=== PATIENT | male | born 1935 | race Caucasian/White ===

== ENCOUNTER 2018-01-17 21:04 | Inpatient (IN) | payer MEDICARE, OTHER ==
[2018-01-17] MEDS ORDERED: Nitroglycerin 2% Ointment 1 INCH/1 GM Packet ONE (21:39)
[2018-01-17 23:04] LABS: Troponin I 0.162 ng/mL (< 0.028)
[2018-01-18 01:20] VITALS: BMI 24.6
[2018-01-18 01:40] LABS: Troponin I 0.195 ng/mL (< 0.028)
[2018-01-18] MEDS ORDERED: Dextrose 50% Abboject 50 ML SYRINGE SLOW IVP PRN (03:07)
[2018-01-18] MEDS ORDERED: Dextrose 5% in Water 1,000 ML IV PRN (03:07)
[2018-01-18] MEDS ORDERED: Insulin Regular 300 UNITS/3 ML VIAL SC PRN (03:07)
[2018-01-18] MEDS ORDERED: Nitroglycerin 0.4 MG TAB (25 Tab Bottle) PO PRN (03:07)
[2018-01-18] MEDS ORDERED: Ondansetron ODT 4 MG TAB PO PRN (03:09)
[2018-01-18] MEDS ORDERED: Acetaminophen 325 MG TAB PO PRN (03:09)
[2018-01-18] MEDS ORDERED: Ondansetron HCl/PF 4 MG/2 ML Vial IVP PRN (03:09)
[2018-01-18] MEDS ORDERED: Senokot 8.6 MG TAB PO PRN (03:09)
[2018-01-18] MEDS ORDERED: Calcium Carbonate 500 MG ChewTAB PO PRN (03:09)
[2018-01-18] MEDS ORDERED: hydrALAZINE 20 MG/ML VIAL SLOW IVP PRN (03:11)
--- NOTE | 2018-01-18 03:36 | HP ---
DATE OF ADMISSION: 01/17/2018 The patient was seen and examined on 01/17/2018. PRIMARY CARE PHYSICIAN: Dr. Lazo. PRIMARY TWISTER TENDER PAPER: Dr. Salvador. CHIEF COMPLAINT: Chest discomfort. HISTORY OF PRESENT ILLNESS: Patient is an 82-year-old white male with coronary artery disease, statu s post CABG x4 in the year 1999, presented to the emergency room with chest discomfort. He initially presented to [facility] and was transferred to this facility. The chest discomfort started this afternoon, which was mild, mainly associated with shortness of yimi th, malaise, lightheadedness, and diaphoresis. He denies any nausea, vomiting, syncope, palpitations . No recent immobilization or travel reported. He is compliant with all of his medications. He als o noticed some bilateral lower extremity edema on and off that has improved today. PAST MEDICAL HISTORY: 1. Coronary artery disease, status post CABG x4 in 1999. 2. Hypertension. 3. Diabetes mellitus type 2. 4. Dyslipidemia. 5. Hypertension. 6. Degenerative joint disease. 7. Gastroesophageal reflux disease. 8. Peripheral vascular disease. 9. Chronic kidney disease stage 3. 10. Allergic rhinitis. 11. History of bradycardia secondary to beta blockers, requiring hospital admission in 2007. PAST SURGICAL HISTORY: 1. Coronary artery bypass grafting 4-vessel in the year 1999. 2. Cholecystectomy. 3. EGD. 4. Back surgery. 5. Carpal tunnel surgery. 6. Colonoscopy. ALLERGIES: No known drug allergies. CURRENT HOME MEDICATIONS: Aspirin 81 mg daily, Lipitor 40 mg at bedtime, folic acid daily, gabapenti n 300 mg b.i.d, Lantus insulin 5 units daily per PCP's office record. SOCIAL HISTORY: Patient currently lives at home. He is a retired truck mechanic. No alcohol, tobacco , or drug use. He is . He is FULL CODE, makes his own decision with the help of his family. FAMILY HISTORY: Heart disease and hypertension runs in his family. PHYSICAL EXAMINATION: VITAL SIGNS: Temperature 97.9, pulse rate of 57, blood pressure 161/84, respirations 20 with O2 satu ration 94% on room air. His blood pressure at [facility] was 168/104. GENERAL: An 82-year-old male, in no apparent distress. HEENT: Atraumatic, normocephalic. Sclerae are anicteric. Moist mucous membranes. No oral lesion. NECK: Supple, no JVD appreciated. No carotid bruit. LUNGS: Clear to auscultation bilaterally. No wheezing, rales, or rhonchi. HEART: S1, S2 present. Regular rate and rhythm. Healed midline scar from previous CABG, 2/6 systol ic murmur over the mitral area. ABDOMEN: Soft, nontender, bowel sounds present. No rebound or guarding. EXTREMITIES: No edema or calf tenderness. NEUROLOGIC: Grossly nonfocal, moves all four extremities. PSYCHIATRY: Alert, awake, oriented x3. SKIN: Warm and dry. LYMPH NODES: No palpable lymph nodes in the neck. PERIPHERAL VASCULAR: Radial pulses palpable bilaterally. MUSCULOSKELETAL: No joint swelling or tenderness. LABORATORY FINDINGS: EKG by my review showed sinus rhythm with left axis deviation. QRS interval wa s 128 milliseconds. Troponin at [facility] was 0.17. BNP was 852. Chemistries showed sodium o f 140, potassium 4, chloride of 104, bicarb 24, BUN 18, creatinine 1.4, glucose of 200, bilirubin 1.5 , alkaline phosphatase 58, AST 21, ALT 13. CBC showed WBC 6.8 with hemoglobin 13.8, hematocrit 42.8, MCV of 84.3, platelet 166. Chest x-ray at [facility] was negative for acute findings. Repeat troponin at this facility was 0.195. IMPRESSION: 1. Chest discomfort, rule out acute coronary syndrome. 2. Elevated BNP with shortness of breath, suspected congestive heart failure. 3. Diabetes mellitus type 2. 4. Hypertension, uncontrolled on ER arrival. 5. Hyperlipidemia. 6. Coronary artery disease, status post coronary artery bypass graft 4-vessel in the year 1999. 7. Gastroesophageal reflux disease. 8. Peripheral vascular disease. 9. Chronic kidney disease stage 3. 10. History of bradycardia secondary to beta blockers requiring hospital admission in 2007. 11. Elevated troponin, probably secondary to demand ischemia. PLAN: The patient will be monitored on the telemetry unit. Gentle diuretics will be initiated. Ech ocardiogram will be obtained. We will keep him n.p.o. past midnight. We will consult Cardiology, Dr Ammon Salvador. We will resume his home medications including aspirin, statin, gabapentin. Insulin sliding scale. Plan of care was discussed with the patient. He stated understanding.
[2018-01-18 05:27] LABS: ALT (SGPT) 8 U/L (8-55); AST (SGOT) 17 U/L (5-34); Albumin 3.8 g/dL (3.4-4.8); Alkaline Phosphatase 47 U/L (40-150); Anion Gap 12 mmol/L (10-20); BUN (Urea Nitrogen) 18 mg/dL (8.4-25.7); Bilirubin, Total 1.3 mg/dL (0.2-1.2); Calc. Creatinine Clearance 48 mL/min (70-130); Calcium 8.8 mg/dL (7.8-10.44); Carbon Dioxide 25 mmol/L (23-31); Chloride 104 mmol/L (98-107); Estimated GFR-MDRD 51; Globulin 2.4 g/dL (2.4-3.5); Glucose 171 mg/dL (83-110); Magnesium 1.9 mg/dL (1.6-2.6); Phosphorus 2.4 mg/dL (2.3-4.7); Potassium 3.7 mmol/L (3.5-5.1); Protein, Total 6.2 g/dL (5.8-8.1); Sodium 137 mmol/L (136-145)
[2018-01-18] MEDS ORDERED: Furosemide 20 MG TAB PO SCH (06:00)
[2018-01-18] MEDS: Gabapentin 300 MG CAP PO SCH ×2 (09:18→21:28)
[2018-01-18] MEDS: Aspirin 81 mg Enteric Coated Tablet PO SCH (09:18)
--- NOTE | 2018-01-18 13:56 | PDOC.PN ---
- Subjective Encounter Start Date: 01/18/18 Encounter Start Time: 13:54 Pt seen for followup re: unstable angina. Reports on and off chest pain, no nausea or vomiting. No fevers or chills. - Objective MAR Reviewed: Yes Result Diagrams: 01/18/18 04:16 EKG Reviewed by me: Yes (Tele: NSR) Phys Exam - Physical Examination Constitutional: NAD HEENT: PERRLA, moist MMs, sclera anicteric, oral pharynx no lesions Neck: no nodes, no JVD, supple, full ROM Respiratory: no wheezing, no rales, no rhonchi, clear to auscultation bilateral Cardiovascular: RRR, no rub Gastrointestinal: soft, non-tender, no distention, positive bowel sounds Musculoskeletal: no edema, pulses present Neurological: moves all 4 limbs Psychiatric: normal affect, A&O x 3 Skin: no rash Dx/Plan (1) Unstable angina Status: Acute Comment: Appreciate cardiology service input, pt for cath on Saturday (2) HTN (hypertension) Code(s): I10 - ESSENTIAL (PRIMARY) HYPERTENSION Status: Chronic Comment: Monitor vital signs, titrate antihypertensives as needed (3) DM2 (diabetes mellitus, type 2) Status: Chronic Comment: continue accuchecks, insulin sliding scale (4) Dyslipidemia Code(s): E78.5 - HYPERLIPIDEMIA, UNSPECIFIED Status: Chronic Comment: continue statin (5) CKD stage 3 due to type 1 diabetes mellitus Code(s): E10.22 - TYPE 1 DIABETES MELLITUS W DIABETIC CHRONIC KIDNEY DISEASE; N18.3 - CHRONIC KIDNEY DISEASE, STAGE 3 (MODERATE) Status: Chronic Comment: stable (6) PVD (peripheral vascular disease) Code(s): I73.9 - PERIPHERAL VASCULAR DISEASE, UNSPECIFIED Status: Chronic Comment: stable (7) DJD (degenerative joint disease) Code(s): M19.90 - UNSPECIFIED OSTEOARTHRITIS, UNSPECIFIED SITE Status: Chronic Comment: stable (8) GERD (gastroesophageal reflux disease) Code(s): K21.9 - GASTRO-ESOPHAGEAL REFLUX DISEASE WITHOUT ESOPHAGITIS Status: Chronic Comment: stable - Plan DVT proph w/heparin * . Pt with unstable angina, needs cath (on Saturday), high risk of adverse cardiac event including if discharged without adequate workup, change status to inpatient. Review of Systems - Review of Systems Constitutional: negative: fever, chills, sweats, weakness, malaise Respiratory: Shortness of Breath. negative: Cough, Hemoptysis, SOB with Excertion, Pleuritic Pain, Wheezing Cardiovascular: chest pain, light headedness. negative: palpitations, orthopnea , paroxysmal nocturnal dyspnea, edema Gastrointestinal: negative: Nausea, Vomiting, Abdominal Pain, Diarrhea, Constipation, Melena, Hematochezia Skin: negative: Rash, Lesions, Enrique, Bruising - Medications/Allergies Allergies/Adverse Reactions: Allergies Allergy/AdvReac Type Severity Reaction Status Date / Time No Known Allergies Allergy Verified 01/17/18 23:28 Medications: Current Medications Acetaminophen (Tylenol) 650 mg PO Q4H PRN PRN Reason: Headache/Fever or Pain Aspirin (Ecotrin) 81 mg PO DAILY [facility] Last Admin: 01/18/18 09:18 Dose: 81 mg Atorvastatin Calcium (Lipitor) 40 mg PO HS [facility] Calcium Carbonate (Tums) 1,000 mg PO Q4H PRN PRN Reason: Heartburn or Indigestion Dextrose/Water (Dextrose 50%) 25 gm SLOW IVP PRN PRN PRN Reason: Hypoglycemia Gabapentin (Neurontin) 300 mg PO BID [facility] Last Admin: 01/18/18 09:18 Dose: 300 mg Glucagon (Glucagon) 1 mg IM PRN PRN PRN Reason: Hypoglycemia Hydralazine HCl (Apresoline) 10 mg SLOW IVP Q4H PRN PRN Reason: SBP Greater Than 180 Dextrose/Water (D5w) 1,000 mls @ 0 mls/hr IV .Q0M PRN; As Directed PRN Reason: Hypoglycemia Insulin Human Regular (Humulin R) 0 units SC .MILD SLIDING SCALE PRN PRN Reason: Mild Correctional Scale Insulin Human Regular (Humulin R) 0 units SC .BEDTIME SLIDING SC PRN PRN Reason: Bedtime Correctional Scale Miscellaneous Information (Communication Order-Pharmacy) 0 each .CATH SATURDAY [facility] Stop: 01/20/18 15:00 Nitroglycerin (Nitrostat) 0.4 mg PO Q5MIN PRN PRN Reason: Chest Pain Ondansetron HCl (Zofran Odt) 4 mg PO Q6H PRN PRN Reason: Nausea/Vomiting Ondansetron HCl (Zofran) 4 mg IVP Q6H PRN PRN Reason: Nausea/Vomiting Senna (Senokot) 2 tab PO HSPRN PRN PRN Reason: Constipation Sodium Chloride (Flush - Normal Saline) 10 ml IVF PRN PRN PRN Reason: Saline Flush
--- NOTE | 2018-01-18 15:25 | ULT ---
CAROTID DUPLEX SONOGRAM: Date: 01/18/18 HISTORY: Carotid bruits. Vascular disease. FINDINGS: RIGHT: Moderate plaque. Color and spectral Doppler evaluation, peak systolic velocity of 88 cm/second, and I CA/CCA ratio of 1.4 suggests no hemodynamically significant stenosis within the extracranial right IC A. Antegrade flow is present within the vertebral artery. LEFT: Moderate plaque. Color and spectral Doppler evaluation, peak systolic velocity of 74 cm/second, and I CA/CCA ratio of 0.8 suggests no hemodynamically significant stenosis within the extracranial left ICA . Antegrade flow is present within the vertebral artery. IMPRESSION: Atherosclerosis. There is no sonographic evidence of significant extracranial ICA stenosis. POS: YUAN
[2018-01-18] MEDS: Heparin 5,000 UNITS/ML VIAL SC SCH ×2 (15:37→21:28)
--- NOTE | 2018-01-18 17:13 | CON ---
DATE OF CONSULTATION: 01/18/2018 DATE OF ADMISSION: 01/17/2018 INDICATION FOR CONSULTATION: An 82-year-old patient with known coronary artery disease, status post bypass surgery in 1999 who underwent repeat cardiac catheterization in 2003. He has not had a cardia c catheterization since that time. He did have stress testing in 2016, which showed some indication of possible ischemia. It was felt best to continue conservative management at that time unless he be came symptomatic. His bypass surgery in 1999 included a saphenous vein graft to the diagonal branch and he had a saphenous vein graft to the distal second obtuse marginal branch and also a radial branc h which was piggybacked off this graft to the left anterior descending artery. He has done reasonabl y well considering his bypass surgery was in 1999. His last cardiac catheterization was in 2003. He has developed chest discomfort and has been short of breath for about a month. He said that yesterd ay the chest pain was in the lower retrosternal area, then radiated to the neck area. It occurred wh ile he was at work at rest. He has not taken any medications. He went to the Emergency Room and was then transferred to our facility. According to him, he did not receive any medicines in the emergen cy room in [place], uncertain whether or not something may have been given by the time he arrived her e, he only had minimal pain and now he has no pain. His cardiac enzymes were indeterminate with trop onin I of 0.162 which increased up to 0.195; this is now back down to 0.180. There were no MVs that I can find. Otherwise, EKG was relatively unremarkable. He has a nonspecific interventricular condu ction abnormality, but no ST segment changes were noted. His BNP was slightly elevated at 854. He d id have short runs of supraventricular tachycardia, but apparently was asymptomatic. At this time, scotty bai remains stable and he will undergo further evaluation by cardiac catheterization most likely on Sat. His last ejection fraction was about 32% by stress testing in 07/2017. At the time of the stre ss test in 2016, he did have a small area of apical ischemia and moderate size area of septal ischemi a and inferior scar was present with colin-infarct ischemia. Ejection fraction was 32%. PAST MEDICAL HISTORY: Significant for coronary artery disease, bypass surgery, history of hypertensi on, hypercholesterolemia, and gastroesophageal reflux disease. He had lumbar surgery, he had tonsill ectomy. He has hyperlipidemia. He has had a cardiomyopathy with decreased ejection fraction, chroni c kidney disease. Type 2 diabetes and history of arrhythmias in the past. ALLERGIES: None. MEDICATIONS PRIOR TO ADMISSION: Included atorvastatin 40 mg a day, Januvia 25 mg daily, vitamin D3, vitamin B12, glipizide ER 10 mg extended release 24 hours, gabapentin 300 mg 2 tablets 3 times a day, niacin 500 mg 2 tablets b.i.d., folic acid 1 mg daily, aspirin 81 mg a day, Tricor 145 mg a day, and sertraline 25 mg daily. REVIEW OF SYSTEMS: Twelve point review of systems unremarkable. He denied any new HEENT complaints, visual changes, hearing loss, or tinnitus. He had no significant pulmonary complaints except for th e shortness of breath. He denies any asthma or emphysema. He did smoke for about 50 years and stopp ed smoking at the time of his bypass surgery. Gastrointestinal: He denies any nausea, vomiting or d iarrhea. Genitourinary: No complaints such as dysuria, polyuria, or hematuria. Musculoskeletal: He thought his legs were swollen, but he has no edema that we could ascertain. Otherwise, he denie s any claudication type symptoms. Neurologically, no history of seizures or syncope. PHYSICAL EXAMINATION: GENERAL: Reveals a well-developed, well-nourished, elderly gentleman who is in no acute distress at this time. He is alert and oriented. VITAL SIGNS: Blood pressure was 147/77, heart rate is 56 and regular, respiratory rate 16. He is af ebrile. O2 saturation 94%. HEENT: Reveals the head to be normocephalic and atraumatic. He has bilateral carotid bruits, left m ore than the right. CHEST: Clear to auscultation, somewhat decreased breath sounds at the bases, but no rales, rhonchi o r wheezing were noted. CARDIOVASCULAR: Exam reveals a regular rate and rhythm with normal S1, S2. There were no significan t murmurs, heaves, thrills, bruits or rubs. He does have a systolic murmur at the apex compatible wi th most likely mitral valve regurgitation. ABDOMEN: Soft and nontender with positive bowel sounds. No organomegaly or masses were noted. He h as well-healed midline surgical incision after median sternotomy. EXTREMITIES: Femoral pulses are present. He has bilateral femoral bruits. He has popliteal pulses which are present. The left is somewhat decreased. Pedal pulses are present, somewhat diminished, b ut are present. NEUROLOGIC: The patient appears to be fully intact. He has normal strength and tone. IMAGING: EKG shows as noted above a nonspecific interventricular conduction abnormality, but no ST s egment changes to indicate ischemia. LABORATORY DATA: As noted above. His creatinine also was 1.33. Sodium is 137. He did have an LDL level which was back in 11/2017 which showed an LDL level of 152. We will need to ensure that he is taking Lipitor or some other medication of statin for his cholesterol. He did have carotid study in 2013. This may need to be repeated for evaluation to determine whether or not his carotid stenosis h as increased or we may consider doing a carotid arteriograms at the time of his cardiac catheterizati on on Saturday to determine this extent of his carotid artery stenosis. We would be more than happy to continue to follow the patient with you throughout his course, we will plan for cardiac catheterizat ion on Saturday and I have already discussed this with the patient. In the meantime, we will continue his medications with beta blockers, SUNIL inhibitors and statin medications and nitroglycerin as needed . IMPRESSION: 1. Unstable angina with history of coronary artery disease and bypass surgery with an abnormal stres s test in 08/2017. We will plan for cardiac catheterization on Saturday. I have explained the procedu re and the risks to the patient include bleeding, infection, possibly a myocardial infarction, cerebr ovascular accident, renal insufficiency, allergic contrast reaction and possibly of . He unders tands and agrees to proceed. 2. History of diabetes. This will be dealt with by the primary care service. His blood sugar is so mewhat elevated today at 171. He is on insulin on a sliding scale. His hemoglobin A1c is also incre ased in the office, he has not been taking very good control of his diabetes. 3. Hypercholesterolemia. His cholesterol level recently was elevated and I am uncertain whether or not he was taking his medications, he was supposed to be on Lipitor. We will see whether or not he w ill continue taking his medications. If he is unable to tolerate Lipitor, we may try another medicat ion or he may need to go onto the inhibitors to decrease low risk cholesterol. 4. History of hypertension. This is under good control at this time. 5. History of tobacco abuse. He has not smoked for almost 20 years since his bypass surgery. 6. Peripheral vascular disease. He obviously has carotid artery disease. He may need to undergo a Doppler study either by carotid arteriograms at the time of his cardiac catheterization on Saturday. 7. Diabetic neuropathy. He will continue taking gabapentin. We will continue to follow the patient . We will obtain a repeat cholesterol level on this patient.
[2018-01-18] MEDS ORDERED: INSULIN GLARGINE HUM REC ANLOG 5 UNIT SQ SCH (21:00)
[2018-01-18] MEDS ORDERED: [UNRECOGNIZED DRUG - OTHER] SQ SCH (21:00)
[2018-01-18] MEDS: Atorvastatin Calcium 40 MG TAB PO SCH (21:28)
[2018-01-18] MEDS: Insulin Detemir 100 UNITS/ML 5 UNITS in Pre-Filled Syringe 1 EACH SC SCH (21:28)
[2018-01-19 05:51] LABS: Cardiac Risk 3.9 (Less than 4.5)
[2018-01-19] MEDS: Gabapentin 300 MG CAP PO SCH ×2 (11:00→22:03)
[2018-01-19] MEDS: Niacin 500 MG TAB PO SCH (11:00)
[2018-01-19] MEDS: Fenofibrate Nanocrystallized 145 MG TAB PO SCH (11:00)
[2018-01-19] MEDS: Aspirin 81 mg Enteric Coated Tablet PO SCH (11:00)
[2018-01-19] MEDS: Folic Acid 1 MG TAB PO SCH (11:01)
[2018-01-19] MEDS: Heparin 5,000 UNITS/ML VIAL SC SCH ×3 (11:01→22:03)
--- NOTE | 2018-01-19 12:44 | PDOC.PN ---
- Subjective Encounter Start Date: 01/19/18 Encounter Start Time: 12:43 Pt seen for followup re: unstable angina. reports feeling better. had some chest pain overnight. No nausea or vomiting. - Objective Vital Signs & Weight: Vital Signs (12 hours) Temp Pulse Resp BP BP Pulse Ox 01/19/18 08:00 97.7 F 60 18 152/82 H 95 01/19/18 04:02 98.0 F 62 18 158/84 H 95 01/19/18 00:58 98.1 F 56 L 17 167/81 H 94 L I&O: 01/18/18 01/19/18 01/20/18 06:59 06:59 06:59 Intake Total 730 360 Output Total 800 Balance -70 360 Result Diagrams: 01/18/18 04:16 Additional Labs: Accuchecks 01/19/18 01/19/18 01/18/18 11:13 05:55 20:15 POC Glucose 140 H 150 H 222 H 01/18/18 16:11 POC Glucose 143 H Phys Exam - Physical Examination Constitutional: NAD HEENT: PERRLA, moist MMs, sclera anicteric, oral pharynx no lesions Neck: no nodes, no JVD, supple, full ROM Respiratory: no wheezing, no rales, no rhonchi, clear to auscultation bilateral Cardiovascular: RRR, no rub Gastrointestinal: soft, non-tender, no distention, positive bowel sounds Musculoskeletal: pulses present Neurological: moves all 4 limbs Psychiatric: normal affect Skin: no rash Dx/Plan (1) Unstable angina Status: Acute Comment: For cath tomorrow (2) HTN (hypertension) Code(s): I10 - ESSENTIAL (PRIMARY) HYPERTENSION Status: Chronic Comment: titrate antihypertensives as needed (3) DM2 (diabetes mellitus, type 2) Status: Chronic Comment: On accuchecks, insulin sliding scale (4) Dyslipidemia Code(s): E78.5 - HYPERLIPIDEMIA, UNSPECIFIED Status: Chronic Comment: On statin (5) CKD stage 3 due to type 1 diabetes mellitus Code(s): E10.22 - TYPE 1 DIABETES MELLITUS W DIABETIC CHRONIC KIDNEY DISEASE; N18.3 - CHRONIC KIDNEY DISEASE, STAGE 3 (MODERATE) Status: Chronic Comment: stable (6) PVD (peripheral vascular disease) Code(s): I73.9 - PERIPHERAL VASCULAR DISEASE, UNSPECIFIED Status: Chronic Comment: stable (7) DJD (degenerative joint disease) Code(s): M19.90 - UNSPECIFIED OSTEOARTHRITIS, UNSPECIFIED SITE Status: Chronic Comment: stable (8) GERD (gastroesophageal reflux disease) Code(s): K21.9 - GASTRO-ESOPHAGEAL REFLUX DISEASE WITHOUT ESOPHAGITIS Status: Chronic Comment: stable - Plan * . Review of Systems - Review of Systems Constitutional: negative: fever, chills, sweats, weakness, malaise Respiratory: negative: Cough, Shortness of Breath, Hemoptysis, Pleuritic Pain, Wheezing Cardiovascular: chest pain. negative: palpitations, orthopnea, paroxysmal nocturnal dyspnea, edema, light headedness Gastrointestinal: negative: Nausea, Vomiting, Abdominal Pain, Diarrhea, Constipation, Melena, Hematochezia Genitourinary: negative: Dysuria, Frequency, Incontinence, Hematuria, Retention Skin: negative: Rash, Lesions, Enrique, Bruising - Medications/Allergies Allergies/Adverse Reactions: Allergies Allergy/AdvReac Type Severity Reaction Status Date / Time No Known Allergies Allergy Verified 01/17/18 23:28 Medications: Current Medications Acetaminophen (Tylenol) 650 mg PO Q4H PRN PRN Reason: Headache/Fever or Pain Aspirin (Ecotrin) 81 mg PO DAILY [facility] Last Admin: 01/19/18 11:00 Dose: 81 mg Atorvastatin Calcium (Lipitor) 40 mg PO HS [facility] Last Admin: 01/18/18 21:28 Dose: 40 mg Calcium Carbonate (Tums) 1,000 mg PO Q4H PRN PRN Reason: Heartburn or Indigestion Dextrose/Water (Dextrose 50%) 25 gm SLOW IVP PRN PRN PRN Reason: Hypoglycemia Fenofibrate (Tricor) 145 mg PO DAILY [facility] Last Admin: 01/19/18 11:00 Dose: 145 mg Folic Acid (Folvite) 1 mg PO DAILY [facility] Last Admin: 01/19/18 11:01 Dose: 1 mg Gabapentin (Neurontin) 300 mg PO BID [facility] Last Admin: 01/19/18 11:00 Dose: 300 mg Glucagon (Glucagon) 1 mg IM PRN PRN PRN Reason: Hypoglycemia Heparin Sodium (Porcine) (Heparin) 5,000 units SC TID [facility] Last Admin: 01/19/18 11:01 Dose: 5,000 units Hydralazine HCl (Apresoline) 10 mg SLOW IVP Q4H PRN PRN Reason: SBP Greater Than 180 Dextrose/Water (D5w) 1,000 mls @ 0 mls/hr IV .Q0M PRN; As Directed PRN Reason: Hypoglycemia Insulin Detemir 5 units/ (Miscellaneous Medication) 0.05 mls @ 0 mls/hr SC HS [facility] Last Admin: 01/18/18 21:28 Dose: 0.05 mls Insulin Human Regular (Humulin R) 0 units SC .MILD SLIDING SCALE PRN PRN Reason: Mild Correctional Scale Insulin Human Regular (Humulin R) 0 units SC .BEDTIME SLIDING SC PRN PRN Reason: Bedtime Correctional Scale Miscellaneous Information (Communication Order-Pharmacy) 0 each .CATH SATURDAY [facility] Stop: 01/20/18 15:00 Niacin (Niacin) 500 mg PO DAILY [facility] Last Admin: 01/19/18 11:00 Dose: 500 mg Nitroglycerin (Nitrostat) 0.4 mg PO Q5MIN PRN PRN Reason: Chest Pain Ondansetron HCl (Zofran Odt) 4 mg PO Q6H PRN PRN Reason: Nausea/Vomiting Ondansetron HCl (Zofran) 4 mg IVP Q6H PRN PRN Reason: Nausea/Vomiting Senna (Senokot) 2 tab PO HSPRN PRN PRN Reason: Constipation Sertraline HCl (Zoloft) 25 mg PO DAILY [facility] Last Admin: 01/19/18 11:01 Dose: 25 mg Sodium Chloride (Flush - Normal Saline) 10 ml IVF PRN PRN PRN Reason: Saline Flush
--- NOTE | 2018-01-19 14:45 | PDOC.CTH ---
<Sravanthi Valdez - Last Filed: 01/19/18 14:42> Cardiology Progress Note - Subjective The pt seen and examined. No overnight events. No cardiac complaints. He walked around the unit twice today without any cardiac complaints. 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 - Labs Result Diagrams: 01/18/18 04:16 Troponin/CKMB Troponin I 0.180 ng/mL (< 0.028) H 01/18/18 04:16 - Assessment/Plan 1. 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 Start Coreg 3.125mg BID from [employer]. Cardiac cath on 01/20/18. 2. HTN - start Coreg 3.125mg BID; cont. to monitor 3. Hyperlipidemia - on Niacin and Lipitor; LDL on 01/19/18 was 55. 4. CKD stage 3 - stable; cont. monitor 5. DM type 2 - managed by pcp 6. GERD - stable MAR reviewed * Plan for cardiac cath on 01/20/[address] Salvador already discussed with the pt about the procedure and the risk of the procedure. He does not have any questions about the procedure and the risk of cardiac cath at this moment. Review of Systems - Review of Systems Constitutional: reports: no symptoms reported EENTM: reports: no symptoms reported Respiratory: reports: no symptoms reported Cardiac (ROS): reports: no symptoms reported ABD/GI: reports: no symptoms reported : reports: no symptoms reported Musculoskeletal: reports: no symptoms reported <Christ Salvador - Last Filed: 01/19/18 19:36> Cardiology Progress Note - Objective Vital Signs Temp Pulse Resp BP Pulse Ox 01/19/18 16:00 98.3 F 66 22 H 149/72 H 94 L 01/19/18 12:00 98.1 F 62 18 148/78 H 95 01/19/18 08:00 97.7 F 60 18 152/82 H 95 01/18/18 01/19/18 01/20/18 06:59 06:59 06:59 Intake Total 730 1080 Output Total 800 Balance -70 1080 - Labs Result Diagrams: 01/18/18 04:16 Troponin/CKMB Troponin I 0.180 ng/mL (< 0.028) H 01/18/18 04:16 - Assessment/Plan Pt. seen and eval. by me. He denies any new complaints today. No chest pain. RRR. Few basilar rales. I agree with the A/P by the BAROMETERS CALIBRATOR. Plan for cath tomorrow.
[2018-01-19] MEDS: Carvedilol 3.125 MG TAB PO SCH (18:37)
[2018-01-19] MEDS: Insulin Detemir 100 UNITS/ML 5 UNITS in Pre-Filled Syringe 1 EACH SC SCH (22:03)
[2018-01-19] MEDS: Atorvastatin Calcium 40 MG TAB PO SCH (22:03)
[2018-01-20] MEDS: Fenofibrate Nanocrystallized 145 MG TAB PO SCH (04:59)
[2018-01-20] MEDS: Niacin 500 MG TAB PO SCH (05:00)
[2018-01-20] MEDS: Aspirin 81 mg Enteric Coated Tablet PO SCH (05:00)
[2018-01-20] MEDS: Carvedilol 3.125 MG TAB PO SCH ×2 (05:00→23:29)
[2018-01-20] MEDS: Gabapentin 300 MG CAP PO SCH ×2 (05:00→21:17)
[2018-01-20] MEDS: Folic Acid 1 MG TAB PO SCH (05:00)
[2018-01-20] MEDS: Heparin 5,000 UNITS/ML VIAL SC SCH ×3 (09:43→21:17)
--- NOTE | 2018-01-20 13:59 | PDOC.CTH ---
<Sravanthi Valdez - Last Filed: 01/20/18 13:56> Cardiology Progress Note - Subjective The pt seen and examined. No overnight events. No cardiac complaints. - Objective Vital Signs Temp Pulse Resp BP Pulse Ox 01/20/18 11:00 97.8 F 52 L 16 122/58 L 97 01/20/18 08:00 97.8 F 52 L 16 95 01/20/18 07:35 96.1 F L 50 L 18 118/60 95 01/20/18 05:37 94 L 01/20/18 04:00 97.5 F L 52 L 18 134/63 01/19/18 01/20/18 01/21/18 06:59 06:59 06:59 Intake Total 730 1190 Output Total 800 775 Balance -70 415 - Physical Examination General/Neuro: alert & oriented x3 Neck: no JVD present Lungs: CTA Heart: RRR Abdomen: soft Extremities: other: (No edema) - Telemetry Telemetry Rhythm: SB 48-50s - Labs Result Diagrams: 01/18/18 04:16 Troponin/CKMB Troponin I 0.180 ng/mL (< 0.028) H 01/18/18 04:16 - Assessment/Plan 1. 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 Start Coreg 3.125mg BID from tonight. Cardiac cath on 01/20/18. 2. HTN - stable; cont. to monitor 3. Hyperlipidemia - on Niacin and Lipitor; LDL on 01/19/18 was 55. 4. CKD stage 3 - stable; cont. monitor 5. DM type 2 - managed by pcp 6. GERD - stable MAR reviewed * Plan for cardiac cath on 01/21/[address] Salvdaor already discussed with the pt about the procedure and the risk of the procedure. He does not have any questions about the procedure and the risk of cardiac cath at this moment. Review of Systems - Review of Systems Constitutional: reports: no symptoms reported EENTM: reports: no symptoms reported Respiratory: reports: no symptoms reported Cardiac (ROS): reports: no symptoms reported ABD/GI: reports: no symptoms reported : reports: no symptoms reported <Christ Salvador - Last Filed: 01/20/18 17:45> Cardiology Progress Note - Objective Vital Signs Temp Pulse Resp BP Pulse Ox 01/20/18 16:00 97.9 F 50 L 16 137/65 97 01/20/18 11:00 97.8 F 52 L 16 122/58 L 97 01/20/18 08:00 97.8 F 52 L 16 95 01/20/18 07:35 96.1 F L 50 L 18 118/60 95 01/19/18 01/20/18 01/21/18 06:59 06:59 06:59 Intake Total 730 1190 Output Total 800 775 Balance -70 415 - Labs Result Diagrams: 01/18/18 04:16 Troponin/CKMB Troponin I 0.180 ng/mL (< 0.028) H 01/18/18 04:16 - Assessment/Plan Pt seen and eval. by me. i agree with the a/P by the COMMUNITY OUTREACH COORDINATOR. Plan for cath tomorrow AM.
--- NOTE | 2018-01-20 15:25 | PDOC.PN ---
- Subjective Encounter Start Date: 01/20/18 Encounter Start Time: 15:23 Pt seen for followup re: unstable angina. Denies chest pain, shortness of breath, fevers or chills. No nausea or vomiting. - Objective MAR Reviewed: Yes Vital Signs & Weight: Vital Signs (12 hours) Temp Pulse Resp BP Pulse Ox 01/20/18 11:00 97.8 F 52 L 16 122/58 L 97 01/20/18 08:00 97.8 F 52 L 16 95 01/20/18 07:35 96.1 F L 50 L 18 118/60 95 01/20/18 05:37 94 L 01/20/18 04:00 97.5 F L 52 L 18 134/63 I&O: 01/19/18 01/20/18 01/21/18 06:59 06:59 06:59 Intake Total 730 1190 Output Total 800 775 Balance -70 415 Result Diagrams: 01/18/18 04:16 Additional Labs: Accuchecks 01/20/18 01/19/18 01/19/18 11:07 20:59 16:40 POC Glucose 125 H 150 H 143 H EKG Reviewed by me: Yes (Tele: sinus bradycardia) Phys Exam - Physical Examination Constitutional: NAD HEENT: moist MMs Neck: supple Respiratory: clear to auscultation bilateral Cardiovascular: RRR Gastrointestinal: soft Neurological: moves all 4 limbs Psychiatric: normal affect Dx/Plan (1) Unstable angina Status: Acute Comment: Cath planned for tomorrow (2) HTN (hypertension) Code(s): I10 - ESSENTIAL (PRIMARY) HYPERTENSION Status: Chronic Comment: Monitor vital signs, titrate antihypertensives as needed (3) DM2 (diabetes mellitus, type 2) Status: Chronic Comment: accuchecks, insulin sliding scale (4) Dyslipidemia Code(s): E78.5 - HYPERLIPIDEMIA, UNSPECIFIED Status: Chronic Comment: continue statin (5) CKD stage 3 due to type 1 diabetes mellitus Code(s): E10.22 - TYPE 1 DIABETES MELLITUS W DIABETIC CHRONIC KIDNEY DISEASE; N18.3 - CHRONIC KIDNEY DISEASE, STAGE 3 (MODERATE) Status: Chronic Comment: stable (6) PVD (peripheral vascular disease) Code(s): I73.9 - PERIPHERAL VASCULAR DISEASE, UNSPECIFIED Status: Chronic Comment: stable (7) DJD (degenerative joint disease) Code(s): M19.90 - UNSPECIFIED OSTEOARTHRITIS, UNSPECIFIED SITE Status: Chronic Comment: stable (8) GERD (gastroesophageal reflux disease) Code(s): K21.9 - GASTRO-ESOPHAGEAL REFLUX DISEASE WITHOUT ESOPHAGITIS Status: Chronic Comment: stable - Plan * . Review of Systems - Review of Systems Respiratory: negative: Cough, Shortness of Breath, SOB with Excertion, Pleuritic Pain, Wheezing Cardiovascular: negative: chest pain, palpitations, orthopnea, paroxysmal nocturnal dyspnea, edema, light headedness Skin: negative: Rash, Lesions, Enrique, Bruising - Medications/Allergies Allergies/Adverse Reactions: Allergies Allergy/AdvReac Type Severity Reaction Status Date / Time No Known Allergies Allergy Verified 01/17/18 23:28 Medications: Current Medications Acetaminophen (Tylenol) 650 mg PO Q4H PRN PRN Reason: Headache/Fever or Pain Aspirin (Ecotrin) 81 mg PO DAILY [facility] Last Admin: 01/20/18 05:00 Dose: 81 mg Atorvastatin Calcium (Lipitor) 40 mg PO HS [facility] Last Admin: 01/19/18 22:03 Dose: 40 mg Calcium Carbonate (Tums) 1,000 mg PO Q4H PRN PRN Reason: Heartburn or Indigestion Carvedilol (Coreg) 3.125 mg PO BID-[facility] Last Admin: 01/20/18 05:00 Dose: 3.125 mg Dextrose/Water (Dextrose 50%) 25 gm SLOW IVP PRN PRN PRN Reason: Hypoglycemia Fenofibrate (Tricor) 145 mg PO DAILY [facility] Last Admin: 01/20/18 04:59 Dose: 145 mg Folic Acid (Folvite) 1 mg PO DAILY [facility] Last Admin: 01/20/18 05:00 Dose: 1 mg Gabapentin (Neurontin) 300 mg PO BID [facility] Last Admin: 01/20/18 05:00 Dose: 300 mg Glucagon (Glucagon) 1 mg IM PRN PRN PRN Reason: Hypoglycemia Heparin Sodium (Porcine) (Heparin) 5,000 units SC TID [facility] Last Admin: 01/20/18 09:43 Dose: Not Given Hydralazine HCl (Apresoline) 10 mg SLOW IVP Q4H PRN PRN Reason: SBP Greater Than 180 Dextrose/Water (D5w) 1,000 mls @ 0 mls/hr IV .Q0M PRN; As Directed PRN Reason: Hypoglycemia Insulin Detemir 5 units/ (Miscellaneous Medication) 0.05 mls @ 0 mls/hr SC [facility] Last Admin: 01/19/18 22:03 Dose: Not Given Insulin Human Regular (Humulin R) 0 units SC .MILD SLIDING SCALE PRN PRN Reason: Mild Correctional Scale Insulin Human Regular (Humulin R) 0 units SC .BEDTIME SLIDING SC PRN PRN Reason: Bedtime Correctional Scale Niacin (Niacin) 500 mg PO DAILY [facility] Last Admin: 01/20/18 05:00 Dose: 500 mg Nitroglycerin (Nitrostat) 0.4 mg PO Q5MIN PRN PRN Reason: Chest Pain Ondansetron HCl (Zofran Odt) 4 mg PO Q6H PRN PRN Reason: Nausea/Vomiting Ondansetron HCl (Zofran) 4 mg IVP Q6H PRN PRN Reason: Nausea/Vomiting Senna (Senokot) 2 tab PO HSPRN PRN PRN Reason: Constipation Sertraline HCl (Zoloft) 25 mg PO DAILY [facility] Last Admin: 01/20/18 05:00 Dose: 25 mg Sodium Chloride (Flush - Normal Saline) 10 ml IVF PRN PRN PRN Reason: Saline Flush
[2018-01-20] MEDS: Atorvastatin Calcium 40 MG TAB PO SCH (21:17)
[2018-01-20] MEDS: Insulin Detemir 100 UNITS/ML 5 UNITS in Pre-Filled Syringe 1 EACH SC SCH (21:24)
[2018-01-21] MEDS: Niacin 500 MG TAB PO SCH (05:33)
[2018-01-21] MEDS: Folic Acid 1 MG TAB PO SCH (05:34)
[2018-01-21] MEDS: Fenofibrate Nanocrystallized 145 MG TAB PO SCH (05:34)
[2018-01-21] MEDS: Gabapentin 300 MG CAP PO SCH ×2 (05:34→22:20)
[2018-01-21] MEDS: Aspirin 81 mg Enteric Coated Tablet PO SCH (05:34)
[2018-01-21] MEDS: Heparin 5,000 UNITS/ML VIAL SC SCH ×3 (07:25→22:20)
[2018-01-21] MEDS ORDERED: Carvedilol 3.125 MG TAB PO SCH (08:00)
[2018-01-21] MEDS ORDERED: Lidocaine 1% (PF) 30 ML VIAL ONE (08:27)
[2018-01-21] MEDS ORDERED: Iopamidol 370 76% 100 ML VIAL ONE (08:49)
[2018-01-21] MEDS ORDERED: Clopidogrel Bisulfate 75 MG TAB PO SCH ×2 (10:05→10:15)
[2018-01-21] MEDS ORDERED: Nitroglycerin 0.4 MG TAB (25 Tab Bottle) SL PRN (10:05)
[2018-01-21] MEDS ORDERED: traMADol HCl 50 MG TAB PO PRN (10:05)
[2018-01-21] MEDS ORDERED: Sodium Chloride 0.9% 200 ML IV SCH (10:05)
[2018-01-21] MEDS ORDERED: Acetaminophen/Codeine 30-300mg Tablet PO PRN ×2 (10:05)
--- NOTE | 2018-01-21 13:03 | PDOC.CTH ---
<Sravanthi Valdez - Last Filed: 01/21/18 13:00> Cardiology Progress Note - Subjective The pt seen and examined. No overnight events. No cardiac complaints. The Rt Fem cath site is no hematoma, hemorrhage. Hx of SB HR down to 36 for 10 sec. The pt was asymptomatic. Coreg was decreased today. - Objective Vital Signs Temp Pulse Resp BP BP Pulse Ox 01/21/18 11:30 97.5 F L 52 L 16 135/56 L 97 01/21/18 08:00 97.7 F 61 16 01/21/18 07:50 97.7 F 61 16 130/74 100 01/21/18 04:00 97.6 F 50 L 20 131/60 96 01/20/18 01/21/18 01/22/18 06:59 06:59 06:59 Intake Total 1190 480 Output Total 775 800 Balance 415 -320 - Physical Examination General/Neuro: alert & oriented x3 Neck: no JVD present Lungs: CTA Heart: RRR Abdomen: soft Extremities: other: (No edema) - Telemetry Telemetry Rhythm: SR - Labs Result Diagrams: 01/18/18 04:16 Troponin/CKMB Troponin I 0.180 ng/mL (< 0.028) H 01/18/18 04:16 - Assessment/Plan 1. CAD with Hx of CABG x 3 in saph-OM2, saph-diag, and radial-LAD in 2002 - Cath on 01/21/18 showed mod diffuse CAD with EF 45-50% and Patent grafts. On ASA 81mg daily, Coreg, Plavix, Niacin, Tricore, and Lipitor. 2. HTN - Decrease Coreg from 3.125 to 1.5625mg BID for Bradycardia; cont. to monitor 3. Hyperlipidemia - on Niacin, Tricor and Lipitor; LDL on 01/19/18 was 55. 4. CKD stage 3 - stable; cont. monitor 5. DM type 2 - managed by pcp 6. GERD - stable MAR reviewed * From Cardiac standpoint, the pt can be d/gustavo this PM when his VS is stable and mobilize without any difficulties. * The pt will f/u with Dr Salvador' office within 2-4 wks. * Discharge med: BBlocker, Plavix, ASA, Niacin, Tricore, and Lipitor, but no SUNIL due to hx of CKD. Review of Systems - Review of Systems Constitutional: reports: no symptoms reported EENTM: reports: no symptoms reported Respiratory: reports: no symptoms reported Cardiac (ROS): reports: no symptoms reported ABD/GI: reports: no symptoms reported : reports: no symptoms reported Musculoskeletal: reports: no symptoms reported Skin: reports: no symptoms reported <Christ Salvador - Last Filed: 01/22/18 08:56> Cardiology Progress Note - Objective Vital Signs Temp Pulse Resp BP BP Pulse Ox 01/22/18 07:42 97.7 F 50 L 16 147/66 H 98 01/22/18 04:00 97.9 F 47 L 18 156/67 H 98 Weight 167 lb 8 oz 01/21/18 01/22/18 01/23/18 06:59 06:59 06:59 Intake Total 480 950 Output Total 800 1500 Balance -320 -550 - Labs Result Diagrams: 01/18/18 04:16 Troponin/CKMB Troponin I 0.180 ng/mL (< 0.028) H 01/18/18 04:16 - Assessment/Plan Pt. seen and eval. by me. I agree with the A/P by the TOWER TECHNICIAN. Doing well s/p cardiac cath.
[2018-01-21] MEDS: Insulin Regular 300 UNITS/3 ML VIAL SC PRN ×2 (13:27→17:55)
[2018-01-21] MEDS: Carvedilol 3.125 MG TAB PO SCH (17:11)
--- NOTE | 2018-01-21 17:52 | PDOC.PN ---
- Subjective Encounter Start Date: 01/21/18 Encounter Start Time: 15:00 Pt seen for followup re: unstable angina. Denies chest pain or shortness of breath. - Objective Vital Signs & Weight: Vital Signs (12 hours) Temp Pulse Pulse Pulse Resp BP BP 01/21/18 15:27 97.7 F 54 L 17 01/21/18 14:02 48 L 63 121/57 L 142/65 H 01/21/18 11:30 97.5 F L 52 L 16 01/21/18 08:00 97.7 F 61 16 01/21/18 07:50 97.7 F 61 16 BP BP Pulse Ox Pulse Ox Pulse Ox 01/21/18 15:27 126/58 L 95 01/21/18 14:02 98 94 L 01/21/18 11:30 135/56 L 97 01/21/18 08:00 01/21/18 07:50 130/74 100 I&O: 01/20/18 01/21/18 01/22/18 06:59 06:59 06:59 Intake Total 1190 480 Output Total 775 800 Balance 415 -320 Result Diagrams: 01/18/18 04:16 Additional Labs: Accuchecks 01/21/18 01/21/18 01/21/18 17:06 13:21 06:01 POC Glucose 170 H 242 H 186 H 01/20/18 21:26 POC Glucose 218 H Phys Exam - Physical Examination Constitutional: NAD HEENT: moist MMs Neck: supple Respiratory: clear to auscultation bilateral Cardiovascular: RRR Gastrointestinal: soft Neurological: moves all 4 limbs Psychiatric: normal affect Skin: no rash Dx/Plan (1) Unstable angina Status: Acute Comment: Grafts patent on cardiac cath. Medical management advised. (2) HTN (hypertension) Code(s): I10 - ESSENTIAL (PRIMARY) HYPERTENSION Status: Chronic Comment: Started on low-dose Coreg, monitor vital signs. (3) DM2 (diabetes mellitus, type 2) Status: Chronic Comment: continue accuchecks, insulin sliding scale (4) Dyslipidemia Code(s): E78.5 - HYPERLIPIDEMIA, UNSPECIFIED Status: Chronic Comment: continue statin (5) CKD stage 3 due to type 1 diabetes mellitus Code(s): E10.22 - TYPE 1 DIABETES MELLITUS W DIABETIC CHRONIC KIDNEY DISEASE; N18.3 - CHRONIC KIDNEY DISEASE, STAGE 3 (MODERATE) Status: Chronic Comment: stable (6) PVD (peripheral vascular disease) Code(s): I73.9 - PERIPHERAL VASCULAR DISEASE, UNSPECIFIED Status: Chronic Comment: stable (7) DJD (degenerative joint disease) Code(s): M19.90 - UNSPECIFIED OSTEOARTHRITIS, UNSPECIFIED SITE Status: Chronic Comment: stable (8) GERD (gastroesophageal reflux disease) Code(s): K21.9 - GASTRO-ESOPHAGEAL REFLUX DISEASE WITHOUT ESOPHAGITIS Status: Chronic Comment: stable - Plan * . Home tomorrow (unable to find a ride today). Review of Systems - Review of Systems Respiratory: negative: Cough, Shortness of Breath, Hemoptysis, SOB with Excertion, Pleuritic Pain, Wheezing Cardiovascular: negative: chest pain, palpitations, orthopnea, paroxysmal nocturnal dyspnea, edema, light headedness - Medications/Allergies Allergies/Adverse Reactions: Allergies Allergy/AdvReac Type Severity Reaction Status Date / Time No Known Allergies Allergy Verified 01/17/18 23:28 Medications: Current Medications Acetaminophen (Tylenol) 650 mg PO Q4H PRN PRN Reason: Headache/Fever or Pain Acetaminophen/Codeine Phosphate (Tylenol #3) 1 tab PO Q4H PRN PRN Reason: Mild Pain (1-3) Acetaminophen/Codeine Phosphate (Tylenol #3) 2 tab PO Q4H PRN PRN Reason: Moderate Pain (4-6) Aspirin (Ecotrin) 81 mg PO DAILY [facility] Last Admin: 01/21/18 05:34 Dose: 81 mg Atorvastatin Calcium (Lipitor) 40 mg PO HS [facility] Last Admin: 01/20/18 21:17 Dose: 40 mg Calcium Carbonate (Tums) 1,000 mg PO Q4H PRN PRN Reason: Heartburn or Indigestion Carvedilol (Coreg) 1.5625 mg PO BID-[facility] Last Admin: 01/21/18 17:11 Dose: 1.5625 mg Clopidogrel Bisulfate (Plavix) 75 mg PO DAILY [facility] Dextrose/Water (Dextrose 50%) 25 gm SLOW IVP PRN PRN PRN Reason: Hypoglycemia Fenofibrate (Tricor) 145 mg PO DAILY [facility] Last Admin: 01/21/18 05:34 Dose: 145 mg Folic Acid (Folvite) 1 mg PO DAILY [facility] Last Admin: 01/21/18 05:34 Dose: 1 mg Gabapentin (Neurontin) 300 mg PO BID [facility] Last Admin: 01/21/18 05:34 Dose: 300 mg Glucagon (Glucagon) 1 mg IM PRN PRN PRN Reason: Hypoglycemia Heparin Sodium (Porcine) (Heparin) 5,000 units SC TID [facility] Last Admin: 01/21/18 15:25 Dose: 5,000 units Hydralazine HCl (Apresoline) 10 mg SLOW IVP Q4H PRN PRN Reason: SBP Greater Than 180 Dextrose/Water (D5w) 1,000 mls @ 0 mls/hr IV .Q0M PRN; As Directed PRN Reason: Hypoglycemia Insulin Detemir 5 units/ (Miscellaneous Medication) 0.05 mls @ 0 mls/hr SC [facility] Last Admin: 01/20/18 21:24 Dose: Not Given Insulin Human Regular (Humulin R) 0 units SC .MILD SLIDING SCALE PRN PRN Reason: Mild Correctional Scale Last Admin: 01/21/18 13:27 Dose: 3 unit Insulin Human Regular (Humulin R) 0 units SC .BEDTIME SLIDING SC PRN PRN Reason: Bedtime Correctional Scale Niacin (Niacin) 500 mg PO DAILY [facility] Last Admin: 01/21/18 05:33 Dose: 500 mg Nitroglycerin (Nitrostat) 0.4 mg SL Q5MIN PRN PRN Reason: Chest Pain Ondansetron HCl (Zofran Odt) 4 mg PO Q6H PRN PRN Reason: Nausea/Vomiting Ondansetron HCl (Zofran) 4 mg IVP Q6H PRN PRN Reason: Nausea/Vomiting Senna (Senokot) 2 tab PO HSPRN PRN PRN Reason: Constipation Sertraline HCl (Zoloft) 25 mg PO DAILY [facility] Last Admin: 01/21/18 05:34 Dose: 25 mg Sodium Chloride (Flush - Normal Saline) 10 ml IVF PRN PRN PRN Reason: Saline Flush Tramadol HCl (Ultram) 50 mg PO Q6H PRN PRN Reason: Moderate Pain (4-6)
[2018-01-21] MEDS: Atorvastatin Calcium 40 MG TAB PO SCH (22:20)
[2018-01-21] MEDS: Insulin Detemir 100 UNITS/ML 5 UNITS in Pre-Filled Syringe 1 EACH SC SCH (22:21)
--- NOTE | 2018-01-22 00:52 | DIS ---
DATE OF ADMISSION: 01/18/2018 DATE OF DISCHARGE: 01/21/2018 PRIMARY CARE PHYSICIAN: Eric Lazo M.D. DISCHARGE DIAGNOSIS: Unstable angina. DISCHARGE MEDICATIONS: He has been started on Plavix 75 mg daily, and Coreg 1.5625 mg 2 times a day. Otherwise, no changes were made to his preadmission home medications as dictated on history and phy sical note from 01/18/2018. CONSULTATIONS DURING THIS HOSPITALIZATION: Cardiology, Dr. Salvador. CONDITION OF PATIENT ON THE DAY OF DISCHARGE: Stable. PHYSICAL EXAMINATION: I assessed Mr. Us on the day of discharge. He denies any chest pain or s hortness of breath. Vital signs are stable, he is bradycardic. S1 and S2 are heard, regular. Lungs are clear to auscultation bilaterally. HOSPITAL COURSE: Mr. Us is a pleasant 82-year-old gentleman who was admitted to [facility] on 01/18/2018 for unstable angina. He was seen by Cardiology Service. He underwe nt cardiac catheterization on 01/21/2018. He was found to have diffuse coronary artery disease. Eje ction fraction was 45%-50%. His grafts were patent. He is being discharged home on medications as d escribed above. His Coreg dose was decreased because of bradycardia. He is advised to follow up wit h his primary care physician in 3-5 days. He is also advised to check his blood pressure and heart r ate and show the readings to his primary care physician. Many thanks for allowing me to participate in your patient's care. Please feel free to contact me wi th any questions or concerns. DISCHARGE DESTINATION: Home. TOTAL AMOUNT OF TIME SPENT COORDINATING THIS DISCHARGE: 32 minutes.
[2018-01-22 07:55] VITALS: BP 147/66; TEMP 97.7
--- NOTE | 2018-01-22 08:35 | PDOC.CTH ---
Cardiology Progress Note - Subjective The pt seen and examined. No overnight events. No cardiac complaints. He walked around the unit yesterday without dizziness, lightheadedness, SOB, CP or discomfort in his chest, or other cardiac complaints. - Objective Vital Signs Temp Pulse Resp BP BP Pulse Ox 01/22/18 07:42 97.7 F 50 L 16 147/66 H 98 01/22/18 04:00 97.9 F 47 L 18 156/67 H 98 Weight 167 lb 8 oz 01/21/18 01/22/18 01/23/18 06:59 06:59 06:59 Intake Total 480 950 Output Total 800 1500 Balance -320 -550 - Physical Examination General/Neuro: alert & oriented x3 Neck: no JVD present Lungs: CTA Heart: RRR Abdomen: soft Extremities: other: (No edema) - Telemetry Telemetry Rhythm: SB 52 - Labs Result Diagrams: 01/18/18 04:16 Troponin/CKMB Troponin I 0.180 ng/mL (< 0.028) H 01/18/18 04:16 - Assessment/Plan 1. CAD with Hx of CABG x 3 in saph-OM2, saph-diag, and radial-LAD in 2002 - Cath on 01/21/18 showed mod diffuse CAD with EF 45-50% and Patent grafts. On ASA 81mg daily, Coreg, Plavix, Niacin, Tricore, and Lipitor. 2. HTN - Decrease Coreg from 3.125 to 1.5625mg BID for Bradycardia; cont. to monitor 3. Hyperlipidemia - on Niacin, Tricor and Lipitor; LDL on 01/19/18 was 55. 4. CKD stage 3 - stable; cont. monitor 5. DM type 2 - managed by pcp 6. GERD - stable MAR reviewed * From Cardiac standpoint, the pt can be d/gustavo. The pt will f/u with Dr Salvador' office within 2-4 wks. * Discharge med: BBlocker, Plavix, ASA, Niacin, Tricore, and Lipitor, but no SUNIL due to hx of CKD. Review of Systems - Review of Systems Constitutional: reports: no symptoms reported EENTM: reports: no symptoms reported Respiratory: reports: no symptoms reported Cardiac (ROS): reports: no symptoms reported ABD/GI: reports: no symptoms reported : reports: no symptoms reported Musculoskeletal: reports: no symptoms reported
[2018-01-22] MEDS ORDERED: Clopidogrel Bisulfate 75 MG TAB PO SCH (09:00)
[2018-01-22] MEDS: Heparin 5,000 UNITS/ML VIAL SC SCH (09:35)
[2018-01-22] MEDS: Aspirin 81 mg Enteric Coated Tablet PO SCH (09:35)
[2018-01-22] MEDS: Fenofibrate Nanocrystallized 145 MG TAB PO SCH (09:35)
[2018-01-22] MEDS: Niacin 500 MG TAB PO SCH (09:36)
[2018-01-22] MEDS: Gabapentin 300 MG CAP PO SCH (09:36)
[2018-01-22] MEDS: Carvedilol 3.125 MG TAB PO SCH (09:36)
[2018-01-22] MEDS: Folic Acid 1 MG TAB PO SCH (09:36)
--- NOTE | 2018-01-22 22:59 | DIS ---
PRIMARY CARE PHYSICIAN: Eric Lazo M.D. DATE OF ADMISSION: 01/18/2018 DATE OF DISCHARGE: 01/22/2018 DISCHARGE DIAGNOSES: Unstable angina. Please refer to discharge summary, I dictated on 01/21/2018. Mr. Us could not be discharged renetta t day because he did not have a right home. He was discharged on 01/22/2018. No changes were made t o the discharge medications as dictated on the discharge summary from 01/21/2018. CONDITION OF PATIENT ON THE DAY OF DISCHARGE: Stable. I saw Mr. Us on the day of discharge. H e denied any chest pain or shortness of breath. Vital signs are stable. S1 and S2 were heard, regul ar. Lungs are clear to auscultation bilaterally. HOSPITAL COURSE: As per discharge summary from 01/21/2018. DISCHARGE DESTINATION: Home. TOTAL AMOUNT OF TIME SPENT COORDINATING THIS DISCHARGE: Eighteen minutes.
== END 2018-01-22 10:33 | disposition home or self-care (01) | DRG 287 ==
LOC: ERS 21:04 → 2SW 22:39 → OBSVTOIN 01-18 11:23 → 2NO 01-18 14:33
PROVIDERS: ADMIT Internal Medicine; ATTEND Internal Medicine
PROC: B2111ZZ Fluoroscopy of Multiple Coronary Arteries using Low Osmolar Contrast (ICD-10-PCS; principal; 2018-01-21)
PROC: 4A023N7 Measurement of Cardiac Sampling and Pressure, Left Heart, Percutaneous Approach (ICD-10-PCS; 2018-01-21)
DX: I25.110 Atherosclerotic heart disease of native coronary artery with unstable angina pectoris (principal); E11.40 Type 2 diabetes mellitus with diabetic neuropathy, unspecified; I24.8 Other forms of acute ischemic heart disease; I42.9 Cardiomyopathy, unspecified; E11.9 Type 2 diabetes mellitus without complications; Z95.1 Presence of aortocoronary bypass graft; E78.5 Hyperlipidemia, unspecified; K21.9 Gastro-esophageal reflux disease without esophagitis; I12.9 Hypertensive chronic kidney disease with stage 1 through stage 4 chronic kidney disease, or unspecified chronic kidney disease; N18.3 Chronic kidney disease, stage 3 (moderate); M19.90 Unspecified osteoarthritis, unspecified site
CPT/HCPCS: 36415; 36416; 80053; 80061; 83735; 84100; 84484; 93005; 93306; 93459; 93798; 93880; 94760; C1769; J1644; J1815; J2001

== ENCOUNTER 2018-03-23 20:59 | Inpatient (IN) | payer MEDICARE ==
[2018-03-23 21:48] LABS: Bilirubin Small (Negative); Blood, Urine Trace (Negative); Clarity CLOUDY (Clear); Glucose, Urine (Dipstick) Negative (Negative); Leukocyte Negative (Negative); Nitrite Negative (Negative); Protein, Urine (Dipstick) 300 mg/dL (Neg-Trace); Specific Gravity, Urine 1.027 (1.002-1.036)
[2018-03-23 21:52] LABS: Pathc Cast-AUWi Flag 6.39 (0-2.49)
[2018-03-23 21:58] LABS: Renal Epithelial 0-3 HPF (0-3); Transitional Epithelial 0-3 HPF (0-3)
[2018-03-23 21:59] LABS: Bacteria/HPF Rare-Few HPF (None Seen)
[2018-03-23] MEDS ORDERED: Diltiazem 125 MG/25 ML ONE (22:29)
[2018-03-23 22:34] LABS: #Lymphocytes 2.3 thou/uL (1.20-3.40); #Monocytes 1.7 thou/uL (0.11-0.59); #Neutrophils 10.1 thou/uL (1.40-6.50); %Basophils 0.2 % (0.0-1.0); %Eosinophils 0.3 % (0.0-10.0); %Lymphocytes 16.3 % (21.0-51.0); %Monocytes 11.7 % (0.0-10.0); %Neutrophils 71.5 % (42.0-75.0); Hemoglobin 16.1 g/dL (14.0-18.0); Mean Corpuscular HGB CONC 31.6 g/dL (32.0-36.0); Mean Corpuscular Hemoglobin 28.5 pg (27.0-31.0); Mean Corpuscular Volume 90.2 fl (80.0-94.0); Mean Platelet Volume 8.6 fL (7.4-10.4); Platelet Count 223 thou/uL (130-400); RBC Distribution Width 17.2 % (11.5-14.5); Red Blood Cell (RBC) Count 5.65 mill/uL (4.70-6.10); White Blood Cell (WBC) Count 14.2 thou/uL (4.8-10.8)
[2018-03-23 22:39] LABS: CKMB 6.2 ng/mL (0-6.6); Troponin I 0.187 ng/mL (< 0.028)
[2018-03-23] MEDS ORDERED: Diltiazem 125 MG in Sodium Chloride 0.9% 100 ML IVPB SCH (22:45)
[2018-03-23] MEDS ORDERED: Azithromycin 500 MG VIAL ONE (22:45)
[2018-03-23] MEDS ORDERED: cefTRIAXone\\ROCEPHIN 2 GM VIAL ONE (22:45)
--- NOTE | 2018-03-23 22:51 | RAD ---
CHEST ONE VIEW: History: Dyspnea. Comparison: 2007 FINDINGS: Heart size is enlarged. Mild edema. Right peripheral lower lobe airspace opacity. No pneumothorax. IMPRESSION: 1. Cardiomegaly with mild edema. 2. Peripheral left lower lobe airspace opacity obscuring the lateral costophrenic sulcus may be seque llae of infection or developing fluid. POS: [facility]
[2018-03-24] MEDS ORDERED: Ondansetron ODT 4 MG TAB PO PRN (01:06)
[2018-03-24] MEDS ORDERED: Acetaminophen 325 MG TAB PO PRN (01:06)
[2018-03-24] MEDS ORDERED: Dextrose 5% in Water 1,000 ML IV PRN (01:06)
[2018-03-24] MEDS ORDERED: Ondansetron HCl/PF 4 MG/2 ML Vial IVP PRN (01:06)
[2018-03-24] MEDS ORDERED: HYDROcodone/Acetaminophen 5/325 mg Tablet PO PRN (01:06)
[2018-03-24] MEDS ORDERED: Sodium Chloride 0.9% 1,000 ML IV SCH ×3 (01:06→08:00)
[2018-03-24] MEDS ORDERED: Dextrose 50% Abboject 50 ML SYRINGE SLOW IVP PRN (01:06)
[2018-03-24 01:20] LABS: Troponin I 0.234 ng/mL (< 0.028)
[2018-03-24] MEDS ORDERED: Diltiazem HCl 125 MG, Admixture Fee 1 EACH in Sodium Chloride 0.9% 100 ML IVPB SCH (02:45)
[2018-03-24 02:55] LABS: Lactic Acid 14.2 mmol/L (0.5-2.2)
--- NOTE | 2018-03-24 03:17 | HP ---
DATE OF ADMISSION: 03/23/2018 TIME OF SERVICE: 2340 hours. PRIMARY CARE PHYSICIAN: Eric Lazo M.D. CHIEF COMPLAINT: Shortness of breath and tachycardia. HISTORY OF PRESENT ILLNESS: Mr. Us is a pleasant 82-year-old white male with history of coronar y artery disease, status post coronary artery bypass grafting in the past, COPD, chronic atrial fibri llation followed by Dr. Salvador, diabetes, peripheral neuropathy and hypertension. The patient was in normal state of health, has had 2-3 days of coughing and had increasing shortness of breath. Started having increasing weakness and was really unable to do much around the house due to this, so EMS was activated. On arrival in the scene, was reported that his heart rate was in the 200s. He was given adenosine an d 0.6 and 0.12 mg doses without response was subsequently started on amiodarone drip and transferred to the hospital. The patient denies any chest pain. No fevers or chills. No nausea, vomiting or diarrhea, constipati on. Workup in the ER showed a white count of 14.2, he was tachycardic at 94, blood pressure 96/71 and flu B was positive. PAST MEDICAL HISTORY: 1. Coronary artery disease. 2. History of coronary artery bypass grafting. 3. Chronic obstructive pulmonary disease. 4. Chronic atrial fibrillation. 5. Diabetes mellitus type 2. 6. Peripheral neuropathy. 7. Hypertension. PAST SURGICAL HISTORY: Coronary artery bypass grafting and back surgery. HOME MEDICATIONS: The patient was not aware. Take something for his blood pressure, diabetes, and h eart. We will attempt to get his medication list. ALLERGIES: NKDA. FAMILY HISTORY: Negative for history of clotting or bleeding disorder, no immune dysfunction. SOCIAL HISTORY: Significant for past tobacco use, quit many years ago. Negative for habits x3 curre ntly. REVIEW OF SYSTEMS: All systems were reviewed and negative except as stated per HPI. The patient is currently on BiPAP. PHYSICAL EXAMINATION: VITAL SIGNS: Temperature 97.7, pulse 74, blood pressure 96/71, respiratory rate 24, satting 95% on B iPAP. GENERAL: He is awake. He is alert. He is oriented x3, appears to be in no acute distress, appears comfortable on BiPAP. HEENT: Normocephalic, atraumatic. Pupils equal, round, react to light bilaterally. Mucous membrane s are dry. There are no visible lesions or thrush. NECK: Supple. There is no lymphadenopathy, JVD or thyromegaly with normal carotid upstroke. I do n ot appreciate any bruit. LUNGS: Have adequate air movement bilaterally and symmetrically. He has no crackles. There is no p rolonged expiratory phase. There are some rhonchi heard in the central portion. CARDIOVASCULAR: Slight tachycardic, irregularly irregular. Seems to palpate in and out of sinus rhy thm and atrial fibrillation pretty regularly. He is adequately rate controlled at this time. ABDOMEN: Soft, is nontender, nondistended, no mass or organomegaly. No rebound, rigidity or guardin g. EXTREMITIES: Show no cyanosis or clubbing with 1+ edema. SKIN: Warm, moist, and well perfused without rashes or lesions. MUSCULOSKELETAL: Normal to inspection. All joints appeared normal. There is no evidence of inflamm ation or palpable effusions. NEUROLOGIC: Cranial nerves II-XII are grossly intact. No focal neurologic deficits. He has 5/5 str ength and normal speech. LABORATORY DATA: The patient's CBC showed a white count of 14.2, hemoglobin 16.1, hematocrit of 51.0 , and platelet count was 223,000 with a fairly normal differential. Chemistry panel shows initial lactic acid 12.8, troponin I is 0.187 with a repeat of 0.234, CK-MB of 6.2. BNP was mildly elevated at 397. Total CK was 280. Urinalysis was significant for 4-6 white ce lls, and 4-6 squamous epithelial cells. ASSESSMENT AND PLAN: 1. Acute hypoxemic respiratory failure, currently on BiPAP. We will place the patient in the CCU. We will get Pulmonary Critical Care consult. He appears to have rhonchus breathing. Get some Lasix in the emergency department and a Perez catheter being placed. We will follow up on his labs and his fluid status. Chest x-ray did show right lower lobe infiltrate. This could be secondary to pneumon ia. 2. Severe sepsis. The patient's white count was up, he was tachycardic and hypotensive. He got a p resumed bacterial infection and lactic acid 12.8. 3. Coronary artery disease. 4. Demand ischemia: Mild elevation of troponin to 0.2. We will have Cardiology to see likely in morning. We will defer to the day team. 5. Chronic atrial fibrillation. Continue home medications. Currently, rate controlled. 6. Peripheral neuropathy. 7. Essential hypertension. 8. Chronic obstructive pulmonary disease, not currently active. We will continue home medication on ce we have the list.
[2018-03-24 03:53] LABS: #Monocytes 2.4 thou/uL (0.11-0.59); #Neutrophils 14.7 thou/uL (1.40-6.50); %Basophils 0.1 % (0.0-1.0); %Eosinophils 0.2 % (0.0-10.0); %Lymphocytes 5.6 % (21.0-51.0); %Monocytes 13.3 % (0.0-10.0); %Neutrophils 80.8 % (42.0-75.0); Mean Corpuscular HGB CONC 31.1 g/dL (32.0-36.0); Mean Corpuscular Hemoglobin 28.2 pg (27.0-31.0); Mean Corpuscular Volume 90.6 fl (80.0-94.0); Mean Platelet Volume 8.3 fL (7.4-10.4); Platelet Count 186 thou/uL (130-400); RBC Distribution Width 16.8 % (11.5-14.5); Red Blood Cell (RBC) Count 4.98 mill/uL (4.70-6.10); White Blood Cell (WBC) Count 18.1 thou/uL (4.8-10.8)
[2018-03-24 04:08] LABS: Anion Gap 29 mmol/L (10-20); BUN (Urea Nitrogen) 31 mg/dL (8.4-25.7); Calc. Creatinine Clearance 34 mL/min (70-130); Calcium 8.1 mg/dL (7.8-10.44); Chloride 108 mmol/L (98-107); Estimated GFR-MDRD 33; Glucose 88 mg/dL (83-110); Magnesium 2.1 mg/dL (1.6-2.6); Potassium 4.3 mmol/L (3.5-5.1); Sodium 142 mmol/L (136-145)
[2018-03-24 04:31] LABS: Carbon Dioxide 9 mmol/L (23-31)
[2018-03-24 04:32] LABS: Troponin I 0.337 ng/mL (< 0.028)
[2018-03-24] MEDS ORDERED: Sodium Bicarbonate 150 MEQ in Dextrose 5% in Water 1,000 ML IV SCH (05:30)
--- NOTE | 2018-03-24 08:11 | RAD ---
CHEST 1 VIEW: HISTORY: Dyspnea. COMPARISON: 03/23/18 study. Heart size is enlarged with postop sternotomy change. There is still slight obscuration to the right costophrenic angle which appears stable as compared to the prior exam. No new process seen. IMPRESSION: Stable exam. POS: OFF
--- NOTE | 2018-03-24 08:29 | CON ---
DATE OF CONSULTATION: 03/24/2018 This is 45 minutes of critical care time. HISTORY OF PRESENT ILLNESS: History is obtained by speaking with the patient, who acts as his own hi storian without limitation. He is an 82-year-old male from [place]. He has been feeling bad for the last couple of days with increasing cough and shortness of breath. It is reported that last night h is heart rate got between 170 and 200. He was given adenosine, started on amiodarone drip and subseq uently transported here. He was found to have a severely elevated lactate. He was diagnosed with se ptic shock, presumably from pneumonia. He was resuscitated with fluids. He was started on a bicarbo kathleen drip. He states that he feels better today. Fortunately, he did not require endotracheal intub ation. PAST MEDICAL HISTORY: 1. Chronic obstructive pulmonary disease - patient has apparently seen Dr. Webb in the past. 2. Coronary artery disease. 3. Chronic atrial fibrillation. 4. Diabetes mellitus type 2. 5. Peripheral neuropathy. 6. Hypertension. PAST SURGICAL HISTORY: 1. Coronary bypass grafting surgery. 2. Back surgery. MEDICATIONS PRIOR TO ADMISSION: Fenofibrate 160 mg daily, atorvastatin 40 mg daily, Coreg 1.625 mg b.i.d., gabapentin 300 mg b.i.d., folate 1 mg daily, Zoloft 25 mg daily, niacin 500 mg daily, aspirin 81 mg daily, Glargine insulin 5 units nightly and Plavix 75 mg daily. ALLERGIES: None. FAMILY MEDICAL HISTORY: Essentially unremarkable. SOCIAL HISTORY: He quit smoking after his back surgery a few years ago. He does not drink alcohol, but did in the past. Does not use illicit drugs. REVIEW OF SYSTEMS: Twelve point review of systems otherwise negative. PHYSICAL EXAMINATION: VITAL SIGNS: Temperature 99.0, pulse 97, blood pressure 123/73, O2 sat running in the low to mid 90s . He is currently on a Cardizem drip at 5 mg an hour. HEENT: His pupils react. Sclerae icteric. Oropharynx clear. NECK: No adenopathy, no JVD, no bruits. LUNGS: He has inspiratory crackles in both bases. CARDIAC: S1, S2, now regular with a heart rate of 97. Appears to be sinus rhythm. ABDOMEN: Soft. No hepatosplenomegaly. Positive bowel sounds. EXTREMITIES: No clubbing, cyanosis, or edema. NEUROLOGIC: No focal deficits. SKIN: No lesions. LABORATORY AND X-RAY FINDINGS: White blood cell count 18.1, hematocrit 45.1, platelet count 186. So dium 142, potassium 4.3, chloride 108, CO2 of 9, BUN 31, creatinine 1.9, glucose 88. Lactate is 14.2 . Troponin 0.337. Urinalysis showed proteinuria, but no evidence of a florid urinary tract infectio n. Micro results are pending. Chest x-ray demonstrates cardiomegaly, it is a poor film. There may be an infiltrate at the right base. ASSESSMENT: 1. Septic shock. 2. Acute hypoxic respiratory failure. 3. Probable pneumonia - community-acquired. 4. Chronic atrial fibrillation with uncontrolled supraventricular tachycardia versus atrial fibrilla tion at the time of admission. 5. Hypertension. 6. Elevated troponin. 7. Underlying chronic obstructive pulmonary disease. PLAN: 1. The patient is currently on a Cardizem drip for rate control of his atrial fibrillation. It appe ars that he has converted to sinus rhythm. 2. He needs more aggressive fluid resuscitation as I think volume depletion is his biggest problem. 3. Recheck labs this afternoon and consider discontinuing the bicarbonate drip if his serum bicarbon ate level is increased. 4. Add enoxaparin for DVT prophylaxis. 5. Continue Pepcid for GI prophylaxis. 6. Continue IV antibiotics - cefepime and Cipro seem to be a reasonable choice. 7. Nebulization treatments as needed. 8. I would withhold steroids at the current time.
[2018-03-24] MEDS: Carvedilol 3.125 MG TAB PO SCH ×2 (08:49→16:19)
[2018-03-24] MEDS: Cefepime 2 GM in Sodium Chloride 0.9% 100 ML IVPB SCH ×2 (08:51→20:16)
[2018-03-24] MEDS: Famotidine 20 MG TAB PO SCH (08:51)
[2018-03-24] MEDS ORDERED: Aspirin 81 mg Enteric Coated Tablet PO SCH (09:00)
[2018-03-24] MEDS ORDERED: Clopidogrel Bisulfate 75 MG TAB PO SCH (09:00)
--- NOTE | 2018-03-24 12:34 | CON ---
DATE OF CONSULTATION: 03/24/2018 PRIMARY CARE PHYSICIAN: Dr. Eric Lazo PRIMARY NURSERY TECHNICIAN: Dr. Tish Salvador REFERRING PHYSICIAN: Dr. Tristen Chavarria REASON FOR CARDIOLOGY CONSULTATION: History of SVT and atrial fibrillation. HISTORY OF PRESENT ILLNESS: Mr. Us is an 82 years old male with a significant history chronic coronary artery disease with a history of a CABG x3 in 2001, chronic kidney disease, hypertension, hyperlipidemia, diabetes type 2. The patient was in the hospital in 01/2018 for unstable angina and underwent cardiac catheterization on 01/21/2018 which shows moderate diffuse coronary artery disease with EF of 45-50% with a patent graft. At Dr. Kay's office in 03/04/2018, event monitor recorder was ordered for the patient's complaining of dizziness and near syncopal episodes.The patient's event monitor showed sinus tachycardia with heart rates up to 200. The patient was instructed to see Dr. Salvador as soon as possible at that time. Today the patient presented to the emergency department for worsening shortness of breath, wheeze , and cough. The patient reports that he felt so weird and very weak for last few days; however, he was hesitant to present to the emergency department until yesterday, which he started having worsening shortness of breath. He called 911. During the transferring to ER by EMS, the patient was found to have heart rates in the 170-200. The patient received adenosine and also amiodarone drip during the transportation. When the patient arrived to the emergency department , the EKG shows sinus rhythm and the amiodarone was stopped. However, while the patient was waiting to transfer to the CCU the patient's EKGs started showing atrial fibrillation with rapid right ventricular response. The Cardizem drip was started. At this moment, he is in sinus rhythm with heart rate in the 80s to 90s with Cardizem drip 5 mg per hour. According to the CCU telemetry record the patient is still in and out of atrial fibrillation and sinus rhythm with stable blood pressure. The patient was also found to have a high lactic acid which was 14.2. The patient received normal saline bolus more than 2000 ml with bicarbonate for low urine output. The patient was found to have septic shock secondary to the pneumonia. The patient also found to have diminished pulses in the right lower extremity and the patient reports that he has an intermediate discomfort, heaviness to the bilateral lower extremities, especially the right side. The patient had a history of coronary artery disease with a history of a CABG x3 in 2001 with saphenous vein graft to OM2, saphenous vein graft to diagonal and a radial to LAD. The patient underwent cardiac catheterization on 2017 that shows moderate diffuse CAD with EF 45-50% and a patent graft. Echocardiogram was done 01/18/2018 which shows EF 40-45%, inferior septum wall hypokinesis and grade I diastolic dysfunction, normal bilateral atrium size, moderate mitral valve regurgitation, moderate to severe tricuspid regurgitation and mild pulmonary regurgitation. The patient has carotid Doppler study in 2017 which shows arteriosclerosis; however, there is no evidence of significant extracranial ICA stenosis. PAST MEDICAL HISTORY: 1. Coronary artery disease with history of CABG x3 in 2001. 2. Hypertension. 3. Hyperlipidemia. 4. Gastroesophageal reflux disease. 5. Peripheral neuropathy. 6. Diabetes type 2. 7. Chronic kidney disease. 8. Chronic obstructive pulmonary disease. PAST SURGICAL HISTORY: Again, CABG x3 in 2001, lumbar surgery, tonsillectomy. FAMILY HISTORY: There is a significant history of hypertension in his family. SOCIAL HISTORY: He lives at home. He is an ex-smoker, quit 20 years ago. Now he denied alcohol, tobacco or illicit drug abuse. He is a . I believe his daughter is living close by. ALLERGIES: He has no known drug allergy. HOME MEDICATIONS: Atorvastatin 40 mg once a day, gabapentin 300 mg twice a day , folic acid 1 mg once a day, aspirin 81 mg once a day, insulin Humalog 5 units at night, Zoloft 25 mg once a day, niacin 500 mg once a day, fenofibrate 160 mg once a day, Coreg 3.125 mg 1/2 tablet twice a day, Plavix 75 mg once a day. REVIEW OF SYSTEMS: A 12-point review of systems negative, unless otherwise mentioned in the HPI. PHYSICAL EXAMINATION: VITAL SIGNS: Blood pressure 125/85, pulse 96 in and out of sinus rhythm and atrial fibrillation. O2 sat 93% with BiPAP and respiratory rate 23, temperature 99.1. GENERAL: Well-developed, well-nourished without any acute distress. HEAD: Normocephalic, atraumatic. EYES: Extraocular muscle movement intact. ENT: Oral and nasal mucosa moist without lesion. NECK: No JVD. Neck is supple and normal range of motion. LUNGS: Coarse and very diminished at the bases. CARDIOVASCULAR: At this moment, the patient's heart rhythm was regular rate and regular. There is normal S1, S2. There is no S3, S4. There are normal pulses to diminished pulses to right dorsalis pedis and posterior tibia, but 2+ pulses in the right popliteal and right femoral arteries. There is +1 pulses into the left lower extremities, but 2+ in the left femoral. Carotid pulses are present without bruits, or thrill and there is 2+ edema in the left lower extremity, 1+ edema in the right lower extremity. ABDOMEN: Soft, nontender, no mass to palpation, slightly distended, but bowel sounds are present, but hypoactive. MUSCULOSKELETAL: Patient able to move all extremities. SKIN: Warm and dry. No skin rash, lesion or bruise noted. NEUROLOGIC: Alert, oriented x4. Normal affect. Nonfocal. PSYCHIATRIC: Mood and affect are normal. EKG: A 12-lead EKG in the ER shows atrial fibrillation with heart rate 118 on the 1st EKG and sinus rhythm with heart rate 100 on the second EKG. LABORATORY: WBC 18.1, hemoglobin 14.0, hematocrit 45.1, platelet 186. Sodium 142, potassium 4.3, BUN 31, creatinine 1.96 and lactic acid 14.2, creatinine kinase 280. Troponin is 0.187, 0.234 and 0.337. BNP 397.3. IMAGING: Chest x-ray today shows cardiomegaly with mild edema. Peripheral left lower lobe airspace opacity obscuring lateral costal of pharynx, ____ may be showing possible infection or developing the fluid. ASSESSMENT AND PLAN: 1. New onset atrial fibrillation/history of supraventricular tachycardia. The patient's EKG has shown intermittent atrial fibrillation. The patient's heart rate is stable with Cardizem 5 mg per an hour. I would like to continue the Cardizem IV at this moment and possible change to p.o. form from this afternoon or from tomorrow. Patient's vital signs are stable. He is on Lovenox 30 mg subcu once a day, aspirin 81 mg once a day, Plavix 75 mg once a day. We would like to increase the dosage of Lovenox at this moment and hold the Plavix and aspirin for a history of atrial fibrillation in the prevention of a gastrointestinal bleed. We would like to continue to monitor on the telemetry. 2. Septic shock secondary to pneumonia. The patient on IV antibiotic and with dextrose 5% with bicarbonate 75 mL per an hour. The patient's condition is stable at this moment. Continue to monitor. 3. Acute hypoxic respiratory failure secondary to pneumonia and history of chronic obstructive pulmonary disease. The patient's condition is stable with the CPAP at this moment, which is managed by Pulmonary doctors. 4. Elevated troponin level secondary to sepsis and a new onset atrial fibrillation. 5. Coronary artery disease with history of a coronary artery bypass graft x3 in 2001. Again, the patient's troponins were elevated today, possible due to new onset atrial fibrillation and/or septic shock. The patient is asymptomatic. We would like to continue to monitor and also the patient cardiac catheterization in 01/2018 shows mild diffuse coronary artery disease. 6. Hypertension. The patient's blood pressure is stable with carvedilol 1.5625 mg twice a day and diltiazem. We would like to continue to monitor. 7. Diabetes type 2. Patient on a.c. and at bedtime blood glucose check with insulin which is managed by primary care doctor. 8. Diminished pulses in the bilateral lower extremities, possible patient needs WALKER and arterial Doppler study to his bilateral lower extremities as an outpatient. The patient's bilateral lower extremities warm at this moment, stable. We would like to continue to monitor. 9. Chronic kidney disease stage 3. Due to elevated creatinine and low urine output the patient has received more than 2000 mL of bolus today and the patient is also receiving 75 mL an hour of fluid. We would like to continue to monitor. 10. Hyperlipidemia. Once the patient's condition is stable. We like to resume niacin, TriCor and Lipitor. 11. Gastroesophageal reflux disease. The patient's condition is stable at this moment, we would like to continue to monitor. Thank you very much for allowing the Cardiology Service to participate in the care of this patient. We will follow along with the patient's care team and make further recommendation as appropriate. CELE
[2018-03-24 12:40] LABS: Anion Gap 21 mmol/L (10-20); BUN (Urea Nitrogen) 36 mg/dL (8.4-25.7); Calc. Creatinine Clearance 30 mL/min (70-130); Calcium 8.2 mg/dL (7.8-10.44); Carbon Dioxide 15 mmol/L (23-31); Chloride 102 mmol/L (98-107); Estimated GFR-MDRD 28; Glucose 189 mg/dL (83-110); Potassium 5.1 mmol/L (3.5-5.1); Sodium 133 mmol/L (136-145)
[2018-03-24 12:43] LABS: Lactic Acid 7.6 mmol/L (0.5-2.2)
--- NOTE | 2018-03-24 13:10 | PDOC.PN ---
- Subjective Encounter Start Date: 03/24/18 Encounter Start Time: 12:45 Patient denies any specific concerns. Nursing has indicated that he seems more restless and anxious. Urine output remains low. - Objective Resuscitation Status: Resuscitation Status FULL:Full Resuscitation MAR Reviewed: Yes Vital Signs & Weight: Vital Signs (12 hours) Temp Pulse Resp Pulse Ox 03/24/18 12:37 94 26 H 91 L 03/24/18 12:16 94 25 H 97 03/24/18 08:00 99.1 F 96 26 H 97 03/24/18 07:47 100 03/24/18 06:49 97 25 H 97 03/24/18 04:00 99.0 F 88 L 03/24/18 03:00 98.3 F 03/24/18 01:15 97.8 F 93 24 H 90 L Weight Weight 187 lb 6.287 oz Most Recent Monitor Data Heart Rate from ECG 78 NIBP 107/67 NIBP BP-Mean 80 Respiration from ECG 24 SpO2 97 I&O: 03/23/18 03/24/18 03/25/18 06:59 06:59 06:59 Intake Total 1897 2661 Output Total 120 98 Balance 1777 2563 Result Diagrams: 03/24/18 03:40 03/24/18 12:01 Additional Labs: Accuchecks 03/24/18 11:47 POC Glucose 195 H Phys Exam - Physical Examination Constitutional: NAD Very slightly anxious. HEENT: PERRLA Neck: no JVD Respiratory: no wheezing, no rales, no rhonchi, clear to auscultation bilateral Cardiovascular: RRR, no significant murmur Gastrointestinal: soft, non-tender, no distention, positive bowel sounds 1+ edema at ankles Neurological: non-focal Converses Skin: no rash Dx/Plan (1) Sepsis Code(s): A41.9 - SEPSIS, UNSPECIFIED ORGANISM Status: Acute Plan: Patient had tachycardia with a-fib, significant leukocytosis and severe lactic acidosis. No obvious source of infection. CXR is not bad and the urine looks ok. BP appears to be stable and HR now in the 70's. Has had fairly aggressive fluid resuscitation. On broad spectrum abx and blood cx obtained. Lactic acid initially went up, but is not coming down. (2) Atrial fibrillation with RVR Code(s): I48.91 - UNSPECIFIED ATRIAL FIBRILLATION Status: Acute Plan: On cardizem gtt. Converted to sinus rhythm with good rate control. (3) CKD (chronic kidney disease) stage 3, GFR 30-59 ml/min Code(s): N18.3 - CHRONIC KIDNEY DISEASE, STAGE 3 (MODERATE) Status: Acute (4) Oliguria Code(s): R34 - ANURIA AND OLIGURIA Status: Acute Plan: Appears to have acute kidney injury with oliguria. BUN and Creat increased in spite of IVF. Possibly ATN with the tachycardia. Has a small Greek Perez catheter and bladder scan had 210 cc, but no change with flush. Will need to continue to monitor. Consult Nephrology. (5) [id number] kidney injury Code(s): N17.9 - ACUTE KIDNEY FAILURE, UNSPECIFIED; N18.9 - CHRONIC KIDNEY DISEASE, UNSPECIFIED Status: Acute (6) CAD in pala artery Code(s): I25.10 - ATHSCL HEART DISEASE OF [place] CORONARY ARTERY W/O ANG PCTRS Status: Acute (7) Diastolic dysfunction Code(s): I51.9 - HEART DISEASE, UNSPECIFIED Status: Acute (8) DM2 (diabetes mellitus, type 2) Status: Chronic Plan: Sliding scale Comment: continue accuchecks, insulin sliding scale (9) Elevated troponin Code(s): R74.8 - ABNORMAL LEVELS OF OTHER SERUM ENZYMES Status: Acute Plan: Likely demand ischemia secondary to the a-fib with RVR. Continue to trend. Second such episode in two months. Will consult cardiology. - Plan * Above.
[2018-03-24] MEDS: ALPRAZolam 0.25 MG TAB PO PRN ×2 (14:34→20:17)
[2018-03-24] MEDS ORDERED: Furosemide 40 MG/4 ML VIAL IVP SCH (15:30)
[2018-03-24] MEDS: HumaLOG 300 UNITS/3 ML VIAL SC PRN ×2 (16:25→20:40)
[2018-03-24] MEDS: Enoxaparin Sodium 80 MG/0.8 ML SYRINGE SC SCH (20:16)
[2018-03-24] MEDS: Insulin Glargine 5 UNITS in Pre-Filled Syringe 1 EACH SC SCH (20:42)
[2018-03-24] MEDS ORDERED: INSULIN GLARGINE HUM REC ANLOG 5 UNIT SQ SCH (21:00)
[2018-03-24] MEDS ORDERED: Enoxaparin Sodium 30 MG/0.3 ML SYRINGE SC SCH (21:00)
[2018-03-24] MEDS ORDERED: [UNRECOGNIZED DRUG - OTHER] SQ SCH (21:00)
[2018-03-24] MEDS: Sodium Chloride 0.9% 250 ML 250 ML IVPB SCH (22:10)
[2018-03-25] MEDS: Sodium Chloride 0.9% 250 ML 250 ML IVPB SCH ×3 (00:10→05:00)
--- NOTE | 2018-03-25 03:21 | CON ---
DATE OF CONSULTATION: 03/24/2018 NEPHROLOGY CONSULTATION CONSULTING PHYSICIAN: Reggie Vizcarra MD REASON FOR CONSULTATION: Acute kidney injury and oliguria. REASON FOR ADMISSION: Shortness of breath. HISTORY OF PRESENT ILLNESS: This 82-year-old white male history of coronary artery disease, COPD, at rial fibrillation, type 2 diabetes, hypertension who came to the hospital with shortness of breath an d possible treatment for sepsis, was hypotensive and AFib, currently on Cardizem drip and he had 4 li ters of urine still not making much urine and remains oliguric and Nephrology is consulted. The cookie ent is on BiPAP and having slight shortness of breath after being on BiPAP. Nephrology is currently consulted for acute kidney injury, oliguria. Patient not able to give a good history even though he is oriented to BiPAP and hard time, is very lethargic. Most of the history is reviewed from the review of the records and from bedside nurse. He denies any fever, chills, nausea, vomiting, diarrhea. PAST MEDICAL HISTORY: Positive for coronary artery disease, COPD, AFib, type 2 diabetes, neuropathy, hypertension. PAST SURGICAL HISTORY: CABG, back surgery. ALLERGIES: No known drug allergies. HOME MEDICATIONS: Include Coreg, Lipitor, gabapentin, sertraline, aspirin, Plavix. SOCIAL HISTORY: No smoking, alcohol, or illicit drug abuse. FAMILY HISTORY: No history of any kidney disease. REVIEW OF SYSTEMS: The following complete review of systems was negative, unless otherwise mentioned in the HPI or below: Constitutional: Weight loss or gain, ability to conduct usual activities. Sk in: Rash, itching. Eyes: Double vision, pain. ENT/Mouth: Nose bleeding, neck stiffness, pain, te nderness. Cardiovascular: Palpitations, dyspnea on exertion, orthopnea. Respiratory: Shortness of breath, wheezing, cough, hemoptysis, fever or night sweats. Gastrointestinal: Poor appetite, abdom inal pain, heartburn, nausea, vomiting, constipation, or diarrhea. Genitourinary: Urgency, frequenc y, dysuria, nocturia. Musculoskeletal: Pain, swelling. Neurologic/Psychiatric: Anxiety, depressio n. Allergy/Immunologic: Skin rash, bleeding tendency. PHYSICAL EXAMINATION: GENERAL: This is an elderly white male in no apparent distress. VITAL SIGNS: Temperature 98.4, pulse 62, respiratory rate 18, blood pressure 117/69. HEENT: Atraumatic, normocephalic. Oral mucosa is moist. NECK: Supple, no masses. CVS: S1, S2 heard. Rate and rhythm regular. RESPIRATORY: Clear. MUSCULOSKELETAL: No tenderness. No edema. DERMATOLOGIC: No skin rash. NEUROLOGIC: Alert and awake. PSYCHIATRIC: Normal mood and affect. LABORATORY: Hemoglobin is 14.0, potassium is 5.1, BUN 36, creatinine is 2.2. ASSESSMENT AND PLAN: 1. Acute kidney injury most likely from poor perfusion. Given the hypotension and sepsis, continue supportive management. Recommend more IV fluids if tolerated. 2. Hyperkalemia. Monitor closely. 3. Hyponatremia. 4. Acidosis with high anion gap, most likely from lactic acidosis. 5. Elevated troponin. 6. Leukocytosis. 7. Continue supportive care. Continue antibiotics and IV fluids as tolerated. We will continue to follow. No acute needs for dialysis. We will monitor labs closely. If no significant improvement i n urine output, might need renal replacement in next few hours. We will follow. Thank you for the consult.
[2018-03-25 04:47] LABS: Anion Gap 24 mmol/L (10-20); BUN (Urea Nitrogen) 47 mg/dL (8.4-25.7); Calc. Creatinine Clearance 22 mL/min (70-130); Calcium 8.1 mg/dL (7.8-10.44); Carbon Dioxide 11 mmol/L (23-31); Chloride 101 mmol/L (98-107); Estimated GFR-MDRD 20; Glucose 142 mg/dL (83-110); Sodium 130 mmol/L (136-145)
[2018-03-25 05:17] LABS: #Lymphocytes 1.3 thou/uL (1.20-3.40); #Neutrophils 11.9 thou/uL (1.40-6.50); %Basophils 0.1 % (0.0-1.0); %Eosinophils 0.1 % (0.0-10.0); %Lymphocytes 8.4 % (21.0-51.0); %Monocytes 13.1 % (0.0-10.0); %Neutrophils 78.3 % (42.0-75.0); Hemoglobin 13.2 g/dL (14.0-18.0); Mean Corpuscular HGB CONC 31.8 g/dL (32.0-36.0); Mean Corpuscular Hemoglobin 28.3 pg (27.0-31.0); Mean Corpuscular Volume 89.1 fl (80.0-94.0); Mean Platelet Volume 9.9 fL (7.4-10.4); PLT Morphology Comment Appears Decreased; Platelet Count 112 thou/uL (130-400); RBC Distribution Width 16.9 % (11.5-14.5); Red Blood Cell (RBC) Count 4.65 mill/uL (4.70-6.10); White Blood Cell (WBC) Count 15.2 thou/uL (4.8-10.8)
--- NOTE | 2018-03-25 08:07 | ADD-CON ---
ADDENDUM: DATE OF ADMISSION: 03/23/2018 DATE OF CONSULTATION: 03/24/2018 INDICATION FOR CONSULTATION: An 82-year-old patient who appears to be septic, has a long history of coronary artery disease, bypass surgery, and also has recently been having episodes apparently of atr ial fibrillation or flutter. He has type 2 diabetes. He became more short of breath and weak at sarah e and required admission to the hospital, in route after being seen by EMS. He was found to have hea rt rates in the 200s. This was felt to be atrial fibrillation or flutter or SVT. He was given medic ation of adenosine and then was given IV amiodarone and then she was thought to be in flutter and the n eventually back in atrial fibrillation, but this time appear to be definitely in the flutter patter n with a variable block, heart rate now in the 60s. He is in the intensive care unit with a BiPAP. Please refer to the notes already dictated by the nurse practitioner. I would agree with the assessm ent and plan that appears overall this patient actually is now somewhat septic, but obviously somewha t unstable, but blood pressure is 104/66 with a heart rate in the 60s, O2 saturations are in the 80% range. The patient becomes somewhat agitated at times and he has elevated white blood cell count, I believe it is 18,000 today. Uncertain of exactly where his infection was thought to be pneumonia, sexton ve a chest x-ray does not appear to be too bad to significantly abnormal for this degree of pneumonia . At this time, we will continue to monitor him. I will ask electrophysiology to see him when he be comes more stable, most likely he will need to undergo ablation of the atrial flutter. We will stepan kashif to treat the atrial fibrillation if he does indeed have atrial fibrillation/flutter, which may va ry from one to the other. He has had bypass surgery in the past. His last cardiac catheterization, I believe was in 2003. His last echocardiogram was in 08/2017, which showed a normal ejection fracti on with [id number] left and right atrial dilatation with severe tricuspid valve regurgitation . He has had no evidence of congestive heart failure in the past, but if he has been having tachycar maryann, then it is quite possible he has developed some degree of cardiomyopathy associated with the tac hycardia. For the remainder of his assessment and plan, past medical history, allergies, medications , and review of systems, please refer to the notes dictated by the nurse practitioner. PHYSICAL EXAMINATION: GENERAL: Reveals an elderly gentleman with a BiPAP mask. VITAL SIGNS: Blood pressure 104/66, heart rate is 60, it is regular, but does have atrial flutter wi th a variable block appears to be mainly regular though, respiratory rate is about 22 at this time. HEENT: Shows head to be normocephalic, atraumatic. I cannot hear any carotid bruits at this time. However, he does have a history of I believe have some carotid stenosis in the past. He has upper ai rway noise making it very difficult to hear the carotid arteries. Previously, he has had bilateral b ruits. CHEST: He has decreased breath sounds, but does not hear any significant rales or rhonchi at this ti me. CARDIOVASCULAR: Reveals a regular rhythm. I do not hear any significant irregularity at this time. He does have systolic murmur at the apex, compatible with his mitral valve regurgitation. He also h as a systolic murmur of the aortic area. I believe he has history of mild aortic valve sclerosis. ABDOMEN: Soft and nontender. EXTREMITIES: Showed mild ankle edema, otherwise no significant abnormalities. NEUROLOGIC: The patient appears to be intact. SKIN: Warm and dry. His EKG shows what appears to be atrial flutter. At times, he is in sinus rhythm on previous EKG may have actually been flutter with again variable block. We will continue to monitor him very carefull y. He has been placed on diltiazem. We will continue his medications at this time. He is also on C oreg and on multiple antibiotics. He is also on Lovenox. He has been placed previously on Plavix as well as aspirin. At this time, we can hold the Plavix and discontinue the aspirin as well as the Lo venox. We will continue to monitor him very carefully. IMPRESSION: 1. Most likely sepsis of uncertain etiology with acidosis. 2. History of coronary artery disease, which appears to be relatively stable. His cardiac enzymes w ere slightly elevated, but most likely was due to the acidosis and is not indicated myocardial infarc tion. There are no EKG changes that would indicate ischemia at this time. 3. History of diabetes. This will be monitored by the primary care service. 4. History of tobacco abuse. He has not smoked for several years now. 5. History of chronic kidney disease. This appears at this time that he has had acute on chronic ki dney problems or kidney injury, most likely again due to acute kidney insufficiency with acidosis. 6. Hypertension, which is actually on the low side at this time, we will continue to monitor this pa tient very carefully with you. I will ask towing pilot to see him in regard to the atrial flu tter.
[2018-03-25] MEDS: Cefepime 2 GM in Sodium Chloride 0.9% 100 ML IVPB SCH (09:41)
[2018-03-25] MEDS: Famotidine 20 MG TAB PO SCH (09:41)
[2018-03-25] MEDS: Carvedilol 3.125 MG TAB PO SCH ×2 (09:42→18:04)
[2018-03-25] MEDS ORDERED: Cefepime 2 GM in Sodium Chloride 0.9% 100 ML IVPB SCH (10:00)
--- NOTE | 2018-03-25 11:20 | CON ---
DATE OF FOLLOW UP NOTE: 03/25/2018 SERVICE: Pulmonary Medicine. HISTORY OF PRESENT ILLNESS: The patient is an 82-year-old white male with past medical history significant for COPD and peripheral neuropathy who was in his usual state of health until 3 days prior to admission. He started experiencing some nausea and vomiting. It was just food products with no blood. He had a decreased p.o. intake. He had a cough productive of white phlegm. He was also having some chills and sweats, though no specific fever. In this setting, he presented to the emergency department. He was discovered to have an acute kidney injury on chronic kidney disease stage 3. His oxygen saturations were at touch low. That being said, we did not really have a reliable measure because the patient was not perfusing well enough. He was discovered to be in atrial fibrillation. Either way, he was tucked into the ICU. He was given 3 very small boluses of fluid. Antibiotics were initiated and nebulized medications were started. Dialysis is being prepared today because he got an elevated potassium level. Currently, he is anuric, but starting to develop a little bit of urine output. REVIEW OF SYSTEMS: General, head, ears, eyes, nose, throat, cardiovascular, respiratory, GI, , musculoskeletal, neurologic and skin is negative except as mentioned in the HPI. PHYSICAL EXAMINATION: VITAL SIGNS: Afebrile. He is actually hypothermic at 95.4, pulse 62, blood pressure 97/58, respirations 15, saturation 98% on 2 liters nasal cannula. GENERAL: The patient is awake and alert, in no apparent distress. LUNGS: Decent air entry. Minimal crackles are present. There is a prolonged expiratory phase with polyphonic wheezing. No rhonchi are appreciated. HEART: Normal rate and regular. ABDOMEN: Soft, nontender, and nondistended. Bowel sounds are positive. MUSCULOSKELETAL: No cyanosis or clubbing. Pitting in the bilateral lower extremities is present, but there is skin tenting too. GENITOURINARY: Perez catheter in place, scrotal edema. NEUROLOGIC: Grossly nonfocal. LABORATORY DATA: WBC 15.2, hemoglobin 13.2, and platelets 112,000. Lactate 7.6 and down trending, calcium 8.1. Creatinine 3.03, BUN 47, anion gap 24, bicarbonate 11 and down trending. Potassium is 6.0 and up trending. BNP is slightly elevated at 397, troponin is up trending to 0.33. CK-MB and CK fall within the normal limits. Urinalysis is unremarkable. Blood cultures x2 are negative to date. IMAGING DATA: Chest x-ray demonstrates previous sternotomy. Blunting of the right costophrenic angle is stable. I do not see acute cardiopulmonary abnormality. I really do not see much in the way of cephalization or pulmonary vascular congestion. ASSESSMENT: 1. Severe sepsis. 2. Acute kidney injury on chronic kidney disease, stage 3. 3. Non-ST elevation myocardial infarction. 4. Atrial fibrillation, permanent. 5. Chronic obstructive pulmonary disease with acute exacerbation. DISCUSSION AND PLAN: We will wean off the Cardizem drip and other rate control medications. Continue IV antibiotics. I will give him a liter of fluids. The nebulized medications will be continued. We will deescalate steroids. Pulmonary or Critical Care will continue to follow along while patient remains in this location. CELE
--- NOTE | 2018-03-25 14:17 | PDOC.PN ---
- Subjective Encounter Start Date: 03/25/18 Encounter Start Time: 14:15 Feeling a little better today. Says his breathing is a little better today. Denies any other specific concerns. - Objective Resuscitation Status: Resuscitation Status FULL:Full Resuscitation MAR Reviewed: Yes Vital Signs & Weight: Vital Signs (12 hours) Temp Pulse Resp Pulse Ox 03/25/18 12:00 96.6 F L 03/25/18 11:07 82 16 99 03/25/18 09:00 96.3 F L 03/25/18 07:24 57 L 15 99 03/25/18 07:22 57 L 15 99 03/25/18 07:00 95.4 F L 03/25/18 04:00 97.9 F 03/25/18 02:19 62 20 97 Weight Weight 187 lb 6.287 oz Most Recent Monitor Data Heart Rate from ECG 83 NIBP 106/67 NIBP BP-Mean 72 Respiration from ECG 20 SpO2 99 I&O: 03/24/18 03/25/18 03/26/18 06:59 06:59 06:59 Intake Total 1897 5554.3 180 Output Total 120 155 10 Balance 1777 5399.3 170 Result Diagrams: 03/25/18 04:13 03/25/18 04:13 Additional Labs: Accuchecks 03/25/18 03/25/18 03/24/18 12:26 05:20 20:41 POC Glucose 130 H 147 H 155 H 03/24/18 16:24 POC Glucose 218 H Phys Exam - Physical Examination HEENT: PERRLA, oral pharynx no lesions Coarse breath sounds throughout with slightly dimished exchange. Cardiovascular: RRR, no significant murmur Gastrointestinal: soft, non-tender, no distention Musculoskeletal: no edema Neurological: non-focal Psychiatric: normal affect Skin: no rash Dx/Plan (1) Sepsis Code(s): A41.9 - SEPSIS, UNSPECIFIED ORGANISM Status: Acute Qualifiers: Sepsis type: sepsis due to unspecified organism Qualified Code(s): A41.9 - Sepsis, unspecified organism Plan: ACTUAL SOURCE REMAINS UNCLEAR. CXR DID NOT REVEAL AN INFILTRATE. UA NEGATIVE. CULTURES NEGATIVE. CONTINUE WITH CEFEPIME AND CIPRO HE APPEARS TO BE RESPONDING TO THESE. BP STILL A LITTLE LOW AT TIMES. CONTINUING TO RECEIVE FLUIDS. (2) Atrial fibrillation with RVR Code(s): I48.91 - UNSPECIFIED ATRIAL FIBRILLATION Status: Acute Plan: CARDIOLOGY FOLLOWING. GOOD RATE CONTROL. ON THERAPEUTIC DOSE OF LOVENOX. PLATELETS DROPPING. NEED TO WATCH CAREFULLY. (3) Lzobq-yd-fyybbnw kidney injury Code(s): N17.9 - ACUTE KIDNEY FAILURE, UNSPECIFIED; N18.9 - CHRONIC KIDNEY DISEASE, UNSPECIFIED Status: Acute Plan: OLIGURIC RENAL FAILURE. LIKELY RELATED TO ATN FROM HYPOTENSION AND SEPSIS. NEPHROLOGY FOLLOWING. CONTINUING WITH FLUIDS. NEPHROLOGY PLANNING HD. TRIALYSIS CATHETER PLACED. (4) CKD (chronic kidney disease) stage 3, GFR 30-59 ml/min Code(s): N18.3 - CHRONIC KIDNEY DISEASE, STAGE 3 (MODERATE) Status: Acute (5) Oliguria Code(s): R34 - ANURIA AND OLIGURIA Status: Acute (6) CAD in [place] artery Code(s): I25.10 - ATHSCL HEART DISEASE OF [place] CORONARY ARTERY W/O ANG PCTRS Status: Acute (7) Diastolic dysfunction Code(s): I51.9 - HEART DISEASE, UNSPECIFIED Status: Acute Plan: APPEARS TO BE TOLERATING THE FLUIDS THUS FAR. BREATH SOUNDS ARE A LITTLE MORE COARSE THAN THEY HAVE BEEN. WILL REPEAT CXR. MAINTAIN SUPPLEMENTAL OXYGEN NEEDED. (8) DM2 (diabetes mellitus, type 2) Status: Chronic Comment: continue accuchecks, insulin sliding scale (9) Elevated troponin Code(s): R74.8 - ABNORMAL LEVELS OF OTHER SERUM ENZYMES Status: Acute Plan: CARDIOLOGY FOLLOWING THIS WELL. LIKELY DEMAND ISCHEMIA RATHER THAN PURE OCCLUSIVE DISEASE. (10) Hyperkalemia Code(s): E87.5 - HYPERKALEMIA Status: Acute Plan: SECONDARY TO THE RENAL FAILURE. AN INDICATION FOR HD. - Plan * ABOVE.
[2018-03-25] MEDS: ALPRAZolam 0.25 MG TAB PO PRN (14:52)
--- NOTE | 2018-03-25 15:33 | PDOC.CTH ---
<Sravanthi Valdez - Last Filed: 03/25/18 15:28> Cardiology Progress Note - Subjective The pt seen and examined. No overnight events. No cardiac complaints. He is ready to have HD. - Objective Vital Signs Temp Pulse Resp Pulse Ox 03/25/18 12:00 96.6 F L 03/25/18 11:07 82 16 99 03/25/18 09:00 96.3 F L 03/25/18 07:24 57 L 15 99 03/25/18 07:22 57 L 15 99 03/25/18 07:00 95.4 F L 03/25/18 04:00 97.9 F Weight 187 lb 6.287 oz 03/24/18 03/25/18 03/26/18 06:59 06:59 06:59 Intake Total 1897 5554.3 180 Output Total 120 155 10 Balance 1777 5399.3 170 - Physical Examination General/Neuro: alert & oriented x3 Neck: no JVD present Lungs: other: (coarses and diminihsed at bases) Heart: RRR Abdomen: soft Extremities: other: (No edema) - Telemetry Telemetry Rhythm: SR 80s - Labs Result Diagrams: 03/25/18 04:13 03/25/18 04:13 Troponin/CKMB CK-MB (CK-2) 6.2 ng/mL (0-6.6) 03/23/18 22:03 Troponin I 0.337 ng/mL (< 0.028) H* 03/24/18 03:40 - Assessment/Plan 1. Acute on CKD stage 3 - Emergency HD will be done today for K level 6.0 today. Managed by human resources partner 2. AFib/SVT - remains in SR; Cardizem is on hold due to Hypotensive; Cont. to monitor 3. Septic shock 2ndary to PNA - stable; managed by PCP 4. CAD with hx of CABG x3 in 2001 - stable; negative LHC result in 01/2018; cont. to monitor 5. HTN - stable with current meds 6. Hyperlipidemia - resume Lipitor 40mg qHS from tonight 7. DM type 2 - stable; managed by PCP 8. COPD - stable with 2LNC MAR reviewed Review of Systems - Review of Systems Constitutional: reports: weakness EENTM: reports: no symptoms reported Respiratory: reports: no symptoms reported Cardiac (ROS): reports: no symptoms reported ABD/GI: reports: no symptoms reported : reports: no symptoms reported <Christ Salvador - Last Filed: 03/25/18 20:33> Cardiology Progress Note - Objective Vital Signs Temp Pulse Resp Pulse Ox 03/25/18 20:00 98.7 F 94 19 99 03/25/18 18:38 94 19 03/25/18 16:00 96.6 F L 03/25/18 12:00 96.6 F L 03/25/18 11:07 82 16 99 03/25/18 09:00 96.3 F L Weight 187 lb 6.287 oz 03/24/18 03/25/18 03/26/18 06:59 06:59 06:59 Intake Total 1897 5554.3 2212 Output Total 120 155 95 Balance 1777 5399.3 2117 - Labs Result Diagrams: 03/25/18 04:13 03/25/18 04:13 Troponin/CKMB CK-MB (CK-2) 6.2 ng/mL (0-6.6) 03/23/18 22:03 Troponin I 0.337 ng/mL (< 0.028) H* 03/24/18 03:40 - Assessment/Plan Pt. seen and eval. by me. He is sitting up and drinking a shake. He feels better after dialysis for hyperkalemia. He has multiple medical problems but overall seems to be improving. I agree with the A/P by the [employer]IN[employer]ING [employer]. He was seen by EP for his atrial tach/flutter.I appreciate the input.
[2018-03-25 16:17] LABS: HBSAB Concentration 1.39 mIU/mL; Hep B Surf AB Non-Reactive (NonReactive); Hep B Surf Ag Non-Reactive S/CO (NonReactive)
--- NOTE | 2018-03-25 16:32 | RAD ---
ABDOMEN ONE VIEW: History: Catheter placement. Comparison: None. FINDINGS: A right femoral central venous catheter is in place with tip projecting over the level of the L4 vert ebral body. Mildly distended loops of bowel in the abdomen. IMPRESSION: Right femoral catheter projecting over the level of the L4 vertebral body. POS: [facility]
[2018-03-25] MEDS ORDERED: Sodium Chloride 0.9% 1,000 ML IV SCH (17:45)
--- NOTE | 2018-03-25 19:28 | RAD ---
PORTABLE CHEST: 03/25/18 HISTORY: Sepsis. COMPARISON: 03/23/18. FINDINGS/IMPRESSION: Heart is mildly enlarged with postop sternotomy change. There is evidence of bilateral effusions and bibasilar atelectasis or infiltrates. The upper lung saenz remain aerated and clear. No acute interv al change noted. POS: [facility]
--- NOTE | 2018-03-25 20:19 | ULT ---
BILATERAL UPPER EXTREMITY VENOUS DUPLEX EXAM FOR VENOUS MAPPIN03/25/18 Cephalic and basilic veins evaluated in both upper extremities with color doppler, spectral analysis and measurements. INDICATIONS: End-stage renal disease. Exam performed to assess for dialysis access. RIGHT UPPER EXTREMITY BRACHIAL ARTERY: 3.0 mm RADIAL ARTERY: 0.9 mm ULNAR ARTERY: 1.3 mm CEPHALIC VEIN Axilla: 2.3 mm Proximal humerus: Not seen Mid humerus: Not seen. Distal humerus: Not seen. Elbow: 1.1 mm Mid Forearm: 0.8 mm BASILIC VEIN Axilla: 3.5 mm Proximal humerus: 2.3 mm Mid humerus: 1.4 mm Distal humerus: 2.0 mm Elbow: 0.6 mm Mid Forearm: 0.7 mm LEFT UPPER EXTREMITY BRACHIAL ARTERY: 4.8 mm RADIAL ARTERY: 1.5 mm ULNAR ARTERY: 1.5 mm CEPHALIC VEIN Axilla: 2.1 mm Proximal humerus: Not seen. Mid humerus: Not seen. Distal humerus: Not seen. Elbow: 1.1 mm Mid Forearm: 1.1 mm BASILIC VEIN Axilla: 3.7 mm Proximal humerus: 2.7 mm Mid humerus: 1.5 mm Distal humerus: 2.2 mm Elbow: 1.2 mm Mid Forearm: 0.9 mm POS: [facility]
[2018-03-25] MEDS: Enoxaparin Sodium 80 MG/0.8 ML SYRINGE SC SCH (21:05)
[2018-03-25] MEDS: Atorvastatin Calcium 40 MG TAB PO SCH (21:05)
[2018-03-25] MEDS: Insulin Glargine 5 UNITS in Pre-Filled Syringe 1 EACH SC SCH (21:05)
--- NOTE | 2018-03-25 21:36 | PRG ---
DATE OF SERVICE: 03/25/2018 SUBJECTIVE: Patient was seen and examined at bedside and overnight events noted. Patient denies any shortness of breath or chest pain or palpitation. No history of nausea or vomiting or diarrhea or f ever or chills or cramps. OBJECTIVE: GENERAL: This is an elderly male, in mild distress. VITAL SIGNS: Temperature 96.6, pulse 94, respiratory rate 18, blood pressure 143/73. HEENT: Atraumatic, normocephalic, oral mucosa is moist. NECK: Supple. CARDIOVASCULAR: S1, S2 heard, rate and rhythm regular. RESPIRATORY: Clear to auscultation. GASTROINTESTINAL: Abdomen is soft. MUSCULOSKELETAL: 1+ edema. DERMATOLOGIC: No skin rash. NEUROLOGIC: Alert and awake and oriented x3. No focal neurologic deficits. Moving all the extremit ies. PSYCHIATRIC: Mood and affect normal. LABORATORY DATA: Potassium is 6.0, BUN is 47, creatinine is 3.03, bicarbonate is 11. ASSESSMENT AND PLAN: 1. Acute kidney injury on chronic kidney disease, stage 3 with oligoanuria. The patient is not phuc ng much urine and his potassium is 6 with bicarbonate of 11. The patient needs renal replacement the rapy for clearance and I did have a discussion with the patient. He is slightly confused. I also ta lked with his daughter, Koki, and she agreed to have dialysis. Surgeon was called and a consult shelbie gustavo for a dialysis access placement. Plan is to have a temporary dialysis catheter today and then a tunneled dialysis catheter once he is stable to go to OR tomorrow. We will hold onto the fistula shelbie cement for now seems like he has acute kidney injury on chronic kidney disease. 2. Hyperkalemia, severe. We will need emergent dialysis. We will have a surgery consult. Once maryann lysis catheter is placed, we will have dialysis as tolerated. We will start with a low blood flow to prevent disequilibrium syndrome. 3. Hyponatremia. 4. Severe Acidosis. We will start on dialysis. 5. Leukocytosis. 6. Septic shock. Overall, prognosis still guarded. Continue critical care. Follow up with the critical care team and continue supportive care. I will start renal replacement therapy as tolerated. I appreciate help f [facility] critical care team and surgical team. We will follow.
--- NOTE | 2018-03-25 21:57 | OP ---
PREOPERATIVE DIAGNOSES: Hyperkalemia, chronic kidney disease, acute renal failure, hyperkalemia, zuly sarca. POSTOPERATIVE DIAGNOSES: Hyperkalemia, chronic kidney disease, acute renal failure, hyperkalemia, an asarca. PROCEDURE: Right femoral vein Trialysis catheter. SURGEON: Dr. Emile Siegel. ANESTHESIA: 1% Xylocaine. PROCEDURE: At the patient's bedside, his right groin was clipped of hair, prepared with ChloraPrep, draped in routine fashion. A 1% Xylocaine infiltrated into skin and subcutaneous tissue. Trocar cat heter cannulated the femoral vein. J-wire threaded. Trocar catheter removed. Skin incised and enla rged sharply. Dilator small placed and removed. Larger dilator placed and removed. Distal port of the Trialysis catheter placed with J-wire into the femoral vein, inferior vena cava and J-wire remove d. Catheter placed over the J-wire into the femoral vein and J-wire removed. Catheter secured with 2 interrupted sutures of 3-0 silk. Sterile dressing applied. Each port aspirated blood and flushed with saline solution.
--- NOTE | 2018-03-25 22:58 | HP ---
HISTORY OF PRESENT ILLNESS: Darrell Us 82-year-old male patient admitted to the hospital on 03/24, seen by Dr. Reggie Vizcarra for dyspnea, tachycardia. He has a history of chronic atrial fibrilla tion followed by Dr. Salvador. He has a history of neuropathy, coronary artery disease, coronary artery bypass grafting many years ago. Patient is noted to be in acute renal failure, hypoxic failure on Bi PAP. He appeared to be sepsis with elevated white count. Mild elevation of troponin 0.2, reflective of point demand ischemia. Cardiology consultation pending. History of COPD. Hemoglobin 13, white count 15. GFR 20, BUN 47, creatinine 3.03. Patient had a apparent PICC line in his right basilic ve in placed. His lactic acid was 7.6. Accu-Cheks 155-218. GFR 20, BUN 47, creatinine 3.03, potassium of 6. His Perez catheter is present and he had about 155 mL out the last 24 hours and 10 mL out thi s morning. I have been asked to see him regarding dialysis catheter placement. Dr. Bear has seen him. He has hope in his renal function will recover. Dr. Deandre Salvador has seen him as from a cardiac standpoint and felt that his cardiac enzymes are elevated due to his acidosis and that he has not had a myocardial infarction and there were no EKG changes of such. Dr. Driss Neil has seen him and felt that he had sepsis and acute on chronic kidney disease. Blood cultures today from 03/23/2018 ar e negative. Urine culture negative to-date. Patient's white count on admission was 14,000, yesterda y 18,000, today 15,000. Differential is unremarkable. ALLERGIES: None. TOBACCO USE: In the past, cessation many years ago. ALCOHOL: Rarely. MEDICATIONS: Fenofibrate 160 mg a day, atorvastatin 40 mg at bedtime, carvedilol, Coreg 6.25 p.o. b. i.d., gabapentin 300 mg b.i.d., folic acid 1 mg daily, sertraline, Zoloft 25 mg a day, niacin 500 mg a day, aspirin 81 mg a day, insulin 5 units subcutaneous at bedtime, Plavix 75 mg daily. PAST SURGICAL HISTORY: Dr. Vicente, coronary artery bypass grafting using left radial artery, history of atrial fibrillation with coronary artery bypass grafting in 2001, lumbar surgery. PAST MEDICAL HISTORY: Coronary artery disease, stable. He reports being an asymptomatic from cai ry standpoint since his bypass graft in 2001, history of COPD, tobacco cessation, atrial fibrillation , chronic diabetes mellitus type 2, peripheral neuropathy, hypertension, chronic kidney disease with acute kidney injury. He has a long history of chronic kidney disease dating back to 2013 with creati nine as far as 1.5 to 1.9 and GFR from 20 to 45. Currently, hyperkalemic. We will remove the midlin e is a PICC line placed probably in the emergency room. We will ask that these never be placed again in a chronic kidney disease patient. Obtain ultrasound vein mapping both arms and preserve arms, pl acement of dialysis access in the future. Avoid antecubital access. Place hemodialysis catheter ayana in for acute dialysis for anasarca, total bile and hyperkalemia. There is a risk of future long-term dialysis need. We will await Dr. Bear's instructions prior to place the cuffed tunnel dialysis c atheter. Coronary artery disease, stable. Chronic atrial fibrillation, diabetes mellitus, hypertens ion.
[2018-03-26] MEDS ORDERED: Furosemide 40 MG/4 ML VIAL ONE (01:20)
[2018-03-26] MEDS ORDERED: Furosemide 100 MG/10 ML VIAL SLOW IVP SCH (01:30)
[2018-03-26] MEDS: ALPRAZolam 0.25 MG TAB PO PRN (01:43)
--- NOTE | 2018-03-26 02:02 | CON ---
ELECTROPHYSIOLOGY CONSULTATION DATE OF CONSULTATION: 03/25/2018 REFERRING PHYSICIAN: Tish Salvador MD REASON FOR CONSULTATION: Atrial fibrillation/atrial flutter. HISTORY OF PRESENT ILLNESS: Mr. Us is an 82-year-old gentleman who presented to the hospital wi th increasing shortness of breath and cough. His heart rate was extremely elevated between 170 and 2 00 beats per minute reportedly and EMS gave adenosine. They also started amiodarone. Upon arrival a t the hospital, it was stopped and he was transitioned to Cardizem drip. At this point, a Cardizem d rip has been stopped, but the patient has transitioned to flutter. He is currently receiving d ialysis and has been diagnosed with acute sepsis, with elevated lactic acid. Currently, the patient denies any heart racing, palpitations, chest pain or pressure, syncope or near syncope, stroke or stroke like symptoms. His rates are generally well controlled at approximately 9 0 beats per minute at this time. PAST MEDICAL HISTORY: 1. Coronary artery disease with prior coronary artery bypass grafting. 2. Chronic obstructive pulmonary disease. 3. Peripheral neuropathy. 4. Dyslipidemia. 5. Type 2 diabetes. 6. Hypertension. 7. Chronic kidney disease. 8. Mildly reduced ejection fraction by echo in 07/2017, EF 40-45% with severe bilateral atrial dilat ion. REVIEW OF SYSTEMS: Twelve-point review of systems conducted and is negative except that listed above in the history of present illness. SOCIAL HISTORY: with 4 children, former smoker. Remote history of alcohol use. FAMILY HISTORY: Negative for sudden cardiac , negative for early onset of coronary artery disea se. PHYSICAL EXAMINATION: VITAL SIGNS: Most recent vital signs include 123/77, respirations 15, oxygen saturation 91%, heart r ate 92. GENERAL: This is an elderly gentleman in no acute distress. He is resting comfortably in bed throug hout the physical exam. He is alert and oriented. Speech is clear. Affect is appropriate. HEENT: He is normocephalic, atraumatic. NECK: His carotids are without bruit. RESPIRATIONS: His breath sounds are decreased bilaterally, but no substantial wheezes, crackles, or rhonchi are appreciated at the time. Respirations are even and unlabored as he rests, recumbence. HEART: Heart rate is irregularly irregular, but variable. Ventricular rate is moderately controlled at this time. ABDOMEN: Soft, nontender without palpable masses. EXTREMITIES: Warm and dry to touch with trace edema bilaterally to the lower extremities. NEUROLOGIC: Nonfocal and grossly intact. DATABASE: EKG and telemetry were reviewed personally. Initially, the patient presented to the [facility] and 2:1 atypical flutter versus atrial tachycardia in the ventricular rate of 100 beats per minut e. Since then he has been in and out of atrial fibrillation, but currently is maintaining atrial flu tter versus atrial tachycardia with variable AV conduction. He is currently on p.o. Coreg and IV di ltiazem is off. LABORATORY DATA: From 03/25/2018, WBC 15.2, hemoglobin 13.2, hematocrit 41.4, platelet count is 112, 000. Chemistry: Sodium 130, potassium 6.0, BUN is 47, creatinine is 3.03. Magnesium on 03/24 was 2 .1. BNP on 03/23 was 397. IMPRESSION: 1. Newly found atypical atrial flutter versus atrial tachycardia likely left atrial in origin, initi ally with rapid ventricular rate, but now with improved rate control, previously given adenosine and amiodarone and eventually diltiazem drip. Currently, only on oral beta blockers. 2. Subacute sepsis. Blood cultures negative at 48 hours. 3. Acute renal failure with elevated potassium, requiring hemodialysis. 4. Coronary artery disease with prior bypass grafting with indeterminate borderline elevated troponi ns on this admission. 5. Cardiomyopathy and mildly reduced ejection fraction of 40-45%. 6. History of smoking and a diagnosis of chronic obstructive pulmonary disease. 7. Prolonged QT 430 milliseconds. PLAN: Continue rate control at this time as well as anticoagulation on Lovenox. Eventually, patient will require oral anticoagulation once he is stabilized. We will consider cardioversion after acute sepsis and illness are resolved and his electrolytes have stabilized. At that time, amiodarone vers us Multaq could be considered if he experiences recurrence and his QTC has improved after correction of his electrolyte abnormalities and potassium has normalized. We will continue to follow and apprec iate the consult. Ultimately, he may require ablation as an outpatient for his left-sided atypical a trial flutter/atrial tachycardia.
[2018-03-26 06:06] LABS: Anion Gap 21 mmol/L (10-20); BUN (Urea Nitrogen) 48 mg/dL (8.4-25.7); Calc. Creatinine Clearance 23 mL/min (70-130); Calcium 8.2 mg/dL (7.8-10.44); Carbon Dioxide 17 mmol/L (23-31); Chloride 100 mmol/L (98-107); Estimated GFR-MDRD 20; Glucose 149 mg/dL (83-110); Sodium 133 mmol/L (136-145)
[2018-03-26] MEDS: HumaLOG 300 UNITS/3 ML VIAL SC PRN (06:47)
[2018-03-26 06:51] LABS: #Lymphocytes 0.5 thou/uL (1.20-3.40); #Monocytes 0.8 thou/uL (0.11-0.59); #Neutrophils 9.9 thou/uL (1.40-6.50); %Eosinophils 0.4 % (0.0-10.0); %Lymphocytes 4.7 % (21.0-51.0); %Monocytes 7.4 % (0.0-10.0); %Neutrophils 87.6 % (42.0-75.0); Hemoglobin 13.9 g/dL (14.0-18.0); Mean Corpuscular HGB CONC 32.5 g/dL (32.0-36.0); Mean Corpuscular Hemoglobin 28.5 pg (27.0-31.0); Mean Corpuscular Volume 87.9 fl (80.0-94.0); Mean Platelet Volume 9.1 fL (7.4-10.4); Platelet Count 110 thou/uL (130-400); RBC Distribution Width 16.6 % (11.5-14.5); Red Blood Cell (RBC) Count 4.87 mill/uL (4.70-6.10); White Blood Cell (WBC) Count 11.3 thou/uL (4.8-10.8)
[2018-03-26] MEDS ORDERED: Heparin 10,000 UNITS/ 10 ML VIAL ONE (09:00)
--- NOTE | 2018-03-26 11:21 | PDOC.CTH ---
<Sravanthi Valdez - Last Filed: 03/26/18 11:16> Cardiology Progress Note - Subjective The pt seen and examined. No overnight events. No cardiac complaints. He has been on Bipap since last night for acute resp. failure. Plan for Intubation after HD. - Objective Vital Signs Temp Pulse Resp Pulse Ox 03/26/18 10:26 110 H 16 95 03/26/18 10:25 106 H 16 95 03/26/18 07:41 100 28 H 98 03/26/18 07:39 97 29 H 97 03/26/18 04:00 98.6 F 18 03/26/18 02:17 93 20 92 L 03/26/18 01:52 17 03/26/18 00:00 98.7 F Weight 187 lb 6.287 oz 03/25/18 03/26/18 03/27/18 06:59 06:59 06:59 Intake Total 5554.3 2712 Output Total 155 374 20 Balance 5399.3 2338 -20 - Physical Examination Lungs: other: (coarses and diminished at bases) Heart: other: (irregular) Abdomen: soft Extremities: other: (No edema) - Telemetry Telemetry Rhythm: AFlutter 100s - Labs Result Diagrams: 03/26/18 04:21 03/26/18 04:21 Troponin/CKMB CK-MB (CK-2) 6.2 ng/mL (0-6.6) 03/23/18 22:03 Troponin I 0.337 ng/mL (< 0.028) H* 03/24/18 03:40 - Assessment/Plan 1. Acute resp. failure - The pt is on Bipap since last night and plan for intubation today after HD. 2. AFib/SVT/Aflutter - Aflutter vs AT with HR 100s; Cardizem is on hold due to Hypotensive; Cont. to monitor 3. Acute on CKD stage 3 - Another HD today; Managed by family program specialist 4. Septic shock 2ndary to PNA - stable; managed by PCP 5. CAD with hx of CABG x3 in 2001 - stable; negative LHC result in 01/2018; cont. to monitor 6. HTN - stable with current meds 7. Hyperlipidemia - resume Lipitor 40mg qHS. 8. DM type 2 - stable; managed by PCP 9. COPD - stable with 2LNC MAR reviewed Review of Systems - Review of Systems Constitutional: reports: see HPI EENTM: reports: see HPI Respiratory: reports: see HPI Cardiac (ROS): reports: see HPI ABD/GI: reports: see HPI : reports: see HPI <Christ Salvador Deandre - Last Filed: 03/26/18 19:23> Cardiology Progress Note - Objective Vital Signs Temp Pulse Resp BP Pulse Ox 03/26/18 18:35 103 H 92/57 L 03/26/18 18:00 23 H 03/26/18 16:00 98.8 F 21 H 03/26/18 15:05 102 H 109/63 03/26/18 15:03 102 H 24 H 96 03/26/18 14:00 23 H 03/26/18 12:42 102 H 138/75 03/26/18 12:30 24 H 95 03/26/18 12:00 97.0 F L 03/26/18 10:26 110 H 16 95 03/26/18 10:25 106 H 16 95 03/26/18 08:00 97.9 F 102 H 19 96 03/26/18 07:41 100 28 H 98 03/26/18 07:39 97 29 H 97 Weight 187 lb 6.287 oz 03/25/18 03/26/18 03/27/18 06:59 06:59 06:59 Intake Total 5554.3 2712 423 Output Total 155 374 305 Balance 5399.3 2338 118 - Labs Result Diagrams: 03/26/18 04:21 03/26/18 04:21 Troponin/CKMB CK-MB (CK-2) 6.2 ng/mL (0-6.6) 03/23/18 22:03 Troponin I 0.337 ng/mL (< 0.028) H* 03/24/18 03:40 - Assessment/Plan Pt. seen and eval. by me. He has been re-intubated and is sedated. He is on the way down to the OR to have a dialysis catheter placed. I agree with the A/P by the SPECIAL ASSETS OFFICER. Chest : coarse anterior right sided rhonchi. RRR.Multuiple medical problems.
[2018-03-26] MEDS: Cefepime 2 GM in Sodium Chloride 0.9% 100 ML IVPB SCH (11:54)
[2018-03-26] MEDS: Famotidine 20 MG TAB PO SCH (11:55)
[2018-03-26] MEDS: Carvedilol 3.125 MG TAB PO SCH ×2 (11:55→18:47)
[2018-03-26] MEDS ORDERED: Propofol 1,000 MG/100 ML VIAL IV ONE (11:55)
--- NOTE | 2018-03-26 12:31 | EKG ---
Test Reason : STAT Blood Pressure : / mmHG Vent. Rate : 090 BPM Atrial Rate : 090 BPM P-R Int : 104 ms QRS Dur : 124 ms QT Int : 430 ms P-R-T Axes : 000 -66 090 degrees QTc Int : 526 ms Poor data quality, interpretation may be adversely affected Sinus rhythm with short VT Left axis deviation Possible Anterior infarct (cited on or before 23-MAR-2018) Abnormal ECG When compared with ECG of 23-MAR-2018 22:35, (Unconfirmed) Sinus rhythm has replaced Atrial flutter QRS voltage has decreased Questionable change in initial forces of Anterior leads Nonspecific T wave abnormality, worse in Lateral leads Confirmed by SUGAR CORONA ([id number]) on 03/26/2018 12:31:23 PM Referred By: MANASA Confirmed By:SUGAR CORONA
[2018-03-26 13:43] LABS: Base Excess (BEa) -3.2 mEq/L (-2.0 to +3.0); CO2 Tension 34.9 mmHg (35.0-45.0); Hematocrit-ABG 40.7 % (42.0-52.0); Hemoglobin (Hb) 15.5 g/dL (14.0-18.0); O2 Tension (PaO2) 75.5 mmHg (> 60.0)
[2018-03-26 13:44] LABS: ALV-art Gradient 144.685 (0-20); Puncture Site RRA
--- NOTE | 2018-03-26 14:07 | PRG ---
DATE OF SERVICE: 03/26/2018 NEPHROLOGY PROGRESS NOTE SUBJECTIVE: Patient was seen and examined at bedside and overnight events noted. Patient denies any shortness of breath or chest pain or palpitation. No history of nausea or vomiting or diarrhea or f ever or chills or cramps. OBJECTIVE: GENERAL: This is a well-built male seen in ICU. VITAL SIGNS: Temperature 98.6, pulse 106, respiratory 16, blood pressure 138/75. HEENT: Atraumatic, normocephalic, Oral mucosa is moist NECK: Supple CARDIOVASCULAR: S1, S2 heard. Rate and rhythm regular. RESPIRATORY: Clear to auscultation. GASTROINTESTINAL: Abdomen is soft. MUSCULOSKELETAL: No tenderness, no edema. DERMATOLOGIC: No skin rash. NEUROLOGIC: Alert and awake and oriented x3. No focal neurologic deficits. Moving all the extremit ies. PSYCHIATRIC: Mood and affect normal. LABORATORY DATA: Potassium is 5.0, BUN is 48, creatinine is 2.9. ASSESSMENT AND PLAN: 1. Acute kidney injury on chronic kidney stage 3. Initiated on dialysis yesterday, tolerated well. Plan is to have second session of dialysis today. Temporary femoral dialysis catheter placed which was getting some trouble for the dialysis nurses and Dr. Siegel consulted for tunneled dialysis ayse ter. We will hold onto the fistula placement for now. 2. Hyponatremia, better. 3. Hyperkalemia, better, 5 today from 6 yesterday. 4. Metabolic acidosis secondary to renal failure and bicarbonate level is better today. 5. Anemia, mild. 6. Edema. We will remove fluid with dialysis. 7. Fluid overload. 8. Hypertension, stable. Plan is to continue on dialysis. Family was present including sister at the bedside. Sister Koki so t the bedside and was updated about the plans and all the questions answered. We will follow.
[2018-03-26] MEDS ORDERED: Ventilator Sedation Protocol 1 EACH FS ONE (14:59)
[2018-03-26] MEDS ORDERED: DISCONTINUE PREVIOUS NARCOTIC PAIN MEDICATIONS AND BENZODIAZEPINES FS SCH (15:27)
[2018-03-26] MEDS ORDERED: Lorazepam 2 MG/ML VIAL SLOW IVP PRN (15:27)
[2018-03-26] MEDS ORDERED: Fentanyl BOLUS 250 ML IVPB PRN (15:27)
[2018-03-26] MEDS ORDERED: Propofol BOLUS 1,000 MG/100 ML VIAL IV PRN (15:27)
--- NOTE | 2018-03-26 15:49 | PDOC.CTH ---
<Brook Isaacs - Last Filed: 03/26/18 15:45> Cardiology Progress Note - Subjective EP progress note: Patient seen and evaluated. Acute respiratory failure overnight and placed on Bipap. No new cardiac complaints. - Objective Vital Signs Temp Pulse Resp BP Pulse Ox 03/26/18 15:05 102 H 109/63 03/26/18 15:03 102 H 24 H 96 03/26/18 12:42 102 H 138/75 03/26/18 12:00 97.0 F L 03/26/18 10:26 110 H 16 95 03/26/18 10:25 106 H 16 95 03/26/18 07:41 100 28 H 98 03/26/18 07:39 97 29 H 97 03/26/18 04:00 98.6 F 18 Weight 187 lb 6.287 oz 03/25/18 03/26/18 03/27/18 06:59 06:59 06:59 Intake Total 5554.3 2712 Output Total 155 374 245 Balance 5399.3 2338 -245 - Physical Examination General/Neuro: alert & oriented x3 Neck: other: (+ JVD) Heart: other: (irreg. irreg) Abdomen: NT/ND, soft - Telemetry Telemetry Rhythm: atrial tachycardia - Labs Result Diagrams: 03/26/18 04:21 03/26/18 04:21 Troponin/CKMB CK-MB (CK-2) 6.2 ng/mL (0-6.6) 03/23/18 22:03 Troponin I 0.337 ng/mL (< 0.028) H* 03/24/18 03:40 - Assessment/Plan 1. Atrial fibrillation and tachycardia with moderate ventricular rate control on coreg. hypotension with diltiazem gtt. Continue with rate control for now. Consider DCCV once medically stable and RFA for A tach as outpatient. 2. anticoagulation- continue lovenox and aspirin for CVA prophylaxis with atrial arrhythmias 3. Acute respiratory failure- intubation planned 03/26/18 4. Hyperkalemia- HD today again 5. Chronic renal failure- HD today again 6. Septic shock secondary to pneumonia <Akash Rodas - Last Filed: 03/27/18 14:48> Cardiology Progress Note - Objective Vital Signs Temp Pulse Resp BP Pulse Ox 03/27/18 12:00 98.4 F 16 03/27/18 11:05 105 H 105/69 03/27/18 10:00 17 03/27/18 08:00 98.1 F 105 H 15 98 03/27/18 07:30 104 H 93/61 03/27/18 06:00 98.4 F 18 03/27/18 04:00 22 H 03/27/18 03:05 18 98 03/27/18 03:00 98.3 F Admit Weight 187 lb 6.4 oz Weight 187 lb 6.287 oz 03/26/18 03/27/18 03/28/18 06:59 06:59 06:59 Intake Total 2711 570 300 Output Total 374 635 365 Balance 2338 -65 -65 - Labs Result Diagrams: 03/27/18 04:46 03/27/18 04:46 Troponin/CKMB CK-MB (CK-2) 6.2 ng/mL (0-6.6) 03/23/18 22:03 Troponin I 0.337 ng/mL (< 0.028) H* 03/24/18 03:40 Attending Addendum - Attending Addendum Date/Time: 03/27/18 [id number] I personally evaluated the patient and discussed the management with Ms Isaacs. I agree with the History, Examination, Assessment and Plan documented above with any addition or exceptions noted below.
--- NOTE | 2018-03-26 17:53 | PRG ---
DATE OF SERVICE: 03/26/2018 SUBJECTIVE: Darrell Us was evaluated multiple times this morning. He remained tachycardic. He w as on noninvasive ventilation. His respiratory distress did not improve with dialysis. OBJECTIVE: VITAL SIGNS: Heart rate was in the 90s. He was confused. LUNGS: Coarse equal breath sounds. Exam consistent with retained secretions. HEART: Regular rhythm. ABDOMEN: Soft. EXTREMITIES: Without asymmetry. LABORATORY DATA: White count 11.3, hemoglobin 13.9, platelets 110,000. Sodium 133, potassium 5, chl oride 100, bicarbonate 17, BUN 48, creatinine 2.9, glucose 149. pH 7.4, CO2 of 34, PO2 75 this after noon. ASSESSMENT AND PLAN: Respiratory therapy is feeling that since he did not improve with dialysis as t he morning progressed that he would benefit from intubation, ventilate and/or retain secretions and h is work of breathing. He really could not consent to this because of his confusion and his respiratory distress. He subsequently has been intubated. Procedure will be dictated in a separate procedure. Copious sec retions were encountered. He looks much more comfortable with sedation, mechanical ventilation in pl jose. Critical care time 35 minutes independent of the procedure.
--- NOTE | 2018-03-26 17:55 | PDOC.PN ---
- Subjective Encounter Start Date: 03/26/18 Encounter Start Time: 11:00 HAD INCREASED RESPIRATORY DISTRESS OVERNIGHT. REQUIRED BIPAP AND DID NOT HAVE SIGNIFICANT IMPROVEMENT WITH THAT. INTUBATED TODAY BY PULMONOLOGY. - Objective Resuscitation Status: Resuscitation Status FULL:Full Resuscitation Vital Signs & Weight: Vital Signs (12 hours) Temp Pulse Resp BP Pulse Ox 03/26/18 15:05 102 H 109/63 03/26/18 15:03 102 H 24 H 96 03/26/18 14:00 23 H 03/26/18 12:42 102 H 138/75 03/26/18 12:30 24 H 03/26/18 12:00 97.0 F L 03/26/18 10:26 110 H 16 95 03/26/18 10:25 106 H 16 95 03/26/18 08:00 97.9 F 102 H 19 96 03/26/18 07:41 100 28 H 98 03/26/18 07:39 97 29 H 97 Weight Weight 187 lb 6.287 oz Most Recent Monitor Data Heart Rate from ECG 102 NIBP 110/60 NIBP BP-Mean 67 Respiration from ECG 24 SpO2 94 I&O: 03/25/18 03/26/18 03/27/18 06:59 06:59 06:59 Intake Total 5554.3 2712 Output Total 155 374 245 Balance 5399.3 2338 -245 Result Diagrams: 03/26/18 04:21 03/26/18 04:21 Additional Labs: Accuchecks 03/26/18 03/26/18 03/25/18 11:20 06:47 21:01 POC Glucose 109 168 H 151 H Phys Exam - Physical Examination AT EXAM, PATIENT ON BIPAP AND LESS RESPONSIVE. DIFFUSE, SCATTERED RALES BILATERALLY. Cardiovascular: no significant murmur, no rub TACHY WITH RATE CHANGES. Gastrointestinal: soft, no distention Musculoskeletal: no edema LESS RESPONSIVE. Skin: no rash Dx/Plan (1) Sepsis Code(s): A41.9 - SEPSIS, UNSPECIFIED ORGANISM Status: Acute Qualifiers: Sepsis type: sepsis due to unspecified organism Qualified Code(s): A41.9 - Sepsis, unspecified organism Plan: PATIENT REQUIRED SIGNIFICANT FLUID RESUSCITATION. SOURCE APPEARS TO BE PNEUMONIA. CONTINUE BROAD SPECTRUM ANTIBIOTICS WITH CEFEPIME AND CIPRO. (2) Atrial fibrillation with RVR Code(s): I48.91 - UNSPECIFIED ATRIAL FIBRILLATION Status: Acute Plan: CARDIOLOGY AND EP FOLLOWING. HAD SOME HYPOTENSION, SO CARDIZEM STOPPED. RATE MANAGED WITH COREG ALONE. NEEDS TO BE MORE STABLE FOR POSSIBLE ABLATION IN THE FUTURE. CONTINUE LOVENOX. (3) Rrbqi-jz-ruxsizb kidney injury Code(s): N17.9 - ACUTE KIDNEY FAILURE, UNSPECIFIED; N18.9 - CHRONIC KIDNEY DISEASE, UNSPECIFIED Status: Acute Plan: HAS PROGRESSED TO RENAL FAILURE. FOLLOWED BY NEPHROLOGY. HAS HAD HD TWICE NOW. MANAGING FLUIDS, ACIDOSIS AND POTASSIUM. (4) CKD (chronic kidney disease) stage 3, GFR 30-59 ml/min Code(s): N18.3 - CHRONIC KIDNEY DISEASE, STAGE 3 (MODERATE) Status: Acute (5) Oliguria Code(s): R34 - ANURIA AND OLIGURIA Status: Acute (6) CAD in [place] artery Code(s): I25.10 - ATHSCL HEART DISEASE OF [place] CORONARY ARTERY W/O ANG PCTRS Status: Acute (7) Diastolic dysfunction Code(s): I51.9 - HEART DISEASE, UNSPECIFIED Status: Acute (8) DM2 (diabetes mellitus, type 2) Status: Chronic Plan: BLOOD SUGARS VERY GOOD. NO CHANGE. Comment: continue accuchecks, insulin sliding scale (9) Elevated troponin Code(s): R74.8 - ABNORMAL LEVELS OF OTHER SERUM ENZYMES Status: Acute (10) Hyperkalemia Code(s): E87.5 - HYPERKALEMIA Status: Acute Plan: IMPROVED WITH HD. - Plan * ABOVE.
--- NOTE | 2018-03-26 18:04 | OP ---
03/26/2018 DESCRIPTION OF PROCEDURE: Mr. Us had a bite block placed in his mouth and throat were sprayed with Cetacaine spray. Bronchoscope was easily passed into his trachea first pass. A 7.5 endotracheal tube was secured above the main [place]. A swivel adaptor was attached to the bronchoscope and he was ventilated. The bronchoscope was reintroduced and copious clear secretions were encountered in his trachea and suctioned clear. His right lower lobe, right middle lobe, right upper lobe, left lower lobe and left upper lobe were inspected. No endobronchial lesions were seen. He tolerated intubation well. There was no significant change in his hemodynamics. There was no hypoxemia during intubation. MTDD
[2018-03-26] MEDS ORDERED: Midazolam HCl 2 mg/2 ml Vial ONE (18:21)
[2018-03-26] MEDS ORDERED: Fentanyl 100 MCG/2 ML VIAL ONE (18:21)
[2018-03-26] MEDS ORDERED: Sodium Chloride 0.9% 10 ML ONE (18:27)
[2018-03-26] MEDS ORDERED: Bupivacaine HCl 0.5%/Epinephrine 1:200,000/PF 30 ml Vial ONE (18:27)
[2018-03-26] MEDS ORDERED: Lidocaine 2% 10 ML INJ ONE (18:27)
[2018-03-26] MEDS ORDERED: Heparin 10,000 UNITS/1 ML VIAL ONE (18:27)
[2018-03-26] MEDS ORDERED: Sodium Chloride 0.9% 40 ML ONE (18:28)
--- NOTE | 2018-03-26 20:18 | RAD ---
PORTABLE CHEST: 03/26/18 HISTORY: Central line. Shortness of breath. FINDINGS/IMPRESSION: ET tube and NG tube are noted. There is vascular congestion with evidence of interstitial edema. Conf luent atelectasis and/or infiltrate in the left lung base obscures the left hemidiaphragm. Evidence o f small effusions. No pneumothorax. No evidence of central line. POS: H
[2018-03-26] MEDS: Atorvastatin Calcium 40 MG TAB PO SCH (21:18)
[2018-03-26] MEDS: Enoxaparin Sodium 80 MG/0.8 ML SYRINGE SC SCH (21:29)
[2018-03-26] MEDS: Insulin Glargine 5 UNITS in Pre-Filled Syringe 1 EACH SC SCH (21:29)
[2018-03-27] MEDS: Propofol 1,000 MG/100 ML VIAL IV PRN ×2 (00:48→17:23)
[2018-03-27 05:06] LABS: Anion Gap 13 mmol/L (10-20); BUN (Urea Nitrogen) 52 mg/dL (8.4-25.7); Calc. Creatinine Clearance 23 mL/min (70-130); Calcium 7.8 mg/dL (7.8-10.44); Carbon Dioxide 24 mmol/L (23-31); Chloride 100 mmol/L (98-107); Estimated GFR-MDRD 20; Glucose 191 mg/dL (83-110); Sodium 133 mmol/L (136-145)
[2018-03-27] MEDS: HumaLOG 300 UNITS/3 ML VIAL SC PRN ×4 (05:13→21:03)
[2018-03-27 06:07] LABS: Band 9 % (5-11); Hemoglobin 11.9 g/dL (14.0-18.0); Lymphocytes 9 % (21-51); MDiff Complete? YES; Mean Corpuscular HGB CONC 32.3 g/dL (32.0-36.0); Mean Corpuscular Hemoglobin 28.4 pg (27.0-31.0); Mean Corpuscular Volume 87.7 fl (80.0-94.0); Mean Platelet Volume 9.5 fL (7.4-10.4); Monocytes 3 % (0-10); Neutrophil 77 % (42-75); PLT Morphology Comment Appears Decreased; Platelet Count 67 thou/uL (130-400); RBC Distribution Width 16.9 % (11.5-14.5); Reactive Lymphocytes 2 % (0-10)
[2018-03-27 07:14] LABS: pH, Arterial 7.41 (7.35-7.45)
[2018-03-27 07:15] LABS: Base Excess (BEa) -1.3 mEq/L (-2.0 to +3.0); CO2 Tension 37.1 mmHg (35.0-45.0); Hematocrit-ABG 38.6 % (42.0-52.0); Hemoglobin (Hb) 11.7 g/dL (14.0-18.0); O2 Tension (PaO2) 94.9 mmHg (> 60.0); Puncture Site RR
[2018-03-27 07:16] LABS: ALV-art Gradient 120.685 (0-20)
--- NOTE | 2018-03-27 08:05 | RAD ---
CHEST 1 VIEW: HISTORY: Dyspnea. Followup. COMPARISON: 03/26/18. FINDINGS: Cardiac silhouette magnified and enlarged. Pulmonary vasculature engorged but is similar in appearan ce to the prior study. The patient is rotated leftward. Reticulonodular interstitial prominence is similar in appearance. Lines and tubes are unchanged in position. monitoring and evaluation advisor leads overlie the chest. IMPRESSION: Pulmonary edema and other findings are stable. POS: A[place]O
--- NOTE | 2018-03-27 08:18 | OP ---
DATE OF SERVICE: 03/26/2018 PREOPERATIVE DIAGNOSES: Acute renal failure, poorly functioning Trialysis catheter in right groin. POSTOPERATIVE DIAGNOSES: Acute renal failure, poorly functioning Trialysis catheter in right groin w ith occluded right and left internal jugular veins (patent, but no access to the cava). PROCEDURES: Successful cannulation of right and left internal jugular veins with inability to thread J-wire into the superior vena cava. Placement of left femoral vein cuffed tunneled hemodialysis cat heter, angiodynamics. Fluoroscopy used, ultrasound used. SURGEON: Dr. Emile Siegel. ANESTHESIA: General. PROCEDURE IN DETAIL: Patient taken from the ICU on the ventilator to the operating room where in sup ine position, neck and chest were prepped with ChloraPrep, draped in routine fashion. Using ultrasou nd guidance, the right and left internal jugular veins were cannulated with trocar catheters and J-wi re was threaded, but the wire would not thread into the superior vena cava. Trocar catheter was royal shawn. Side abandoned. Drapes removed. Left lower abdomen, groin, and thigh prepared with ChloraPrep , draped in routine fashion. Trocar catheter cannulated the femoral vein. J-wire threaded. Trocar catheter removed. Skin incised and enlarged sharply. Stab incision made in anterior lateral mid thi gh and using the tunneling device, the angiodynamics tunneled hemodialysis catheter tunneled between two incisions, placing the fabric cuff beneath the skin exit site. Catheter secured with 2 interrupt ed sutures of 3-0 nylon. Dermabond and Biopatch applied. Sterile dressing applied. Smaller medium sized dilators placed over the J-wire into the femoral vein removed, dilator and pull-away sheath shelbie gustavo over the J-wire into the femoral vein. J-wire and dilator removed. Catheter placed with pull-aw ay sheath. Pull-away sheath removed. Subcutaneous tissues approximated with 3-0 Monocryl, skin with subdermal 4-0 Monocryl, and DermaGlue applied.
--- NOTE | 2018-03-27 08:56 | PDOC.CTH ---
Cardiology Progress Note - Subjective The pt seen and examined. No overnight events. No cardiac complaints. He was intubated with vent sedation on 03/26/18 for acute resp. failure. - Objective Vital Signs Temp Pulse Resp BP Pulse Ox 03/27/18 07:30 104 H 93/61 03/27/18 06:00 98.4 F 18 03/27/18 04:00 22 H 03/27/18 03:05 18 98 03/27/18 03:00 98.3 F 03/27/18 02:00 18 03/27/18 01:57 102 H 100/64 03/27/18 00:00 98.1 F 19 03/26/18 23:00 98.3 F 03/26/18 22:06 102 H 106/63 03/26/18 22:00 97.8 F 20 Weight 187 lb 6.287 oz 03/26/18 03/27/18 03/28/18 06:59 06:59 06:59 Intake Total 2712 570 Output Total 374 635 35 Balance 2338 -65 -35 - Physical Examination Lungs: other: (coarses and diminshed at bases) Heart: other: (irregular) Abdomen: soft Extremities: other: (No edema) - Telemetry Telemetry Rhythm: aflutter 100s - Labs Result Diagrams: 03/27/18 04:46 03/27/18 04:46 Troponin/CKMB CK-MB (CK-2) 6.2 ng/mL (0-6.6) 03/23/18 22:03 Troponin I 0.337 ng/mL (< 0.028) H* 03/24/18 03:40 - Assessment/Plan 1. Acute resp. failure with s/p intubation on 03/26/18 - stable with mechanical vent support; managed by tiller worker 2. AFib/SVT/Aflutter - Aflutter vs AT with HR 100s; Cardizem is on hold due to Hypotensive; EP consult; possible DONAL and Cardioversion when the pt is stable; on Lovenox and ASA; Cont. to monitor 3. Acute on CKD stage 3 - s/p dialysis cath placement to Rt groin on 03/26/18; Managed by jacquard card cutter 4. Septic shock 2ndary to PNA - stable; managed by PCP 5. CAD with hx of CABG x3 in 2001 - stable; negative LHC result in 01/2018; cont. to monitor 6. HTN - stable with current meds 7. Hyperlipidemia - resume Lipitor 40mg qHS. 8. DM type 2 - stable; managed by PCP 9. COPD - stable with mechanical Vent support MAR reviewed Review of Systems - Review of Systems Constitutional: reports: see HPI EENTM: reports: see HPI Respiratory: reports: see HPI Cardiac (ROS): reports: see HPI ABD/GI: reports: see HPI
[2018-03-27] MEDS: Carvedilol 3.125 MG TAB PO SCH ×2 (09:08→16:18)
[2018-03-27] MEDS: Famotidine 20 MG TAB PO SCH (09:18)
[2018-03-27] MEDS: Cefepime 2 GM in Sodium Chloride 0.9% 100 ML IVPB SCH (09:18)
--- NOTE | 2018-03-27 12:45 | PRG ---
DATE OF SERVICE: 03/27/2018 SUBJECTIVE: Patient was seen and examined at bedside and overnight events noted. Patient is intubated. PHYSICAL EXAMINATION: GENERAL: This is a well-built male in no apparent distress. VITAL SIGNS: Temperature 98.1, pulse 100, respiratory rate 18, blood pressure 105/69. HEENT: Intubated. Atraumatic normocephalic Musculoskeletal : No tenderness, No edema Neck: Supple Cardiovascular: S1S2 heard, Rate and rhythm regular Respiratory: Clear to auscultation Gastrointestinal: Abdomen is soft Dermatologic : No skin rash Neurologic: intubated Psychiatric: Mood and affect normal LABORATORY DATA: Potassium is 4.0, BUN 52, creatinine is 2.9. ASSESSMENT AND PLAN: 1. Acute kidney injury on chronic kidney stage 3. Had dialysis yesterday and tolerated well. No dialysis today. 2. Hyponatremia, stable. 3. Hyperkalemia, much better. 4. Metabolic acidosis, resolved with dialysis. 5. Anemia. 6. Edema. Some fluid overload. 7. Hypertension, stable. Overall, he is making more urine and might be having some renal recovery. No dialysis today. He will have dialysis if needed. We will follow. CELE
--- NOTE | 2018-03-27 16:50 | PDOC.PN ---
- Subjective Encounter Start Date: 03/27/18 Encounter Start Time: 12:45 -: non-verbal - Objective Resuscitation Status: Resuscitation Status FULL:Full Resuscitation Vital Signs & Weight: Vital Signs (12 hours) Temp Pulse Resp BP Pulse Ox 03/27/18 16:00 19 03/27/18 15:16 106 H 90/65 03/27/18 14:00 20 03/27/18 12:00 98.4 F 16 03/27/18 11:05 105 H 105/69 03/27/18 10:00 17 03/27/18 08:00 98.1 F 105 H 15 98 03/27/18 07:30 104 H 93/61 03/27/18 06:00 98.4 F 18 Weight Admit Weight 187 lb 6.4 oz Weight 187 lb 6.287 oz Most Recent Monitor Data Heart Rate from ECG 108 NIBP 99/67 NIBP BP-Mean 75 Respiration from ECG 15 SpO2 99 I&O: 03/26/18 03/27/18 03/28/18 06:59 06:59 06:59 Intake Total 2712 570 300 Output Total 374 635 475 Balance 2338 -65 -175 Result Diagrams: 03/27/18 04:46 03/27/18 04:46 Additional Labs: Accuchecks 03/27/18 03/27/18 03/26/18 12:12 04:27 21:24 POC Glucose 223 H 214 H 154 H Phys Exam - Physical Examination Constitutional: NAD SEDATED, INTUBATED Neck: no JVD SCATTERED BILATERAL WHEEZES Cardiovascular: RRR, no significant murmur Gastrointestinal: soft, no distention, positive bowel sounds Musculoskeletal: no edema Dx/Plan (1) Sepsis Code(s): A41.9 - SEPSIS, UNSPECIFIED ORGANISM Status: Acute Qualifiers: Sepsis type: sepsis due to unspecified organism Qualified Code(s): A41.9 - Sepsis, unspecified organism Plan: SUSPECT PNEUMONIA SOURCE. STILL HAS SOME BORDERLINE BLOOD PRESSURES. PULMONARY CRITICAL CARE FOLLOWING. (2) Atrial fibrillation with RVR Code(s): I48.91 - UNSPECIFIED ATRIAL FIBRILLATION Status: Acute Plan: CARDIOLOGY FOLLOWING. STABLE NOW. HAS NOT TOLERATED THE CARDIZEM AT TIMES BECAUSE OF HYPOTENSION. (3) Tocwc-yr-lxwiqgy kidney injury Code(s): N17.9 - ACUTE KIDNEY FAILURE, UNSPECIFIED; N18.9 - CHRONIC KIDNEY DISEASE, UNSPECIFIED Status: Acute Plan: NEPHROLOGY FOLLOWING. APPEARS TO HAVE ACUTE KIDNEY INJURY LIKELY DUE TO SEPSIS AND HYPOTENSION. OLIGURIC. ON HD. UOP PICKING UP SLIGHTLY. ACIDOSIS AND HYPERKALEMIA IMPROVED. (4) CKD (chronic kidney disease) stage 3, GFR 30-59 ml/min Code(s): N18.3 - CHRONIC KIDNEY DISEASE, STAGE 3 (MODERATE) Status: Acute (5) Oliguria Code(s): R34 - ANURIA AND OLIGURIA Status: Acute (6) CAD in [place] artery Code(s): I25.10 - ATHSCL HEART DISEASE OF [place] CORONARY ARTERY W/O ANG PCTRS Status: Acute (7) Diastolic dysfunction Code(s): I51.9 - HEART DISEASE, UNSPECIFIED Status: Acute Plan: SOME VOLUME OVERLOAD WITH INITIAL FLUIDS GIVEN FOR BP SUPPORT. (8) DM2 (diabetes mellitus, type 2) Status: Chronic Comment: continue accuchecks, insulin sliding scale (9) Elevated troponin Code(s): R74.8 - ABNORMAL LEVELS OF OTHER SERUM ENZYMES Status: Acute Plan: CARDIOLOGY ON BOARD. DEMAND ISCHEMIA. (10) Hyperkalemia Code(s): E87.5 - HYPERKALEMIA Status: Acute - Plan * ABOVE.
--- NOTE | 2018-03-27 17:17 | PRG ---
DATE OF SERVICE: 03/27/2018 SUBJECTIVE: Ms. Us is clinically stable and remains mechanically ventilated. OBJECTIVE: VITAL SIGNS: Respiratory rate 16, heart rate 75, blood pressure 99/68, oximetry is 100%. LUNGS: Clear today. HEART: Regular rhythm, no S3. ABDOMEN: Soft. EXTREMITIES: Without clubbing, cyanosis, or edema. Moves all his extremities. Chest radiograph shows pulmonary edema. LABORATORY DATA: White count 5, hemoglobin 11.9, platelets 67,000. Sodium 133 , potassium 4, chloride 100, bicarbonate 24, BUN 52, creatinine 2.96. A pH 7.41 , CO2 37, pO2 94. IMPRESSION: 1. Respiratory failure secondary to retained secretions 2. Renal failure. 3. Atrial fibrillation/anticoagulation. I have recommended holding anticoagulants given his drop in his platelets and his renal failure. Full dose anticoagulation, I think, is relatively contraindicated at this point. 4. Status post vascular access placement. 5. Anemia of chronic disease. 6. Deconditioning. PLAN: Continue mechanical ventilation, monitoring of renal function, dialysis per Nephrology. We will continue with his current antimicrobial therapy. His Lovenox has been discontinued for now. Critical care time 35 minutes. MTDD
[2018-03-27] MEDS: Atorvastatin Calcium 40 MG TAB PO SCH (20:49)
[2018-03-27] MEDS: Insulin Glargine 5 UNITS in Pre-Filled Syringe 1 EACH SC SCH (21:00)
--- NOTE | 2018-03-27 22:17 | PRG ---
DATE OF SERVICE: 03/27/2018 ELECTROPHYSIOLOGY FOLLOWUP NOTE REFERRING PHYSICIAN: Dr. Salvador. SUBJECTIVE: Ms. Us due to respiratory distress overnight and required intubation, rate remains in atypical atrial tachycardia/flutter. OBJECTIVE: VITAL SIGNS: Blood pressure is 98/65, heart rate 105, respirations 10 on ventilator. Patient is afebrile. GENERAL: Reveals an intubated and sedated man in no apparent distress. NECK: Supple. Jugular veins are difficult to visualize. CHEST: Coarse, no crackles. ET tube is in place. ABDOMEN: Benign. Bowel sounds positive. EXTREMITIES: Lower extremities without edema, clubbing or cyanosis. Hemodialysis catheter is in place. LABORATORY DATA: White cell count 5, hemoglobin 11.9, platelet count 67. Sodium 133, potassium 4, BUN is 56, creatinine is 2.96. DATABASE: The telemetry strips reveal continued atrial flutter with controlled ventricular rate in the low 100s. ASSESSMENT: Mr. Us is an 82-year-old man with a history of chronic atrial fibrillation/arrhythmias, who presented with acute renal failure, hypoxia, possible sepsis. He was initially treated with diltiazem drip, but that had to be stopped due to lower blood pressures Now on carvedilol alone. PLAN: At this point, 1. Continue low dose beta dain therapy, titrate up as tolerated. 2. Consider anticoagulation if the platelet counts are improving. 3. Optimize infection status, treatment of sepsis as per primary team. 4. Could consider DONAL cardioversion, possibly after clinical status stabilizes. [facility] MEDICAL CENTERMercedes
[2018-03-28 04:31] LABS: Anion Gap 14 mmol/L (10-20); BUN (Urea Nitrogen) 63 mg/dL (8.4-25.7); Band 3 % (5-11); Calc. Creatinine Clearance 23 mL/min (70-130); Calcium 8.1 mg/dL (7.8-10.44); Carbon Dioxide 24 mmol/L (23-31); Chloride 100 mmol/L (98-107); Eosinophils 3 % (0-10); Estimated GFR-MDRD 21; Glucose 239 mg/dL (83-110); Hemoglobin 12.8 g/dL (14.0-18.0); Lymphocytes 6 % (21-51); MDiff Complete? YES; Mean Corpuscular HGB CONC 33.1 g/dL (32.0-36.0); Mean Corpuscular Hemoglobin 28.6 pg (27.0-31.0); Mean Corpuscular Volume 86.3 fl (80.0-94.0); Mean Platelet Volume 8.9 fL (7.4-10.4); Monocytes 13 % (0-10); Neutrophil 75 % (42-75); PLT Morphology Comment Appears Decreased; Platelet Count 77 thou/uL (130-400); Potassium 3.7 mmol/L (3.5-5.1); Red Blood Cell (RBC) Count 4.49 mill/uL (4.70-6.10); Sodium 134 mmol/L (136-145); White Blood Cell (WBC) Count 8.3 thou/uL (4.8-10.8)
[2018-03-28] MEDS: HumaLOG 300 UNITS/3 ML VIAL SC PRN ×4 (05:56→21:36)
[2018-03-28 07:08] LABS: pH, Arterial 7.53 (7.35-7.45)
[2018-03-28 07:09] LABS: Actual Bicarbonate (HCO3a) 19.1 mEq/L (22-28); Base Excess (BEa) -1.8 mEq/L (-2.0 to +3.0); CO2 Tension 23.2 mmHg (35.0-45.0); O2 Tension (PaO2) 101.4 mmHg (> 60.0)
[2018-03-28 07:11] LABS: Calcium, Ionized 1.1 mmol/L (1.12-1.30)
[2018-03-28 07:12] LABS: Puncture Site RB
--- NOTE | 2018-03-28 08:12 | RAD ---
PORTABLE CHEST: Date: 03/28/18 PROVIDED CLINICAL HISTORY: Respiratory insufficiency. FINDINGS: Comparison is made with study dated 03/27/18. Given differences in technique, significant interval ch crystal with respect to the prior examination is not apparent. IMPRESSION: As above. POS: OFF
[2018-03-28] MEDS: guaiFENesin ER 600 MG TAB PO SCH ×2 (08:33→21:29)
[2018-03-28] MEDS: Scopolamine 1.5 mg/72 hour Patch TD SCH (08:34)
[2018-03-28] MEDS: Famotidine 20 MG TAB PO SCH (08:34)
[2018-03-28] MEDS: Carvedilol 3.125 MG TAB PO SCH ×2 (08:35→16:37)
--- NOTE | 2018-03-28 09:34 | PRG ---
DATE OF SERVICE: 03/28/2018 Mr. Us is sedated for ventilation. PHYSICAL EXAMINATION: VITAL SIGNS: He is afebrile, respiratory rate is 20, heart rate is 116. He is in atrial fibrillatio n. Blood pressure 120/60, respiratory rates in the teens. LUNGS: Remarkable for diffuse rhonchi. HEART: Irregularly irregular. Grade 2/6 systolic murmur. ABDOMEN: Soft and nontender, no guarding. EXTREMITIES: Without clubbing, cyanosis, or edema. NEUROLOGIC: Grossly nonfocal. LABORATORY DATA: White count is 8.3, hemoglobin 12.8, platelets 77,000. Sodium 134. potassium 3.7, chloride 100, bicarbonate 24, BUN 63, creatinine 2.89 down from 2.96. PH 7.5, CO2 23, pO2 of 101. Urinalysis on admission was remarkable for proteinuria. Bronchoscopy washings are positive just for Ignacia. IMPRESSION: 1. Respiratory failure secondary to retained secretions. We will add mucolytics and scopolamine pat ch. 2. Advanced age and multiple organ dysfunction. 3. Acute on chronic renal dysfunction. 4. Mild hyponatremia, not a clinical issue. 5. Anemia of chronic disease. 6. Diabetes. 7. Thrombocytopenia, improved from yesterday. His Lovenox was discontinued. I would not put him back on full dose Lovenox at this point with his a trial fibrillation and because of his renal failure. Will continue with slow weaning based on serial exams. At this point in time, if he were to be extub ated he would have problems with secretions and get reintubated in my opinion. Critical care time was 30 minutes.
--- NOTE | 2018-03-28 11:08 | PDOC.CTH ---
Cardiology Progress Note - Subjective The pt seen and examined. No overnight events. He cont. to be on mechanical Vent support with vent sedation. - Objective Vital Signs Temp Pulse Resp BP Pulse Ox 03/28/18 10:26 115 H 143/78 H 03/28/18 10:24 116 H 21 H 95 03/28/18 10:00 21 H 03/28/18 08:00 99.3 F 115 H 18 99 03/28/18 06:29 118 H 146/84 H 03/28/18 06:26 117 H 22 H 95 03/28/18 06:00 22 H 03/28/18 04:00 98 F 20 03/28/18 02:17 116 H 131/75 03/28/18 00:00 98.1 F Admit Weight 187 lb 6.4 oz Weight 191 lb 9.307 oz 03/27/18 03/28/18 03/29/18 06:59 06:59 06:59 Intake Total 570 1034 120 Output Total 635 1128 234 Balance -65 -94 -114 - Physical Examination Lungs: other: (coarse and diminished at bases) Heart: other: (irregular) Abdomen: soft Extremities: other: (No edema) - Telemetry Telemetry Rhythm: AFib with HR 100-110s - Labs Result Diagrams: 03/28/18 04:01 03/28/18 04:01 Troponin/CKMB CK-MB (CK-2) 6.2 ng/mL (0-6.6) 03/23/18 22:03 Troponin I 0.337 ng/mL (< 0.028) H* 03/24/18 03:40 - Assessment/Plan 1. Acute resp. failure with s/p intubation on 03/26/18 - stable with mechanical vent support; managed by broke beater machine operator 2. AFib/SVT/Aflutter - Aflutter vs AT with HR 100s-110s; On Cardizem drip with titration. EP consult; possible DONAL and Cardioversion when the pt is stable; on Heparin and ASA; Cont. to monitor 3. Acute on CKD - s/p dialysis cath placement to Rt groin on 03/26/18; Managed by city attorney 4. Septic shock 2ndary to PNA - stable; managed by PCP 5. CAD with hx of CABG x3 in 2001 - stable; negative LHC result in 01/2018; cont. to monitor 6. HTN - stable with current meds 7. Hyperlipidemia - resume Lipitor 40mg qHS. 8. DM type 2 - stable; managed by PCP 9. COPD - stable with mechanical Vent support MAR reviewed Review of Systems - Review of Systems Constitutional: reports: see HPI EENTM: reports: see HPI Respiratory: reports: see HPI Cardiac (ROS): reports: see HPI ABD/GI: reports: see HPI
[2018-03-28] MEDS: Cefepime 2 GM in Sodium Chloride 0.9% 100 ML IVPB SCH (11:30)
[2018-03-28] MEDS: Propofol 1,000 MG/100 ML VIAL IV PRN ×2 (11:31→23:45)
[2018-03-28] MEDS: Diltiazem HCl 125 MG, Admixture Fee 1 EACH in Sodium Chloride 0.9% 100 ML IVPB SCH ×2 (11:32→21:38)
--- NOTE | 2018-03-28 14:39 | PDOC.CTH ---
<Brook Isaacs - Last Filed: 03/28/18 14:40> Cardiology Progress Note - Subjective EP progress note: Patient seen and evaluated. Remains intubated and sedated on diprivan. Does respond to stimuli. Per RN, BP more stable and diltiazem gtt restarted yesterday. Currently at 10mg/hr. - ROS not able to obtain ROS - Objective Vital Signs Temp Pulse Resp BP Pulse Ox 03/28/18 12:00 98.6 F 03/28/18 11:59 19 03/28/18 10:26 115 H 143/78 H 03/28/18 10:24 116 H 21 H 95 03/28/18 10:00 21 H 03/28/18 08:00 99.3 F 115 H 18 99 03/28/18 06:29 118 H 146/84 H 03/28/18 06:26 117 H 22 H 95 03/28/18 06:00 22 H 03/28/18 04:00 98 F 20 Admit Weight 187 lb 6.4 oz Weight 191 lb 9.307 oz 03/27/18 03/28/18 03/29/18 06:59 06:59 06:59 Intake Total 570 1034 120 Output Total 635 1128 399 Balance -65 -94 -279 - Physical Examination General/Neuro: NAD Neck: no JVD present Lungs: unlabored respirations, other: (coarse crackles bilaterally) Abdomen: NT/ND - Labs Result Diagrams: 03/28/18 04:01 03/28/18 04:01 Troponin/CKMB CK-MB (CK-2) 6.2 ng/mL (0-6.6) 03/23/18 22:03 Troponin I 0.337 ng/mL (< 0.028) H* 03/24/18 03:40 - Assessment/Plan 1. Atrial fibrillation and tachycardia with moderate ventricular rate control with diltiazem gtt. Bp now tolerating diltiazem. Continue with rate control for now. Consider DONAL/CV or ablation prior to discharge/once stabilized. 2. Anticoagulation- lovenox being held for dropping plt count (currently 70s). Resume anticoagulation as soon as is safe. 3. Acute respiratory failure- intubation planned 03/26/18 4. Hyperkalemia- resolved 3.7 today 5. Chronic renal failure-per nephrology 6. Septic shock secondary to pneumonia <Akash Rodas - Last Filed: 03/31/18 11:25> Cardiology Progress Note - Objective Vital Signs Temp Pulse Resp BP Pulse Ox 03/31/18 10:29 86 123/70 03/31/18 10:27 86 21 H 97 03/31/18 10:00 17 03/31/18 08:00 98.6 F 21 H 03/31/18 07:21 88 137/64 03/31/18 06:56 86 20 95 03/31/18 06:00 17 03/31/18 04:00 98.6 F 20 03/31/18 02:55 19 03/31/18 02:01 86 154/72 H 03/31/18 02:00 19 03/31/18 00:00 98.6 F 20 Admit Weight 187 lb 6.4 oz Weight 218 lb 0.595 oz 03/30/18 03/31/18 04/01/18 06:59 06:59 06:59 Intake Total 1101 2814 120 Output Total 1078 1040 160 Balance 23 1774 -40 - Labs Result Diagrams: 03/31/18 04:38 03/31/18 04:38 Troponin/CKMB CK-MB (CK-2) 6.2 ng/mL (0-6.6) 03/23/18 22:03 Troponin I 0.337 ng/mL (< 0.028) H* 03/24/18 03:40 Attending Addendum - Attending Addendum Date/Time: 03/31/18 1125 I personally evaluated the patient and discussed the management with MS Isaacs. I agree with the History, Examination, Assessment and Plan documented above with any addition or exceptions noted below.
[2018-03-28] MEDS ORDERED: Pancrelipase DR 12000 1 CAP FS PRN (15:05)
[2018-03-28] MEDS ORDERED: Sodium Bicarbonate Tab 325 MG TAB PER TUBE PRN (15:05)
--- NOTE | 2018-03-28 15:33 | PDOC.PN ---
- Subjective Encounter Start Date: 03/28/18 Encounter Start Time: 15:15 -: non-verbal - Objective Resuscitation Status: Resuscitation Status DNR:Do Not Resuscitate Vital Signs & Weight: Vital Signs (12 hours) Temp Pulse Resp BP Pulse Ox 03/28/18 14:43 98 120/73 03/28/18 14:41 107 H 22 H 100 03/28/18 12:00 98.6 F 03/28/18 11:59 19 03/28/18 10:26 115 H 143/78 H 03/28/18 10:24 116 H 21 H 95 03/28/18 10:00 21 H 03/28/18 08:00 99.3 F 115 H 18 99 03/28/18 06:29 118 H 146/84 H 03/28/18 06:26 117 H 22 H 95 03/28/18 06:00 22 H 03/28/18 04:00 98 F 20 Weight Admit Weight 187 lb 6.4 oz Weight 191 lb 9.307 oz Most Recent Monitor Data Heart Rate from ECG 115 NIBP 126/78 NIBP BP-Mean 93 Respiration from ECG 19 SpO2 100 I&O: 03/27/18 03/28/18 03/29/18 06:59 06:59 06:59 Intake Total 570 1034 120 Output Total 635 1128 399 Balance -65 -94 -279 Result Diagrams: 03/28/18 04:01 03/28/18 04:01 Additional Labs: Accuchecks 03/28/18 03/28/18 03/27/18 11:35 05:52 21:03 POC Glucose 279 H 276 H 243 H 03/27/18 17:18 POC Glucose 170 H Phys Exam - Physical Examination Constitutional: NAD INTUBATED MODEST SCATTERED WHEEZING. Cardiovascular: RRR, no significant murmur Gastrointestinal: soft, no distention, positive bowel sounds Musculoskeletal: no edema Skin: no rash, normal turgor Dx/Plan (1) Sepsis Code(s): A41.9 - SEPSIS, UNSPECIFIED ORGANISM Status: Acute Qualifiers: Sepsis type: sepsis due to unspecified organism Qualified Code(s): A41.9 - Sepsis, unspecified organism Comment: SECONDARY TO PNEUMONIA. CONTINUE CEFEPIME, CIPRO, RESPIRATORY SUPPORT. PULMONARY FOLLOWING. BP NOW STABLE. (2) Atrial fibrillation with RVR Code(s): I48.91 - UNSPECIFIED ATRIAL FIBRILLATION Status: Acute Comment: PLAN: FOLLOWED BY CARDIOLOGY AND EP. NOW ON CARDIZEM GTT. POSSIBLE ABLATION PRIOR TO D/C. (3) Uvyuy-om-pqkmxlq kidney injury Code(s): N17.9 - ACUTE KIDNEY FAILURE, UNSPECIFIED; N18.9 - CHRONIC KIDNEY DISEASE, UNSPECIFIED Status: Acute Comment: SECONDARY TO HYPOTENSION. INITIALLY OLIGURIC. UOP INCREASING. HD HELD FOR NOW. (4) CKD (chronic kidney disease) stage 3, GFR 30-59 ml/min Code(s): N18.3 - CHRONIC KIDNEY DISEASE, STAGE 3 (MODERATE) Status: Acute (5) Oliguria Code(s): R34 - ANURIA AND OLIGURIA Status: Acute Comment: IMPROVING (6) CAD in [place] artery Code(s): I25.10 - ATHSCL HEART DISEASE OF [place] CORONARY ARTERY W/O ANG PCTRS Status: Acute (7) Diastolic dysfunction Code(s): I51.9 - HEART DISEASE, UNSPECIFIED Status: Acute Comment: CHALLENGING WITH THE INITIAL NEED FOR FLUIDS. CARDIOLOGY FOLLOWING. (8) DM2 (diabetes mellitus, type 2) Status: Chronic Comment: continue accuchecks, insulin sliding scale (9) Elevated troponin Code(s): R74.8 - ABNORMAL LEVELS OF OTHER SERUM ENZYMES Status: Acute (10) Hyperkalemia Code(s): E87.5 - HYPERKALEMIA Status: Acute Comment: IMPROVED - Plan * FAMILY WAS HERE TODAY AND MADE IT CLEAR THAT THE PATIENT WOULD NOT WANT PEG, TRACH OR LONG-TERM HD. OK WITH CURRENT INTERVENTIONS, BUT BASED ON HIS EXPRESSED DESIRES, WILL MAKE HIM DNR.
--- NOTE | 2018-03-28 19:04 | PRG ---
DATE OF SERVICE: 03/28/2018 SUBJECTIVE: The patient was seen in ICU and intubated. OBJECTIVE: GENERAL: This is a well-built male, in ICU HEENT: Intubated. NECK: Supple CARDIOVASCULAR: S1S2 heard, Rate and rhythm regular. RESPIRATORY: Clear to auscultation. GASTROINTESTINAL: Abdomen is soft. MUSCULOSKELETAL: 1+ edema. DERMATOLOGIC: No skin rash. NEUROLOGIC: intubated and arousable. PSYCHIATRIC: Mood and affect normal. LABORATORY DATA: Hemoglobin is 12.8, potassium 3.7, BUN 63, creatinine is 2.89 from 2.96 yesterday. ASSESSMENT AND PLAN: 1. Acute kidney injury on chronic kidney stage 3. Seems like he is making urine and creatinine actually improved from yesterday without dialysis. Plan is to monitor. Hold dialysis and monitor his renal recovery. 2. Hyponatremia, monitor. 3. Hyperkalemia, better. 4. Metabolic acidosis. 5. Anemia. 6. Edema, better. 7. Hypertension, stable. Overall, seems like the patient is making significant amount of urine and no urgent indication for dialysis today. We will continue dialysis if needed. We will continue close monitor. MTDD
[2018-03-28] MEDS: Atorvastatin Calcium 40 MG TAB PO SCH (21:30)
[2018-03-28] MEDS: Insulin Glargine 5 UNITS in Pre-Filled Syringe 1 EACH SC SCH (21:37)
[2018-03-29] MEDS: HumaLOG 300 UNITS/3 ML VIAL SC PRN ×4 (04:31→22:52)
[2018-03-29 05:01] LABS: Anion Gap 14 mmol/L (10-20); BUN (Urea Nitrogen) 76 mg/dL (8.4-25.7); Calc. Creatinine Clearance 24 mL/min (70-130); Calcium 8.1 mg/dL (7.8-10.44); Carbon Dioxide 24 mmol/L (23-31); Chloride 101 mmol/L (98-107); Estimated GFR-MDRD 21; Glucose 277 mg/dL (83-110); Potassium 3.7 mmol/L (3.5-5.1); Sodium 135 mmol/L (136-145)
[2018-03-29 05:34] LABS: Band 5 % (5-11); Eosinophils 1 % (0-10); Hemoglobin 12.7 g/dL (14.0-18.0); Lymphocytes 8 % (21-51); MDiff Complete? YES; Mean Corpuscular HGB CONC 32.5 g/dL (32.0-36.0); Mean Corpuscular Hemoglobin 28.2 pg (27.0-31.0); Mean Corpuscular Volume 86.6 fl (80.0-94.0); Mean Platelet Volume 9.9 fL (7.4-10.4); Monocytes 12 % (0-10); Neutrophil 74 % (42-75); PLT Morphology Comment Appears Decreased; Platelet Count 64 thou/uL (130-400); RBC Distribution Width 17.2 % (11.5-14.5); RBC Morphology Normal; Red Blood Cell (RBC) Count 4.52 mill/uL (4.70-6.10); White Blood Cell (WBC) Count 9.3 thou/uL (4.8-10.8)
[2018-03-29] MEDS ORDERED: Dextrose 5% in Water 1,000 ML IV PRN (07:45)
[2018-03-29] MEDS ORDERED: Dextrose 50% Abboject 50 ML SYRINGE SLOW IVP PRN (07:45)
--- NOTE | 2018-03-29 08:17 | RAD ---
PORTABLE CHEST: Date: 03/29/18 HISTORY: Respiratory distress. COMPARISON: Prior day's exam. FINDINGS: Endotracheal tube and NG tubes are in satisfactory position. Heart size is enlarged. Parenchymal lung changes are stable. IMPRESSION: Stable exam. POS: [place]
[2018-03-29 08:51] LABS: CO2 Tension 31.4 mmHg (35.0-45.0); pH, Arterial 7.46 (7.35-7.45)
[2018-03-29 08:52] LABS: Base Excess (BEa) 0.9 mEq/L (-2.0 to +3.0); O2 Tension (PaO2) 82.6 mmHg (> 60.0)
[2018-03-29 08:53] LABS: Hemoglobin (Hb) 13.9 g/dL (14.0-18.0)
[2018-03-29 08:55] LABS: Puncture Site LB
[2018-03-29] MEDS: Carvedilol 3.125 MG TAB PO SCH ×2 (09:25→16:49)
[2018-03-29] MEDS: guaiFENesin ER 600 MG TAB PO SCH ×2 (09:26→22:27)
[2018-03-29] MEDS: Famotidine 20 MG TAB PO SCH (09:26)
[2018-03-29] MEDS: NPH, Human Insulin Isophane 300 UNIT/3 ML VIAL SC SCH ×2 (10:43→22:29)
--- NOTE | 2018-03-29 10:54 | PRG ---
DATE OF SERVICE: 03/29/2018 Thirty-five minutes of critical care time. SUBJECTIVE: The patient remains intubated on mechanical ventilation. There have been no acute gardner es overnight. PHYSICAL EXAMINATION: VITAL SIGNS: Temperature 99.2, pulse 81, blood pressure 149/80. A 24-hour intake 2504, output 971. HEENT: Unremarkable. NECK: No JVD. LUNGS: Coarse breath sounds. CARDIAC: S1 and S2 regular. ABDOMEN: Soft, nontender. CARDIAC: S1, S2 regular. EXTREMITIES: No edema. X-RAY FINDINGS: Chest x-ray appears clear, especially on the left side. ET tube is in good position . LABORATORY DATA: Sodium 135, potassium 3.0, chloride 101, CO2 of 24, BUN 76, creatinine 2.8, glucose 277. ABG result is pending. White blood cell count 9.3, hematocrit 39.1, platelet count 64. ASSESSMENT: 1. Acute respiratory failure requiring mechanical ventilation. 2. Retained secretions. 3. Acute on chronic renal failure. 4. Developing thrombocytopenia. RECOMMENDATIONS: 1. Reduce vent and see what his functional status is in terms of being able to be extubated. 2. Discontinue all heparin products, because of thrombocytopenia. 3. Adjust the insulin.
[2018-03-29] MEDS: Cefepime 2 GM in Sodium Chloride 0.9% 100 ML IVPB SCH (12:40)
[2018-03-29] MEDS: Diltiazem HCl 125 MG, Admixture Fee 1 EACH in Sodium Chloride 0.9% 100 ML IVPB SCH (12:41)
--- NOTE | 2018-03-29 15:06 | PDOC.PN ---
- Subjective Encounter Start Date: 03/29/18 Encounter Start Time: 14:00 INTUBATED. NO NEW ISSUES PER NURSING. - Objective Resuscitation Status: Resuscitation Status DNR:Do Not Resuscitate MAR Reviewed: Yes Vital Signs & Weight: Vital Signs (12 hours) Temp Pulse Resp Pulse Ox 03/29/18 14:00 20 03/29/18 12:00 98.0 F 20 03/29/18 10:52 84 19 96 03/29/18 10:00 19 03/29/18 08:00 98.3 F 90 20 100 03/29/18 07:32 82 20 99 03/29/18 06:00 19 03/29/18 04:00 99.2 F 20 Weight Admit Weight 187 lb 6.4 oz Weight 195 lb 1.745 oz Most Recent Monitor Data Heart Rate from ECG 73 NIBP 122/72 NIBP BP-Mean 82 Respiration from ECG 20 SpO2 98 I&O: 03/28/18 03/29/18 03/30/18 06:59 06:59 06:59 Intake Total 1034 2504.8 300 Output Total 1128 971 323 Balance -94 1533.8 -23 Result Diagrams: 03/29/18 04:45 03/29/18 04:45 Additional Labs: Accuchecks 03/29/18 03/29/18 03/28/18 10:40 04:28 21:36 POC Glucose 237 H 278 H 300 H 03/28/18 16:32 POC Glucose 263 H Phys Exam - Physical Examination Constitutional: NAD INTUBATED, SEDATED. Neck: no JVD, supple Respiratory: no wheezing, no rales, no rhonchi, clear to auscultation bilateral Cardiovascular: RRR, no significant murmur, no rub Gastrointestinal: soft, non-tender, no distention, positive bowel sounds Musculoskeletal: no edema, pulses present Skin: no rash, normal turgor Dx/Plan (1) Acute respiratory failure Code(s): J96.00 - ACUTE RESPIRATORY FAILURE, UNSP W HYPOXIA OR HYPERCAPNIA Status: Acute Comment: PLAN: FOLLOWED BY PULMONARY/CC. INTUBATED. TREATING PNEUMONIA AND GIVING RESP SUPPORT WITH VENT. (2) Sepsis Code(s): A41.9 - SEPSIS, UNSPECIFIED ORGANISM Status: Acute Qualifiers: Sepsis type: sepsis due to unspecified organism Qualified Code(s): A41.9 - Sepsis, unspecified organism Comment: PLAN: SECONDARY TO PNEUMONIA. CONTINUE CEFEPIME, CIPRO, RESPIRATORY SUPPORT. PULMONARY FOLLOWING. BP NOW STABLE. (3) Atrial fibrillation with RVR Code(s): I48.91 - UNSPECIFIED ATRIAL FIBRILLATION Status: Acute Comment: PLAN: FOLLOWED BY CARDIOLOGY AND EP. NOW ON CARDIZEM GTT. POSSIBLE ABLATION PRIOR TO D/C. STABLE A-FLUTTER WITH GOOD RATE CONTROL. (4) Nxqky-mv-kihbhyq kidney injury Code(s): N17.9 - ACUTE KIDNEY FAILURE, UNSPECIFIED; N18.9 - CHRONIC KIDNEY DISEASE, UNSPECIFIED Status: Acute Comment: SECONDARY TO HYPOTENSION. INITIALLY OLIGURIC. UOP INCREASING. HD HELD FOR NOW. (5) CKD (chronic kidney disease) stage 3, GFR 30-59 ml/min Code(s): N18.3 - CHRONIC KIDNEY DISEASE, STAGE 3 (MODERATE) Status: Acute (6) Oliguria Code(s): R34 - ANURIA AND OLIGURIA Status: Acute Comment: IMPROVING (7) CAD in [place] artery Code(s): I25.10 - ATHSCL HEART DISEASE OF [place] CORONARY ARTERY W/O ANG PCTRS Status: Acute (8) Diastolic dysfunction Code(s): I51.9 - HEART DISEASE, UNSPECIFIED Status: Acute Comment: CARDIOLOGY FOLLOWING. (9) DM2 (diabetes mellitus, type 2) Status: Chronic Comment: PLAN: CONTINUE ACCUCHECKS AND SSI. (10) Hyperkalemia Code(s): E87.5 - HYPERKALEMIA Status: Resolved Comment: IMPROVED - Plan * ABOVE.
--- NOTE | 2018-03-29 16:56 | PRG ---
DATE OF SERVICE: 03/29/2018 NEPHROLOGY PROGRESS NOTE SUBJECTIVE: The patient was seen in ICU, remains intubated and sedated. OBJECTIVE: GENERAL: This is a well-built male, seen in ICU and intubated. VITAL SIGNS: Temperature 98.0, pulse 74, respiratory rate 19, blood pressure 126/73. HEENT: Intubated. CARDIOVASCULAR: S1, S2 heard. RESPIRATORY: Clear. GASTROINTESTINAL: Abdomen is soft. MUSCULOSKELETAL: 1+ edema. DERMATOLOGIC: No skin rash. NEUROLOGIC: Intubated and sedated. LABORATORY DATA: Potassium is 3.7, BUN is 76, creatinine is 2.83. ASSESSMENT AND PLAN: 1. Acute kidney injury, seems like he is making urine. No acute indication for dialysis. We will h ave dialysis if needed. 2. Hyponatremia. 3. Hyperkalemia, better. 4. Metabolic acidosis, stable. 5. Anemia, rule out bleed. Monitor hemoglobin. 6. Hypertension, stable. 7. Edema, remove fluid if needed. Overall, it seems like he may not need more dialysis. We will continue daily monitoring. Renal func tion is stable, seems like plateauing out with improvement expected in the next few days.
[2018-03-29] MEDS: Atorvastatin Calcium 40 MG TAB PO SCH (22:28)
[2018-03-30] MEDS: Diltiazem HCl 125 MG, Admixture Fee 1 EACH in Sodium Chloride 0.9% 100 ML IVPB SCH ×2 (00:24→13:38)
[2018-03-30] MEDS: Propofol 1,000 MG/100 ML VIAL IV PRN ×2 (00:28→17:00)
[2018-03-30 05:02] LABS: Anion Gap 14 mmol/L (10-20); BUN (Urea Nitrogen) 94 mg/dL (8.4-25.7); Calc. Creatinine Clearance 26 mL/min (70-130); Calcium 8.3 mg/dL (7.8-10.44); Carbon Dioxide 24 mmol/L (23-31); Chloride 101 mmol/L (98-107); Estimated GFR-MDRD 23; Glucose 205 mg/dL (83-110); Potassium 3.7 mmol/L (3.5-5.1); Sodium 135 mmol/L (136-145)
[2018-03-30 05:04] LABS: Band 2 % (5-11); Eosinophils 1 % (0-10); Hemoglobin 12.5 g/dL (14.0-18.0); Lymphocytes 11 % (21-51); MDiff Complete? YES; Mean Corpuscular HGB CONC 31.5 g/dL (32.0-36.0); Mean Corpuscular Hemoglobin 27.4 pg (27.0-31.0); Mean Platelet Volume 10.2 fL (7.4-10.4); Monocytes 12 % (0-10); Neutrophil 74 % (42-75); PLT Morphology Comment Appears Decreased; Platelet Count 64 thou/uL (130-400); Red Blood Cell (RBC) Count 4.55 mill/uL (4.70-6.10); White Blood Cell (WBC) Count 10.1 thou/uL (4.8-10.8)
[2018-03-30] MEDS: HumaLOG 300 UNITS/3 ML VIAL SC PRN ×3 (06:11→22:18)
[2018-03-30] MEDS: Carvedilol 3.125 MG TAB PO SCH ×2 (08:05→16:42)
[2018-03-30 08:07] LABS: Actual Bicarbonate (HCO3a) 21.7 mEq/L (22-28); Base Excess (BEa) -1.5 mEq/L (-2.0 to +3.0); CO2 Tension 32.8 mmHg (35.0-45.0); Hematocrit-ABG 42.7 % (42.0-52.0); Hemoglobin (Hb) 12.8 g/dL (14.0-18.0); O2 Tension (PaO2) 67.5 mmHg (> 60.0); pH, Arterial 7.44 (7.35-7.45)
[2018-03-30 08:08] LABS: Calcium, Ionized 1.1 mmol/L (1.12-1.30); Puncture Site LBA
[2018-03-30] MEDS: Diabetic Tussin 200 MG/10 ML UDCUP PER TUBE SCH ×2 (08:37→21:57)
[2018-03-30] MEDS: Famotidine 20 MG TAB PO SCH (08:39)
[2018-03-30] MEDS: NPH, Human Insulin Isophane 300 UNIT/3 ML VIAL SC SCH ×2 (08:43→22:15)
--- NOTE | 2018-03-30 10:22 | RAD ---
PORTABLE CHEST: Date: 03/30/18 HISTORY: Respiratory distress. COMPARISON: Prior day's exam. FINDINGS: Endotracheal and NG tubes are in satisfactory position. Parenchymal lung changes are fairly similar t o the prior examination. Parahilar lung changes may be minimally improved. IMPRESSION: Minimal improvement to some of the parahilar lung changes. Otherwise, relatively stable chest. POS: [facility]
--- NOTE | 2018-03-30 11:30 | PRG ---
DATE OF SERVICE: 03/28/2018 A 35 minutes critical care time. SUBJECTIVE: The patient remains intubated on mechanical ventilation. There have been no acute gardner es overnight. PHYSICAL EXAMINATION: VITAL SIGNS: Temperature is 99.2, pulse 81, blood pressure 156/77. He is currently on a diltiazem d rip for atrial fibrillation. Neurologically, he is sedated on propofol. HEENT: Unremarkable. NECK: No JVD. LUNGS: Coarse breath sounds anteriorly. CARDIOVASCULAR: S1 and S2 regular. ABDOMEN: Soft, nontender. EXTREMITIES: Trace edema. X-RAY FINDINGS: The x-ray demonstrates fairly marked infiltrate in the left lower lobe. This may be better seen today because the patient is rotated anteriorly rather than on his side as was seen on 's film. When comparing this to the film from the , I do think the infiltrate is changed . LABORATORY DATA: White blood cell count 10, hematocrit 39.6, platelet count 64, pH 7.44, pCO2 of 32, pO2 67 on SIMV rate 4, tidal volume 500, PEEP 5, pressure support 10, FiO2 30%. Sodium 135, potassi um 3.7, chloride 101, CO2 24, BUN 94, creatinine 2.7, glucose 205. ASSESSMENT: 1. Acute respiratory failure requiring mechanical ventilation. 2. Pneumonia/retained secretions. 3. Acute on chronic renal failure. 4. Continued thrombocytopenia. PLAN: 1. This thrombocytopenia may be due in some part to the cefepime. I will go ahead and change that t o meropenem. 2. Continue mechanical ventilation at least 24 more hours. I do not think he should be extubated un less someone is available to reintubate. 3. Blood sugar seemed to be better on NPH insulin. I will go up on that dose. 4. Continue tube feeds. 5. Continuing to follow the patient's prognosis is guarded.
--- NOTE | 2018-03-30 13:33 | PRG ---
DATE OF SERVICE: 03/30/2018 SUBJECTIVE: The patient was seen in ICU and sedated and intubated. Making less urine than yesterday . OBJECTIVE: GENERAL: This is a well-built male seen in ICU, intubated. VITAL SIGNS: Temperature 98.3, pulse 73, respiratory rate 18, blood pressure 144/69. HEENT: Intubated. CARDIOVASCULAR: S1, S2 heard. RESPIRATORY: Clear. GASTROINTESTINAL: Abdomen is soft. GENITOURINARY: Sluggish bowel sounds. MUSCULOSKELETAL: 1+ edema. DERMATOLOGIC: No rash. NEUROLOGIC: Not responsive. LABORATORY DATA: Potassium is 3.7, BUN is 94 from 76 yesterday, creatinine is 2.6. ASSESSMENT AND PLAN: 1. Acute kidney injury, making less urine with a rise in BUN. The plan is to add IV fluids at 50 mL , getting Nepro at 30 mL per hour. We will monitor cardiorespiratory status closely, currently is no t requiring much oxygen. 2. Acute hypoxic respiratory failure, intubated. 3. Hyperkalemia, better. 4. Metabolic acidosis, stable. 5. Hypertension. 6. Edema. Plan is to continue to monitor. No acute needs for dialysis, but if renal function worsens, might re sume dialysis. Plan is to avoid dialysis at this point. Avoid nephrotoxins. We will attempt gentle hydration if tolerated.
[2018-03-30] MEDS: Sodium Chloride 0.9% 1,000 ML IV SCH ×2 (13:37→22:25)
[2018-03-30] MEDS ORDERED: Meropenem 1 GM in Sodium Chloride 0.9% 100 ML IVPB SCH (14:00)
[2018-03-30] MEDS ORDERED: Bisacodyl 10 MG SUPP PR PRN (14:21)
--- NOTE | 2018-03-30 14:21 | PDOC.PN ---
- Subjective Encounter Start Date: 03/30/18 Encounter Start Time: 10:00 Patient is seen today, Intubhated Discussed with Consulted. Dr. saavedra. pt is Constipated according to nurse. has worsening Renal functions. - Objective Resuscitation Status: Resuscitation Status DNR:Do Not Resuscitate MAR Reviewed: Yes Vital Signs & Weight: Vital Signs (12 hours) Temp Pulse Resp BP Pulse Ox 03/30/18 12:00 98.3 F 19 03/30/18 10:45 76 156/77 H 03/30/18 10:44 76 19 94 L 03/30/18 10:00 20 03/30/18 08:38 86 143/74 H 03/30/18 08:36 89 20 93 L 03/30/18 08:00 99.2 F 89 20 95 03/30/18 06:00 23 H 03/30/18 04:00 98.4 F 25 H 03/30/18 03:27 76 21 H 96 Weight Admit Weight 187 lb 6.4 oz Weight 212 lb 1.355 oz Most Recent Monitor Data Heart Rate from ECG 74 NIBP 125/61 NIBP BP-Mean 74 Respiration from ECG 18 SpO2 96 I&O: 03/29/18 03/30/18 03/31/18 06:59 06:59 06:59 Intake Total 2504.8 1101 30 Output Total 971 1078 200 Balance 1533.8 23 -170 Result Diagrams: 03/30/18 04:14 03/30/18 04:14 Additional Labs: Accuchecks 03/30/18 03/29/18 03/29/18 11:31 22:50 16:25 POC Glucose 140 H 201 H 273 H Radiology Reviewed by me: Yes Phys Exam - Physical Examination HEENT: PERRLA, moist MMs Neck: no nodes, no JVD Respiratory: no wheezing, no rales Cardiovascular: RRR, no significant murmur Gastrointestinal: soft, non-tender Musculoskeletal: no edema, pulses present Neurological: normal sensation Lymphatic: no nodes Dx/Plan (1) Acute respiratory failure Code(s): J96.00 - ACUTE RESPIRATORY FAILURE, UNSP W HYPOXIA OR HYPERCAPNIA Status: Acute Comment: PLAN: FOLLOWED BY PULMONARY/CC. INTUBATED. TREATING PNEUMONIA AND GIVING RESP SUPPORT WITH VENT. Family says no for Trach. (2) [id number] kidney injury Code(s): N17.9 - ACUTE KIDNEY FAILURE, UNSPECIFIED; N18.9 - CHRONIC KIDNEY DISEASE, UNSPECIFIED Status: Acute Comment: SECONDARY TO HYPOTENSION. INITIALLY OLIGURIC. UOP INCREASING. HD HELD FOR NOW. Discussed with , plan to Push some fluids now as worseing BUN. Will give one more day , then will discuss with family about HD/ [facility]. (3) Atrial fibrillation with RVR Code(s): I48.91 - UNSPECIFIED ATRIAL FIBRILLATION Status: Acute Comment: PLAN: FOLLOWED BY CARDIOLOGY AND EP. NOW ON CARDIZEM GTT. POSSIBLE ABLATION PRIOR TO D/C. STABLE A-FLUTTER WITH GOOD RATE CONTROL. (4) CKD (chronic kidney disease) stage 3, GFR 30-59 ml/min Code(s): N18.3 - CHRONIC KIDNEY DISEASE, STAGE 3 (MODERATE) Status: Acute (5) Oliguria Code(s): R34 - ANURIA AND OLIGURIA Status: Acute Comment: worseing today (6) DM2 (diabetes mellitus, type 2) Status: Chronic Comment: PLAN: CONTINUE ACCUCHECKS AND SSI. - Plan cont current plan of care, thapa catheter, continue antibiotics, social work associate , respiratory therapy, DVT proph w/heparin * . Review of Systems - Review of Systems Other: Non verbal, On Sedation. - Medications/Allergies Allergies/Adverse Reactions: Allergies Allergy/AdvReac Type Severity Reaction Status Date / Time No Known Allergies Allergy Verified 03/24/18 01:53 Medications: Current Medications Acetaminophen (Tylenol) 650 mg PO Q4H PRN PRN Reason: Headache/Fever or Pain Albuterol/Ipratropium (Duoneb) 3 ml NEB [id number] [facility] Last Admin: 03/30/18 10:44 Dose: 3 ml Lipase/Protease/Amylase ([place] [id number]) 1 cap FS .PER PROTOCOL PRN PRN Reason: TUBE OCCLUSION PROTOCOL Atorvastatin Calcium (Lipitor) 40 mg PO HS [facility] Last Admin: 03/29/18 22:28 Dose: 40 mg Bisacodyl (Dulcolax) 10 mg ND DAILYPRN PRN PRN Reason: Constipation Carvedilol (Coreg) 1.5625 mg PO BID-WM [facility] Last Admin: 03/30/18 08:05 Dose: 1.5625 mg Dextrose/Water (Dextrose 50%) 25 gm SLOW IVP PRN PRN PRN Reason: Hypoglycemia Dextrose/Water (Dextrose 50%) 25 gm SLOW IVP PRN PRN PRN Reason: Hypoglycemia Famotidine (Pepcid) 20 mg PO DAILY [facility] Last Admin: 03/30/18 08:39 Dose: 20 mg Glucagon (Glucagon) 1 mg IM PRN PRN PRN Reason: Hypoglycemia Glucagon (Glucagon) 1 mg IM PRN PRN PRN Reason: Hypoglycemia Guaifenesin (Robitussin Sf) 1,200 mg PER TUBE BID [facility] Last Admin: 03/30/18 08:37 Dose: 1,200 mg Dextrose/Water (D5w) 1,000 mls @ 0 mls/hr IV .Q0M PRN; As Directed PRN Reason: Hypoglycemia Fentanyl Citrate (Fentanyl Bolus) 250 mls @ 0 mls/hr IVPB PRN PRN; As Directed PRN Reason: Breakthrough pain/agitation Stop: 04/25/18 15:27 Ciprofloxacin/Dextrose 400 mg/ (Device) 200 mls @ 200 mls/hr IVPB 1300 [facility] Last Admin: 03/30/18 13:43 Dose: 200 mls Diltiazem HCl 125 mg/Miscellaneous Medication 1 each/ Sodium Chloride 125 mls @ 5 mls/hr IVPB INF HILDA PRN Reason: Protocol Last Admin: 03/30/18 13:38 Dose: 125 mls Dextrose/Water (D5w) 1,000 mls @ 0 mls/hr IV .Q0M PRN; As Directed PRN Reason: Hypoglycemia Meropenem 1 gm/ Sodium (Chloride) 100 mls @ 200 mls/hr IVPB Q8HR [facility] Sodium Chloride (Normal Saline 0.9%) 1,000 mls @ 50 mls/hr IV .Q20H [facility] Last Admin: 03/30/18 13:37 Dose: Not Given Insulin Human Lispro (Humalog) 0 units SC .AGGRESSIVE SLIDING PRN PRN Reason: Aggressive Correctional Scale Last Admin: 03/30/18 06:11 Dose: 6 unit Insulin Human NPH (Humulin N) 20 unit SC Q12HR [facility] Lactulose (Lactulose) 20 gm PO DAILY [facility] Lorazepam (Ativan) 2 mg SLOW IVP Q1H PRN PRN Reason: Breakthrough agitation Stop: 04/25/18 15:27 Morphine Sulfate (Morphine Sulfate) 2 mg SLOW IVP Q1H PRN PRN Reason: BREAKTHRU PAIN/AGITATION Ondansetron HCl (Zofran Odt) 4 mg PO Q6H PRN PRN Reason: Nausea/Vomiting Ondansetron HCl (Zofran) 4 mg IVP Q6H PRN PRN Reason: Nausea/Vomiting Propofol (Diprivan) 1,000 mg IV INF PRN; Protocol PRN Reason: TO ACHIEVE GOAL RASS Stop: 04/25/18 15:27 Last Admin: 03/30/18 00:28 Dose: 1,000 mg Propofol (Diprivan Bolus) 20 mg IV Q5MIN PRN PRN Reason: BREAKTHROUGH AGITATION Stop: 04/25/18 15:27 Scopolamine (Transderm Scop) 1.5 mg TD Q3D [facility] Last Admin: 03/28/18 08:34 Dose: 1.5 mg Sodium Bicarbonate (Bicarbonate, Sodium) 650 mg PER TUBE .PER PROTOCOL PRN PRN Reason: ENTERAL TUBE OCCLUSION Sodium Chloride (Flush - Normal Saline) 10 ml IVF Q12HR [facility] Last Admin: 03/30/18 09:00 Dose: 10 ml Sodium Chloride (Flush - Normal Saline) 10 ml IVF PRN PRN PRN Reason: Saline Flush
[2018-03-30] MEDS: Atorvastatin Calcium 40 MG TAB PO SCH (21:57)
[2018-03-30] MEDS: MEROPENEM 1 GM/50 ML 1 GM in Premix Bag 1 BAG IVPB SCH (21:58)
[2018-03-31] MEDS: Diltiazem HCl 125 MG, Admixture Fee 1 EACH in Sodium Chloride 0.9% 100 ML IVPB SCH (03:29)
[2018-03-31 05:02] LABS: Band 3 % (5-11); Hemoglobin 12.9 g/dL (14.0-18.0); Lymphocytes 8 % (21-51); MDiff Complete? YES; Mean Corpuscular HGB CONC 31.7 g/dL (32.0-36.0); Mean Corpuscular Hemoglobin 27.4 pg (27.0-31.0); Mean Corpuscular Volume 86.4 fl (80.0-94.0); Mean Platelet Volume 10.3 fL (7.4-10.4); Monocytes 18 % (0-10); Neutrophil 71 % (42-75); PLT Morphology Comment Appears Decreased; Platelet Count 60 thou/uL (130-400); RBC Distribution Width 17.3 % (11.5-14.5); Red Blood Cell (RBC) Count 4.71 mill/uL (4.70-6.10)
[2018-03-31 05:46] LABS: Anion Gap 16 mmol/L (10-20); BUN (Urea Nitrogen) 103 mg/dL (8.4-25.7); Calc. Creatinine Clearance 30 mL/min (70-130); Calcium 8.5 mg/dL (7.8-10.44); Carbon Dioxide 23 mmol/L (23-31); Chloride 101 mmol/L (98-107); Estimated GFR-MDRD 24; Glucose 208 mg/dL (83-110); Potassium 3.7 mmol/L (3.5-5.1); Sodium 136 mmol/L (136-145)
[2018-03-31] MEDS: MEROPENEM 1 GM/50 ML 1 GM in Premix Bag 1 BAG IVPB SCH ×2 (06:03→18:10)
[2018-03-31] MEDS: HumaLOG 300 UNITS/3 ML VIAL SC PRN ×2 (06:19→11:58)
[2018-03-31] MEDS: Carvedilol 3.125 MG TAB PO SCH ×2 (08:12→18:09)
[2018-03-31 08:23] LABS: Actual Bicarbonate (HCO3a) 22.6 mEq/L (22-28); Base Excess (BEa) -0.2 mEq/L (-2.0 to +3.0); CO2 Tension 31.6 mmHg (35.0-45.0); Hemoglobin (Hb) 13.7 g/dL (14.0-18.0); O2 Tension (PaO2) 72.5 mmHg (> 60.0); pH, Arterial 7.47 (7.35-7.45)
[2018-03-31 08:25] LABS: Calcium, Ionized 1.1 mmol/L (1.12-1.30); Puncture Site LR
[2018-03-31] MEDS: Famotidine 20 MG TAB PO SCH (08:29)
[2018-03-31] MEDS: Diabetic Tussin 200 MG/10 ML UDCUP PER TUBE SCH ×2 (08:30→21:33)
[2018-03-31] MEDS: Scopolamine 1.5 mg/72 hour Patch TD SCH (08:30)
[2018-03-31] MEDS: NPH, Human Insulin Isophane 300 UNIT/3 ML VIAL SC SCH ×2 (08:56→21:35)
--- NOTE | 2018-03-31 09:09 | RAD ---
PORTABLE AP CHEST XRAY: DATE: 03/31/18. HISTORY: On ventilator. Followup evaluation. COMPARISON: 03/30/18. FINDINGS: The patient is rotated to the left. Postsurgical changes related to CABG are again noted. Endotrach eal tube and nasogastric tubes are again present. There does appear to be mild improvement in aerati on in the left mid lung zone; although, the patient is rotated limiting adequate evaluation. There i s pulmonary vascular congestion with mild prominence of the interstitial markings. No other interval change. IMPRESSION: 1. Parenchymal changes within the left mid lung zone do appear improved. There is mild prominence o f interstitial densities throughout the lungs bilaterally with mild pulmonary vascular congestion pre sent. 2. Probable tiny bilateral pleural effusions. POS: [facility]
--- NOTE | 2018-03-31 12:01 | PRG ---
DATE OF SERVICE: 03/31/2018 REFERRING PHYSICIAN: Dr. Tish Salvador SUBJECTIVE: Mr. Us is still intubated, sedated, still in atrial flutter over the weekend. He i s still requiring hemodialysis. There were some efforts made today for weaning, still requiring dilt iazem for rate control. OBJECTIVE: VITAL SIGNS: Blood pressure is 123/70, heart rate 86, respiration rate 21. Patient is afebrile. GENERAL: Reveals an intubated, sedated man in no apparent distress. NECK: Supple. Jugular veins does not appear distended. CHEST: Coarse, no crackles. CARDIOVASCULAR: Heart sounds are irregularly irregular. S1, S2, variable. No murmur or gallop. ABDOMEN: Benign. Bowel sounds positive. EXTREMITIES: Lower extremities without edema, clubbing or cyanosis. DATABASE: EKG reveals continued atrial fibrillation/flutter with now controlled rates, some tachyarr hythmia noted earlier in the day. LABORATORY DATA: White count is 10.1, hemoglobin 12.5, platelet count is 64. Sodium 136, potassium 3.5, BUN is 103, creatinine is 2.61. ASSESSMENT AND PLAN: Mr. Us is an 82-year-old man with history of hypertension, prior coronary disease and bypass surgery, diabetes, chronic obstructive pulmonary disease who presented with acute respiratory failure as well as acute renal insufficiency. He was found to be in atrial tachycardia v ersus atrial flutter with heart rates in the 110s, currently managed with rate control with diltiazem , hence his low platelet counts currently off of anticoagulation. PLAN: 1. Continue rate control after clinical stabilization. 2. DONAL and cardioversion versus DONAL ablation could be considered.
--- NOTE | 2018-03-31 12:10 | PDOC.PN ---
- Subjective Encounter Start Date: 03/31/18 Encounter Start Time: 09:00 -: old records requested/rev Patient seen and examined for pneumonia, pt is on vent. No overnight events - Objective Resuscitation Status: Resuscitation Status DNR:Do Not Resuscitate MAR Reviewed: Yes Vital Signs & Weight: Vital Signs (12 hours) Temp Pulse Resp BP Pulse Ox 03/31/18 12:00 19 03/31/18 10:29 86 123/70 03/31/18 10:27 86 21 H 97 03/31/18 10:00 17 03/31/18 08:00 98.6 F 21 H 03/31/18 07:21 88 137/64 03/31/18 06:56 86 20 95 03/31/18 06:00 17 03/31/18 04:00 98.6 F 20 03/31/18 02:55 19 03/31/18 02:01 86 154/72 H 03/31/18 02:00 19 Weight Admit Weight 187 lb 6.4 oz Weight 218 lb 0.595 oz Most Recent Monitor Data Heart Rate from ECG 79 NIBP 133/68 NIBP BP-Mean 94 Respiration from ECG 18 SpO2 99 I&O: 03/30/18 03/31/18 04/01/18 06:59 06:59 06:59 Intake Total 1101 2814 120 Output Total 1078 1040 220 Balance 23 1774 -100 Result Diagrams: 03/31/18 04:38 03/31/18 04:38 Additional Labs: Accuchecks 03/31/18 03/31/18 03/30/18 11:54 06:20 21:12 POC Glucose 168 H 240 H 184 H 03/30/18 17:10 POC Glucose 182 H Radiology Reviewed by me: Yes (chest xray) EKG Reviewed by me: Yes (afib) Phys Exam - Physical Examination Constitutional: NAD on vent HEENT: PERRLA, sclera anicteric Neck: no JVD, supple Respiratory: no wheezing, no rales, no rhonchi Cardiovascular: no significant murmur, irregular Gastrointestinal: soft, no distention, positive bowel sounds groin HD catheter+ Musculoskeletal: pulses present Lymphatic: no nodes Skin: no rash, normal turgor Dx/Plan (1) Acute respiratory failure with hypoxia Code(s): J96.01 - ACUTE RESPIRATORY FAILURE WITH HYPOXIA Status: Acute (2) Acute worsening of stage 3 chronic kidney disease Code(s): N18.3 - CHRONIC KIDNEY DISEASE, STAGE 3 (MODERATE) Status: Acute (3) Atrial fibrillation with RVR Code(s): I48.91 - UNSPECIFIED ATRIAL FIBRILLATION Status: Acute Comment: (4) COPD exacerbation Code(s): J44.1 - CHRONIC OBSTRUCTIVE PULMONARY DISEASE W (ACUTE) EXACERBATION Status: Acute (5) Demand ischemia of myocardium Code(s): I24.8 - OTHER FORMS OF ACUTE ISCHEMIC HEART DISEASE Status: Acute (6) Sepsis with acute organ dysfunction Code(s): A41.9 - SEPSIS, UNSPECIFIED ORGANISM; R65.20 - SEVERE SEPSIS WITHOUT SEPTIC SHOCK Status: Acute (7) Thrombocytopenia Code(s): D69.6 - THROMBOCYTOPENIA, UNSPECIFIED Status: Acute (8) Anxiety and depression Code(s): F41.9 - ANXIETY DISORDER, UNSPECIFIED; F32.9 - MAJOR DEPRESSIVE DISORDER, SINGLE EPISODE, UNSPECIFIED Status: Chronic (9) CAD (coronary artery disease) Code(s): I25.10 - ATHSCL HEART DISEASE OF [place] CORONARY ARTERY W/O ANG PCTRS Status: Chronic (10) DJD (degenerative joint disease) Code(s): M19.90 - UNSPECIFIED OSTEOARTHRITIS, UNSPECIFIED SITE Status: Chronic Comment: stable (11) DM2 (diabetes mellitus, type 2) Status: Chronic Comment: (12) Dyslipidemia Code(s): E78.5 - HYPERLIPIDEMIA, UNSPECIFIED Status: Chronic Comment: (13) GERD (gastroesophageal reflux disease) Code(s): K21.9 - GASTRO-ESOPHAGEAL REFLUX DISEASE WITHOUT ESOPHAGITIS Status: Chronic Comment: stable (14) HTN (hypertension) Code(s): I10 - ESSENTIAL (PRIMARY) HYPERTENSION Status: Chronic Comment: (15) PVD (peripheral vascular disease) Code(s): I73.9 - PERIPHERAL VASCULAR DISEASE, UNSPECIFIED Status: Chronic Comment: - Plan cont current plan of care, continue antibiotics * continue meropenam and cipro at renal dose * continue cardizem drip, rate controlled * off sedation, gets tachycardia * vent as per pulmonary * medication reviewed as below * symptomatic treatment. * HD as per nephrology Review of Systems - Review of Systems Other: unable to review due to intubated status - Medications/Allergies Allergies/Adverse Reactions: Allergies Allergy/AdvReac Type Severity Reaction Status Date / Time No Known Allergies Allergy Verified 03/24/18 01:53 Medications: Current Medications Acetaminophen (Tylenol) 650 mg PO Q4H PRN PRN Reason: Headache/Fever or Pain Albuterol/Ipratropium (Duoneb) 3 ml NEB [id number] [facility] Last Admin: 03/31/18 10:27 Dose: 3 ml Lipase/Protease/Amylase ([place] [id number]) 1 cap FS .PER PROTOCOL PRN PRN Reason: TUBE OCCLUSION PROTOCOL Atorvastatin Calcium (Lipitor) 40 mg PO HS [facility] Last Admin: 03/30/18 21:57 Dose: 40 mg Bisacodyl (Dulcolax) 10 mg HI DAILYPRN PRN PRN Reason: Constipation Last Admin: 03/30/18 16:42 Dose: 10 mg Carvedilol (Coreg) 1.5625 mg PO BID-[facility] Last Admin: 03/31/18 08:12 Dose: 1.5625 mg Dextrose/Water (Dextrose 50%) 25 gm SLOW IVP PRN PRN PRN Reason: Hypoglycemia Famotidine (Pepcid) 20 mg PO DAILY [facility] Last Admin: 03/31/18 08:29 Dose: 20 mg Glucagon (Glucagon) 1 mg IM PRN PRN PRN Reason: Hypoglycemia Guaifenesin (Robitussin Sf) 400 mg PER TUBE Q4HR [facility] Fentanyl Citrate (Fentanyl Bolus) 250 mls @ 0 mls/hr IVPB PRN PRN; As Directed PRN Reason: Breakthrough pain/agitation Stop: 04/25/18 15:27 Ciprofloxacin/Dextrose 400 mg/ (Device) 200 mls @ 200 mls/hr IVPB 1300 [facility] Last Admin: 03/30/18 13:43 Dose: 200 mls Diltiazem HCl 125 mg/Miscellaneous Medication 1 each/ Sodium Chloride 125 mls @ 5 mls/hr IVPB INF [facility] PRN Reason: Protocol Last Admin: 03/31/18 03:29 Dose: 125 mls Dextrose/Water (D5w) 1,000 mls @ 0 mls/hr IV .Q0M PRN; As Directed PRN Reason: Hypoglycemia Sodium Chloride (Normal Saline 0.9%) 1,000 mls @ 50 mls/hr IV .Q20H [facility] Last Admin: 03/30/18 22:25 Dose: 1,000 mls Meropenem 1 gm/ Device 50 mls @ 100 mls/hr IVPB 0600,1800 [facility] Insulin Human Lispro (Humalog) 0 units SC .AGGRESSIVE SLIDING PRN PRN Reason: Aggressive Correctional Scale Last Admin: 03/31/18 11:58 Dose: 3 unit Insulin Human NPH (Humulin N) 20 unit SC Q12HR [facility] Last Admin: 03/31/18 08:56 Dose: 20 unit Lactulose (Lactulose) 20 gm PO DAILY [facility] Last Admin: 03/31/18 08:29 Dose: 20 gm Lorazepam (Ativan) 2 mg SLOW IVP Q1H PRN PRN Reason: Breakthrough agitation Stop: 04/25/18 15:27 Morphine Sulfate (Morphine Sulfate) 2 mg SLOW IVP Q1H PRN PRN Reason: BREAKTHRU PAIN/AGITATION Ondansetron HCl (Zofran Odt) 4 mg PO Q6H PRN PRN Reason: Nausea/Vomiting Ondansetron HCl (Zofran) 4 mg IVP Q6H PRN PRN Reason: Nausea/Vomiting Propofol (Diprivan) 1,000 mg IV INF PRN; Protocol PRN Reason: TO ACHIEVE GOAL RASS Stop: 04/25/18 15:27 Last Admin: 03/30/18 17:00 Dose: 1,000 mg Propofol (Diprivan Bolus) 20 mg IV Q5MIN PRN PRN Reason: BREAKTHROUGH AGITATION Stop: 04/25/18 15:27 Scopolamine (Transderm Scop) 1.5 mg TD Q3D [facility] Last Admin: 03/31/18 08:30 Dose: 1.5 mg Sodium Bicarbonate (Bicarbonate, Sodium) 650 mg PER TUBE .PER PROTOCOL PRN PRN Reason: ENTERAL TUBE OCCLUSION Sodium Chloride (Flush - Normal Saline) 10 ml IVF Q12HR [facility] Last Admin: 03/31/18 09:00 Dose: Not Given Sodium Chloride (Flush - Normal Saline) 10 ml IVF PRN PRN PRN Reason: Saline Flush
[2018-03-31] MEDS: Propofol 1,000 MG/100 ML VIAL IV PRN (12:48)
--- NOTE | 2018-03-31 13:13 | PRG ---
DATE OF SERVICE: 03/30/2018 Mr. Us remains intubated on the ventilator. PHYSICAL EXAMINATION: VITAL SIGNS: Blood pressure 126/64, pulse 76, it is atrial flutter with a controlled rate. LUNGS: Clear. CARDIAC: Irregular. ABDOMEN: Soft, nontender. EXTREMITIES: Warm and dry. Mild edema. ASSESSMENT: 1. Atrial flutter, rate controlled. 2. Respiratory failure. 3. Acute kidney injury. PLAN: 1. Continue intravenous Cardizem, no changes. 2. Continuing to follow, creatinine, creatinine is 2.6. Estimated GFR is 24. No significant change .
[2018-03-31] MEDS: Haloperidol Lactate 5 MG/ML VIAL IM SCH ×3 (14:21→21:33)
--- NOTE | 2018-03-31 16:58 | PRG ---
DATE OF SERVICE: 03/31/2018 SUBJECTIVE: Mr. Us gets agitated when he is awakened. I have added Haldol today to see if this helps calm him down. OBJECTIVE: VITAL SIGNS: His heart rate is in the 70s, blood pressure 139/66, respiratory rate 16. LUNGS: Remarkable for mild rhonchi. HEART: Regular rhythm. ABDOMEN: Soft. EXTREMITIES: Without asymmetry. LABORATORY DATA: White count 12.0, hemoglobin 12.9, platelets 60,000. Sodium 136, potassium 3.7, chloride 101, bicarbonate 23, BUN 23, creatinine 2.61. IMPRESSION: 1. Respiratory failure. There is encephalopathy. I am not comfortable extubating him. We will add Haldol: 2. Status post intubation for retained secretions. He still has some exam findings suggestive of on going secretion issues. I will add steroids today. 3. Atrial flutter with rate controlled. 4. Acute renal failure. 5. Deconditioning. 6. Advanced age. I still have not seen any family at the bedside rounded on him. We will start Haldol and see if we can make progress with weaning. Critical care time, 30 minutes.
--- NOTE | 2018-03-31 20:20 | PRG ---
DATE OF SERVICE: 03/31/2018 SUBJECTIVE: Patient was seen and examined at bedside and overnight events noted. seen in ICU and intubated. OBJECTIVE: General: This is an elderly male in no apparent distress Vital Signs: Temperature 98.3, pulse 72, respiratory rate 18, blood pressure 128/59. HEENT: Atraumatic, normocephalic, intubated Neck: Supple. Cardiovascular: S1 and S2 heard. Rate and rhythm regular. Respiratory: Clear to auscultation. Gastrointestinal: Abdomen is soft. Musculoskeletal: No tenderness, No edema. Dermatologic: No skin rash. Neurologic: intubated LABORATORY DATA: Potassium 3.7, BUN is 103, creatinine is 2.6. ASSESSMENT AND PLAN: 1. Acute kidney injury on chronic kidney disease. 2. Use dialysis dependent. Patient's BUN is going up with signs of fluid overload. Plan is to have dialysis today if tolerated. 3. Acute hypoxic respiratory failure. We will have dialysis. 4. Edema with fluid overload. 5. Metabolic acidosis, stable. 6. Hypertension. 7. Hyperkalemia, stable. Plan is to do dialysis as tolerated. Rule out bleed and rule out infection. Follow with the critical care team. We will follow. MTDD
[2018-03-31] MEDS: Atorvastatin Calcium 40 MG TAB PO SCH (21:32)
[2018-04-01] MEDS: Haloperidol Lactate 5 MG/ML VIAL IM SCH ×5 (01:13→17:33)
[2018-04-01] MEDS: Diabetic Tussin 200 MG/10 ML UDCUP PER TUBE SCH ×6 (01:13→20:34)
[2018-04-01] MEDS: HumaLOG 300 UNITS/3 ML VIAL SC PRN ×3 (01:20→11:10)
[2018-04-01] MEDS: Sodium Chloride 0.9% 1,000 ML IV SCH (01:25)
[2018-04-01] MEDS: Diltiazem HCl 125 MG, Admixture Fee 1 EACH in Sodium Chloride 0.9% 100 ML IVPB SCH (04:33)
[2018-04-01 05:12] LABS: Anion Gap 11 mmol/L (10-20); BUN (Urea Nitrogen) 95 mg/dL (8.4-25.7); Calc. Creatinine Clearance 34 mL/min (70-130); Calcium 8.3 mg/dL (7.8-10.44); Carbon Dioxide 26 mmol/L (23-31); Chloride 104 mmol/L (98-107); Estimated GFR-MDRD 27; Glucose 222 mg/dL (83-110); Potassium 4.1 mmol/L (3.5-5.1); Sodium 137 mmol/L (136-145)
[2018-04-01 05:14] LABS: Hemoglobin 12.4 g/dL (14.0-18.0); Mean Corpuscular HGB CONC 31.9 g/dL (32.0-36.0); Mean Corpuscular Hemoglobin 27.6 pg (27.0-31.0); Mean Corpuscular Volume 86.7 fl (80.0-94.0); Mean Platelet Volume 10.4 fL (7.4-10.4); Platelet Count 56 thou/uL (130-400); RBC Distribution Width 17.2 % (11.5-14.5); Red Blood Cell (RBC) Count 4.49 mill/uL (4.70-6.10); White Blood Cell (WBC) Count 8.3 thou/uL (4.8-10.8)
[2018-04-01 05:15] LABS: Band 9 % (5-11); Lymphocytes 11 % (21-51); MDiff Complete? YES; Metamyelocyte 4 % (0-0); Neutrophil 76 % (42-75); PLT Morphology Comment Appears Adequate
[2018-04-01] MEDS: MEROPENEM 1 GM/50 ML 1 GM in Premix Bag 1 BAG IVPB SCH ×2 (05:22→17:01)
[2018-04-01 07:02] LABS: CO2 Tension 32.5 mmHg (35.0-45.0); Calcium, Ionized 1.1 mmol/L (1.12-1.30); Hemoglobin (Hb) 12.9 g/dL (14.0-18.0); O2 Tension (PaO2) 96.5 mmHg (> 60.0); pH, Arterial 7.47 (7.35-7.45)
[2018-04-01 07:03] LABS: ALV-art Gradient 76.775 (0-20); Puncture Site RRA
[2018-04-01] MEDS: Carvedilol 3.125 MG TAB PO SCH ×2 (08:54→17:28)
[2018-04-01] MEDS: Famotidine 20 MG TAB PO SCH (08:55)
[2018-04-01] MEDS: NPH, Human Insulin Isophane 300 UNIT/3 ML VIAL SC SCH ×2 (08:56→21:14)
--- NOTE | 2018-04-01 09:53 | RAD ---
PORTABLE AP CHEST RADIOGRAPH: Date: 04-01-18 History: On ventilator. Follow up evaluation. Comparison: 03-31-18 FINDINGS: Endotracheal tube and nasogastric tube remain in place. 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 The inferior aspect of the right lateral costophrenic angle is excluded from view. Patient i s rotated to the right, but there is patchy increased opacities present within the region of the righ t lung apex which may be related to pneumonia. This is not appreciated on the prior exam. There are p leural and parenchymal changes at the left lung base probably related to left pleural effusion and at electasis although pneumonia at the left lung base is a possibility. There is also mild increased int erstitial opacities within the remainder of the left lung, greater in the left midlung zone. No other interval change. IMPRESSION: 1. Patchy parenchymal opacity now present within the right upper lobe/right lung apex which may be re lated to pneumonia. 2. Pleural and parenchymal changes left lung base which may be related to pleural effusion or atelect asis; although, pneumonia at the left lung base is a possibility. 3. Mild increased interstitial densities within the lungs bilaterally, greater on the left. Findings may be related to infectious process or possibly asymmetric pulmonary edema. Continued follow up is r ecommended. Interstitial densities on the right do appear improved when compared to the prior exam. POS: [facility]
--- NOTE | 2018-04-01 10:09 | PRG ---
DATE OF SERVICE: 04/01/2018 Mr. Us is extubated. He looks comfortable. REVIEW OF SYSTEMS: Still not really accurate. He seems still mildly disoriented. PHYSICAL EXAMINATION: VITAL SIGNS: Blood pressure 136/68, pulse is 80, its regular, it is atrial flutter with a controlled rate. LUNGS: Rhonchi. CARDIAC: Normal S1, normal S2. ASSESSMENT: 1. Atrial flutter, stable, rate controlled. 2. Respiratory failure, currently off of the ventilator. 3. Renal insufficiency. The creatinine is 2.3. GFR is 27, slightly better than yesterday. PLAN: 1. Start at least low dose enoxaparin. 2. He is on diltiazem for rate control. 3. The patient has low platelet count, which is the reason he is not currently on anticoagulation. We will hold off anticoagulation for now.
--- NOTE | 2018-04-01 10:20 | PDOC.PN ---
- Subjective Encounter Start Date: 04/01/18 Encounter Start Time: 09:10 Patient seen and examined for pneumonia, pt is awake on vent, follows command,, he is on cardizem drip for Afib, had good BM No overnight events no family bedside - Objective Resuscitation Status: Resuscitation Status DNR:Do Not Resuscitate MAR Reviewed: Yes Vital Signs & Weight: Vital Signs (12 hours) Temp Pulse Resp BP Pulse Ox 04/01/18 08:00 97.6 F 12 04/01/18 07:59 97.6 F 55 L 17 95 04/01/18 07:00 97.6 F 04/01/18 06:44 55 L 126/70 04/01/18 06:42 56 L 14 99 04/01/18 06:00 15 04/01/18 04:00 97.9 F 16 04/01/18 02:29 68 15 96 04/01/18 02:00 16 04/01/18 00:00 97.6 F 16 03/31/18 22:32 65 18 Weight Admit Weight 187 lb 6.4 oz Weight 197 lb 5.019 oz Most Recent Monitor Data Heart Rate from ECG 61 NIBP 136/68 NIBP BP-Mean 99 Respiration from ECG 17 SpO2 93 I&O: 03/31/18 04/01/18 04/02/18 06:59 06:59 06:59 Intake Total 2814 3115.3 60 Output Total 1040 990 90 Balance 1774 2125.3 -30 Result Diagrams: 04/01/18 04:50 04/01/18 04:50 Additional Labs: Accuchecks 04/01/18 04/01/18 03/31/18 04:45 00:16 18:46 POC Glucose 188 H 237 H 145 H 03/31/18 11:54 POC Glucose 168 H Radiology Reviewed by me: Yes (chest xray) EKG Reviewed by me: Yes (afib) Phys Exam - Physical Examination Constitutional: NAD on vent HEENT: PERRLA, sclera anicteric Neck: no JVD, supple Respiratory: no wheezing, no rales, no rhonchi clear anteriorly Cardiovascular: no significant murmur, irregular Gastrointestinal: soft, non-tender, no distention, positive bowel sounds Musculoskeletal: no edema, pulses present Neurological: moves all 4 limbs Lymphatic: no nodes Skin: no rash, normal turgor Dx/Plan (1) Acute respiratory failure with hypoxia Code(s): J96.01 - ACUTE RESPIRATORY FAILURE WITH HYPOXIA Status: Acute (2) Pneumonia Code(s): J18.9 - PNEUMONIA, UNSPECIFIED ORGANISM Status: Acute (3) Acute worsening of stage 3 chronic kidney disease Code(s): N18.3 - CHRONIC KIDNEY DISEASE, STAGE 3 (MODERATE) Status: Acute (4) Atrial fibrillation with RVR Code(s): I48.91 - UNSPECIFIED ATRIAL FIBRILLATION Status: Acute Comment: (5) COPD exacerbation Code(s): J44.1 - CHRONIC OBSTRUCTIVE PULMONARY DISEASE W (ACUTE) EXACERBATION Status: Acute (6) Demand ischemia of myocardium Code(s): I24.8 - OTHER FORMS OF ACUTE ISCHEMIC HEART DISEASE Status: Acute (7) Sepsis with acute organ dysfunction Code(s): A41.9 - SEPSIS, UNSPECIFIED ORGANISM; R65.20 - SEVERE SEPSIS WITHOUT SEPTIC SHOCK Status: Acute (8) Thrombocytopenia Code(s): D69.6 - THROMBOCYTOPENIA, UNSPECIFIED Status: Acute (9) Anxiety and depression Code(s): F41.9 - ANXIETY DISORDER, UNSPECIFIED; F32.9 - MAJOR DEPRESSIVE DISORDER, SINGLE EPISODE, UNSPECIFIED Status: Chronic (10) CAD (coronary artery disease) Code(s): I25.10 - ATHSCL HEART DISEASE OF [place] CORONARY ARTERY W/O ANG PCTRS Status: Chronic (11) DJD (degenerative joint disease) Code(s): M19.90 - UNSPECIFIED OSTEOARTHRITIS, UNSPECIFIED SITE Status: Chronic Comment: stable (12) DM2 (diabetes mellitus, type 2) Status: Chronic Comment: (13) Dyslipidemia Code(s): E78.5 - HYPERLIPIDEMIA, UNSPECIFIED Status: Chronic Comment: (14) GERD (gastroesophageal reflux disease) Code(s): K21.9 - GASTRO-ESOPHAGEAL REFLUX DISEASE WITHOUT ESOPHAGITIS Status: Chronic Comment: stable (15) HTN (hypertension) Code(s): I10 - ESSENTIAL (PRIMARY) HYPERTENSION Status: Chronic Comment: (16) PVD (peripheral vascular disease) Code(s): I73.9 - PERIPHERAL VASCULAR DISEASE, UNSPECIFIED Status: Chronic Comment: - Plan cont current plan of care, continue antibiotics, respiratory therapy * continue meropenam, cipro * continue solumderol * vent as per pulmonary * medication reviewed as below * symptomatic treatment * supportive care. Review of Systems - Review of Systems Other: unable to review due to intubated status - Medications/Allergies Allergies/Adverse Reactions: Allergies Allergy/AdvReac Type Severity Reaction Status Date / Time No Known Allergies Allergy Verified 03/24/18 01:53 Medications: Current Medications Acetaminophen (Tylenol) 650 mg PO Q4H PRN PRN Reason: Headache/Fever or Pain Albuterol/Ipratropium (Duoneb) 3 ml NEB [id number] [facility] Last Admin: 04/01/18 06:42 Dose: 3 ml Lipase/Protease/Amylase ([place] [id number]) 1 cap FS .PER PROTOCOL PRN PRN Reason: TUBE OCCLUSION PROTOCOL Atorvastatin Calcium (Lipitor) 40 mg PO HS [facility] Last Admin: 03/31/18 21:32 Dose: 40 mg Bisacodyl (Dulcolax) 10 mg [place] DAILYPRN PRN PRN Reason: Constipation Last Admin: 03/30/18 16:42 Dose: 10 mg Carvedilol (Coreg) 1.5625 mg PO BID-WM [facility] Last Admin: 04/01/18 08:54 Dose: 1.5625 mg Dextrose/Water (Dextrose 50%) 25 gm SLOW IVP PRN PRN PRN Reason: Hypoglycemia Famotidine (Pepcid) 20 mg PO DAILY [facility] Last Admin: 04/01/18 08:55 Dose: 20 mg Glucagon (Glucagon) 1 mg IM PRN PRN PRN Reason: Hypoglycemia Guaifenesin (Robitussin Sf) 400 mg PER TUBE Q4HR [facility] Last Admin: 04/01/18 08:55 Dose: 400 mg Haloperidol Lactate (Haldol) 5 mg IM Q4H [facility] Last Admin: 04/01/18 08:58 Dose: 5 mg Fentanyl Citrate (Fentanyl Bolus) 250 mls @ 0 mls/hr IVPB PRN PRN; As Directed PRN Reason: Breakthrough pain/agitation Stop: 04/25/18 15:27 Ciprofloxacin/Dextrose 400 mg/ (Device) 200 mls @ 200 mls/hr IVPB 1300 [facility] Last Admin: 03/31/18 12:52 Dose: 200 mls Diltiazem HCl 125 mg/Miscellaneous Medication 1 each/ Sodium Chloride 125 mls @ 5 mls/hr IVPB INF HILDA PRN Reason: Protocol Last Admin: 04/01/18 04:33 Dose: 125 mls Dextrose/Water (D5w) 1,000 mls @ 0 mls/hr IV .Q0M PRN; As Directed PRN Reason: Hypoglycemia Sodium Chloride (Normal Saline 0.9%) 1,000 mls @ 30 mls/hr IV .Q24H [facility] Last Admin: 04/01/18 01:25 Dose: 1,000 mls Meropenem 1 gm/ Device 50 mls @ 100 mls/hr IVPB 0600,1800 [facility] Last Admin: 04/01/18 05:22 Dose: 50 mls Insulin Human Lispro (Humalog) 0 units SC .AGGRESSIVE SLIDING PRN PRN Reason: Aggressive Correctional Scale Last Admin: 04/01/18 05:27 Dose: 3 unit Insulin Human NPH (Humulin N) 20 unit SC Q12HR [facility] Last Admin: 04/01/18 08:56 Dose: 20 unit Lactulose (Lactulose) 20 gm PO DAILY [facility] Last Admin: 04/01/18 08:56 Dose: Not Given Lorazepam (Ativan) 2 mg SLOW IVP Q1H PRN PRN Reason: Breakthrough agitation Stop: 04/25/18 15:27 Methylprednisolone Sodium Succinate (Solu-Medrol) 20 mg IVP Q6HR [facility] Last Admin: 04/01/18 05:22 Dose: 20 mg Morphine Sulfate (Morphine Sulfate) 2 mg SLOW IVP Q1H PRN PRN Reason: BREAKTHRU PAIN/AGITATION Ondansetron HCl (Zofran Odt) 4 mg PO Q6H PRN PRN Reason: Nausea/Vomiting Ondansetron HCl (Zofran) 4 mg IVP Q6H PRN PRN Reason: Nausea/Vomiting Propofol (Diprivan) 1,000 mg IV INF PRN; Protocol PRN Reason: TO ACHIEVE GOAL RASS Stop: 04/25/18 15:27 Last Admin: 03/31/18 12:48 Dose: 1,000 mg Propofol (Diprivan Bolus) 20 mg IV Q5MIN PRN PRN Reason: BREAKTHROUGH AGITATION Stop: 04/25/18 15:27 Scopolamine (Transderm Scop) 1.5 mg TD Q3D [facility] Last Admin: 03/31/18 08:30 Dose: 1.5 mg Sodium Bicarbonate (Bicarbonate, Sodium) 650 mg PER TUBE .PER PROTOCOL PRN PRN Reason: ENTERAL TUBE OCCLUSION Sodium Chloride (Flush - Normal Saline) 10 ml IVF Q12HR [facility] Last Admin: 04/01/18 08:57 Dose: 10 ml Sodium Chloride (Flush - Normal Saline) 10 ml IVF PRN PRN PRN Reason: Saline Flush
--- NOTE | 2018-04-01 15:06 | PDOC.CTH ---
Cardiology Progress Note - Subjective EP progress Note: Patient seen and evaluated. Recently extubated. Weak with hoarse voice. No current cardiac complaints. Denies heart racing, palpitations, chest pain/ pressure, or worsening shortness of breath. Positive for weakness. - Objective Vital Signs Temp Pulse Resp BP Pulse Ox 04/01/18 14:44 56 L 18 94 L 04/01/18 12:00 98 F 100 04/01/18 10:51 70 16 99 04/01/18 09:45 70 18 99 04/01/18 08:00 97.6 F 12 04/01/18 07:59 97.6 F 55 L 17 95 04/01/18 07:00 97.6 F 04/01/18 06:44 55 L 126/70 04/01/18 06:42 56 L 14 99 04/01/18 06:00 15 04/01/18 04:00 97.9 F 16 Admit Weight 187 lb 6.4 oz Weight 197 lb 5.019 oz 03/31/18 04/01/18 04/02/18 06:59 06:59 06:59 Intake Total 2814 3115.3 60 Output Total 1040 990 315 Balance 1774 2125.3 -255 - Physical Examination General/Neuro: alert & oriented x3, NAD Neck: no JVD present Lungs: unlabored respirations Heart: other: (irreg irreg) Abdomen: NT/ND, soft - Telemetry Telemetry Rhythm: AT/A Flutter - Labs Result Diagrams: 04/01/18 04:50 04/01/18 04:50 Troponin/CKMB CK-MB (CK-2) 6.2 ng/mL (0-6.6) 03/23/18 22:03 Troponin I 0.337 ng/mL (< 0.028) H* 03/24/18 03:40 - Assessment/Plan . Atrial fibrillation and tachycardia with moderate ventricular rate control with diltiazem gtt. Continue with rate control for now. Consider DONAL/CV vs ablation once stabilized prior to discharge. 2. Anticoagulation- lovenox being held for persistently low plt count ( currently 50s). Resume anticoagulation as soon as is safe to offer stroke prophylaxis 3. Acute respiratory failure- intubation planned 03/26/18, extubated 04/01/18 4. Hyperkalemia- resolved 5. Chronic renal failure-per nephrology 6. Septic shock secondary to pneumonia
--- NOTE | 2018-04-01 16:30 | PRG ---
DATE OF SERVICE: 04/01/2018 SUBJECTIVE: Mr. Us awakened surprisingly and follow commands today. He is very cooperative. PHYSICAL EXAMINATION: VITAL SIGNS: His heart rate is in the 50s, respiratory rates in the teens, oximetry is in the high 9 0s. LUNGS: Clear anteriorly. HEART: Regular rhythm. ABDOMEN: Soft and nontender. EXTREMITIES: Without asymmetry. LABORATORY DATA: White count 8.3, hemoglobin 12.4, platelets 56,000. Sodium 137, potassium 4.1, chl oride 104, bicarbonate 26, BUN 95, creatinine 2.3. A pH 7.47, pCO2 32, pO2 96. He passed a leak test. IMAGING DATA: Chest radiograph reviewed by me shows bilateral increased interstitial markings. IMPRESSION: Respiratory failure secondary to retained secretions. I had a long meeting with the family today. I feel he has reached a point where he can be safely ext ubated. His family says he would never want to be intubated, never want a tracheostomy, never want a feeding tube and would want to be a DO NOT RESUSCITATE patient at this point. They say that he prob ably would not have wanted to go through what he has already been through at this point. He subsequently has been extubated and at least stable for now. He is obviously very weak. Still in positive fluid balance. Other problems include renal failure and atrial flutter. He also has persistent thrombocytopenia. We will continue to follow. Critical care time was 30 minutes.
[2018-04-01] MEDS ORDERED: Haloperidol Lactate 5 MG/ML VIAL IM PRN (17:19)
--- NOTE | 2018-04-01 19:18 | PRG ---
DATE OF SERVICE: 04/01/2018 NEPHROLOGY PROGRESS NOTE SUBJECTIVE: Patient was seen and examined at the ICU and remains intubated. OBJECTIVE: GENERAL: This is an elderly white male seen in ICU, intubated. VITAL SIGNS: Temperature 98.0, pulse 65, respiratory rate 18, blood pressure 147/87. HEENT: Intubated. CARDIOVASCULAR: S1, S2 heard. Rate and rhythm regular. RESPIRATORY: Clear. GASTROINTESTINAL: Abdomen is soft. MUSCULOSKELETAL: No edema. DERMATOLOGIC: No rashes. NEUROLOGIC: Intubated, but arousable. LABORATORY DATA: Creatinine 2.3, potassium 4.1, hemoglobin is 12.4. ASSESSMENT AND PLAN: 1. Acute kidney injury on chronic kidney disease, dialysis dependent. No acute indication for dialy sis today, had dialysis yesterday. We will follow. 2. Edema, remove fluid with dialysis. 3. Hypertension, stable. 4. Hyperkalemia, better. 5. Metabolic acidosis. 6. Acute hypoxic respiratory failure. Follow with primary team. Plan is to continue on dialysis if needed and he is making more urine now. We will follow. Avoid ne phrotoxins. We will have NS at 30 mL per hour.
[2018-04-01] MEDS: Atorvastatin Calcium 40 MG TAB PO SCH (20:34)
[2018-04-02] MEDS: Diltiazem HCl 125 MG, Admixture Fee 1 EACH in Sodium Chloride 0.9% 100 ML IVPB SCH ×2 (00:54→13:08)
[2018-04-02] MEDS: Diabetic Tussin 200 MG/10 ML UDCUP PER TUBE SCH ×6 (00:56→20:56)
[2018-04-02] MEDS: MEROPENEM 1 GM/50 ML 1 GM in Premix Bag 1 BAG IVPB SCH (06:15)
[2018-04-02] MEDS: Sodium Chloride 0.9% 1,000 ML IV SCH (06:16)
[2018-04-02 06:37] LABS: Band 3 % (5-11); Bite Cells SLIGHT = 2-5 cells (100X) (0-1/hpf); Lymphocytes 7 % (21-51); MDiff Complete? YES; Mean Corpuscular HGB CONC 31.4 g/dL (32.0-36.0); Mean Corpuscular Hemoglobin 27.1 pg (27.0-31.0); Mean Corpuscular Volume 86.3 fL (78.0-98.0); Monocytes 2 % (0-10); Neutrophil 87 % (42-75); PLT Morphology Comment Appears Decreased; Platelet Count 94 thou/uL (130-400); RBC Distribution Width 16.9 % (11.5-14.5); Reactive Lymphocytes 1 % (0-10); Red Blood Cell (RBC) Count 4.79 mill/uL (4.70-6.10); White Blood Cell (WBC) Count 11.2 thou/uL (4.8-10.8)
[2018-04-02 06:39] LABS: Anion Gap 15 mmol/L (10-20); BUN (Urea Nitrogen) 107 mg/dL (8.4-25.7); Calc. Creatinine Clearance 33 mL/min (70-130); Calcium 8.7 mg/dL (7.8-10.44); Carbon Dioxide 25 mmol/L (23-31); Chloride 105 mmol/L (98-107); Estimated GFR-MDRD 29; Glucose 155 mg/dL (83-110); Potassium 3.9 mmol/L (3.5-5.1); Sodium 141 mmol/L (136-145)
--- NOTE | 2018-04-02 08:23 | RAD ---
AP VIEW CHEST: Date: 04/02/18 HISTORY: Ventilator-dependent patient. FINDINGS: Comparison made to previous exam from 04/01/18. AP view of chest demonstrates interval extubation of the patient. Sternotomy wires seen. Mediastinal surgical clips seen. Cardiomegaly is noted. Pulmonary vascular congestion is seen. Bilateral small pleural effusions seen. IMPRESSION: 1. Cardiomegaly, pulmonary vascular congestion, and small bilateral pleural effusions. 2. Interval extubation of the patient. POS: [facility]
--- NOTE | 2018-04-02 10:31 | PDOC.PN ---
- Subjective Encounter Start Date: 04/02/18 Encounter Start Time: 08:30 Patient seen and examined for pneumonia. pt failed swallow evaluation. No overnight events - Objective Resuscitation Status: Resuscitation Status DNR:Do Not Resuscitate MAR Reviewed: Yes Vital Signs & Weight: Vital Signs (12 hours) Temp Pulse Resp Pulse Ox 04/02/18 10:24 92 17 95 04/02/18 07:46 97.8 F 92 26 H 95 04/02/18 07:00 97.8 F 04/02/18 06:31 99 04/02/18 06:29 87 20 99 04/02/18 04:00 97.6 F 04/02/18 02:25 78 18 100 04/02/18 00:00 97.6 F Weight Admit Weight 187 lb 6.4 oz Weight 199 lb 8.293 oz Most Recent Monitor Data Heart Rate from ECG 92 NIBP 143/71 NIBP BP-Mean 108 Respiration from ECG 26 SpO2 93 I&O: 04/01/18 04/02/18 04/03/18 06:59 06:59 06:59 Intake Total 3115.3 1372.1 Output Total 990 1380 40 Balance 2125.3 -7.9 -40 Result Diagrams: 04/02/18 06:00 04/02/18 06:00 Additional Labs: Accuchecks 04/02/18 04/01/18 04/01/18 06:07 21:15 17:32 POC Glucose 135 H 171 H 154 H 04/01/18 10:42 POC Glucose 255 H EKG Reviewed by me: Yes (afib) Phys Exam - Physical Examination Constitutional: NAD HEENT: PERRLA, moist MMs, sclera anicteric Neck: no JVD, supple Respiratory: no wheezing, no rhonchi coarse sound+ Cardiovascular: no significant murmur, irregular Gastrointestinal: soft, non-tender, no distention, positive bowel sounds Musculoskeletal: no edema, pulses present Neurological: non-focal, normal sensation Lymphatic: no nodes Psychiatric: normal affect Skin: no rash, normal turgor Dx/Plan (1) Acute respiratory failure with hypoxia Code(s): J96.01 - ACUTE RESPIRATORY FAILURE WITH HYPOXIA Status: Acute (2) Pneumonia Code(s): J18.9 - PNEUMONIA, UNSPECIFIED ORGANISM Status: Acute (3) Acute worsening of stage 3 chronic kidney disease Code(s): N18.3 - CHRONIC KIDNEY DISEASE, STAGE 3 (MODERATE) Status: Acute (4) Atrial fibrillation with RVR Code(s): I48.91 - UNSPECIFIED ATRIAL FIBRILLATION Status: Acute Comment: (5) COPD exacerbation Code(s): J44.1 - CHRONIC OBSTRUCTIVE PULMONARY DISEASE W (ACUTE) EXACERBATION Status: Acute (6) Demand ischemia of myocardium Code(s): I24.8 - OTHER FORMS OF ACUTE ISCHEMIC HEART DISEASE Status: Acute (7) Sepsis with acute organ dysfunction Code(s): A41.9 - SEPSIS, UNSPECIFIED ORGANISM; R65.20 - SEVERE SEPSIS WITHOUT SEPTIC SHOCK Status: Acute (8) Thrombocytopenia Code(s): D69.6 - THROMBOCYTOPENIA, UNSPECIFIED Status: Acute (9) Anxiety and depression Code(s): F41.9 - ANXIETY DISORDER, UNSPECIFIED; F32.9 - MAJOR DEPRESSIVE DISORDER, SINGLE EPISODE, UNSPECIFIED Status: Chronic (10) CAD (coronary artery disease) Code(s): I25.10 - ATHSCL HEART DISEASE OF [place] CORONARY ARTERY W/O ANG PCTRS Status: Chronic (11) DJD (degenerative joint disease) Code(s): M19.90 - UNSPECIFIED OSTEOARTHRITIS, UNSPECIFIED SITE Status: Chronic Comment: stable (12) DM2 (diabetes mellitus, type 2) Status: Chronic Comment: (13) Dyslipidemia Code(s): E78.5 - HYPERLIPIDEMIA, UNSPECIFIED Status: Chronic Comment: (14) GERD (gastroesophageal reflux disease) Code(s): K21.9 - GASTRO-ESOPHAGEAL REFLUX DISEASE WITHOUT ESOPHAGITIS Status: Chronic Comment: stable (15) HTN (hypertension) Code(s): I10 - ESSENTIAL (PRIMARY) HYPERTENSION Status: Chronic Comment: (16) PVD (peripheral vascular disease) Code(s): I73.9 - PERIPHERAL VASCULAR DISEASE, UNSPECIFIED Status: Chronic Comment: - Plan cont current plan of care, continue antibiotics, PT/OT, social services assistant, speech therapy * currently on meropenam and cipro * on cardizem drip * on IV solumedrol * unable to give oral meds as he has difficulty swallowing, speech therapy consulted * once dr katy downing, will transfer to tele * medication reviewed as below * symptomatic treatment * will need placement on discharge. Review of Systems - Review of Systems Other: unable to review due to pt is not able to communicate well - Medications/Allergies Allergies/Adverse Reactions: Allergies Allergy/AdvReac Type Severity Reaction Status Date / Time No Known Allergies Allergy Verified 03/24/18 01:53 Medications: Current Medications Acetaminophen (Tylenol) 650 mg PO Q4H PRN PRN Reason: Headache/Fever or Pain Albuterol/Ipratropium (Duoneb) 3 ml NEB [id number] [facility] Last Admin: 04/02/18 10:24 Dose: 3 ml Lipase/Protease/Amylase ([place] [id number]) 1 cap FS .PER PROTOCOL PRN PRN Reason: TUBE OCCLUSION PROTOCOL Atorvastatin Calcium (Lipitor) 40 mg PO HS [facility] Last Admin: 04/01/18 20:34 Dose: Not Given Bisacodyl (Dulcolax) 10 mg [place] DAILYPRN PRN PRN Reason: Constipation Last Admin: 03/30/18 16:42 Dose: 10 mg Carvedilol (Coreg) 1.5625 mg PO BID-WM [facility] Last Admin: 04/01/18 17:28 Dose: Not Given Dextrose/Water (Dextrose 50%) 25 gm SLOW IVP PRN PRN PRN Reason: Hypoglycemia Famotidine (Pepcid) 20 mg PO DAILY [facility] Last Admin: 04/01/18 08:55 Dose: 20 mg Glucagon (Glucagon) 1 mg IM PRN PRN PRN Reason: Hypoglycemia Guaifenesin (Robitussin Sf) 400 mg PER TUBE Q4HR [facility] Last Admin: 04/02/18 06:14 Dose: Not Given Haloperidol Lactate (Haldol) 5 mg IM Q4H PRN PRN Reason: Agitation Ciprofloxacin/Dextrose 400 mg/ (Device) 200 mls @ 200 mls/hr IVPB 1300 [facility] Last Admin: 04/01/18 13:10 Dose: 200 mls Diltiazem HCl 125 mg/Miscellaneous Medication 1 each/ Sodium Chloride 125 mls @ 5 mls/hr IVPB INF [facility]IL[facility] PRN Reason: Protocol Last Admin: 04/02/18 00:54 Dose: 125 mls Dextrose/Water (D5w) 1,000 mls @ 0 mls/hr IV .Q0M PRN; As Directed PRN Reason: Hypoglycemia Sodium Chloride (Normal Saline 0.9%) 1,000 mls @ 30 mls/hr IV .Q24H [facility] Last Admin: 04/02/18 06:16 Dose: 1,000 mls Meropenem 1 gm/ Device 50 mls @ 100 mls/hr IVPB 0600,1800 [facility] Last Admin: 04/02/18 06:15 Dose: 50 mls Insulin Human Lispro (Humalog) 0 units SC .AGGRESSIVE SLIDING PRN PRN Reason: Aggressive Correctional Scale Last Admin: 04/01/18 11:10 Dose: 9 unit Insulin Human NPH (Humulin N) 20 unit SC Q12HR [facility] Last Admin: 04/01/18 21:14 Dose: 20 unit Lactulose (Lactulose) 20 gm PO DAILY [facility] Last Admin: 04/01/18 08:56 Dose: Not Given Methylprednisolone Sodium Succinate (Solu-Medrol) 20 mg IVP Q6HR [facility] Last Admin: 04/02/18 06:15 Dose: 20 mg Ondansetron HCl (Zofran Odt) 4 mg PO Q6H PRN PRN Reason: Nausea/Vomiting Ondansetron HCl (Zofran) 4 mg IVP Q6H PRN PRN Reason: Nausea/Vomiting Scopolamine (Transderm Scop) 1.5 mg TD Q3D [facility] Last Admin: 03/31/18 08:30 Dose: 1.5 mg Sodium Bicarbonate (Bicarbonate, Sodium) 650 mg PER TUBE .PER PROTOCOL PRN PRN Reason: ENTERAL TUBE OCCLUSION Sodium Chloride (Flush - Normal Saline) 10 ml IVF Q12HR [facility] Last Admin: 04/01/18 21:19 Dose: 10 ml Sodium Chloride (Flush - Normal Saline) 10 ml IVF PRN PRN PRN Reason: Saline Flush
[2018-04-02] MEDS: Famotidine 20 MG TAB PO SCH (10:35)
[2018-04-02] MEDS: Carvedilol 3.125 MG TAB PO SCH ×2 (10:36→18:46)
[2018-04-02] MEDS: NPH, Human Insulin Isophane 300 UNIT/3 ML VIAL SC SCH ×2 (10:40→20:55)
--- NOTE | 2018-04-02 12:13 | PDOC.CTH ---
<Brook Isaacs - Last Filed: 04/02/18 12:12> Cardiology Progress Note - Subjective EP progress note: Patient seen and evaluated. No new cardiac concerns or complaints. Resting comfortably in bed. Weak, hoarse throat/voice. - Objective Vital Signs Temp Pulse Resp Pulse Ox 04/02/18 10:24 92 17 95 04/02/18 07:46 97.8 F 92 26 H 95 04/02/18 07:00 97.8 F 04/02/18 06:31 99 04/02/18 06:29 87 20 99 04/02/18 04:00 97.6 F 04/02/18 02:25 78 18 100 Admit Weight 187 lb 6.4 oz Weight 199 lb 8.293 oz 04/01/18 04/02/18 04/03/18 06:59 06:59 06:59 Intake Total 3115.3 1372.1 Output Total 990 1380 40 Balance 2125.3 -7.9 -40 - Physical Examination General/Neuro: alert & oriented x3, NAD Neck: no JVD present Lungs: unlabored respirations Abdomen: NT/ND, soft - Telemetry Telemetry Rhythm: Aflutter/tach - Labs Result Diagrams: 04/02/18 06:00 04/02/18 06:00 Troponin/CKMB CK-MB (CK-2) 6.2 ng/mL (0-6.6) 03/23/18 22:03 Troponin I 0.337 ng/mL (< 0.028) H* 03/24/18 03:40 - Assessment/Plan 1. Atrial fibrillation and tachycardia with moderate ventricular rate control with diltiazem gtt. Continue with rate control for now. Anticipating DONAL/CV vs ablation once stabilized prior to discharge. 2. Anticoagulation- lovenox being held for persistently low plt count (now climbing, currently 94). Resume anticoagulation as soon as is safe to offer stroke prophylaxis 3. Acute respiratory failure- intubation planned 03/26/18, extubated 04/01/18 4. Hyperkalemia- resolved 5. Chronic renal failure-per nephrology 6. Septic shock secondary to pneumonia <Akash Rodas - Last Filed: 04/02/18 15:31> Cardiology Progress Note - Objective Vital Signs Temp Pulse Pulse Pulse Resp BP BP 04/02/18 14:23 72 16 04/02/18 11:00 98.0 F 81 92 142/84 H 161/83 H 04/02/18 10:24 92 17 04/02/18 07:46 97.8 F 92 26 H 04/02/18 07:00 97.8 F 04/02/18 06:31 04/02/18 06:29 87 20 04/02/18 04:00 97.6 F Pulse Ox 04/02/18 14:23 04/02/18 11:00 04/02/18 10:24 95 04/02/18 07:46 95 04/02/18 07:00 04/02/18 06:31 99 04/02/18 06:29 99 04/02/18 04:00 Admit Weight 187 lb 6.4 oz Weight 199 lb 8.293 oz 04/01/18 04/02/18 04/03/18 06:59 06:59 06:59 Intake Total 3115.3 1372.1 569 Output Total 990 1380 500 Balance 2125.3 -7.9 69 - Labs Result Diagrams: 04/02/18 06:00 04/02/18 06:00 Troponin/CKMB CK-MB (CK-2) 6.2 ng/mL (0-6.6) 03/23/18 22:03 Troponin I 0.337 ng/mL (< 0.028) H* 03/24/18 03:40 Attending Addendum - Attending Addendum Date/Time: 04/02/18 6180 I personally evaluated the patient and discussed the management with Ms Isaacs. I agree with the History, Examination, Assessment and Plan documented above with any addition or exceptions noted below.
--- NOTE | 2018-04-02 13:59 | PRG ---
DATE OF SERVICE: 04/02/2018 Mr. Us did well overnight. He is awake and alert. He does not know what day it is, but knew he was in the hospital today. PHYSICAL EXAMINATION: VITAL SIGNS: His blood pressure 142/84, respiratory rates in the teens. Oximetry is 94. LUNGS: Clear. His rhonchi are completely resolved. HEART: Regular rhythm. ABDOMEN: Soft and nontender. EXTREMITIES: Without clubbing, cyanosis, or edema. NEUROLOGIC: Grossly nonfocal. Chest radiograph shows small bilateral effusions. I reviewed the film. LABORATORY DATA: White count 11.2, hemoglobin 13.0, platelets 94,000. Sodium 141, potassium 3.9, ch loride 105, bicarbonate 25, BUN 107, creatinine 2.17, glucose 155. IMPRESSION: 1. Status post intubation for retained secretions. 2. Volume overload. 3. Acute on chronic renal failure. 4. Advanced age with a do not resuscitate status. We planned not to reintubate him should he decomp ensate. 5. Hypertension history. 6. Atrial fibrillation. His anticoagulation was held because of his renal failure and his thrombocy topenia. 7. Thrombocytopenia, which was likely related to his acute illness and not the Lovenox. Physical therapy has been ordered. In my opinion, he is stable to move out of the Critical Care Unit to a telemetry bed. We will continue to follow. Cardiology is following for atrial fibrillation. Nephrology is followin g for his renal failure.
--- NOTE | 2018-04-02 17:23 | PRG ---
DATE OF SERVICE: 04/02/2018 SUBJECTIVE: Patient was seen and examined at bedside and overnight events noted. Patient denies any shortness of breath or chest pain or palpitation. No history of nausea or vomiting or diarrhea or f ever or chills or cramps. OBJECTIVE: GENERAL: This is a well-built male in no apparent distress. VITAL SIGNS: Temperature 98.0, pulse 72, respiratory rate 18, blood pressure 141/71. HEENT: Atraumatic, normocephalic. Oral mucosa is moist. NECK: Supple. CARDIOVASCULAR: S1, S2 heard. Rate and rhythm regular. RESPIRATORY: Clear to auscultation. GASTROINTESTINAL: Abdomen is soft. MUSCULOSKELETAL: No tenderness. No edema. DERMATOLOGIC: No skin rash. NEUROLOGIC: Alert and awake and oriented x3. No focal neurologic deficits. Moving all the extremiti es. PSYCHIATRIC: Mood and affect normal. LABORATORY DATA: Potassium is 3.9, BUN 107, creatinine is 2.1. ASSESSMENT AND PLAN: 1. Acute kidney injury on chronic kidney disease stage 3. Creatinine getting better with BUN rising most likely from steroids. 2. Edema, controlled. 3. Hypertension, stable. 4. Hyperkalemia. 5. Metabolic acidosis. 6. Patient pulled his dialysis catheter out. No more acute indication for dialysis. We will follow .
--- NOTE | 2018-04-02 20:11 | PRG ---
DATE OF SERVICE: 04/02/2018 CARDIOLOGY FOLLOWUP SUBJECTIVE: Mr. Us has no complaints. He is resting comfortably. PHYSICAL EXAMINATION: VITAL SIGNS: His blood pressure 140/70, pulse 80, its atrial flutter with controlled rate. LUNGS: Clear. CARDIAC: Regular. ASSESSMENT: Atrial flutter, rate controlled. PLAN: It appears Dr. Rodas saw the patient and ordered an EKG. Continues on IV Cardizem. We will re duce dose.
[2018-04-02] MEDS: Cefdinir 300 MG CAP PO SCH (20:55)
[2018-04-02] MEDS: Atorvastatin Calcium 40 MG TAB PO SCH (20:55)
[2018-04-03] MEDS: Diabetic Tussin 200 MG/10 ML UDCUP PER TUBE SCH ×6 (01:27→21:18)
[2018-04-03] MEDS: Diltiazem HCl 125 MG, Admixture Fee 1 EACH in Sodium Chloride 0.9% 100 ML IVPB SCH (03:03)
[2018-04-03] MEDS: Sodium Chloride 0.9% 1,000 ML IV SCH (05:35)
[2018-04-03 05:44] LABS: Band 3 % (5-11); Hemoglobin 14.6 g/dL (14.0-18.0); Lymphocytes 8 % (21-51); MDiff Complete? YES; Mean Corpuscular HGB CONC 31.4 g/dL (32.0-36.0); Mean Corpuscular Hemoglobin 27.2 pg (27.0-31.0); Mean Corpuscular Volume 86.6 fL (78.0-98.0); Mean Platelet Volume 8.9 fL (7.4-10.4); Monocytes 4 % (0-10); Neutrophil 85 % (42-75); Platelet Count 144 thou/uL (130-400); RBC Distribution Width 17.3 % (11.5-14.5); Red Blood Cell (RBC) Count 5.35 mill/uL (4.70-6.10); White Blood Cell (WBC) Count 12.9 thou/uL (4.8-10.8)
[2018-04-03 05:46] LABS: Anion Gap 16 mmol/L (10-20); BUN (Urea Nitrogen) 109 mg/dL (8.4-25.7); Calc. Creatinine Clearance 35 mL/min (70-130); Calcium 8.8 mg/dL (7.8-10.44); Carbon Dioxide 22 mmol/L (23-31); Chloride 107 mmol/L (98-107); Estimated GFR-MDRD 31; Glucose 250 mg/dL (83-110); Potassium 4.3 mmol/L (3.5-5.1); Sodium 141 mmol/L (136-145)
--- NOTE | 2018-04-03 08:52 | PRG ---
DATE OF SERVICE: 04/03/2018 SUBJECTIVE: Patient was seen and examined at bedside and overnight events noted. Patient denies any shortness of breath or chest pain or palpitation. No history of nausea or vomiting or diarrhea or fever or chills or cramps. OBJECTIVE: GENERAL: This is a well-built male, in no apparent distress VITAL SIGNS: Temperature 96.4, pulse 67, respiratory rate 18, blood pressure 138/63. HEENT: Atraumatic, normocephalic. Oral mucosa is moist NECK: Supple CARDIOVASCULAR: S1, S2 heard, Rate and rhythm regular. RESPIRATORY: Clear to auscultation. GASTROINTESTINAL: Abdomen is soft. MUSCULOSKELETAL: No tenderness. No edema. DERMATOLOGIC: No skin rash. NEUROLOGIC: Alert and awake and oriented x3. No focal neurologic deficits. Moving all the extremit ies. PSYCHIATRIC: Mood and affect normal. LABORATORY DATA: Potassium is 4.3, BUN 109, creatinine is 2.08. ASSESSMENT AND PLAN: 1. Acute kidney injury on chronic kidney disease, creatinine getting better. BUN is still rising mo st likely secondary to steroids. 2. Azotemia, stable. 3. Edema, controlled. 4. Hypertension. 5. Hyperkalemia, better. 6. Metabolic acidosis, better. 7. No acute need for dialysis and we will follow. Avoid nephrotoxins.
[2018-04-03] MEDS: Scopolamine 1.5 mg/72 hour Patch TD SCH (09:14)
[2018-04-03] MEDS: Cefdinir 300 MG CAP PO SCH ×2 (09:15→21:18)
[2018-04-03] MEDS: Carvedilol 3.125 MG TAB PO SCH ×2 (09:15→18:45)
[2018-04-03] MEDS: predniSONE 20 MG TAB PO SCH (09:15)
[2018-04-03] MEDS: Famotidine 20 MG TAB PO SCH (09:15)
[2018-04-03] MEDS: NPH, Human Insulin Isophane 300 UNIT/3 ML VIAL SC SCH ×2 (10:59→21:38)
[2018-04-03] MEDS: HumaLOG 300 UNITS/3 ML VIAL SC PRN ×2 (11:00→13:51)
--- NOTE | 2018-04-03 11:16 | PDOC.PN ---
- Subjective Encounter Start Date: 04/03/18 Encounter Start Time: 07:45 Patient seen and examined for afib/flutter. No new complaints. No overnight events - Objective Resuscitation Status: Resuscitation Status DNR:Do Not Resuscitate MAR Reviewed: Yes Vital Signs & Weight: Vital Signs (12 hours) Temp Pulse Resp BP Pulse Ox 04/03/18 10:48 70 20 04/03/18 07:49 96.4 F L 67 16 132/63 95 04/03/18 06:55 93 L 04/03/18 06:52 80 20 93 L 04/03/18 04:48 65 20 127/57 L 92 L 04/03/18 02:15 87 18 Weight Admit Weight 187 lb 6.4 oz Weight 202 lb 14.4 oz Most Recent Monitor Data Heart Rate from ECG 74 NIBP 141/71 NIBP BP-Mean 95 Respiration from ECG 23 SpO2 98 I&O: 04/02/18 04/03/18 04/04/18 06:59 06:59 06:59 Intake Total 1372.1 1997 Output Total 1380 1475 Balance -7.9 522 Result Diagrams: 04/03/18 04:47 04/03/18 04:47 Additional Labs: Accuchecks 04/03/18 04/03/18 04/02/18 10:52 06:11 21:03 POC Glucose 183 H 254 H 294 H EKG Reviewed by me: Yes (afib/flutter) Phys Exam - Physical Examination Constitutional: NAD HEENT: PERRLA, moist MMs, sclera anicteric Neck: no JVD, supple Respiratory: no wheezing, no rales, no rhonchi Cardiovascular: no significant murmur, irregular Gastrointestinal: soft, non-tender, no distention, positive bowel sounds Musculoskeletal: no edema, pulses present Neurological: non-focal Lymphatic: no nodes Psychiatric: normal affect Skin: no rash, normal turgor Dx/Plan (1) Acute respiratory failure with hypoxia Code(s): J96.01 - ACUTE RESPIRATORY FAILURE WITH HYPOXIA Status: Acute (2) Pneumonia Code(s): J18.9 - PNEUMONIA, UNSPECIFIED ORGANISM Status: Acute (3) Acute worsening of stage 3 chronic kidney disease Code(s): N18.3 - CHRONIC KIDNEY DISEASE, STAGE 3 (MODERATE) Status: Acute (4) Atrial fibrillation with RVR Code(s): I48.91 - UNSPECIFIED ATRIAL FIBRILLATION Status: Acute Comment: (5) COPD exacerbation Code(s): J44.1 - CHRONIC OBSTRUCTIVE PULMONARY DISEASE W (ACUTE) EXACERBATION Status: Acute (6) Demand ischemia of myocardium Code(s): I24.8 - OTHER FORMS OF ACUTE ISCHEMIC HEART DISEASE Status: Acute (7) Sepsis with acute organ dysfunction Code(s): A41.9 - SEPSIS, UNSPECIFIED ORGANISM; R65.20 - SEVERE SEPSIS WITHOUT SEPTIC SHOCK Status: Acute (8) Thrombocytopenia Code(s): D69.6 - THROMBOCYTOPENIA, UNSPECIFIED Status: Acute (9) Anxiety and depression Code(s): F41.9 - ANXIETY DISORDER, UNSPECIFIED; F32.9 - MAJOR DEPRESSIVE DISORDER, SINGLE EPISODE, UNSPECIFIED Status: Chronic (10) CAD (coronary artery disease) Code(s): I25.10 - ATHSCL HEART DISEASE OF [place] CORONARY ARTERY W/O ANG PCTRS Status: Chronic (11) DJD (degenerative joint disease) Code(s): M19.90 - UNSPECIFIED OSTEOARTHRITIS, UNSPECIFIED SITE Status: Chronic Comment: stable (12) DM2 (diabetes mellitus, type 2) Status: Chronic Comment: (13) Dyslipidemia Code(s): E78.5 - HYPERLIPIDEMIA, UNSPECIFIED Status: Chronic Comment: (14) GERD (gastroesophageal reflux disease) Code(s): K21.9 - GASTRO-ESOPHAGEAL REFLUX DISEASE WITHOUT ESOPHAGITIS Status: Chronic Comment: stable (15) HTN (hypertension) Code(s): I10 - ESSENTIAL (PRIMARY) HYPERTENSION Status: Chronic Comment: (16) PVD (peripheral vascular disease) Code(s): I73.9 - PERIPHERAL VASCULAR DISEASE, UNSPECIFIED Status: Chronic Comment: - Plan cont current plan of care, continue antibiotics, PT/OT, social worker, respiratory therapy * HD as per nephrology * will continue cardizem drip for rate control * I spoke with Dr Rodas and he is considering to do ablation on Saturday if medically more stable * he will need eventual placement to SNU * antibiotics changed to omnicef * on oral prednisone now * medication reviewed as below * symptomatic treatment. Review of Systems - Review of Systems Other: unable to review with pt due to dementia - Medications/Allergies Allergies/Adverse Reactions: Allergies Allergy/AdvReac Type Severity Reaction Status Date / Time No Known Allergies Allergy Verified 03/24/18 01:53 Medications: Current Medications Acetaminophen (Tylenol) 650 mg PO Q4H PRN PRN Reason: Headache/Fever or Pain Albuterol/Ipratropium (Duoneb) 3 ml NEB [id number] [facility] Last Admin: 04/03/18 10:48 Dose: 3 ml Lipase/Protease/Amylase ([place] [id number]) 1 cap FS .PER PROTOCOL PRN PRN Reason: TUBE OCCLUSION PROTOCOL Atorvastatin Calcium (Lipitor) 40 mg PO HS [facility] Last Admin: 04/02/18 20:55 Dose: 40 mg Bisacodyl (Dulcolax) 10 mg [place] DAILYPRN PRN PRN Reason: Constipation Last Admin: 03/30/18 16:42 Dose: 10 mg Carvedilol (Coreg) 1.5625 mg PO BID-[facility] Last Admin: 04/03/18 09:15 Dose: 1.5625 mg Cefdinir (Omnicef) 300 mg PO BID [facility] Last Admin: 04/03/18 09:15 Dose: 300 mg Dextrose/Water (Dextrose 50%) 25 gm SLOW IVP PRN PRN PRN Reason: Hypoglycemia Famotidine (Pepcid) 20 mg PO DAILY [facility] Last Admin: 04/03/18 09:15 Dose: 20 mg Glucagon (Glucagon) 1 mg IM PRN PRN PRN Reason: Hypoglycemia Guaifenesin (Robitussin Sf) 400 mg PER TUBE Q4HR [facility] Last Admin: 04/03/18 09:16 Dose: 400 mg Diltiazem HCl 125 mg/Miscellaneous Medication 1 each/ Sodium Chloride 125 mls @ 8 mls/hr IVPB INF [facility] PRN Reason: Protocol Last Admin: 04/03/18 03:03 Dose: 125 mls Dextrose/Water (D5w) 1,000 mls @ 0 mls/hr IV .Q0M PRN; As Directed PRN Reason: Hypoglycemia Sodium Chloride (Normal Saline 0.9%) 1,000 mls @ 30 mls/hr IV .Q24H [facility] Last Admin: 04/03/18 05:35 Dose: 1,000 mls Insulin Human Lispro (Humalog) 0 units SC .AGGRESSIVE SLIDING PRN PRN Reason: Aggressive Correctional Scale Last Admin: 04/03/18 11:00 Dose: 9 unit Insulin Human NPH (Humulin N) 20 unit SC Q12HR [facility] Last Admin: 04/03/18 10:59 Dose: 20 unit Lactulose (Lactulose) 20 gm PO DAILY [facility] Last Admin: 04/03/18 09:16 Dose: 20 gm Ondansetron HCl (Zofran Odt) 4 mg PO Q6H PRN PRN Reason: Nausea/Vomiting Ondansetron HCl (Zofran) 4 mg IVP Q6H PRN PRN Reason: Nausea/Vomiting Prednisone (Prednisone) 20 mg PO QAM-WM [facility] Last Admin: 04/03/18 09:15 Dose: 20 mg Sodium Bicarbonate (Bicarbonate, Sodium) 650 mg PER TUBE .PER PROTOCOL PRN PRN Reason: ENTERAL TUBE OCCLUSION Sodium Chloride (Flush - Normal Saline) 10 ml IVF Q12HR [facility] Last Admin: 04/03/18 09:18 Dose: Not Given Sodium Chloride (Flush - Normal Saline) 10 ml IVF PRN PRN PRN Reason: Saline Flush Last Admin: 04/03/18 03:03 Dose: 10 ml
--- NOTE | 2018-04-03 11:48 | PRG ---
DATE OF SERVICE: 04/03/2018 Mr. Us is hard to arouse today. The nurse in the room with him was not aware of him receiving a ny sedative drugs. I cannot find any on his medication administration record. It is unclear whether or not he sundowned last night and is sleeping because of that. PHYSICAL EXAMINATION: VITAL SIGNS: He is afebrile, heart rate is in the 70s, blood pressure is 132/63, oximetry is 95. GENERAL: He is in no distress. He would awaken, but he was not verbal. He would not move all his e xtremities to stimulation. LUNGS: His lungs are clear. No evidence of retained secretions. HEART: Irregular rhythm. ABDOMEN: Abdomen was soft and nontender. EXTREMITIES: Without asymmetry or edema. IMPRESSION: 1. Altered mental status of unclear etiology, ? sundowning last night and sleeping in the morning 2. Status post intubation for retained secretions. 3. Atrial fibrillation. We will continue with supportive care. The family does not want him intubated again. He is a do not resuscitate patient. Hopefully, his mental status will return to his mental status yesterday which was quite alert and marielena ck to answer questions.
--- NOTE | 2018-04-03 16:20 | PDOC.CTH ---
<Brook Isaacs - Last Filed: 04/03/18 16:17> Cardiology Progress Note - Subjective EP progress note: patient seen and evaluated. No new cardiac concerns or complaints overnight. Transferred to tele today. voice remains hoarse. patient feels weak. - Objective Vital Signs Temp Pulse Pulse Resp BP BP Pulse Ox 04/03/18 15:12 89 20 04/03/18 14:37 89 108/82 04/03/18 12:00 97.9 F 81 14 149/79 H 97 04/03/18 10:48 70 20 04/03/18 07:49 96.4 F L 67 16 132/63 95 04/03/18 07:00 96.4 F L 67 16 132/63 100 04/03/18 06:55 93 L 04/03/18 06:52 80 20 93 L 04/03/18 04:48 65 20 127/57 L 92 L Admit Weight 187 lb 6.4 oz Weight 202 lb 14.4 oz 04/02/18 04/03/18 04/04/18 06:59 06:59 06:59 Intake Total 1372.1 1997 240 Output Total 1380 1475 Balance -7.9 522 240 - Physical Examination General/Neuro: alert & oriented x3, NAD Neck: no JVD present Lungs: unlabored respirations Abdomen: NT/ND, soft - Telemetry Telemetry Rhythm: Atach/Aflutter RVR - Labs Result Diagrams: 04/03/18 04:47 04/03/18 04:47 Troponin/CKMB CK-MB (CK-2) 6.2 ng/mL (0-6.6) 03/23/18 22:03 Troponin I 0.337 ng/mL (< 0.028) H* 03/24/18 03:40 - Assessment/Plan 1. Atrial fibrillation and tachycardia with moderate ventricular rate control with diltiazem gtt, now at 8mg/hr. Continue with rate control for now. Anticipating DONAL/CV vs ablation possibly saturday or saturday next week before discharge. 2. Anticoagulation- lovenox being held for persistently low plt count (now climbing, currently 144). Resume anticoagulation as soon as is safe to offer stroke prophylaxis 3. Acute respiratory failure- intubation planned 03/26/18, extubated 04/01/18, resolved 4. Hyperkalemia- resolved 5. Chronic renal failure-per nephrology 6. Septic shock secondary to pneumonia <Akash Rodas - Last Filed: 04/04/18 14:45> Cardiology Progress Note - Objective Vital Signs Temp Pulse Resp BP Pulse Ox 04/04/18 14:33 97.4 F L 124 H 14 126/83 99 04/04/18 14:06 124 H 18 96 04/04/18 11:25 97.5 F L 122 H 14 134/73 98 04/04/18 10:02 122 H 18 95 04/04/18 08:00 96.2 F L 121 H 16 99 04/04/18 07:40 96.2 F L 121 H 16 141/86 H 99 04/04/18 06:26 90 16 100 04/04/18 04:00 97.2 F L 119 H 18 149/68 H 100 Admit Weight 187 lb 6.287 oz Weight 199 lb 04/03/18 04/04/18 04/05/18 06:59 06:59 06:59 Intake Total 1996 1404 360 Output Total 1475 1650 Balance 522 -246 360 - Labs Result Diagrams: 04/04/18 04:30 04/04/18 04:30 Troponin/CKMB CK-MB (CK-2) 6.2 ng/mL (0-6.6) 03/23/18 22:03 Troponin I 0.337 ng/mL (< 0.028) H* 03/24/18 03:40 Attending Addendum - Attending Addendum Date/Time: 04/04/18 8451 I personally evaluated the patient and discussed the management with ms Isaacs. I agree with the History, Examination, Assessment and Plan documented above with any addition or exceptions noted below. Pt is hesitant regarding the procedure for now. Continue to rate control. Will reassess Saturday.
[2018-04-03] MEDS: Atorvastatin Calcium 40 MG TAB PO SCH (21:18)
[2018-04-04] MEDS: Diabetic Tussin 200 MG/10 ML UDCUP PER TUBE SCH ×4 (00:54→11:53)
[2018-04-04 05:38] LABS: Anion Gap 14 mmol/L (10-20); BUN (Urea Nitrogen) 98 mg/dL (8.4-25.7); Calc. Creatinine Clearance 42 mL/min (70-130); Calcium 8.6 mg/dL (7.8-10.44); Carbon Dioxide 25 mmol/L (23-31); Chloride 110 mmol/L (98-107); Estimated GFR-MDRD 39; Glucose 94 mg/dL (83-110); Potassium 4.2 mmol/L (3.5-5.1); Sodium 145 mmol/L (136-145)
[2018-04-04] MEDS: Sodium Chloride 0.9% 1,000 ML IV SCH (06:52)
[2018-04-04 08:09] LABS: Hemoglobin 13.6 g/dL (14.0-18.0); Mean Corpuscular HGB CONC 31.2 g/dL (32.0-36.0); Mean Corpuscular Hemoglobin 27.1 pg (27.0-31.0); Mean Platelet Volume 8.8 fL (7.4-10.4); Platelet Count 159 thou/uL (130-400); RBC Distribution Width 17.2 % (11.5-14.5); Red Blood Cell (RBC) Count 5.01 mill/uL (4.70-6.10); White Blood Cell (WBC) Count 13.1 thou/uL (4.8-10.8)
[2018-04-04 08:26] LABS: Band 6 % (5-11); Lymphocytes 7 % (21-51); MDiff Complete? YES; Monocytes 5 % (0-10); Neutrophil 81 % (42-75); RBC Morphology Normal; Reactive Lymphocytes 1 % (0-10)
[2018-04-04] MEDS: NPH, Human Insulin Isophane 300 UNIT/3 ML VIAL SC SCH ×2 (08:42→21:10)
[2018-04-04] MEDS: predniSONE 20 MG TAB PO SCH (09:13)
[2018-04-04] MEDS: Famotidine 20 MG TAB PO SCH (09:13)
[2018-04-04] MEDS: Carvedilol 3.125 MG TAB PO SCH ×2 (09:13→17:06)
[2018-04-04] MEDS: Cefdinir 300 MG CAP PO SCH (09:13)
--- NOTE | 2018-04-04 10:58 | PDOC.PN ---
- Subjective Encounter Start Date: 04/04/18 Encounter Start Time: 07:45 today pt is more alert and he is eating his breakfast with assistance, he is on cardizem drip - Objective Resuscitation Status: Resuscitation Status DNR:Do Not Resuscitate MAR Reviewed: Yes Vital Signs & Weight: Vital Signs (12 hours) Temp Pulse Resp BP Pulse Ox 04/04/18 10:02 122 H 18 95 04/04/18 08:00 96.2 F L 121 H 16 99 04/04/18 07:40 96.2 F L 121 H 16 141/86 H 99 04/04/18 06:26 90 16 100 04/04/18 04:00 97.2 F L 119 H 18 149/68 H 100 04/04/18 02:23 88 16 Weight Admit Weight 187 lb 6.287 oz Weight 199 lb Most Recent Monitor Data Heart Rate from ECG 74 NIBP 141/71 NIBP BP-Mean 95 Respiration from ECG 23 SpO2 98 I&O: 04/03/18 04/04/18 04/05/18 06:59 06:59 06:59 Intake Total 1996 1404 120 Output Total 1475 1650 Balance 522 -246 120 Result Diagrams: 04/04/18 04:30 04/04/18 04:30 Additional Labs: Accuchecks 04/04/18 04/03/18 04/03/18 06:18 20:49 16:52 POC Glucose 89 85 101 04/03/18 10:52 POC Glucose 183 H EKG Reviewed by me: Yes (afib) Phys Exam - Physical Examination Constitutional: NAD HEENT: PERRLA, moist MMs, sclera anicteric Neck: no JVD, supple Respiratory: no wheezing, no rales, no rhonchi reduced air entry Cardiovascular: no significant murmur, no rub, irregular Gastrointestinal: soft, non-tender, no distention, positive bowel sounds Musculoskeletal: no edema, pulses present Neurological: moves all 4 limbs Lymphatic: no nodes Psychiatric: normal affect Skin: no rash, normal turgor Dx/Plan (1) Acute respiratory failure with hypoxia Code(s): J96.01 - ACUTE RESPIRATORY FAILURE WITH HYPOXIA Status: Acute (2) Pneumonia Code(s): J18.9 - PNEUMONIA, UNSPECIFIED ORGANISM Status: Acute (3) Acute worsening of stage 3 chronic kidney disease Code(s): N18.3 - CHRONIC KIDNEY DISEASE, STAGE 3 (MODERATE) Status: Acute (4) Atrial fibrillation with RVR Code(s): I48.91 - UNSPECIFIED ATRIAL FIBRILLATION Status: Acute Comment: (5) COPD exacerbation Code(s): J44.1 - CHRONIC OBSTRUCTIVE PULMONARY DISEASE W (ACUTE) EXACERBATION Status: Acute (6) Demand ischemia of myocardium Code(s): I24.8 - OTHER FORMS OF ACUTE ISCHEMIC HEART DISEASE Status: Acute (7) Sepsis with acute organ dysfunction Code(s): A41.9 - SEPSIS, UNSPECIFIED ORGANISM; R65.20 - SEVERE SEPSIS WITHOUT SEPTIC SHOCK Status: Acute (8) Thrombocytopenia Code(s): D69.6 - THROMBOCYTOPENIA, UNSPECIFIED Status: Acute (9) Anxiety and depression Code(s): F41.9 - ANXIETY DISORDER, UNSPECIFIED; F32.9 - MAJOR DEPRESSIVE DISORDER, SINGLE EPISODE, UNSPECIFIED Status: Chronic (10) CAD (coronary artery disease) Code(s): I25.10 - ATHSCL HEART DISEASE OF [place] CORONARY ARTERY W/O ANG PCTRS Status: Chronic (11) DJD (degenerative joint disease) Code(s): M19.90 - UNSPECIFIED OSTEOARTHRITIS, UNSPECIFIED SITE Status: Chronic Comment: stable (12) DM2 (diabetes mellitus, type 2) Status: Chronic Comment: (13) Dyslipidemia Code(s): E78.5 - HYPERLIPIDEMIA, UNSPECIFIED Status: Chronic Comment: (14) GERD (gastroesophageal reflux disease) Code(s): K21.9 - GASTRO-ESOPHAGEAL REFLUX DISEASE WITHOUT ESOPHAGITIS Status: Chronic Comment: stable (15) HTN (hypertension) Code(s): I10 - ESSENTIAL (PRIMARY) HYPERTENSION Status: Chronic Comment: (16) PVD (peripheral vascular disease) Code(s): I73.9 - PERIPHERAL VASCULAR DISEASE, UNSPECIFIED Status: Chronic Comment: - Plan cont current plan of care, plan discussed w/ family, continue antibiotics, PT/OT , perinatal social worker, respiratory therapy * continue current cardizem drip for rate control * continue modified diet as per speech therapy * continue omnicef * medication reviewed as below * symptomatic treatment * will need ablation on saturday * will need placement * spoke with family and updated to family Review of Systems - Review of Systems Other: not reliable due to dementia - Medications/Allergies Allergies/Adverse Reactions: Allergies Allergy/AdvReac Type Severity Reaction Status Date / Time No Known Allergies Allergy Verified 03/24/18 01:53 Medications: Current Medications Acetaminophen (Tylenol) 650 mg PO Q4H PRN PRN Reason: Headache/Fever or Pain Albuterol/Ipratropium (Duoneb) 3 ml NEB Q4LT-ER [facility] Last Admin: 04/04/18 10:02 Dose: 3 ml Lipase/Protease/Amylase ([place] [id number]) 1 cap FS .PER PROTOCOL PRN PRN Reason: TUBE OCCLUSION PROTOCOL Atorvastatin Calcium (Lipitor) 40 mg PO HS [facility] Last Admin: 04/03/18 21:18 Dose: 40 mg Bisacodyl (Dulcolax) 10 mg [place] DAILYPRN PRN PRN Reason: Constipation Last Admin: 03/30/18 16:42 Dose: 10 mg Carvedilol (Coreg) 1.5625 mg PO BID-[facility] Last Admin: 04/04/18 09:13 Dose: 1.5625 mg Cefdinir (Omnicef) 300 mg PO BID [facility] Last Admin: 04/04/18 09:13 Dose: 300 mg Dextrose/Water (Dextrose 50%) 25 gm SLOW IVP PRN PRN PRN Reason: Hypoglycemia Famotidine (Pepcid) 20 mg PO DAILY [facility] Last Admin: 04/04/18 09:13 Dose: 20 mg Glucagon (Glucagon) 1 mg IM PRN PRN PRN Reason: Hypoglycemia Guaifenesin (Robitussin Sf) 400 mg PER TUBE Q4HR [facility] Last Admin: 04/04/18 09:14 Dose: 400 mg Diltiazem HCl 125 mg/Miscellaneous Medication 1 each/ Sodium Chloride 125 mls @ 8 mls/hr IVPB INF [facility] PRN Reason: Protocol Last Admin: 04/03/18 03:03 Dose: 125 mls Dextrose/Water (D5w) 1,000 mls @ 0 mls/hr IV .Q0M PRN; As Directed PRN Reason: Hypoglycemia Sodium Chloride (Normal Saline 0.9%) 1,000 mls @ 30 mls/hr IV .Q24H [facility] Last Admin: 04/04/18 06:52 Dose: 1,000 mls Insulin Human Lispro (Humalog) 0 units SC .AGGRESSIVE SLIDING PRN PRN Reason: Aggressive Correctional Scale Last Admin: 04/03/18 13:51 Dose: 3 unit Insulin Human NPH (Humulin N) 20 unit SC Q12HR [facility] Last Admin: 04/04/18 08:42 Dose: Not Given Lactulose (Lactulose) 20 gm PO DAILY [facility] Last Admin: 04/04/18 09:12 Dose: 20 gm Ondansetron HCl (Zofran Odt) 4 mg PO Q6H PRN PRN Reason: Nausea/Vomiting Ondansetron HCl (Zofran) 4 mg IVP Q6H PRN PRN Reason: Nausea/Vomiting Prednisone (Prednisone) 20 mg PO QAM-WM [facility] Last Admin: 04/04/18 09:13 Dose: 20 mg Sodium Bicarbonate (Bicarbonate, Sodium) 650 mg PER TUBE .PER PROTOCOL PRN PRN Reason: ENTERAL TUBE OCCLUSION Sodium Chloride (Flush - Normal Saline) 10 ml IVF Q12HR [facility] Last Admin: 04/04/18 08:42 Dose: Not Given Sodium Chloride (Flush - Normal Saline) 10 ml IVF PRN PRN PRN Reason: Saline Flush Last Admin: 04/03/18 03:03 Dose: 10 ml
--- NOTE | 2018-04-04 11:06 | PRG ---
Patient Name: TOBIAS HARO Date of service: 04/04/2018 Subjective: Patient was seen and examined at bedside and overnight events noted. Patient denies any shortness of breath or chest pain or palpitation. No history of nausea or vomiting or diarrhea or fever or chills or cramps. Objective: General: This is a well-built male in no apparent distress. Vital signs: Temperature 96.2, pulse 121, respiratory rate 18, blood pressure 141/86. HEENT: Atraumatic, normocephalic. Oral mucosa is moist. Neck: Supple. Cardiovascular: S1 S2 heard. Rate and rhythm regular. Respiratory: Clear to auscultation. Gastrointestinal: Abdomen is soft. Musculoskeletal: No tenderness. No edema. Dermatologic: No skin rash. Neurologic: Alert and awake and oriented X3. No focal neurologic deficits. Moving all the extremities. Psychiatric: Mood and affect normal. LABORATORY DATA: Potassium 4.0, BUN 90, creatinine 1.7. ASSESSMENT AND PLAN: 1. Acute kidney injury on chronic kidney disease stage 3. Renal function is stable. 2. Azotemia. BUN is getting better. 3. Hypertension. 4. Hyperkalemia is better. Overall renal function is better. Avoid nephrotoxins. We will follow. MTDD
[2018-04-04] MEDS: Diltiazem HCl 125 MG, Admixture Fee 1 EACH in Sodium Chloride 0.9% 100 ML IVPB SCH ×2 (11:51→23:48)
--- NOTE | 2018-04-04 12:37 | PDOC.CTH ---
<Brook Isaacs - Last Filed: 04/04/18 13:30> Cardiology Progress Note - Subjective EP progress note: Patient seen and evaluated. Alert. Oriented to name & place. Discussed A flutter and treatment options. He remains very weak. He is not interested in procedures or aggressive treatment at this time. - Objective Vital Signs Temp Pulse Resp BP Pulse Ox 04/04/18 11:25 97.5 F L 122 H 14 134/73 98 04/04/18 10:02 122 H 18 95 04/04/18 08:00 96.2 F L 121 H 16 99 04/04/18 07:40 96.2 F L 121 H 16 141/86 H 99 04/04/18 06:26 90 16 100 04/04/18 04:00 97.2 F L 119 H 18 149/68 H 100 04/04/18 02:23 88 16 Admit Weight 187 lb 6.287 oz Weight 199 lb 04/03/18 04/04/18 04/05/18 06:59 06:59 06:59 Intake Total 1997 1404 360 Output Total 1475 1650 Balance 522 -246 360 - Physical Examination General/Neuro: NAD, other: (alert) Neck: no JVD present Lungs: unlabored respirations Abdomen: NT/ND, soft - Telemetry Telemetry Rhythm: atrial flutter/tach RVR - Labs Result Diagrams: 04/04/18 04:30 04/04/18 04:30 Troponin/CKMB CK-MB (CK-2) 6.2 ng/mL (0-6.6) 03/23/18 22:03 Troponin I 0.337 ng/mL (< 0.028) H* 03/24/18 03:40 - Assessment/Plan 1. Atrial fibrillation and tachycardia with poor ventricular rate control with diltiazem gtt increased to 10mg/hr. Ventricular rates were sustaining from 110- 130 bpm. Plan to increase diltiazem gtt as needed for improved rate control. If max dose is reached, consider adding low dose digoxin (0.125mg) for additional rate control. Anticipating DONAL/CV vs ablation possibly saturday or saturday next week. Definitely before discharge if patient is agreeable. Today he was quite insistent against any procedures. 2. Anticoagulation- lovenox was being held for persistently low plt count (now climbing, currently 159). Starting Eliquis 2.5mg BID for stroke prophylaxis. 3. Acute respiratory failure- intubation planned 03/26/18, extubated 04/01/18, resolved 4. Hyperkalemia- resolved 5. Chronic renal failure-per nephrology 6. Septic shock secondary to pneumonia- <Clark,Akash - Last Filed: 04/07/18 15:34> Cardiology Progress Note - Objective Vital Signs Temp Pulse Resp BP Pulse Ox 04/07/18 14:23 89 20 04/07/18 14:10 86 20 04/07/18 12:01 96.5 F L 92 15 125/65 100 04/07/18 10:00 79 20 100 04/07/18 09:55 79 20 100 04/07/18 08:21 93 20 100 04/07/18 08:00 97.5 F L 93 20 98 04/07/18 07:22 97.5 F L 85 15 104/75 95 04/07/18 07:00 93 20 100 04/07/18 04:00 97.7 F 82 20 108/60 99 Admit Weight 187 lb 6.287 oz Weight 202 lb 04/06/18 04/07/18 04/08/18 06:59 06:59 06:59 Intake Total 2543 2036.3 Output Total 2540 1810 Balance 3 226.3 - Labs Result Diagrams: 04/07/18 04:00 04/07/18 04:00 Troponin/CKMB CK-MB (CK-2) 6.2 ng/mL (0-6.6) 03/23/18 22:03 Troponin I 0.337 ng/mL (< 0.028) H* 03/24/18 03:40 Attending Addendum - Attending Addendum Date/Time: 04/07/18 0270 I personally evaluated the patient and discussed the management with Ms Isaacs. I agree with the History, Examination, Assessment and Plan documented above with any addition or exceptions noted below.
--- NOTE | 2018-04-04 12:53 | PRG ---
DATE OF SERVICE: 04/04/2018 SUBJECTIVE: Darrell Us is much more alert today. PHYSICAL EXAMINATION: VITAL SIGNS: He is afebrile, heart rate is 122, respiratory rate 14, oximetry is 98% on room air, bl ood pressure 134/73. LUNGS: Clear anteriorly. HEART: Regular rhythm, rapid rate. No gallop is heard. ABDOMEN: Soft and nontender. EXTREMITIES: Without asymmetry. NEUROLOGIC: Nonfocal. IMPRESSION: 1. Status post intubation for retained secretions. 2. Acute renal failure. 3. Atrial fibrillation with rapid ventricular response. 4. Status post thrombocytopenia that has resolved. He could probably be anticoagulated safely. 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 5. Acute renal failure requiring dialysis. His intake and output was negative 246. His urine output was 650 mL. DO NOT RESUSCITATE status. His family never wants him intubated again. PLAN: Continue supportive care with physical therapy and attempts at rate control. Pending EP evalu ation. His antimicrobial therapy can be discontinued in my opinion. He is on Pepcid for GI prophylaxis. Se cretions are no longer an issue. Most of the secretions encountered were all related to his upper ai rway and his encephalopathy. He did not have bad tracheobronchial secretions other than what he had aspirated. His nebulizer treatments can be changed to q.4 while awake. Remains on a diltiazem drip. His prednisone can probably be decreased and stopped by the beginning of next week.
[2018-04-04] MEDS: Apixaban 2.5 MG TAB PO SCH (21:10)
[2018-04-04] MEDS: Atorvastatin Calcium 40 MG TAB PO SCH (21:10)
[2018-04-05] MEDS: Sodium Chloride 0.9% 1,000 ML IV SCH (04:27)
[2018-04-05 05:33] LABS: Anion Gap 16 mmol/L (10-20); BUN (Urea Nitrogen) 84 mg/dL (8.4-25.7); Calc. Creatinine Clearance 46 mL/min (70-130); Calcium 8.6 mg/dL (7.8-10.44); Carbon Dioxide 21 mmol/L (23-31); Chloride 110 mmol/L (98-107); Estimated GFR-MDRD 43; Glucose 166 mg/dL (83-110); Potassium 4.6 mmol/L (3.5-5.1); Sodium 142 mmol/L (136-145)
[2018-04-05 06:51] LABS: Band 2 % (5-11); Hemoglobin 14.1 g/dL (14.0-18.0); Lymphocytes 6 % (21-51); MDiff Complete? YES; Mean Corpuscular HGB CONC 32.5 g/dL (32.0-36.0); Mean Corpuscular Hemoglobin 27.6 pg (27.0-31.0); Mean Corpuscular Volume 84.9 fL (78.0-98.0); Mean Platelet Volume 8.1 fL (7.4-10.4); Monocytes 4 % (0-10); Neutrophil 88 % (42-75); Platelet Count 197 thou/uL (130-400); RBC Distribution Width 17.1 % (11.5-14.5); White Blood Cell (WBC) Count 18.6 thou/uL (4.8-10.8)
[2018-04-05] MEDS ORDERED: Diabetic Tussin 200 MG/10 ML UDCUP PO PRN (07:38)
[2018-04-05] MEDS ORDERED: Senokot 8.6 MG TAB PO PRN (07:39)
[2018-04-05] MEDS ORDERED: Eucerin (Mineral Oil/Petrolatum,White) 30 gm Jar TOP PRN (07:39)
[2018-04-05] MEDS ORDERED: Artificial Tears 18 DROP/0.9 ML EA EYE PRN (07:39)
[2018-04-05] MEDS ORDERED: hydrALAZINE 20 MG/ML VIAL SLOW IVP PRN (07:39)
[2018-04-05] MEDS ORDERED: Mag-Al 1200 mg/1200 mg/30 ML UDCUP PO PRN (07:39)
[2018-04-05] MEDS ORDERED: Loperamide HCl 2 MG CAP PO PRN (07:39)
[2018-04-05] MEDS ORDERED: Sodium Chloride 0.65% Nasal 44 ML BOT EA NARE PRN (07:39)
[2018-04-05] MEDS ORDERED: Loratadine 10 MG TAB PO PRN (07:39)
[2018-04-05] MEDS ORDERED: Chloraseptic Spray 180 ml Bottle PO PRN (07:39)
[2018-04-05] MEDS ORDERED: predniSONE 20 MG TAB PO SCH (08:00)
[2018-04-05] MEDS ORDERED: Fluconazole In NaCl,Iso-Osm 200 MG in Premix Bag 1 BAG IVPB SCH ×2 (09:00→16:00)
[2018-04-05] MEDS: Famotidine 20 MG TAB PO SCH (09:02)
[2018-04-05] MEDS: predniSONE 5 MG TAB PO SCH (09:03)
[2018-04-05] MEDS: Apixaban 2.5 MG TAB PO SCH (09:03)
[2018-04-05] MEDS: Carvedilol 3.125 MG TAB PO SCH ×2 (09:03→17:31)
[2018-04-05] MEDS: NPH, Human Insulin Isophane 300 UNIT/3 ML VIAL SC SCH ×2 (09:04→20:23)
--- NOTE | 2018-04-05 10:18 | PDOC.CTH ---
<Adrienne Carrizales - Last Filed: 04/05/18 10:16> Cardiology Progress Note - Subjective Patient remains in AFlutter 110-120bpm. On Cardizem 10 C/O SOB and congestion overnight. Feels weak - Objective Vital Signs Temp Pulse Resp BP Pulse Ox 04/05/18 06:23 93 L 04/05/18 06:21 122 H 20 93 L 04/05/18 04:00 97.5 F L 122 H 20 150/80 H 90 L 04/05/18 00:00 123 H 139/84 Admit Weight 187 lb 6.287 oz Weight 201 lb 3.2 oz 04/04/18 04/05/18 04/06/18 06:59 06:59 06:59 Intake Total 1404 960 Output Total 1650 1825 Balance -246 -865 - Physical Examination General/Neuro: alert & oriented x3 Lungs: other: (bilateral rales) Heart: RRR, other: (tachy) Abdomen: NT/ND Extremities: other: (no edema) - Telemetry Telemetry Rhythm: AFlutter with RVR - Labs Result Diagrams: 04/05/18 04:39 04/05/18 04:39 Troponin/CKMB CK-MB (CK-2) 6.2 ng/mL (0-6.6) 03/23/18 22:03 Troponin I 0.337 ng/mL (< 0.028) H* 03/24/18 03:40 - Assessment/Plan 1. AFlutter with RVR 2. Paroxysmal AFib 3. SOB 4. s/p sepsis and respiratory distress/failure 5. s/p ARF requiring dialysis 6. History of CAD 7. HTN Continue IV Cardizem. Plan for possible DCCV on Saturday. On Eliquis 2.5 BID. CXR today to r/o acute CHF secondary to RVR. <Mo Simpson - Last Filed: 04/05/18 13:54> Cardiology Progress Note - Objective Vital Signs Temp Pulse Resp BP Pulse Ox 04/05/18 12:00 97.2 F L 12 L 18 115/83 93 L 04/05/18 11:59 108 H 28 H 04/05/18 08:00 97.2 F L 123 H 19 133/80 95 04/05/18 06:23 93 L 04/05/18 06:21 122 H 20 93 L 04/05/18 04:00 97.5 F L 122 H 20 150/80 H 90 L Admit Weight 187 lb 6.287 oz Weight 201 lb 3.2 oz 04/04/18 04/05/18 04/06/18 06:59 06:59 06:59 Intake Total 1404 960 480 Output Total 1650 0975 Balance -246 -220 480 - Labs Result Diagrams: 04/05/18 04:39 04/05/18 04:39 Troponin/CKMB CK-MB (CK-2) 6.2 ng/mL (0-6.6) 03/23/18 22:03 Troponin I 0.337 ng/mL (< 0.028) H* 03/24/18 03:40 - Assessment/Plan Pt appears worse today. Increase in congestion. Lasix given with some response. CXR with increase congestion. check ABG and O2 sat. discuss with pulmonary. also increasse in hematuria.
--- NOTE | 2018-04-05 10:47 | PRG ---
DATE OF SERVICE: 04/05/2018 SUBJECTIVE: The patient was seen and examined at bedside and overnight events noted. Patient denies any shortness of breath or chest pain or palpitation. No history of nausea or vomiting or diarrhea or fever or chills or cramps. OBJECTIVE: General: This is a well-built male in no apparent distress. Vital Signs: Temperature 99, pulse 72, respiratory rate 18, and blood pressure 150/80. HEENT: Atraumatic, normocephalic, Oral mucosa is moist. Neck: Supple. Cardiovascular: S1 and S2 heard. Rate and rhythm regular. Respiratory: Clear to auscultation. Gastrointestinal: Abdomen is soft. Musculoskeletal: No tenderness, No edema. Dermatologic: No skin rash. Neurologic: Alert and awake and oriented x3. No focal neurologic deficits. Moving all the extremit ies. Psychiatric: Mood and affect normal. LABORATORY DATA: Potassium is 4.6, BUN is 84, and creatinine is 1.4. ASSESSMENT AND PLAN: 1. Acute kidney injury on chronic kidney stage 3 with improvement of creatinine. Creatinine is 1.5, close to his baseline. 2. Edema, controlled. 3. Azotemia, much better. 4. Hyperkalemia, stable. 5. Metabolic acidosis, mild. Overall, renal function is much better. Avoid nephrotoxins.
--- NOTE | 2018-04-05 10:58 | PDOC.PN ---
- Subjective Encounter Start Date: 04/05/18 Encounter Start Time: 07:20 pt is on cardizem drip, he is baseline cognitive status, on modified diet, no fever - Objective Resuscitation Status: Resuscitation Status DNR:Do Not Resuscitate MAR Reviewed: Yes Vital Signs & Weight: Vital Signs (12 hours) Temp Pulse Resp BP Pulse Ox 04/05/18 08:00 97.2 F L 123 H 19 133/80 93 L 04/05/18 06:23 93 L 04/05/18 06:21 122 H 20 93 L 04/05/18 04:00 97.5 F L 122 H 20 150/80 H 90 L 04/05/18 00:00 123 H 139/84 Weight Admit Weight 187 lb 6.287 oz Weight 201 lb 3.2 oz Most Recent Monitor Data Heart Rate from ECG 74 NIBP 141/71 NIBP BP-Mean 95 Respiration from ECG 23 SpO2 98 I&O: 04/04/18 04/05/18 04/06/18 06:59 06:59 06:59 Intake Total 1404 960 240 Output Total 1650 1825 Balance -246 -865 240 Result Diagrams: 04/05/18 04:39 04/05/18 04:39 Additional Labs: Accuchecks 04/05/18 04/04/18 04/04/18 05:40 20:39 16:43 POC Glucose 161 H 283 H 238 H 04/04/18 10:54 POC Glucose 82 EKG Reviewed by me: Yes (afib) Phys Exam - Physical Examination Constitutional: NAD HEENT: PERRLA, moist MMs, sclera anicteric Neck: no JVD, supple coarse sound upper lung Cardiovascular: no significant murmur, irregular Gastrointestinal: soft, non-tender, no distention, positive bowel sounds Musculoskeletal: no edema, pulses present Neurological: non-focal Lymphatic: no nodes Psychiatric: normal affect Skin: no rash, normal turgor Dx/Plan (1) Acute respiratory failure with hypoxia Code(s): J96.01 - ACUTE RESPIRATORY FAILURE WITH HYPOXIA Status: Resolved (2) Pneumonia Code(s): J18.9 - PNEUMONIA, UNSPECIFIED ORGANISM Status: Acute Qualifiers: Pneumonia type: aspiration pneumonia (3) Acute worsening of stage 3 chronic kidney disease Code(s): N18.3 - CHRONIC KIDNEY DISEASE, STAGE 3 (MODERATE) Status: Acute (4) Atrial fibrillation with RVR Code(s): I48.91 - UNSPECIFIED ATRIAL FIBRILLATION Status: Acute Comment: (5) COPD exacerbation Code(s): J44.1 - CHRONIC OBSTRUCTIVE PULMONARY DISEASE W (ACUTE) EXACERBATION Status: Acute (6) Demand ischemia of myocardium Code(s): I24.8 - OTHER FORMS OF ACUTE ISCHEMIC HEART DISEASE Status: Acute (7) Sepsis with acute organ dysfunction Code(s): A41.9 - SEPSIS, UNSPECIFIED ORGANISM; R65.20 - SEVERE SEPSIS WITHOUT SEPTIC SHOCK Status: Acute (8) Thrombocytopenia Code(s): D69.6 - THROMBOCYTOPENIA, UNSPECIFIED Status: Acute (9) Anxiety and depression Code(s): F41.9 - ANXIETY DISORDER, UNSPECIFIED; F32.9 - MAJOR DEPRESSIVE DISORDER, SINGLE EPISODE, UNSPECIFIED Status: Chronic (10) CAD (coronary artery disease) Code(s): I25.10 - ATHSCL HEART DISEASE OF [place] CORONARY ARTERY W/O ANG PCTRS Status: Chronic (11) DJD (degenerative joint disease) Code(s): M19.90 - UNSPECIFIED OSTEOARTHRITIS, UNSPECIFIED SITE Status: Chronic Comment: stable (12) DM2 (diabetes mellitus, type 2) Status: Chronic Comment: (13) Dyslipidemia Code(s): E78.5 - HYPERLIPIDEMIA, UNSPECIFIED Status: Chronic Comment: (14) GERD (gastroesophageal reflux disease) Code(s): K21.9 - GASTRO-ESOPHAGEAL REFLUX DISEASE WITHOUT ESOPHAGITIS Status: Chronic Comment: stable (15) HTN (hypertension) Code(s): I10 - ESSENTIAL (PRIMARY) HYPERTENSION Status: Chronic Comment: (16) PVD (peripheral vascular disease) Code(s): I73.9 - PERIPHERAL VASCULAR DISEASE, UNSPECIFIED Status: Chronic Comment: - Plan cont current plan of care, continue antibiotics, PT/OT, manager social work * pt is planned for ablation for afib/flutter on saturday/saturday * if family does not want that then will need hospice at custodial * medication reviewed as below * symptomatic treatment * reduce prednisone today and dc on saturday * snu has been approved. Review of Systems - Review of Systems Other: not reliable with pt due to his cognitive status - Medications/Allergies Allergies/Adverse Reactions: Allergies Allergy/AdvReac Type Severity Reaction Status Date / Time No Known Allergies Allergy Verified 03/24/18 01:53 Medications: Current Medications Acetaminophen (Tylenol) 650 mg PO Q4H PRN PRN Reason: Headache/Fever or Pain Al Hydroxide/Mg Hydroxide (Maalox) 15 ml PO Q4H PRN PRN Reason: Heartburn or Indigestion Albuterol/Ipratropium (Duoneb) 3 ml NEB [id number] Last Admin: 04/05/18 06:21 Dose: 3 ml Apixaban (Eliquis) 2.5 mg PO BID [facility] Last Admin: 04/05/18 09:03 Dose: 2.5 mg Artificial Tears (Tears Naturale) 0 drop EA EYE PRN PRN PRN Reason: Dry Eyes Atorvastatin Calcium (Lipitor) 40 mg PO [facility] Last Admin: 04/04/18 21:10 Dose: 40 mg Bisacodyl (Dulcolax) 10 mg MS DAILYPRN PRN PRN Reason: Constipation Last Admin: 03/30/18 16:42 Dose: 10 mg Carvedilol (Coreg) 3.125 mg PO BID[facility] Last Admin: 04/05/18 09:03 Dose: 3.125 mg Dextrose/Water (Dextrose 50%) 25 gm SLOW IVP PRN PRN PRN Reason: Hypoglycemia Famotidine (Pepcid) 20 mg PO DAILY [facility] Last Admin: 04/05/18 09:02 Dose: 20 mg Glucagon (Glucagon) 1 mg IM PRN PRN PRN Reason: Hypoglycemia Guaifenesin (Robitussin Sf) 200 mg PO Q4H PRN PRN Reason: Cough Hydralazine HCl (Apresoline) 10 mg SLOW IVP Q4H PRN PRN Reason: Systolic BP > 180 Dextrose/Water (D5w) 1,000 mls @ 0 mls/hr IV .Q0M PRN; As Directed PRN Reason: Hypoglycemia Sodium Chloride (Normal Saline 0.9%) 1,000 mls @ 30 mls/hr IV .Q24H [facility] Last Admin: 04/05/18 04:27 Dose: Not Given Diltiazem HCl 125 mg/Miscellaneous Medication 1 each/ Sodium Chloride 125 mls @ 10 mls/hr IVPB INF [facility] PRN Reason: Protocol Last Admin: 04/04/18 23:48 Dose: 125 mls Fluconazole/Sodium Chloride (200 mg/ Device) 100 mls @ 100 mls/hr IVPB DAILY [facility] Last Admin: 04/05/18 09:04 Dose: 100 mls Insulin Human Lispro (Humalog) 0 units SC .AGGRESSIVE SLIDING PRN PRN Reason: Aggressive Correctional Scale Last Admin: 04/03/18 13:51 Dose: 3 unit Insulin Human NPH (Humulin N) 20 unit SC Q12HR [facility] Last Admin: 04/05/18 09:04 Dose: 20 unit Lactulose (Lactulose) 20 gm PO DAILY [facility] Last Admin: 04/05/18 09:03 Dose: Not Given Loperamide HCl (Imodium) 2 mg PO PRN PRN PRN Reason: Diarrhea/Loose Stools Loratadine (Claritin) 10 mg PO DAILYPRN PRN PRN Reason: Sinus Symptoms Mineral Oil/White Petrolatum (Eucerin Cream) 0 gm TOP BIDPRN PRN PRN Reason: Dry Skin Ondansetron HCl (Zofran Odt) 4 mg PO Q6H PRN PRN Reason: Nausea/Vomiting Ondansetron HCl (Zofran) 4 mg IVP Q6H PRN PRN Reason: Nausea/Vomiting Phenol (Chloraseptic [place] 180 Ml Bot) 0 ml PO PRN PRN PRN Reason: Sore Throat Prednisone (Prednisone) 10 mg PO QAM-WM [facility] Last Admin: 04/05/18 09:03 Dose: 10 mg Senna (Senokot) 2 tab PO HSPRN PRN PRN Reason: Constipation Sodium Chloride (Flush - Normal Saline) 10 ml IVF Q12HR [facility] Last Admin: 04/05/18 09:04 Dose: Not Given Sodium Chloride (Flush - Normal Saline) 10 ml IVF PRN PRN PRN Reason: Saline Flush Last Admin: 04/03/18 03:03 Dose: 10 ml Sodium Chloride ([place] Nasal [place] 0.65%) 0 ml EA NARE QIDPRN PRN PRN Reason: Nasal Congestion
--- NOTE | 2018-04-05 11:56 | RAD ---
PORTABLE AP CHEST XRAY: DATE: 04/05/18. HISTORY: Shortness of breath. COMPARISON: 04/10/18. 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 Cardiac silhouette is magnified by projection but does appear mildly enlarged. There is increased density in the retrocardiac region left lung bas e. Findings could be related to atelectasis, infiltrate, or pleural effusion. There is a tiny right pleural effusion present. There is increased interstitial density seen throughout the lungs bilater ally. Findings could be related to vascular congestion and associated pulmonary edema, although infe ctious process is a possibility. Vascular calcification is seen in the thoracic aorta. No other int erval change. IMPRESSION: 1. Increased density in retrocardiac region left lung base which could be related to atelectasis, pn eumonia, and/or small left pleural effusion. 2. Increased interstitial markings and prominence of the pulmonary vasculature. Findings may be rel ated to congestive heart failure and associated pulmonary edema, but infectious process is a possibil ity. 3. Small right pleural effusion. 4. Continued followup to resolution is recommended. POS: [facility]
[2018-04-05] MEDS ORDERED: Furosemide 40 MG/4 ML VIAL SLOW IVP SCH (12:45)
[2018-04-05 14:45] LABS: Actual Bicarbonate (HCO3a) 22.7 mEq/L (22-28); Base Excess (BEa) -3.6 mEq/L (-2.0 to +3.0); CO2 Tension 45.5 mmHg (35.0-45.0); O2 Tension (PaO2) 69.6 mmHg (> 60.0); pH, Arterial 7.32 (7.35-7.45)
[2018-04-05 14:46] LABS: Hemoglobin (Hb) 14.5 g/dL (14.0-18.0)
[2018-04-05 14:47] LABS: Calcium, Ionized 1.2 mmol/L (1.12-1.30)
[2018-04-05 14:48] LABS: ALV-art Gradient 101.685 (0-20); Puncture Site RBA
--- NOTE | 2018-04-05 16:02 | PRG ---
DATE OF SERVICE: 04/05/2018 SERVICE: Pulmonary Medicine. INTERVAL HISTORY: The patient looks terrible today. He has got a lot of secretions in the back of the throat. He is breathing through them. I asked him to cough a couple of times. He gives me in anemic attempt. He is unable to clear those secretions. His oxygen requirements are going up a little bit. He is breathing through his mouth. His shallow respirations that are fairly tachypneic. Ultimately, he remains a DNI/DNR. As such, intubations off the table, but we are going to see what we can do in order to help mobilize secretions to the best of our ability. OBJECTIVE: VITAL SIGNS: Afebrile, pulse 108, blood pressure 115/83, respirations 28, saturation 93% on 3 liters nasal cannula. GENERAL: The patient is awake and alert. He is in mild respiratory distress. HEENT: Normocephalic, atraumatic. Sclerae are white, conjunctivae pink. Oral mucosa is dry. LUNGS: Rhonchorous breath sounds are present throughout the bilateral lungs. These mostly transmitted from the upper airway. He does not have a prolonged expiratory phase, wheezing or crackles present. HEART: Normal rate, regular. ABDOMEN: Soft, nontender, nondistended. Bowel sounds are positive. MUSCULOSKELETAL: No cyanosis or clubbing. He has got 2+ pitting in the bilateral lower extremities. NEUROLOGIC: Grossly nonfocal. LABORATORY DATA: WBC 18.6 and up trending, hemoglobin 14.1, platelets have improved to 197,000. Neutrophil count is 88% with 2% bands. A pH 7.32, pCO2 45 , pO2 70. Creatinine 1.56 and gently down trending. BUN 80, sodium 142, chloride 110, bicarbonate 21. Sputum aspirate and bronchial washings are both growing Ignacia albicans. Blood cultures x2 are unremarkable. IMAGING: Chest x-ray demonstrates increased retrocardiac density in the left base. It could be atelectasis or different type of infiltrate. There is a possible left-sided small pleural effusion. Increased interstitial markings are also present, but the patient has extraordinarily low lung volumes, which could accentuate this. ASSESSMENT: 1. Acute hypoxic and hypercapnic respiratory failure. 2. Deconditioning, severe. 3. Acute kidney injury on chronic kidney disease 3. 4. Atrial fibrillation with rapid ventricular response. 5. Severe sepsis. DISCUSSION AND PLAN: We will move the patient to the ICU. We will see if we consistent with mobilizing some of the secretions by providing him with physiotherapy and assist with cough. He remains a DNI/DNR. There is a very good likelihood that he is not going to survive this hospital stay. If I had the option, I would reintubate right now because of the severity of his current respiratory failure, but that is off the table for the time being. Pulmonary Critical Care will continue to follow closely. CELE
[2018-04-05] MEDS: Dextrose 5% in Water 1,000 ML IV SCH (16:29)
[2018-04-05] MEDS: Piperacillin/Tazobactam 2.25 GM in Sodium Chloride 0.9% 100 ML IVPB SCH (17:31)
[2018-04-06] MEDS: Diltiazem HCl 125 MG, Admixture Fee 1 EACH in Sodium Chloride 0.9% 100 ML IVPB SCH ×3 (00:21→23:30)
[2018-04-06] MEDS: Piperacillin/Tazobactam 2.25 GM in Sodium Chloride 0.9% 100 ML IVPB SCH ×5 (00:21→23:44)
[2018-04-06] MEDS: Dextrose 5% in Water 1,000 ML IV SCH ×2 (05:11→17:33)
[2018-04-06 05:20] LABS: Band 7 % (5-11); Lymphocytes 5 % (21-51); MDiff Complete? YES; Mean Corpuscular HGB CONC 32.4 g/dL (32.0-36.0); Mean Corpuscular Hemoglobin 27.6 pg (27.0-31.0); Mean Corpuscular Volume 85.3 fL (78.0-98.0); Mean Platelet Volume 7.7 fL (7.4-10.4); Monocytes 1 % (0-10); Neutrophil 87 % (42-75); Platelet Count 143 thou/uL (130-400); Red Blood Cell (RBC) Count 4.71 mill/uL (4.70-6.10); White Blood Cell (WBC) Count 14.6 thou/uL (4.8-10.8)
[2018-04-06 05:25] LABS: Anion Gap 13 mmol/L (10-20); BUN (Urea Nitrogen) 78 mg/dL (8.4-25.7); Calc. Creatinine Clearance 45 mL/min (70-130); Calcium 8.4 mg/dL (7.8-10.44); Carbon Dioxide 25 mmol/L (23-31); Chloride 110 mmol/L (98-107); Estimated GFR-MDRD 42; Glucose 104 mg/dL (83-110); Phosphorus 3.7 mg/dL (2.3-4.7); Potassium 4.2 mmol/L (3.5-5.1); Sodium 144 mmol/L (136-145)
--- NOTE | 2018-04-06 10:21 | RAD ---
AP ABDOMINAL RADIOGRAPH: DATE: 04/06/18. HISTORY: Verify Dobbhoff feeding tube placement. COMPARISON: 03/25/18. FINDINGS: There has been interval placement of a Dobbhoff feeding tube with the tip overlying the expected loca tion of the proximal body of the stomach. Postsurgical changes related to CABG are noted. Surgical clips overlie the right upper quadrant. Hemodialysis catheter is again seen overlying the pelvis and to the right of midline at the L4-5 level. The bowel gas pattern is nonspecific. The left abdomen was excluded from view. IMPRESSION: Dobbhoff feeding tube noted in place with the tip overlying the expected location of the body of the stomach. POS: [facility]
--- NOTE | 2018-04-06 10:36 | PDOC.PN ---
- Subjective Encounter Start Date: 04/06/18 Encounter Start Time: 09:50 Patient seen and examined for pneumonia. No overnight events - Objective Resuscitation Status: Resuscitation Status DNR:Do Not Resuscitate MAR Reviewed: Yes Vital Signs & Weight: Vital Signs (12 hours) Temp Pulse Resp Pulse Ox 04/06/18 08:55 99 04/06/18 08:45 123 H 20 04/06/18 08:40 125 H 19 04/06/18 07:00 97.8 F 04/06/18 04:00 97.7 F 04/06/18 00:44 89 04/06/18 00:00 97.9 F Weight Admit Weight 187 lb 6.287 oz Weight 201 lb 4.513 oz Most Recent Monitor Data Heart Rate from ECG 125 NIBP 140/73 NIBP BP-Mean 97 Respiration from ECG 18 SpO2 100 I&O: 04/05/18 04/06/18 04/07/18 06:59 06:59 06:59 Intake Total 960 2543 Output Total 1825 2540 285 Balance -865 3 -285 Result Diagrams: 04/06/18 04:55 04/06/18 04:55 Additional Labs: Accuchecks 04/05/18 04/05/18 04/05/18 20:24 17:23 16:46 POC Glucose 123 H 106 69 L 04/05/18 11:02 POC Glucose 122 H Radiology Reviewed by me: Yes EKG Reviewed by me: Yes (afib) Phys Exam - Physical Examination Constitutional: NAD HEENT: PERRLA, moist MMs, sclera anicteric Neck: no JVD, supple gurgling sound+ Respiratory: wheezing present coarse rales Cardiovascular: no significant murmur, irregular Gastrointestinal: soft, non-tender, no distention, positive bowel sounds Musculoskeletal: no edema, pulses present Neurological: non-focal Lymphatic: no nodes Psychiatric: normal affect Skin: no rash, normal turgor Dx/Plan (1) Acute respiratory failure with hypoxia Code(s): J96.01 - ACUTE RESPIRATORY FAILURE WITH HYPOXIA Status: Resolved (2) Pneumonia Code(s): J18.9 - PNEUMONIA, UNSPECIFIED ORGANISM Status: Acute Qualifiers: Pneumonia type: aspiration pneumonia (3) Acute worsening of stage 3 chronic kidney disease Code(s): N18.3 - CHRONIC KIDNEY DISEASE, STAGE 3 (MODERATE) Status: Acute (4) Atrial fibrillation with RVR Code(s): I48.91 - UNSPECIFIED ATRIAL FIBRILLATION Status: Acute Comment: (5) COPD exacerbation Code(s): J44.1 - CHRONIC OBSTRUCTIVE PULMONARY DISEASE W (ACUTE) EXACERBATION Status: Acute (6) Demand ischemia of myocardium Code(s): I24.8 - OTHER FORMS OF ACUTE ISCHEMIC HEART DISEASE Status: Acute (7) Sepsis with acute organ dysfunction Code(s): A41.9 - SEPSIS, UNSPECIFIED ORGANISM; R65.20 - SEVERE SEPSIS WITHOUT SEPTIC SHOCK Status: Acute (8) Thrombocytopenia Code(s): D69.6 - THROMBOCYTOPENIA, UNSPECIFIED Status: Acute (9) Anxiety and depression Code(s): F41.9 - ANXIETY DISORDER, UNSPECIFIED; F32.9 - MAJOR DEPRESSIVE DISORDER, SINGLE EPISODE, UNSPECIFIED Status: Chronic (10) CAD (coronary artery disease) Code(s): I25.10 - ATHSCL HEART DISEASE OF [place] CORONARY ARTERY W/O ANG PCTRS Status: Chronic (11) DJD (degenerative joint disease) Code(s): M19.90 - UNSPECIFIED OSTEOARTHRITIS, UNSPECIFIED SITE Status: Chronic Comment: stable (12) DM2 (diabetes mellitus, type 2) Status: Chronic Comment: (13) Dyslipidemia Code(s): E78.5 - HYPERLIPIDEMIA, UNSPECIFIED Status: Chronic Comment: (14) GERD (gastroesophageal reflux disease) Code(s): K21.9 - GASTRO-ESOPHAGEAL REFLUX DISEASE WITHOUT ESOPHAGITIS Status: Chronic Comment: stable (15) HTN (hypertension) Code(s): I10 - ESSENTIAL (PRIMARY) HYPERTENSION Status: Chronic Comment: (16) PVD (peripheral vascular disease) Code(s): I73.9 - PERIPHERAL VASCULAR DISEASE, UNSPECIFIED Status: Chronic Comment: (17) Difficulty clearing secretions Code(s): FOB0265 - Status: Acute - Plan cont current plan of care, continue antibiotics, PT/OT, social media intern * pt is not able to handle oral secretion * he is DNR/DNI * tomorrow plan for ablation for afib/flutter * he is off elliquis due to hematuria * will add scopolamine patch for oral secretion * prognosis is poor * medication reviewed as below * symptomatic treatment. * on zosyn and diflucan Review of Systems - Review of Systems Other: not reliable with pt due to level of his cognitive status - Medications/Allergies Allergies/Adverse Reactions: Allergies Allergy/AdvReac Type Severity Reaction Status Date / Time No Known Allergies Allergy Verified 03/24/18 01:53 Medications: Current Medications Acetaminophen (Tylenol) 650 mg PO Q4H PRN PRN Reason: Headache/Fever or Pain Al Hydroxide/Mg Hydroxide (Maalox) 15 ml PO Q4H PRN PRN Reason: Heartburn or Indigestion Albuterol/Ipratropium (Duoneb) 3 ml NEB [id number] SCH Last Admin: 04/06/18 08:45 Dose: 3 ml Artificial Tears (Tears Naturale) 0 drop EA EYE PRN PRN PRN Reason: Dry Eyes Bisacodyl (Dulcolax) 10 mg [place] DAILYPRN PRN PRN Reason: Constipation Last Admin: 03/30/18 16:42 Dose: 10 mg Carvedilol (Coreg) 3.125 mg PO BID-[facility] Last Admin: 04/05/18 17:31 Dose: 3.125 mg Dextrose/Water (Dextrose 50%) 25 gm SLOW IVP PRN PRN PRN Reason: Hypoglycemia Last Admin: 04/05/18 16:46 Dose: 12.5 gm Famotidine (Pepcid) 20 mg PO DAILY [facility] Last Admin: 04/05/18 09:02 Dose: 20 mg Glucagon (Glucagon) 1 mg IM PRN PRN PRN Reason: Hypoglycemia Guaifenesin (Robitussin Sf) 200 mg PO Q4H PRN PRN Reason: Cough Hydralazine HCl (Apresoline) 10 mg SLOW IVP Q4H PRN PRN Reason: Systolic BP > 180 Dextrose/Water (D5w) 1,000 mls @ 0 mls/hr IV .Q0M PRN; As Directed PRN Reason: Hypoglycemia Diltiazem HCl 125 mg/Miscellaneous Medication 1 each/ Sodium Chloride 125 mls @ 10 mls/hr IVPB INF [facility] PRN Reason: Protocol Last Admin: 04/06/18 00:21 Dose: 125 mls Dextrose/Water (D5w) 1,000 mls @ 75 mls/hr IV .[id number] [facility] Last Admin: 04/06/18 05:11 Dose: 1,000 mls Fluconazole/Sodium Chloride 100 mg/ Miscellaneous Medication 50 mls @ 100 mls/ hr IVPB DAILY [facility] Piperacillin Sod/Tazobactam (Sod 2.25 gm/ Sodium Chloride) 100 mls @ 200 mls/ hr IVPB Q6HR [facility] Last Admin: 04/06/18 05:11 Dose: 100 mls Insulin Human Lispro (Humalog) 0 units SC .AGGRESSIVE SLIDING PRN PRN Reason: Aggressive Correctional Scale Last Admin: 04/03/18 13:51 Dose: 3 unit Insulin Human NPH (Humulin N) 20 unit SC Q12HR [facility] Last Admin: 04/05/18 20:23 Dose: Not Given Lactulose (Lactulose) 20 gm PO DAILY [facility] Last Admin: 04/05/18 09:03 Dose: Not Given Loperamide HCl (Imodium) 2 mg PO PRN PRN PRN Reason: Diarrhea/Loose Stools Loratadine (Claritin) 10 mg PO DAILYPRN PRN PRN Reason: Sinus Symptoms Mineral Oil/White Petrolatum (Eucerin Cream) 0 gm TOP BIDPRN PRN PRN Reason: Dry Skin Ondansetron HCl (Zofran Odt) 4 mg PO Q6H PRN PRN Reason: Nausea/Vomiting Ondansetron HCl (Zofran) 4 mg IVP Q6H PRN PRN Reason: Nausea/Vomiting Phenol (Chloraseptic [place] 180 Ml Bot) 0 ml PO PRN PRN PRN Reason: Sore Throat Prednisone (Prednisone) 10 mg PO QAM-WM [facility] Last Admin: 04/05/18 09:03 Dose: 10 mg Senna (Senokot) 2 tab PO HSPRN PRN PRN Reason: Constipation Sodium Chloride (Flush - Normal Saline) 10 ml IVF Q12HR [facility] Last Admin: 04/05/18 20:23 Dose: Not Given Sodium Chloride (Flush - Normal Saline) 10 ml IVF PRN PRN PRN Reason: Saline Flush Last Admin: 04/03/18 03:03 Dose: 10 ml Sodium Chloride ([place] Nasal [place] 0.65%) 0 ml EA NARE QIDPRN PRN PRN Reason: Nasal Congestion
[2018-04-06] MEDS: predniSONE 5 MG TAB PO SCH (11:15)
[2018-04-06] MEDS: Carvedilol 3.125 MG TAB PO SCH ×2 (11:15→17:32)
[2018-04-06] MEDS: Famotidine 20 MG TAB PO SCH (11:15)
[2018-04-06] MEDS: NPH, Human Insulin Isophane 300 UNIT/3 ML VIAL SC SCH ×2 (11:16→21:11)
[2018-04-06] MEDS: Scopolamine 1.5 mg/72 hour Patch TD SCH (11:19)
[2018-04-06] MEDS: Fluconazole In NaCl,Iso-Osm 100 MG in Admixture Fee 2 EACH IVPB SCH (11:21)
--- NOTE | 2018-04-06 11:33 | PDOC.CTH ---
Cardiology Progress Note - Subjective Pt appears much better overall. Less SOB. HR stable on IV CCB - Objective Vital Signs Temp Pulse Resp Pulse Ox 04/06/18 08:55 99 04/06/18 08:45 123 H 20 04/06/18 08:40 125 H 19 04/06/18 07:00 97.8 F 04/06/18 04:00 97.7 F 04/06/18 00:44 89 04/06/18 00:00 97.9 F Admit Weight 187 lb 6.287 oz Weight 201 lb 4.513 oz 04/05/18 04/06/18 04/07/18 06:59 06:59 06:59 Intake Total 960 2543 Output Total 1825 2540 285 Balance -865 3 -285 - Physical Examination General/Neuro: alert & oriented x3, NAD Lungs: CTA Heart: other: (IRR) Abdomen: NT/ND, soft Extremities: + femoral B - Labs Result Diagrams: 04/06/18 04:55 04/06/18 04:55 Troponin/CKMB CK-MB (CK-2) 6.2 ng/mL (0-6.6) 03/23/18 22:03 Troponin I 0.337 ng/mL (< 0.028) H* 03/24/18 03:40 - Assessment/Plan 1. AFlutter with RVR 2. Paroxysmal AFib 3. SOB 4. s/p sepsis and respiratory distress/failure 5. s/p ARF requiring dialysis 6. History of CAD 7. HTN respiratory status much improved today Rate controlled with IV cardizem Abx Continue pulomanry suipport Given continued setbacks, progrnosis appears guarded. DNR EP to see tomorrow
[2018-04-06 11:53] LABS: Bilirubin Moderate (Negative); Blood, Urine Large (Negative); Clarity CLOUDY (Clear); Glucose, Urine (Dipstick) Negative (Negative); Leukocyte Large (Negative); Nitrite Positive (Negative); Protein, Urine (Dipstick) 100 mg/dL (Neg-Trace); Specific Gravity, Urine 1.017 (1.002-1.036)
[2018-04-06 11:56] LABS: Hyaline Casts/LPF 0-3 HYALINE CAST LPF (0-3 Hyaline); Pathc Cast-AUWi Flag 0.14 (0-2.49); Squamous Epithelial None Seen HPF (0-3); WBC/HPF None Seen HPF (0-3)
[2018-04-06 11:59] LABS: Yeast-AUWi Flag 423.3 (0-25.0)
[2018-04-06 12:09] LABS: Bacteria/HPF 2+ HPF (None Seen); Yeast-All Forms 2+ HPF (None Seen)
--- NOTE | 2018-04-06 13:10 | PRG ---
DATE OF SERVICE: 04/06/2018 SERVICE: Pulmonary Medicine. INTERVAL HISTORY: The patient is doing great from a respiratory standpoint. He is actually clearing his secretions and his cough is much more vigorous today. He did not have any events overnight. PHYSICAL EXAMINATION: VITAL SIGNS: Afebrile, pulse 93, blood pressure 136/72, respirations 13, saturation 100% on 2 liters nasal cannula. GENERAL: The patient is awake, alert, no apparent distress. LUNGS: Decent air entry. Rhonchi are still present. There is no prolonged expiratory phase or whee zing today. HEART: Normal rate, regular. ABDOMEN: Soft, nontender, nondistended. Bowel sounds are positive. MUSCULOSKELETAL: No cyanosis or clubbing. There is no pitting in the bilateral lower extremities. NEUROLOGIC: Grossly nonfocal. LABORATORY DATA: WBC 14.6 and down trending, hemoglobin 13.0, platelets 143,000 and stable. Creatin ine 1.59 and roughly stable, BUN 78 and gently down trending. Basic metabolic profile is otherwise u nremarkable. Sodium continues to trend upward to 144. Chloride is stable at 110. Sputum and bronch ial washings were both growing Ignacia albicans. Blood cultures x2 are negative. IMAGING: Abdominal x-ray demonstrates Dobbhoff feeding tube overlying the stomach. ASSESSMENT: 1. Acute hypoxic and hypercapnic respiratory failure, improved. 2. Deconditioning. 3. Acute kidney injury on chronic kidney disease, stage 3. 4. Atrial fibrillation with rapid ventricular response. 5. Severe sepsis. DISCUSSION AND PLAN: We will continue our free water and actually bump up the rate slightly. The eisenberg pportive measures will be continued including antibiotics. Aggressive pulmonary toileting will be pu rsued. We also try to mobilize him to the best of our ability. He has a firm DNI/DNR. He is slight ly better off than he was yesterday, but that being said, he has a long road ahead of him. Any setba cks along the way would likely result in him not making it out of this hospital. Pulmonary Critical Care will continue to follow very closely. If he goes out of the ICU, he will need to land in [facility] b ecause of the amount of care that he requires.
--- NOTE | 2018-04-06 13:26 | PRG ---
DATE OF SERVICE: 04/06/2018 SUBJECTIVE: The patient was transferred to ICU for altered mentation. OBJECTIVE: General: This is an elderly male in no apparent distress Vital Signs: Temperature 98.1, pulse 94, respiratory rate 14, and blood pressure 126/76. HEENT: Atraumatic, normocephalic, Oral mucosa is moist. Neck: Supple. Cardiovascular: S1 and S2 heard. Rate and rhythm regular. Respiratory: Clear to auscultation. Gastrointestinal: Abdomen is soft. Musculoskeletal: No tenderness, No edema. Dermatologic: No skin rash. Neurologic: Lethargic, awake and oriented x3. No focal neurologic deficits. Moving all the extremities. Psychiatric: Mood and affect normal. LABORATORY DATA: Potassium 4.2, BUN is 78 from 84 yesterday and creatinine is 1.5 from 1.56 and stable. There is close to his baseline. His creatinine before admission was 1.3-1.5. ASSESSMENT AND PLAN: 1. Acute kidney injury on chronic kidney stage 3 with a stable creatinine, close to his baseline renal function. 2. Edema, controlled. 3. Azotemia getting better with reduction in the dose of steroids. 4. Hyperkalemia, much better. 5. Metabolic acidosis, stable. Overall, renal function is stable, close to his baseline. Avoid nephrotoxins. Continue close monitoring of renal function. MTDD
[2018-04-07] MEDS ORDERED: Acetaminophen 650 MG in Premix Bag 1 BAG IVPB SCH (00:45)
[2018-04-07] MEDS: Dextrose 5% in Water 1,000 ML IV SCH ×2 (05:25→17:31)
[2018-04-07] MEDS: Piperacillin/Tazobactam 2.25 GM in Sodium Chloride 0.9% 100 ML IVPB SCH ×3 (05:26→17:31)
[2018-04-07 06:05] LABS: Anion Gap 12 mmol/L (10-20); BUN (Urea Nitrogen) 73 mg/dL (8.4-25.7); Calc. Creatinine Clearance 42 mL/min (70-130); Calcium 8.1 mg/dL (7.8-10.44); Carbon Dioxide 25 mmol/L (23-31); Chloride 110 mmol/L (98-107); Estimated GFR-MDRD 38; Glucose 207 mg/dL (83-110); Potassium 4.2 mmol/L (3.5-5.1); Sodium 143 mmol/L (136-145)
[2018-04-07 06:47] LABS: Band 3 % (5-11); Eosinophils 2 % (0-10); Hemoglobin 12.3 g/dL (14.0-18.0); Lymphocytes 4 % (21-51); MDiff Complete? YES; Mean Corpuscular HGB CONC 32.4 g/dL (32.0-36.0); Mean Corpuscular Hemoglobin 27.6 pg (27.0-31.0); Mean Corpuscular Volume 85.2 fL (78.0-98.0); Monocytes 3 % (0-10); Neutrophil 87 % (42-75); Platelet Count 125 thou/uL (130-400); Reactive Lymphocytes 1 % (0-10); Red Blood Cell (RBC) Count 4.47 mill/uL (4.70-6.10); White Blood Cell (WBC) Count 14.5 thou/uL (4.8-10.8)
--- NOTE | 2018-04-07 09:53 | PDOC.PN ---
- Subjective Encounter Start Date: 04/07/18 Encounter Start Time: 09:30 pt has removed his dubhuff tube last night, he is NPO, he is stable but confused - Objective Resuscitation Status: Resuscitation Status DNR:Do Not Resuscitate MAR Reviewed: Yes Vital Signs & Weight: Vital Signs (12 hours) Temp Pulse Resp BP Pulse Ox 04/07/18 08:21 93 20 100 04/07/18 08:00 97.5 F L 93 20 98 04/07/18 07:22 97.5 F L 85 15 104/75 95 04/07/18 07:00 93 20 100 04/07/18 04:00 97.7 F 82 20 108/60 99 04/06/18 23:50 97.5 F L 85 18 120/59 L 96 Weight Admit Weight 187 lb 6.287 oz Weight 202 lb Most Recent Monitor Data Heart Rate from ECG 93 NIBP 136/72 NIBP BP-Mean 105 Respiration from ECG 13 SpO2 100 I&O: 04/06/18 04/07/18 04/08/18 06:59 06:59 06:59 Intake Total 2543 2036.3 Output Total 2540 1810 Balance 3 226.3 Result Diagrams: 04/07/18 04:00 04/07/18 04:00 Additional Labs: Accuchecks 04/07/18 04/06/18 04/06/18 05:30 16:41 11:29 POC Glucose 193 H 172 H 134 H EKG Reviewed by me: Yes (afib) Phys Exam - Physical Examination Constitutional: NAD HEENT: PERRLA, sclera anicteric Neck: no JVD, supple Respiratory: no rales, wheezing present coarse sound Cardiovascular: irregular SM+ Gastrointestinal: soft, non-tender, no distention, positive bowel sounds Musculoskeletal: no edema, pulses present Neurological: moves all 4 limbs Lymphatic: no nodes Psychiatric: normal affect Skin: no rash, normal turgor Dx/Plan (1) Acute respiratory failure with hypoxia Code(s): J96.01 - ACUTE RESPIRATORY FAILURE WITH HYPOXIA Status: Resolved (2) Pneumonia Code(s): J18.9 - PNEUMONIA, UNSPECIFIED ORGANISM Status: Acute Qualifiers: Pneumonia type: aspiration pneumonia (3) Acute worsening of stage 3 chronic kidney disease Code(s): N18.3 - CHRONIC KIDNEY DISEASE, STAGE 3 (MODERATE) Status: Acute (4) Atrial fibrillation with RVR Code(s): I48.91 - UNSPECIFIED ATRIAL FIBRILLATION Status: Acute Comment: (5) COPD exacerbation Code(s): J44.1 - CHRONIC OBSTRUCTIVE PULMONARY DISEASE W (ACUTE) EXACERBATION Status: Acute (6) Demand ischemia of myocardium Code(s): I24.8 - OTHER FORMS OF ACUTE ISCHEMIC HEART DISEASE Status: Acute (7) Sepsis with acute organ dysfunction Code(s): A41.9 - SEPSIS, UNSPECIFIED ORGANISM; R65.20 - SEVERE SEPSIS WITHOUT SEPTIC SHOCK Status: Acute (8) Thrombocytopenia Code(s): D69.6 - THROMBOCYTOPENIA, UNSPECIFIED Status: Acute (9) Anxiety and depression Code(s): F41.9 - ANXIETY DISORDER, UNSPECIFIED; F32.9 - MAJOR DEPRESSIVE DISORDER, SINGLE EPISODE, UNSPECIFIED Status: Chronic (10) CAD (coronary artery disease) Code(s): I25.10 - ATHSCL HEART DISEASE OF [place] CORONARY ARTERY W/O ANG PCTRS Status: Chronic (11) DJD (degenerative joint disease) Code(s): M19.90 - UNSPECIFIED OSTEOARTHRITIS, UNSPECIFIED SITE Status: Chronic Comment: stable (12) DM2 (diabetes mellitus, type 2) Status: Chronic Comment: (13) Dyslipidemia Code(s): E78.5 - HYPERLIPIDEMIA, UNSPECIFIED Status: Chronic Comment: (14) GERD (gastroesophageal reflux disease) Code(s): K21.9 - GASTRO-ESOPHAGEAL REFLUX DISEASE WITHOUT ESOPHAGITIS Status: Chronic Comment: stable (15) HTN (hypertension) Code(s): I10 - ESSENTIAL (PRIMARY) HYPERTENSION Status: Chronic Comment: (16) PVD (peripheral vascular disease) Code(s): I73.9 - PERIPHERAL VASCULAR DISEASE, UNSPECIFIED Status: Chronic Comment: (17) Difficulty clearing secretions Code(s): [id number] - Status: Acute - Plan cont current plan of care, continue antibiotics, respiratory therapy * still on cardizem drip, cardiology planning to do ablation * now hematuria clearing, * on diflucan for vibha in respiratory culture and urine * pt and family clear about DNR/DNI and no tube feeding * he is not able to handle his oral secretion * palliative care on case, may need hospice at facilty * prognosis is very poor * medication reviewed as below * symptomatic treatment. Review of Systems - Review of Systems Other: not reliable due to his level of cognitive status - Medications/Allergies Allergies/Adverse Reactions: Allergies Allergy/AdvReac Type Severity Reaction Status Date / Time No Known Allergies Allergy Verified 03/24/18 01:53 Medications: Current Medications Acetaminophen (Tylenol) 650 mg PO Q4H PRN PRN Reason: Headache/Fever or Pain Al Hydroxide/Mg Hydroxide (Maalox) 15 ml PO Q4H PRN PRN Reason: Heartburn or Indigestion Albuterol/Ipratropium (Duoneb) 3 ml NEB [id number] SCH Last Admin: 04/07/18 08:21 Dose: 3 ml Artificial Tears (Tears Naturale) 0 drop EA EYE PRN PRN PRN Reason: Dry Eyes Bisacodyl (Dulcolax) 10 mg [place] DAILYPRN PRN PRN Reason: Constipation Last Admin: 03/30/18 16:42 Dose: 10 mg Carvedilol (Coreg) 3.125 mg PO BID-[facility] Last Admin: 04/06/18 17:32 Dose: 3.125 mg Dextrose/Water (Dextrose 50%) 25 gm SLOW IVP PRN PRN PRN Reason: Hypoglycemia Last Admin: 04/05/18 16:46 Dose: 12.5 gm Famotidine (Pepcid) 20 mg PO DAILY [facility] Last Admin: 04/06/18 11:15 Dose: 20 mg Glucagon (Glucagon) 1 mg IM PRN PRN PRN Reason: Hypoglycemia Guaifenesin (Robitussin Sf) 200 mg PO Q4H PRN PRN Reason: Cough Hydralazine HCl (Apresoline) 10 mg SLOW IVP Q4H PRN PRN Reason: Systolic BP > 180 Dextrose/Water (D5w) 1,000 mls @ 0 mls/hr IV .Q0M PRN; As Directed PRN Reason: Hypoglycemia Diltiazem HCl 125 mg/Miscellaneous Medication 1 each/ Sodium Chloride 125 mls @ 10 mls/hr IVPB INF [facility] PRN Reason: Protocol Last Admin: 04/06/18 23:30 Dose: 125 mls Fluconazole/Sodium Chloride 100 mg/ Miscellaneous Medication 50 mls @ 100 mls/ hr IVPB DAILY [facility] Last Admin: 04/06/18 11:21 Dose: 50 mls Piperacillin Sod/Tazobactam (Sod 2.25 gm/ Sodium Chloride) 100 mls @ 200 mls/ hr IVPB Q6HR [facility] Last Admin: 04/07/18 05:26 Dose: 100 mls Dextrose/Water (D5w) 1,000 mls @ 100 mls/hr IV .Q10H [facility] Last Admin: 04/07/18 05:25 Dose: 1,000 mls Insulin Human Lispro (Humalog) 0 units SC .AGGRESSIVE SLIDING PRN PRN Reason: Aggressive Correctional Scale Last Admin: 04/03/18 13:51 Dose: 3 unit Insulin Human NPH (Humulin N) 20 unit SC Q12HR [facility] Last Admin: 04/06/18 21:11 Dose: 20 unit Lactulose (Lactulose) 20 gm PO DAILY [facility] Last Admin: 04/06/18 11:15 Dose: 20 gm Loperamide HCl (Imodium) 2 mg PO PRN PRN PRN Reason: Diarrhea/Loose Stools Loratadine (Claritin) 10 mg PO DAILYPRN PRN PRN Reason: Sinus Symptoms Mineral Oil/White Petrolatum (Eucerin Cream) 0 gm TOP BIDPRN PRN PRN Reason: Dry Skin Ondansetron HCl (Zofran Odt) 4 mg PO Q6H PRN PRN Reason: Nausea/Vomiting Ondansetron HCl (Zofran) 4 mg IVP Q6H PRN PRN Reason: Nausea/Vomiting Phenol (Chloraseptic [place] 180 Ml Bot) 0 ml PO PRN PRN PRN Reason: Sore Throat Prednisone (Prednisone) 10 mg PO QAM-WM [facility] Last Admin: 04/06/18 11:15 Dose: 10 mg Scopolamine (Transderm Scop) 1.5 mg TD Q3D [facility] Last Admin: 04/06/18 11:19 Dose: 1.5 mg Senna (Senokot) 2 tab PO HSPRN PRN PRN Reason: Constipation Sodium Chloride (Flush - Normal Saline) 10 ml IVF Q12HR [facility] Last Admin: 04/06/18 21:12 Dose: 10 ml Sodium Chloride (Flush - Normal Saline) 10 ml IVF PRN PRN PRN Reason: Saline Flush Last Admin: 04/03/18 03:03 Dose: 10 ml Sodium Chloride ([place] Nasal [place] 0.65%) 0 ml EA NARE QIDPRN PRN PRN Reason: Nasal Congestion
--- NOTE | 2018-04-07 11:02 | PRG ---
DATE OF SERVICE: 04/07/2018 NEPHROLOGY PROGRESS NOTE SUBJECTIVE: Patient was seen and examined at bedside and overnight events noted. Patient denies any shortness of breath or chest pain or palpitation. No history of nausea or vomiting or diarrhea or f ever or chills or cramps. OBJECTIVE: GENERAL: This is a well-built male in no apparent distress. VITAL SIGNS: Temperature 98.7, pulse 72, respiratory rate 20, blood pressure 104/75. HEENT: Atraumatic, normocephalic. Oral mucosa is moist. NECK: Supple. CARDIOVASCULAR: S1, S2 heard. Rate and rhythm regular. RESPIRATORY: Clear to auscultation. GASTROINTESTINAL: Abdomen is soft. MUSCULOSKELETAL: No tenderness. No edema. DERMATOLOGIC: No skin rash. NEUROLOGIC: Alert and awake and oriented x3. No focal neurologic deficits. Moving all the extremiti es. PSYCHIATRIC: Mood and affect normal. LABORATORY DATA: Potassium is 4.2, BUN 73, creatinine is 1.7. ASSESSMENT AND PLAN: 1. Acute kidney injury on chronic kidney disease stage 3. Renal function has slight bump today. El ectrolytes are stable. 2. Edema, controlled. 3. Azotemia, stable. 4. Hyperkalemia better. 5. Metabolic acidosis, stable. Overall, renal function is stable. Avoid nephrotoxins. Hydration as tolerated.
--- NOTE | 2018-04-07 11:44 | PDOC.CTH ---
<Brook Isaacs - Last Filed: 04/07/18 12:06> Cardiology Progress Note - Subjective EP progress note: patient transferred to CCU over weekend for congestion and fluid retention. Mental status at baseline, dementia. He is generally without complaint but feels weak. He is not interested in any ablation procedures. Denies chest pain/pressure, palpitations, stroke like symptoms. Denies dizziness or passing out. + bloody urine - Objective Vital Signs Temp Pulse Resp BP Pulse Ox 04/07/18 10:00 79 20 100 04/07/18 09:55 79 20 100 04/07/18 08:21 93 20 100 04/07/18 08:00 97.5 F L 93 20 98 04/07/18 07:22 97.5 F L 85 15 104/75 95 04/07/18 07:00 93 20 100 04/07/18 04:00 97.7 F 82 20 108/60 99 04/06/18 23:50 97.5 F L 85 18 120/59 L 96 Admit Weight 187 lb 6.287 oz Weight 202 lb 04/06/18 04/07/18 04/08/18 06:59 06:59 06:59 Intake Total 2543 2036.3 Output Total 2540 1810 Balance 3 226.3 - Physical Examination General/Neuro: NAD, other: (alert.) Neck: no JVD present Lungs: unlabored respirations Abdomen: NT/ND - Telemetry Telemetry Rhythm: A flutter RVR - Labs Result Diagrams: 04/07/18 04:00 04/07/18 04:00 Troponin/CKMB CK-MB (CK-2) 6.2 ng/mL (0-6.6) 03/23/18 22:03 Troponin I 0.337 ng/mL (< 0.028) H* 03/24/18 03:40 - Assessment/Plan 1. Atrial fibrillation and tachycardia with adequate rate control on dilt gtt. We again offered ablation for tomorrow or simply a DONAL/CV. Today he was again insistent against any procedures. 2. Anticoagulation- Eliquis 2.5mg BID for stroke prophylaxis, being held for hematuria. Hgb down 1.7 over weekend 3. Acute respiratory failure- intubation planned 03/26/18, extubated 04/01/18, fluid overload/congestion over weekend prompting transfer to ICU. Seems to be improving with diureses, possibly related to his RVR. 4. Hyperkalemia- resolved 5. Chronic renal failure-per nephrology 6. Septic shock secondary to pneumonia- <Akash Rodas - Last Filed: 04/07/18 15:37> Cardiology Progress Note - Objective Vital Signs Temp Pulse Resp BP Pulse Ox 04/07/18 14:23 89 20 04/07/18 14:10 86 20 04/07/18 12:01 96.5 F L 92 15 125/65 100 04/07/18 10:00 79 20 100 04/07/18 09:55 79 20 100 04/07/18 08:21 93 20 100 04/07/18 08:00 97.5 F L 93 20 98 04/07/18 07:22 97.5 F L 85 15 104/75 95 04/07/18 07:00 93 20 100 04/07/18 04:00 97.7 F 82 20 108/60 99 Admit Weight 187 lb 6.287 oz Weight 202 lb 04/06/18 04/07/18 04/08/18 06:59 06:59 06:59 Intake Total 2543 2036.3 Output Total 2540 1810 Balance 3 226.3 - Labs Result Diagrams: 04/07/18 04:00 04/07/18 04:00 Troponin/CKMB CK-MB (CK-2) 6.2 ng/mL (0-6.6) 03/23/18 22:03 Troponin I 0.337 ng/mL (< 0.028) H* 03/24/18 03:40 Attending Addendum - Attending Addendum Date/Time: 04/07/18 [id number] I personally evaluated the patient and discussed the management with Ms Isaacs. I agree with the History, Examination, Assessment and Plan documented above with any addition or exceptions noted below.
--- NOTE | 2018-04-07 11:58 | PDOC.CTH ---
<Sravanthi Valdez - Last Filed: 04/07/18 11:58> Cardiology Progress Note - Subjective The pt seen and examined. The pt is confused; however, he was able to follow commands and answer questions. He denied any cardiac complaints. - Objective Vital Signs Temp Pulse Resp BP Pulse Ox 04/07/18 10:00 79 20 100 04/07/18 09:55 79 20 100 04/07/18 08:21 93 20 100 04/07/18 08:00 97.5 F L 93 20 98 04/07/18 07:22 97.5 F L 85 15 104/75 95 04/07/18 07:00 93 20 100 04/07/18 04:00 97.7 F 82 20 108/60 99 Admit Weight 187 lb 6.287 oz Weight 202 lb 04/06/18 04/07/18 04/08/18 06:59 06:59 06:59 Intake Total 2543 2036.3 Output Total 2540 1810 Balance 3 226.3 - Physical Examination General/Neuro: other: (oriented to self) Lungs: other: (coarses and diminished at bases) Heart: other: (irregular) Abdomen: soft Extremities: other: (1+ pitting BLE edema) - Telemetry Telemetry Rhythm: AFib 80s - Labs Result Diagrams: 04/07/18 04:00 04/07/18 04:00 Troponin/CKMB CK-MB (CK-2) 6.2 ng/mL (0-6.6) 03/23/18 22:03 Troponin I 0.337 ng/mL (< 0.028) H* 03/24/18 03:40 - Assessment/Plan 1. Afib/AFlutter with RVR - Rate well controlled with Diltiazem 10mg/h; Cont. IV diltiazem at this moment due to NPO 2/2 aspiration; Not any OAC since due to NPO; resume Heparin 5000 units subq BID 2. s/p sepsis and respiratory distress/failure - stable with 3.5L NC. managed by pulmonoligst 3. NAOMI on CKD requiring dialysis - 4. CAD with Hx of CABG x4 in 1999 - Stress test in 07/2017 showed Abnormal wall motion and myocardial thinkening. 5. HTN - stable with current medication 6. DM type 2 - managed by PCP 7. Hyperlipidemia - holding Statin at this moment due to NPO MAR reviewed * Per Dr Rodas, no Ablation until the pt's condition is stable * Echo in 08/2017 (at Dr Salvador' office) showed EF 50-55%, mod-severe LAE, mod- severe TR, and mild-mod MR. * Palliative care consult Review of Systems - Review of Systems Constitutional: reports: no symptoms reported EENTM: reports: no symptoms reported Respiratory: reports: no symptoms reported Cardiac (ROS): reports: no symptoms reported ABD/GI: reports: no symptoms reported : reports: no symptoms reported <Christ Salvador - Last Filed: 04/07/18 17:44> Cardiology Progress Note - Objective Vital Signs Temp Pulse Pulse Pulse Resp BP BP 04/07/18 14:59 95 104 H 138/72 135/74 04/07/18 14:23 89 20 04/07/18 14:10 86 20 04/07/18 12:01 96.5 F L 92 15 04/07/18 10:00 79 20 04/07/18 09:55 79 20 04/07/18 08:21 93 20 04/07/18 08:00 97.5 F L 93 20 04/07/18 07:22 97.5 F L 85 15 04/07/18 07:00 93 20 BP Pulse Ox Pulse Ox Pulse Ox 04/07/18 14:59 100 100 04/07/18 14:23 04/07/18 14:10 04/07/18 12:01 125/65 100 04/07/18 10:00 100 04/07/18 09:55 100 04/07/18 08:21 100 04/07/18 08:00 98 04/07/18 07:22 104/75 95 04/07/18 07:00 100 Admit Weight 187 lb 6.287 oz Weight 202 lb 04/06/18 04/07/18 04/08/18 06:59 06:59 06:59 Intake Total 2543 2036.3 Output Total 2540 1810 Balance 3 226.3 - Labs Result Diagrams: 04/07/18 04:00 04/07/18 04:00 Troponin/CKMB CK-MB (CK-2) 6.2 ng/mL (0-6.6) 03/23/18 22:03 Troponin I 0.337 ng/mL (< 0.028) H* 03/24/18 03:40 - Assessment/Plan Pt. seen and eval. by me. He was sleeping comfortably and did not awaken during the exam. Notes from EP appreciated. Pt. is DNR. We will continue supportive care. I agree with the A/P by the GRAY TENDER.
[2018-04-07] MEDS ORDERED: Heparin 5,000 UNITS/ML VIAL SC SCH (12:30)
[2018-04-07] MEDS: predniSONE 5 MG TAB PO SCH (13:16)
[2018-04-07] MEDS: Famotidine 20 MG TAB PO SCH (13:16)
[2018-04-07] MEDS: Carvedilol 3.125 MG TAB PO SCH ×2 (13:16→17:32)
[2018-04-07] MEDS: NPH, Human Insulin Isophane 300 UNIT/3 ML VIAL SC SCH ×2 (13:16→21:32)
[2018-04-07] MEDS: Fluconazole In NaCl,Iso-Osm 100 MG in Admixture Fee 2 EACH IVPB SCH (14:30)
--- NOTE | 2018-04-07 17:19 | PRG ---
DATE OF SERVICE: 04/07/2018 SUBJECTIVE: Mr. Us's hemodynamics have been stable. He has been back to the Intermediate Care Unit over the weekend. OBJECTIVE: VITAL SIGNS: He is afebrile, heart rates in the 80s, respiratory rate is 20, oximetry is 3 on cannul a, and blood pressure 125/65. GENERAL: He is in no distress. LUNGS: Clear. He is not having excessive retained secretions like he had when he was intubated. HEART: Irregular. He is still in atrial fibrillation. ABDOMEN: Soft. EXTREMITIES: Without asymmetry. Anticipate he will be placed here in the next 24-48 hours. No intervention is planned for his atrial fibrillation, which I feel would be appropriate. LABORATORY DATA: White count is 14.5, hemoglobin 12.3, platelets 125, BUN 73, creatinine 1.72. Crea tinine was 1.59 yesterday. Intake and output positive 226. IMPRESSION: 1. Status post intubation for retained secretions. 2. Atrial fibrillation. 3. Do not resuscitate status. His family is adamant that he never be intubated again and insisted t hat he probably did not want to be intubated the first time. 4. Chronic kidney disease. 5. Status post urgent requirement for dialysis when he was admitted. 6. ? last week. 7. Hypertension. 8. Transient thrombocytopenia, not felt to be related to his anticoagulants. Platelet count may be trending down with subcutaneous heparin, still have to be monitored closely. N o acute pulmonary issues. He is stable to move out of Intermediate Care Unit.
[2018-04-07] MEDS: Heparin 5,000 UNITS/ML VIAL SC SCH (21:27)
[2018-04-08] MEDS: Piperacillin/Tazobactam 2.25 GM in Sodium Chloride 0.9% 100 ML IVPB SCH ×4 (00:57→18:14)
[2018-04-08] MEDS: Dextrose 5% in Water 1,000 ML IV SCH ×2 (00:58→10:47)
[2018-04-08] MEDS: Diltiazem HCl 125 MG, Admixture Fee 1 EACH in Sodium Chloride 0.9% 100 ML IVPB SCH (01:26)
[2018-04-08 06:07] LABS: Anion Gap 9 mmol/L (10-20); BUN (Urea Nitrogen) 60 mg/dL (8.4-25.7); Calc. Creatinine Clearance 47 mL/min (70-130); Calcium 7.9 mg/dL (7.8-10.44); Carbon Dioxide 26 mmol/L (23-31); Chloride 109 mmol/L (98-107); Estimated GFR-MDRD 43; Glucose 229 mg/dL (83-110); Potassium 3.9 mmol/L (3.5-5.1); Sodium 140 mmol/L (136-145)
[2018-04-08 07:06] LABS: Hemoglobin 11.6 g/dL (14.0-18.0); Mean Corpuscular Hemoglobin 28.3 pg (27.0-31.0); Mean Corpuscular Volume 85.7 fL (78.0-98.0); Mean Platelet Volume 8.3 fL (7.4-10.4); Platelet Count 137 thou/uL (130-400); RBC Distribution Width 16.8 % (11.5-14.5); Red Blood Cell (RBC) Count 4.09 mill/uL (4.70-6.10)
[2018-04-08 09:16] LABS: Band 2 % (5-11); Eosinophils 2 % (0-10); Lymphocytes 4 % (21-51); MDiff Complete? YES; Monocytes 7 % (0-10); Neutrophil 85 % (42-75); RBC Morphology Normal
--- NOTE | 2018-04-08 10:20 | PRG ---
Patient Name: TOBIAS HARO Date of service: 04/08/2018 Subjective: Patient was seen and examined at bedside and overnight events noted. Patient denies any shortness of breath or chest pain or palpitation. No history of nausea or vomiting or diarrhea or fever or chills or cramps. Objective: General: This is an elderly male in no apparent distress. Vital signs: Temperature 98.3, pulse 90, respiratory rate 18, blood pressure 147/76. HEENT: Atraumatic, normocephalic. Oral mucosa is moist. Neck: Supple. Cardiovascular: S1 S2 heard. Rate and rhythm regular. Respiratory: Clear to auscultation. Gastrointestinal: Abdomen is soft. Musculoskeletal: No tenderness. No edema. Dermatologic: No skin rash. Neurologic: Alert and awake and oriented X3. No focal neurologic deficits. Moving all the extremit ies. Psychiatric: Mood and affect normal. LABORATORY DATA: Potassium 3.9, BUN 60, creatinine is 1.1. ASSESSMENT AND PLAN: 1. Acute kidney injury on chronic kidney disease stage 3, stable renal function. Avoid nephrotoxins . 2. Edema. 3. Azotemia, better. 4. Hyperkalemia. 5. Metabolic acidosis. Labs are stable. Renal function close to baseline. I will sign off. Please call back with any ques tions.
[2018-04-08] MEDS: Fluconazole In NaCl,Iso-Osm 100 MG in Admixture Fee 2 EACH IVPB SCH (10:47)
[2018-04-08] MEDS: Heparin 5,000 UNITS/ML VIAL SC SCH ×2 (10:48→21:23)
[2018-04-08] MEDS: Carvedilol 3.125 MG TAB PO SCH ×2 (10:48→18:14)
[2018-04-08] MEDS: Famotidine 20 MG TAB PO SCH (10:48)
[2018-04-08] MEDS: predniSONE 5 MG TAB PO SCH (10:48)
[2018-04-08] MEDS: NPH, Human Insulin Isophane 300 UNIT/3 ML VIAL SC SCH ×2 (10:49→21:24)
--- NOTE | 2018-04-08 11:31 | PDOC.PN ---
- Subjective Encounter Start Date: 04/08/18 Encounter Start Time: 09:30 Patient seen and examined. No new complaints. No overnight events - Objective Resuscitation Status: Resuscitation Status DNR:Do Not Resuscitate MAR Reviewed: Yes Vital Signs & Weight: Vital Signs (12 hours) Temp Pulse Resp BP Pulse Ox 04/08/18 11:11 96.8 F L 89 22 H 119/69 96 04/08/18 10:28 95 14 04/08/18 10:19 86 14 04/08/18 08:00 96.8 F L 93 20 95 04/08/18 07:42 96.8 F L 93 20 147/76 H 97 04/08/18 06:43 123 H 20 04/08/18 04:03 97.4 F L 97 21 H 121/67 95 04/08/18 00:00 97.2 F L 96 19 139/89 100 Weight Admit Weight 187 lb 6.287 oz Weight 204 lb Most Recent Monitor Data Heart Rate from ECG 93 NIBP 136/72 NIBP BP-Mean 105 Respiration from ECG 13 SpO2 100 I&O: 04/07/18 04/08/18 04/09/18 06:59 06:59 06:59 Intake Total 2036.3 1230 Output Total 1810 1500 Balance 226.3 -270 Result Diagrams: 04/08/18 05:10 04/08/18 05:10 Additional Labs: Accuchecks 04/08/18 04/08/18 04/07/18 10:31 06:23 20:07 POC Glucose 193 H 187 H 271 H 04/07/18 04/06/18 16:25 21:12 POC Glucose 191 H 267 H EKG Reviewed by me: Yes (afib) Phys Exam - Physical Examination Constitutional: NAD HEENT: PERRLA, moist MMs, sclera anicteric Neck: no JVD, supple coarse sound Cardiovascular: no significant murmur, irregular Gastrointestinal: soft, non-tender, no distention, positive bowel sounds Musculoskeletal: no edema, pulses present Neurological: non-focal Lymphatic: no nodes Psychiatric: normal affect Skin: no rash, normal turgor Dx/Plan (1) Acute respiratory failure with hypoxia Code(s): J96.01 - ACUTE RESPIRATORY FAILURE WITH HYPOXIA Status: Resolved (2) Pneumonia Code(s): J18.9 - PNEUMONIA, UNSPECIFIED ORGANISM Status: Acute Qualifiers: Pneumonia type: aspiration pneumonia (3) Acute worsening of stage 3 chronic kidney disease Code(s): N18.3 - CHRONIC KIDNEY DISEASE, STAGE 3 (MODERATE) Status: Acute (4) Atrial fibrillation with RVR Code(s): I48.91 - UNSPECIFIED ATRIAL FIBRILLATION Status: Acute Comment: (5) COPD exacerbation Code(s): J44.1 - CHRONIC OBSTRUCTIVE PULMONARY DISEASE W (ACUTE) EXACERBATION Status: Acute (6) Demand ischemia of myocardium Code(s): I24.8 - OTHER FORMS OF ACUTE ISCHEMIC HEART DISEASE Status: Acute (7) Sepsis with acute organ dysfunction Code(s): A41.9 - SEPSIS, UNSPECIFIED ORGANISM; R65.20 - SEVERE SEPSIS WITHOUT SEPTIC SHOCK Status: Acute (8) Thrombocytopenia Code(s): D69.6 - THROMBOCYTOPENIA, UNSPECIFIED Status: Acute (9) Anxiety and depression Code(s): F41.9 - ANXIETY DISORDER, UNSPECIFIED; F32.9 - MAJOR DEPRESSIVE DISORDER, SINGLE EPISODE, UNSPECIFIED Status: Chronic (10) CAD (coronary artery disease) Code(s): I25.10 - ATHSCL HEART DISEASE OF [place] CORONARY ARTERY W/O ANG PCTRS Status: Chronic (11) DJD (degenerative joint disease) Code(s): M19.90 - UNSPECIFIED OSTEOARTHRITIS, UNSPECIFIED SITE Status: Chronic Comment: stable (12) DM2 (diabetes mellitus, type 2) Status: Chronic Comment: (13) Dyslipidemia Code(s): E78.5 - HYPERLIPIDEMIA, UNSPECIFIED Status: Chronic Comment: (14) GERD (gastroesophageal reflux disease) Code(s): K21.9 - GASTRO-ESOPHAGEAL REFLUX DISEASE WITHOUT ESOPHAGITIS Status: Chronic Comment: stable (15) HTN (hypertension) Code(s): I10 - ESSENTIAL (PRIMARY) HYPERTENSION Status: Chronic Comment: (16) PVD (peripheral vascular disease) Code(s): I73.9 - PERIPHERAL VASCULAR DISEASE, UNSPECIFIED Status: Chronic Comment: (17) Difficulty clearing secretions Code(s): [id number] - Status: Acute - Plan cont current plan of care, plan discussed w/ family, continue antibiotics, social service worker * wean off cardizem drip today * added oral cardizem * spoke with family, will try to arrange hospice at half-way * medication reviewed as below * symptomatic treatment. * on pleasure feed Review of Systems - Review of Systems Other: not reliable with pt due to his level of cognitive status - Medications/Allergies Allergies/Adverse Reactions: Allergies Allergy/AdvReac Type Severity Reaction Status Date / Time No Known Allergies Allergy Verified 03/24/18 01:53 Medications: Current Medications Acetaminophen (Tylenol) 650 mg PO Q4H PRN PRN Reason: Headache/Fever or Pain Al Hydroxide/Mg Hydroxide (Maalox) 15 ml PO Q4H PRN PRN Reason: Heartburn or Indigestion Albuterol/Ipratropium (Duoneb) 3 ml NEB [id number] Last Admin: 04/08/18 10:19 Dose: 3 ml Artificial Tears (Tears Naturale) 0 drop EA EYE PRN PRN PRN Reason: Dry Eyes Bisacodyl (Dulcolax) 10 mg NM DAILYPRN PRN PRN Reason: Constipation Last Admin: 03/30/18 16:42 Dose: 10 mg Carvedilol (Coreg) 3.125 mg PO BID-[facility] Last Admin: 04/08/18 10:48 Dose: 3.125 mg Dextrose/Water (Dextrose 50%) 25 gm SLOW IVP PRN PRN PRN Reason: Hypoglycemia Last Admin: 04/05/18 16:46 Dose: 12.5 gm Diltiazem HCl (Cardizem) 30 mg PO [facility] Famotidine (Pepcid) 20 mg PO DAILY [facility] Last Admin: 04/08/18 10:48 Dose: 20 mg Glucagon (Glucagon) 1 mg IM PRN PRN PRN Reason: Hypoglycemia Guaifenesin (Robitussin Sf) 200 mg PO Q4H PRN PRN Reason: Cough Heparin Sodium (Porcine) (Heparin) 5,000 units SC BID [facility] Last Admin: 04/08/18 10:48 Dose: 5,000 units Hydralazine HCl (Apresoline) 10 mg SLOW IVP Q4H PRN PRN Reason: Systolic BP > 180 Dextrose/Water (D5w) 1,000 mls @ 0 mls/hr IV .Q0M PRN; As Directed PRN Reason: Hypoglycemia Diltiazem HCl 125 mg/Miscellaneous Medication 1 each/ Sodium Chloride 125 mls @ 10 mls/hr IVPB INF [facility] PRN Reason: Protocol Last Admin: 04/08/18 01:26 Dose: 125 mls Fluconazole/Sodium Chloride 100 mg/ Miscellaneous Medication 50 mls @ 100 mls/ hr IVPB DAILY [facility] Last Admin: 04/08/18 10:47 Dose: 50 mls Piperacillin Sod/Tazobactam (Sod 2.25 gm/ Sodium Chloride) 100 mls @ 200 mls/ hr IVPB Q6HR [facility] Last Admin: 04/08/18 05:11 Dose: 100 mls Dextrose/Water (D5w) 1,000 mls @ 100 mls/hr IV .Q10H [facility] Last Admin: 04/08/18 10:47 Dose: 1,000 mls Insulin Human Lispro (Humalog) 0 units SC .AGGRESSIVE SLIDING PRN PRN Reason: Aggressive Correctional Scale Last Admin: 04/03/18 13:51 Dose: 3 unit Insulin Human NPH (Humulin N) 20 unit SC Q12HR [facility] Last Admin: 04/08/18 10:49 Dose: 20 unit Lactulose (Lactulose) 20 gm PO DAILY [facility] Last Admin: 04/08/18 10:48 Dose: 20 gm Loperamide HCl (Imodium) 2 mg PO PRN PRN PRN Reason: Diarrhea/Loose Stools Loratadine (Claritin) 10 mg PO DAILYPRN PRN PRN Reason: Sinus Symptoms Mineral Oil/White Petrolatum (Eucerin Cream) 0 gm TOP BIDPRN PRN PRN Reason: Dry Skin Ondansetron HCl (Zofran Odt) 4 mg PO Q6H PRN PRN Reason: Nausea/Vomiting Ondansetron HCl (Zofran) 4 mg IVP Q6H PRN PRN Reason: Nausea/Vomiting Phenol (Chloraseptic [place] 180 Ml Bot) 0 ml PO PRN PRN PRN Reason: Sore Throat Prednisone (Prednisone) 10 mg PO QAM-WM [facility] Last Admin: 04/08/18 10:48 Dose: 10 mg Scopolamine (Transderm Scop) 1.5 mg TD Q3D [facility] Last Admin: 04/06/18 11:19 Dose: 1.5 mg Senna (Senokot) 2 tab PO HSPRN PRN PRN Reason: Constipation Sodium Chloride (Flush - Normal Saline) 10 ml IVF Q12HR [facility] Last Admin: 04/08/18 10:49 Dose: Not Given Sodium Chloride (Flush - Normal Saline) 10 ml IVF PRN PRN PRN Reason: Saline Flush Last Admin: 04/03/18 03:03 Dose: 10 ml Sodium Chloride ([place] Nasal [place] 0.65%) 0 ml EA NARE QIDPRN PRN PRN Reason: Nasal Congestion
--- NOTE | 2018-04-08 14:15 | PDOC.CTH ---
<Sravanthi Valdez - Last Filed: 04/08/18 14:13> Cardiology Progress Note - Subjective The pt seen and examined. No overnight events. No cardiac complaints. Still confused. - Objective Vital Signs Temp Pulse Resp BP Pulse Ox 04/08/18 14:02 81 14 04/08/18 11:11 96.8 F L 89 22 H 119/69 96 04/08/18 10:28 95 14 04/08/18 10:19 86 14 04/08/18 08:00 96.8 F L 93 20 95 04/08/18 07:42 96.8 F L 93 20 147/76 H 97 04/08/18 06:43 123 H 20 04/08/18 04:03 97.4 F L 97 21 H 121/67 95 Admit Weight 187 lb 6.287 oz Weight 204 lb 04/07/18 04/08/18 04/09/18 06:59 06:59 06:59 Intake Total 2036.3 1230 Output Total 1810 1500 Balance 226.3 -270 - Physical Examination General/Neuro: other: (oriented to name) Lungs: other: (coarses and diminished at bases) Heart: other: (irregular) Abdomen: soft Extremities: other: (1-2+ pitting Bilat ankles) - Telemetry Telemetry Rhythm: AFib/Aflutter 80s - Labs Result Diagrams: 04/08/18 05:10 04/08/18 05:10 Troponin/CKMB CK-MB (CK-2) 6.2 ng/mL (0-6.6) 03/23/18 22:03 Troponin I 0.337 ng/mL (< 0.028) H* 03/24/18 03:40 - Assessment/Plan 1. Afib/AFlutter with RVR - Rate well controlled with Diltiazem 2.5 mg/h; will start Diltiazem PO 60mg QID from this PM and possible D/c IV diltiazem; on Heparin 5000 units subq BID 2. s/p sepsis and respiratory distress/failure - stable with 3.5L NC. managed by pulmonoligst 3. NAOMI on CKD requiring dialysis - stable 4. CAD with Hx of CABG x4 in 1999 - Stress test in 07/2017 showed Abnormal wall motion and myocardial thickening. 5. HTN - stable with current medication 6. DM type 2 - managed by PCP 7. Hyperlipidemia - Alok resume Statin when the pt is stable MAR reviewed * Per Dr Rodas, no Ablation until the pt's condition is stable * Echo in 08/2017 (at Dr Salvador' office) showed EF 50-55%, mod-severe LAE, mod- severe TR, and mild-mod MR. * Palliative care consult Review of Systems - Review of Systems Constitutional: reports: see HPI EENTM: reports: see HPI Respiratory: reports: see HPI Cardiac (ROS): reports: see HPI ABD/GI: reports: see HPI : reports: see HPI Musculoskeletal: reports: see HPI Skin: reports: see HPI <Christ Salvador - Last Filed: 04/08/18 18:09> Cardiology Progress Note - Objective Vital Signs Temp Pulse Resp BP Pulse Ox 04/08/18 15:25 97.2 F L 89 18 120/70 92 L 04/08/18 14:18 91 16 04/08/18 14:02 81 14 04/08/18 11:11 96.8 F L 89 22 H 119/69 96 04/08/18 10:28 95 14 04/08/18 10:19 86 14 04/08/18 08:00 96.8 F L 93 20 95 04/08/18 07:42 96.8 F L 93 20 147/76 H 97 04/08/18 06:43 123 H 20 Admit Weight 187 lb 6.287 oz Weight 204 lb 04/07/18 04/08/18 04/09/18 06:59 06:59 06:59 Intake Total 2036.3 1230 Output Total 1810 1500 Balance 226.3 -270 - Labs Result Diagrams: 04/08/18 05:10 04/08/18 05:10 Troponin/CKMB CK-MB (CK-2) 6.2 ng/mL (0-6.6) 03/23/18 22:03 Troponin I 0.337 ng/mL (< 0.028) H* 03/24/18 03:40 - Assessment/Plan Pt. seen and eval. I agree with the A/P by the SEMICONDUCTOR DEVELOPMENT TECHNICIAN. He has edema from the feet to the groin bilat. Scrotal edema is present. he appears to have intravasc. vol. depletion with third spacing. With the chronic renal insufficiency diuresis is a problem. Continue rate control for the fib/flutter. Chest clear. Tachycardia. 2+ edema to groin.
--- NOTE | 2018-04-08 15:24 | PDOC.CTH ---
<FernandonoemyBrook bai - Last Filed: 04/08/18 15:22> Cardiology Progress Note - Subjective EP progress note: No change overnight. Remains weak and in favor of comfort care/hospice. No cardiac concerns or complaints today - Objective Vital Signs Temp Pulse Resp BP Pulse Ox 04/08/18 14:18 91 16 04/08/18 14:02 81 14 04/08/18 11:11 96.8 F L 89 22 H 119/69 96 04/08/18 10:28 95 14 04/08/18 10:19 86 14 04/08/18 08:00 96.8 F L 93 20 95 04/08/18 07:42 96.8 F L 93 20 147/76 H 97 04/08/18 06:43 123 H 20 04/08/18 04:03 97.4 F L 97 21 H 121/67 95 Admit Weight 187 lb 6.287 oz Weight 204 lb 04/07/18 04/08/18 04/09/18 06:59 06:59 06:59 Intake Total 2036.3 1230 Output Total 1810 1500 Balance 226.3 -270 - Physical Examination General/Neuro: NAD Neck: no JVD present Lungs: unlabored respirations Abdomen: NT/ND - Telemetry Telemetry Rhythm: A flutter - Labs Result Diagrams: 04/08/18 05:10 04/08/18 05:10 Troponin/CKMB CK-MB (CK-2) 6.2 ng/mL (0-6.6) 03/23/18 22:03 Troponin I 0.337 ng/mL (< 0.028) H* 03/24/18 03:40 - Assessment/Plan 1. Atrial fibrillation and tachycardia with adequate rate control on dilt gtt. 2. Anticoagulation- hematuria after Eliquis started. 3. Acute respiratory failure- intubation planned 03/26/18, extubated 04/01/18, fluid overload/congestion over weekend prompting transfer to ICU. Seems to be improving with diureses, possibly related to his RVR. 4. Hyperkalemia- resolved 5. Chronic renal failure-per nephrology 6. Septic shock secondary to pneumonia Palliative care involved. Transitioning towards comfort care. Recommend continued PO CCB for rate control to prevent CHF secondary to RVR. Signing off. <Akash Rodas - Last Filed: 04/09/18 17:37> Cardiology Progress Note - Objective Vital Signs Temp Pulse Pulse Pulse Resp BP BP 04/09/18 14:38 110 H 20 04/09/18 10:50 125 H 71 138/91 H 148/91 H 04/09/18 10:15 124 H 20 04/09/18 08:00 97.8 F 124 H 20 04/09/18 07:56 97.8 F 117 H 20 04/09/18 07:04 04/09/18 07:02 123 H 20 04/09/18 07:00 123 H 20 BP Pulse Ox Pulse Ox Pulse Ox Pulse Ox 04/09/18 14:38 04/09/18 10:50 100 85 L 91 L 04/09/18 10:15 99 04/09/18 08:00 96 04/09/18 07:56 144/84 H 95 04/09/18 07:04 94 L 04/09/18 07:02 94 L 04/09/18 07:00 94 L Admit Weight 187 lb 6.287 oz Weight 201 lb 1.6 oz 04/08/18 04/09/18 04/10/18 06:59 06:59 06:59 Intake Total 1230 650 Output Total 1500 1625 Balance -270 -015 - Labs Result Diagrams: 04/09/18 05:02 04/09/18 05:02 Troponin/CKMB CK-MB (CK-2) 6.2 ng/mL (0-6.6) 03/23/18 22:03 Troponin I 0.337 ng/mL (< 0.028) H* 03/24/18 03:40 Attending Addendum - Attending Addendum Date/Time: 04/09/18 2186 I personally evaluated the patient and discussed the management with Ms Isaacs.. I agree with the History, Examination, Assessment and Plan documented above with any addition or exceptions noted below. Iv dilt succesfully weaned. On PO Dilt regimen. Plan for likely hospice. Discussed with Dr Webb.
--- NOTE | 2018-04-08 16:08 | PRG ---
DATE OF SERVICE: 04/08/2018 SUBJECTIVE: Darrell Us is in no distress. He is still on a Cardizem drip. We stopped this and i ncreased his p.o. Cardizem. We are working on placement at this time. OBJECTIVE: VITAL SIGNS: He is afebrile, heart rate 81, respiratory rate 14, oximetry is 96, blood pressure 119/ 69. LUNGS: Clear. HEART: Regular rhythm. ABDOMEN: Soft. He is actually controlling his secretions well at this time. LABORATORY DATA: White count is 14, hemoglobin 11.6, platelets 137,000. Sodium 140, potassium 3.9, chloride 109, bicarbonate 26, BUN 60, creatinine 1.55. Creatinine lowest has been since he has been in the hospital. IMPRESSION: 1. Status post mechanical ventilation with respiratory failure secondary to retained secretions. 2. Renal failure with transient need for dialysis. 3. Extreme deconditioning. 4. Atrial flutter, it is rate controlled. PLAN: Continue supportive care with placement. He remains a DO NOT RESUSCITATE patient. Appears cl inically stable for transfer.
[2018-04-09] MEDS ORDERED: Heparin 10,000 UNITS/ 10 ML VIAL CATH SCH (00:15)
[2018-04-09] MEDS: Piperacillin/Tazobactam 2.25 GM in Sodium Chloride 0.9% 100 ML IVPB SCH ×2 (00:29→06:09)
[2018-04-09] MEDS: Dextrose 5% in Water 1,000 ML IV SCH (02:21)
[2018-04-09 05:21] LABS: Anion Gap 10 mmol/L (10-20); BUN (Urea Nitrogen) 50 mg/dL (8.4-25.7); Calc. Creatinine Clearance 51 mL/min (70-130); Calcium 7.9 mg/dL (7.8-10.44); Carbon Dioxide 27 mmol/L (23-31); Chloride 106 mmol/L (98-107); Estimated GFR-MDRD 46; Glucose 163 mg/dL (83-110); Potassium 4.1 mmol/L (3.5-5.1); Sodium 139 mmol/L (136-145)
[2018-04-09 06:18] LABS: Band 2 % (5-11); Eosinophils 1 % (0-10); Hemoglobin 11.5 g/dL (14.0-18.0); Lymphocytes 5 % (21-51); MDiff Complete? YES; Mean Corpuscular HGB CONC 31.6 g/dL (32.0-36.0); Mean Corpuscular Hemoglobin 27.2 pg (27.0-31.0); Mean Corpuscular Volume 86.1 fL (78.0-98.0); Mean Platelet Volume 8.3 fL (7.4-10.4); Monocytes 6 % (0-10); Neutrophil 86 % (42-75); Platelet Count 149 thou/uL (130-400); Red Blood Cell (RBC) Count 4.24 mill/uL (4.70-6.10); White Blood Cell (WBC) Count 13.9 thou/uL (4.8-10.8)
[2018-04-09] MEDS: Fluconazole In NaCl,Iso-Osm 100 MG in Admixture Fee 2 EACH IVPB SCH (09:32)
[2018-04-09] MEDS: predniSONE 5 MG TAB PO SCH (09:32)
[2018-04-09] MEDS: Famotidine 20 MG TAB PO SCH (09:32)
[2018-04-09] MEDS: Carvedilol 3.125 MG TAB PO SCH (09:32)
[2018-04-09] MEDS: Heparin 5,000 UNITS/ML VIAL SC SCH ×2 (09:33→22:48)
[2018-04-09] MEDS: NPH, Human Insulin Isophane 300 UNIT/3 ML VIAL SC SCH ×2 (09:33→22:49)
--- NOTE | 2018-04-09 10:43 | PDOC.PN ---
- Subjective Encounter Start Date: 04/09/18 Encounter Start Time: 08:30 Patient seen and examined. No new complaints. No overnight events pt is comfortable - Objective Resuscitation Status: Resuscitation Status DNR:Do Not Resuscitate MAR Reviewed: Yes Vital Signs & Weight: Vital Signs (12 hours) Temp Pulse Resp BP Pulse Ox 04/09/18 10:15 124 H 20 99 04/09/18 07:56 97.8 F 117 H 20 144/84 H 95 04/09/18 07:04 94 L 04/09/18 07:02 123 H 20 94 L 04/09/18 07:00 123 H 20 94 L 04/09/18 04:00 97.8 F 93 20 134/90 98 04/09/18 00:45 97.6 F 73 22 H 150/84 H 92 L 04/08/18 23:00 97.6 F 73 22 H 98 Weight Admit Weight 187 lb 6.287 oz Weight 201 lb 1.6 oz Most Recent Monitor Data Heart Rate from ECG 93 NIBP 136/72 NIBP BP-Mean 105 Respiration from ECG 13 SpO2 100 I&O: 04/08/18 04/09/18 04/10/18 06:59 06:59 06:59 Intake Total 1230 650 Output Total 1500 1625 Balance -270 -975 Result Diagrams: 04/09/18 05:02 04/09/18 05:02 Additional Labs: Accuchecks 04/09/18 04/08/18 04/08/18 06:45 20:45 16:36 POC Glucose 123 H 328 H 188 H 04/08/18 10:31 POC Glucose 193 H Phys Exam - Physical Examination Constitutional: NAD HEENT: PERRLA, moist MMs, sclera anicteric Neck: no JVD, supple Respiratory: no wheezing, no rales, no rhonchi Cardiovascular: no significant murmur, irregular Gastrointestinal: soft, non-tender, no distention, positive bowel sounds Musculoskeletal: no edema, pulses present Neurological: moves all 4 limbs Lymphatic: no nodes Psychiatric: normal affect Skin: no rash, normal turgor Dx/Plan (1) Acute respiratory failure with hypoxia Code(s): J96.01 - ACUTE RESPIRATORY FAILURE WITH HYPOXIA Status: Resolved (2) Pneumonia Code(s): J18.9 - PNEUMONIA, UNSPECIFIED ORGANISM Status: Acute Qualifiers: Pneumonia type: aspiration pneumonia (3) Acute worsening of stage 3 chronic kidney disease Code(s): N18.3 - CHRONIC KIDNEY DISEASE, STAGE 3 (MODERATE) Status: Acute (4) Atrial fibrillation with RVR Code(s): I48.91 - UNSPECIFIED ATRIAL FIBRILLATION Status: Acute Comment: (5) COPD exacerbation Code(s): J44.1 - CHRONIC OBSTRUCTIVE PULMONARY DISEASE W (ACUTE) EXACERBATION Status: Acute (6) Demand ischemia of myocardium Code(s): I24.8 - OTHER FORMS OF ACUTE ISCHEMIC HEART DISEASE Status: Acute (7) Sepsis with acute organ dysfunction Code(s): A41.9 - SEPSIS, UNSPECIFIED ORGANISM; R65.20 - SEVERE SEPSIS WITHOUT SEPTIC SHOCK Status: Acute (8) Thrombocytopenia Code(s): D69.6 - THROMBOCYTOPENIA, UNSPECIFIED Status: Acute (9) Anxiety and depression Code(s): F41.9 - ANXIETY DISORDER, UNSPECIFIED; F32.9 - MAJOR DEPRESSIVE DISORDER, SINGLE EPISODE, UNSPECIFIED Status: Chronic (10) CAD (coronary artery disease) Code(s): I25.10 - ATHSCL HEART DISEASE OF [place] CORONARY ARTERY W/O ANG PCTRS Status: Chronic (11) DJD (degenerative joint disease) Code(s): M19.90 - UNSPECIFIED OSTEOARTHRITIS, UNSPECIFIED SITE Status: Chronic Comment: stable (12) DM2 (diabetes mellitus, type 2) Status: Chronic Comment: (13) Dyslipidemia Code(s): E78.5 - HYPERLIPIDEMIA, UNSPECIFIED Status: Chronic Comment: (14) GERD (gastroesophageal reflux disease) Code(s): K21.9 - GASTRO-ESOPHAGEAL REFLUX DISEASE WITHOUT ESOPHAGITIS Status: Chronic Comment: stable (15) HTN (hypertension) Code(s): I10 - ESSENTIAL (PRIMARY) HYPERTENSION Status: Chronic Comment: (16) PVD (peripheral vascular disease) Code(s): I73.9 - PERIPHERAL VASCULAR DISEASE, UNSPECIFIED Status: Chronic Comment: (17) Difficulty clearing secretions Code(s): [id number] - Status: Acute - Plan cont current plan of care, continue antibiotics, social group worker * DC zosyn * start agumentin * change diflucan PO. * DC prednisone * continue oral cardizem * now movement towards comfort care, pleasure feed, and hospice at skilled nursing , case preparer and liner notified to arrange * medication reviewed as below * symptomatic treatment * prognosis is poor Review of Systems - Review of Systems Other: alert but not reliable due to his level of cognitive status - Medications/Allergies Allergies/Adverse Reactions: Allergies Allergy/AdvReac Type Severity Reaction Status Date / Time No Known Allergies Allergy Verified 03/24/18 01:53 Medications: Current Medications Acetaminophen (Tylenol) 650 mg PO Q4H PRN PRN Reason: Headache/Fever or Pain Al Hydroxide/Mg Hydroxide (Maalox) 15 ml PO Q4H PRN PRN Reason: Heartburn or Indigestion Albuterol/Ipratropium (Duoneb) 3 ml NEB [id number] SCH Last Admin: 04/09/18 10:15 Dose: 3 ml Artificial Tears (Tears Naturale) 0 drop EA EYE PRN PRN PRN Reason: Dry Eyes Bisacodyl (Dulcolax) 10 mg [place] DAILYPRN PRN PRN Reason: Constipation Last Admin: 03/30/18 16:42 Dose: 10 mg Carvedilol (Coreg) 3.125 mg PO BID-[facility] Last Admin: 04/09/18 09:32 Dose: 3.125 mg Dextrose/Water (Dextrose 50%) 25 gm SLOW IVP PRN PRN PRN Reason: Hypoglycemia Last Admin: 04/05/18 16:46 Dose: 12.5 gm Diltiazem HCl (Cardizem) 60 mg PO [facility] Last Admin: 04/09/18 06:21 Dose: 60 mg Famotidine (Pepcid) 20 mg PO DAILY COUNT [facility]CLUD[facility] Last Admin: 04/09/18 09:32 Dose: 20 mg Glucagon (Glucagon) 1 mg IM PRN PRN PRN Reason: Hypoglycemia Guaifenesin (Robitussin Sf) 200 mg PO Q4H PRN PRN Reason: Cough Heparin Sodium (Porcine) (Heparin) 5,000 units SC BID COUNT INCLUDES [facility] Last Admin: 04/09/18 09:33 Dose: 5,000 units Heparin Sodium (Porcine) (Heparin 1,000 Units/Ml (10 Ml)) 1,800 units CATH 0015 COUNT INCLUDES [facility] Stop: 04/10/18 00:16 Last Admin: 04/09/18 00:29 Dose: 1.8 ml Hydralazine HCl (Apresoline) 10 mg SLOW IVP Q4H PRN PRN Reason: Systolic BP > 180 Dextrose/Water (D5w) 1,000 mls @ 0 mls/hr IV .Q0M PRN; As Directed PRN Reason: Hypoglycemia Diltiazem HCl 125 mg/Miscellaneous Medication 1 each/ Sodium Chloride 125 mls @ 10 mls/hr IVPB INF [facility] PRN Reason: Protocol Last Admin: 04/08/18 01:26 Dose: 125 mls Fluconazole/Sodium Chloride 100 mg/ Miscellaneous Medication 50 mls @ 100 mls/ hr IVPB DAILY COUNT INCLUDES [facility] Last Admin: 04/09/18 09:32 Dose: 50 mls Piperacillin Sod/Tazobactam (Sod 2.25 gm/ Sodium Chloride) 100 mls @ 200 mls/ hr IVPB Q6HR COUNT [facility]CLUDES [facility] Last Admin: 04/09/18 06:09 Dose: 100 mls Insulin Human Lispro (Humalog) 0 units SC .AGGRESSIVE SLIDING PRN PRN Reason: Aggressive Correctional Scale Last Admin: 04/03/18 13:51 Dose: 3 unit Insulin Human NPH (Humulin N) 20 unit SC Q12HR COUNT [facility]CLUD[facility] Last Admin: 04/09/18 09:33 Dose: 20 unit Lactulose (Lactulose) 20 gm PO DAILY COUNT [facility]CLUD[facility] Last Admin: 04/09/18 09:32 Dose: 20 gm Loperamide HCl (Imodium) 2 mg PO PRN PRN PRN Reason: Diarrhea/Loose Stools Loratadine (Claritin) 10 mg PO DAILYPRN PRN PRN Reason: Sinus Symptoms Mineral Oil/White Petrolatum (Eucerin Cream) 0 gm TOP BIDPRN PRN PRN Reason: Dry Skin Ondansetron HCl (Zofran Odt) 4 mg PO Q6H PRN PRN Reason: Nausea/Vomiting Ondansetron HCl (Zofran) 4 mg IVP Q6H PRN PRN Reason: Nausea/Vomiting Phenol (Chloraseptic [place] 180 Ml Bot) 0 ml PO PRN PRN PRN Reason: Sore Throat Prednisone (Prednisone) 10 mg PO QAM-[facility] Last Admin: 04/09/18 09:32 Dose: 10 mg Scopolamine (Transderm Scop) 1.5 mg TD Q3D COUNT INCLUDES [facility] Last Admin: 04/06/18 11:19 Dose: 1.5 mg Senna (Senokot) 2 tab PO HSPRN PRN PRN Reason: Constipation Sodium Chloride (Flush - Normal Saline) 10 ml IVF Q12HR [facility] Last Admin: 04/09/18 09:34 Dose: 10 ml Sodium Chloride (Flush - Normal Saline) 10 ml IVF PRN PRN PRN Reason: Saline Flush Last Admin: 04/03/18 03:03 Dose: 10 ml Sodium Chloride ([place] Nasal [place] 0.65%) 0 ml EA NARE QIDPRN PRN PRN Reason: Nasal Congestion
[2018-04-09] MEDS: Scopolamine 1.5 mg/72 hour Patch TD SCH (12:00)
[2018-04-09] MEDS: HumaLOG 300 UNITS/3 ML VIAL SC PRN (12:02)
[2018-04-09 12:22] VITALS: BMI 28.0
--- NOTE | 2018-04-09 15:45 | PDOC.CTH ---
<Sravanthi Valdez - Last Filed: 04/09/18 15:42> Cardiology Progress Note - Subjective The pt seen and examined. No overnight events. No cardiac complaints. He is alerted and oriented x 3. He complains of weakness, but no other complaints. He would like to go home. - Objective Vital Signs Temp Pulse Pulse Pulse Resp BP BP 04/09/18 14:38 110 H 20 04/09/18 10:50 125 H 71 138/91 H 148/91 H 04/09/18 10:15 124 H 20 04/09/18 08:00 97.8 F 124 H 20 04/09/18 07:56 97.8 F 117 H 20 04/09/18 07:04 04/09/18 07:02 123 H 20 04/09/18 07:00 123 H 20 04/09/18 04:00 97.8 F 93 20 BP Pulse Ox Pulse Ox Pulse Ox Pulse Ox 04/09/18 14:38 04/09/18 10:50 100 85 L 91 L 04/09/18 10:15 99 04/09/18 08:00 96 04/09/18 07:56 144/84 H 95 04/09/18 07:04 94 L 04/09/18 07:02 94 L 04/09/18 07:00 94 L 04/09/18 04:00 134/90 98 Admit Weight 187 lb 6.287 oz Weight 201 lb 1.6 oz 04/08/18 04/09/18 04/10/18 06:59 06:59 06:59 Intake Total 1230 650 Output Total 1500 1625 Balance -270 -975 - Physical Examination General/Neuro: alert & oriented x3 Neck: no JVD present Lungs: other: (diminished at bases) Heart: other: (irregular) Abdomen: soft Extremities: other: (edema to BLE) - Labs Result Diagrams: 04/09/18 05:02 04/09/18 05:02 Troponin/CKMB CK-MB (CK-2) 6.2 ng/mL (0-6.6) 03/23/18 22:03 Troponin I 0.337 ng/mL (< 0.028) H* 03/24/18 03:40 - Assessment/Plan 1. Afib/AFlutter with RVR - Tachycardia with Diltiazem PO 60mg QID. On Heparin 5000 units subq BID. Increase Coreg from 3.125mg to 6.25mg BID. 2. S/p sepsis and respiratory distress/failure - stable with 3.5L NC. managed by pulmonoligst 3. NAOMI on CKD requiring dialysis - stable 4. CAD with Hx of CABG x4 in 1999 - Stress test in 07/2017 showed Abnormal wall motion and myocardial thickening. 5. HTN - stable with current medication 6. DM type 2 - managed by PCP 7. Hyperlipidemia - Start Crestor 20mg qHS from tonight (Lipitor and zocor have drug interaction with diflucan) 8. Possible aspiration - He cont. refusing PEG tube. 9. Edema 2/2 intravascular vol. depletion with third spacing - cont. to monitor MAR reviewed * Per Dr Rodas, no Ablation until the pt's condition is stable * Echo in 08/2017 (at Dr Salvador' office) showed EF 50-55%, mod-severe LAE, mod- severe TR, and mild-mod MR. * Palliative care consult Review of Systems - Review of Systems Constitutional: reports: weakness EENTM: reports: no symptoms reported Respiratory: reports: no symptoms reported Cardiac (ROS): reports: no symptoms reported ABD/GI: reports: no symptoms reported : reports: no symptoms reported Musculoskeletal: reports: no symptoms reported <Christ Salvador - Last Filed: 04/09/18 20:20> Cardiology Progress Note - Objective Vital Signs Pulse Pulse Pulse Resp BP BP BP 04/09/18 18:26 120 H 20 04/09/18 18:25 120 H 20 04/09/18 17:41 125/79 04/09/18 14:38 110 H 20 04/09/18 10:50 125 H 71 138/91 H 148/91 H 04/09/18 10:15 124 H 20 Pulse Ox Pulse Ox Pulse Ox Pulse Ox 04/09/18 18:26 96 04/09/18 18:25 96 04/09/18 17:41 04/09/18 14:38 04/09/18 10:50 100 85 L 91 L 04/09/18 10:15 99 Admit Weight 187 lb 6.287 oz Weight 201 lb 1.6 oz 04/08/18 04/09/18 04/10/18 06:59 06:59 06:59 Intake Total 1230 650 Output Total 1500 1625 Balance -270 -978 - Labs Result Diagrams: 04/09/18 05:02 04/09/18 05:02 Troponin/CKMB CK-MB (CK-2) 6.2 ng/mL (0-6.6) 03/23/18 22:03 Troponin I 0.337 ng/mL (< 0.028) H* 03/24/18 03:40
[2018-04-09] MEDS: Carvedilol 6.25 MG TAB PO SCH (17:41)
[2018-04-09] MEDS: Rosuvastatin 20 MG TAB PO SCH (22:48)
[2018-04-09] MEDS: Amoxicillin/Potassium Clav 875 MG TAB PO SCH (22:48)
[2018-04-10 06:53] LABS: Anion Gap 11 mmol/L (10-20); BUN (Urea Nitrogen) 47 mg/dL (8.4-25.7); Calc. Creatinine Clearance 53 mL/min (70-130); Calcium 8.2 mg/dL (7.8-10.44); Carbon Dioxide 25 mmol/L (23-31); Chloride 108 mmol/L (98-107); Estimated GFR-MDRD 50; Glucose 120 mg/dL (83-110); Potassium 4.1 mmol/L (3.5-5.1); Sodium 140 mmol/L (136-145)
[2018-04-10] MEDS: Amoxicillin/Potassium Clav 875 MG TAB PO SCH ×2 (08:22→22:20)
[2018-04-10] MEDS: Fluconazole 100 MG TAB PO SCH (08:22)
[2018-04-10] MEDS: Heparin 5,000 UNITS/ML VIAL SC SCH ×2 (08:23→22:21)
[2018-04-10] MEDS: Famotidine 20 MG TAB PO SCH (08:23)
[2018-04-10] MEDS: NPH, Human Insulin Isophane 300 UNIT/3 ML VIAL SC SCH ×2 (08:24→22:27)
[2018-04-10] MEDS: Carvedilol 6.25 MG TAB PO SCH ×2 (08:24→16:23)
[2018-04-10 08:28] LABS: Mean Corpuscular HGB CONC 31.5 g/dL (32.0-36.0); Mean Corpuscular Hemoglobin 27.6 pg (27.0-31.0); Mean Corpuscular Volume 87.6 fL (78.0-98.0); Mean Platelet Volume 9.1 fL (7.4-10.4); Platelet Count 134 thou/uL (130-400); Red Blood Cell (RBC) Count 3.99 mill/uL (4.70-6.10); White Blood Cell (WBC) Count 11.8 thou/uL (4.8-10.8)
[2018-04-10 08:48] LABS: Band 3 % (5-11); Eosinophils 3 % (0-10); Lymphocytes 12 % (21-51); MDiff Complete? YES; Monocytes 8 % (0-10); Neutrophil 74 % (42-75); PLT Morphology Comment Appears Adequate; Polychromasia SLIGHT = 2-3 cells (100X) (0-2/hpf)
--- NOTE | 2018-04-10 09:04 | PDOC.CTH ---
<Sravanthi Valdez - Last Filed: 04/10/18 08:59> Cardiology Progress Note - Subjective The pt seen and examined. No overnight events. No cardiac complaints. His confusion is slightly worsen than yesterday. - Objective Vital Signs Temp Pulse Resp BP BP Pulse Ox 04/10/18 08:24 140/80 04/10/18 08:01 97.3 F L 16 140/70 100 04/10/18 07:00 123 H 123 H 99 04/10/18 06:56 99 04/10/18 06:54 123 H 20 100 04/10/18 02:44 98 04/09/18 21:01 97.6 F 101 H 22 H 121/75 91 L Admit Weight 187 lb 6.287 oz Weight 203 lb 0.732 oz 04/09/18 04/10/18 04/11/18 06:59 06:59 06:59 Intake Total 650 Output Total 1625 Balance -975 - Physical Examination General/Neuro: other: (oriented to self and place, but not situation) Lungs: other: (diminished at bases; ) Heart: other: (irregular) Abdomen: soft Extremities: other: (edema to ABD and scrotal swelling) - Labs Result Diagrams: 04/10/18 06:35 04/10/18 06:35 Troponin/CKMB CK-MB (CK-2) 6.2 ng/mL (0-6.6) 03/23/18 22:03 Troponin I 0.337 ng/mL (< 0.028) H* 03/24/18 03:40 - Assessment/Plan 1. Afib/AFlutter with RVR - HTachycardia with Diltiazem PO 60 QID and Coreg 6.25mg BID. Increase Diltiazem to 90mg QID. Stop Heparin 5000 units subq BID and change to ASA 81mg qd due to high risk of fall 2/2 confusion (The pt still requires a sitter at bedside). 2. S/p sepsis and respiratory distress/failure - stable with 3.5L NC. managed by pulmonoligst 3. NAOMI on CKD requiring dialysis - stable 4. CAD with Hx of CABG x4 in 1999 - Stress test in 07/2017 showed Abnormal wall motion and myocardial thickening. 5. HTN - stable with current medication 6. DM type 2 - managed by PCP 7. Hyperlipidemia - on Crestor 20mg qHS (Lipitor and zocor have drug interaction with diflucan) 8. Possible aspiration - He cont. refusing PEG tube. 9. Edema 2/2 intravascular vol. depletion with third spacing - cont. to monitor MAR reviewed * Per Dr Rodas, no Ablation until the pt's condition is stable * Echo in 08/2017 (at Dr Salvador' office) showed EF 50-55%, mod-severe LAE, mod- severe TR, and mild-mod MR. * From Cardiac standpoint, the pt is stable to tx to snf. The pt will f/u with Dr Salvador' office within 1 month. Review of Systems - Review of Systems Constitutional: reports: no symptoms reported EENTM: reports: no symptoms reported Respiratory: reports: no symptoms reported Cardiac (ROS): reports: no symptoms reported ABD/GI: reports: no symptoms reported : reports: no symptoms reported <Christ Salvador - Last Filed: 04/10/18 10:21> Cardiology Progress Note - Objective Vital Signs Temp Pulse Resp BP BP Pulse Ox 04/10/18 09:54 124 H 20 98 04/10/18 08:24 140/80 04/10/18 08:01 97.3 F L 16 140/70 100 04/10/18 08:00 97.3 F L 123 H 16 92 L 04/10/18 07:00 123 H 123 H 99 04/10/18 06:56 99 04/10/18 06:54 123 H 20 100 04/10/18 02:44 98 Admit Weight 187 lb 6.287 oz Weight 203 lb 0.732 oz 04/09/18 04/10/18 04/11/18 06:59 06:59 06:59 Intake Total 650 Output Total 1625 Balance -975 - Labs Result Diagrams: 04/10/18 06:35 04/10/18 06:35 Troponin/CKMB CK-MB (CK-2) 6.2 ng/mL (0-6.6) 03/23/18 22:03 Troponin I 0.337 ng/mL (< 0.028) H* 03/24/18 03:40 - Assessment/Plan Pt. seen and eval. by me. He is fatigued. hx. of depression. Some suicidal ideation per staff, sitter at bedside. Still significant edema. renal function impaired and the creat. is likely decreased due to dilution. Still in Afib with RVR, increased diltiazem. He should be able to go to rehab or SNU in the next day if HR controlled. ( the family doies not want DNR at this time per my understanding or at least they do not want Hospice at this time. I agree with the A/P by the WOUND/OSTOMY CLINICAL NURSE SPECIALIST. otherwise.
[2018-04-10] MEDS ORDERED: Furosemide 80 MG TAB PO SCH (09:15)
--- NOTE | 2018-04-10 10:27 | PDOC.PN ---
- Subjective Encounter Start Date: 04/10/18 Encounter Start Time: 08:30 pt has lot edema, he is in RVR, has cough, overall more alert than before, daughter wanted to go to SNU, does not want hospice yet - Objective Resuscitation Status: Resuscitation Status DNR:Do Not Resuscitate MAR Reviewed: Yes Vital Signs & Weight: Vital Signs (12 hours) Temp Pulse Resp BP BP Pulse Ox 04/10/18 09:54 124 H 20 98 04/10/18 08:24 140/80 04/10/18 08:01 97.3 F L 16 140/70 100 04/10/18 08:00 97.3 F L 123 H 16 92 L 04/10/18 07:00 123 H 123 H 99 04/10/18 06:56 99 04/10/18 06:54 123 H 20 100 04/10/18 02:44 98 Weight Admit Weight 187 lb 6.287 oz Weight 203 lb 0.732 oz Most Recent Monitor Data Heart Rate from ECG 93 NIBP 136/72 NIBP BP-Mean 105 Respiration from ECG 13 SpO2 100 I&O: 04/09/18 04/10/18 04/11/18 06:59 06:59 06:59 Intake Total 650 Output Total 1625 Balance -975 Result Diagrams: 04/10/18 06:35 04/10/18 06:35 Additional Labs: Accuchecks 04/10/18 04/09/18 04/09/18 06:39 20:58 16:18 POC Glucose 121 H 131 H 114 H 04/09/18 11:24 POC Glucose 170 H Phys Exam - Physical Examination Constitutional: NAD HEENT: PERRLA, moist MMs, sclera anicteric Neck: no JVD, supple Respiratory: no wheezing, no rhonchi redueced air entry Cardiovascular: irregular Gastrointestinal: soft, non-tender, no distention, positive bowel sounds Musculoskeletal: pulses present, edema present Neurological: non-focal, normal sensation Lymphatic: no nodes Psychiatric: normal affect Skin: no rash, normal turgor Dx/Plan (1) Acute respiratory failure with hypoxia Code(s): J96.01 - ACUTE RESPIRATORY FAILURE WITH HYPOXIA Status: Resolved (2) Pneumonia Code(s): J18.9 - PNEUMONIA, UNSPECIFIED ORGANISM Status: Acute Qualifiers: Pneumonia type: aspiration pneumonia (3) Acute worsening of stage 3 chronic kidney disease Code(s): N18.3 - CHRONIC KIDNEY DISEASE, STAGE 3 (MODERATE) Status: Acute (4) Atrial fibrillation with RVR Code(s): I48.91 - UNSPECIFIED ATRIAL FIBRILLATION Status: Acute Comment: (5) COPD exacerbation Code(s): J44.1 - CHRONIC OBSTRUCTIVE PULMONARY DISEASE W (ACUTE) EXACERBATION Status: Acute (6) Demand ischemia of myocardium Code(s): I24.8 - OTHER FORMS OF ACUTE ISCHEMIC HEART DISEASE Status: Acute (7) Sepsis with acute organ dysfunction Code(s): A41.9 - SEPSIS, UNSPECIFIED ORGANISM; R65.20 - SEVERE SEPSIS WITHOUT SEPTIC SHOCK Status: Acute (8) Thrombocytopenia Code(s): D69.6 - THROMBOCYTOPENIA, UNSPECIFIED Status: Acute (9) Anxiety and depression Code(s): F41.9 - ANXIETY DISORDER, UNSPECIFIED; F32.9 - MAJOR DEPRESSIVE DISORDER, SINGLE EPISODE, UNSPECIFIED Status: Chronic (10) CAD (coronary artery disease) Code(s): I25.10 - ATHSCL HEART DISEASE OF [place] CORONARY ARTERY W/O ANG PCTRS Status: Chronic (11) DJD (degenerative joint disease) Code(s): M19.90 - UNSPECIFIED OSTEOARTHRITIS, UNSPECIFIED SITE Status: Chronic Comment: stable (12) DM2 (diabetes mellitus, type 2) Status: Chronic Comment: (13) Dyslipidemia Code(s): E78.5 - HYPERLIPIDEMIA, UNSPECIFIED Status: Chronic Comment: (14) GERD (gastroesophageal reflux disease) Code(s): K21.9 - GASTRO-ESOPHAGEAL REFLUX DISEASE WITHOUT ESOPHAGITIS Status: Chronic Comment: stable (15) HTN (hypertension) Code(s): I10 - ESSENTIAL (PRIMARY) HYPERTENSION Status: Chronic Comment: (16) PVD (peripheral vascular disease) Code(s): I73.9 - PERIPHERAL VASCULAR DISEASE, UNSPECIFIED Status: Chronic Comment: (17) Difficulty clearing secretions Code(s): [id number] - Status: Acute - Plan cont current plan of care, thapa catheter, continue antibiotics, PT/OT, manager social, respiratory therapy * will DC dialysis catheter as he does not need any more HD * i spoke with nephrology * I spoke with cardiology * will increase cardizem 90 mg achs for rate control * will add lasix 80 mg iv bid for edema * for SNU he is not ready for discharge given high risk of bounce back * medication reviewed as below * symptomatic treatment. * thapa care Review of Systems - Review of Systems Constitutional: weakness, malaise. negative: fever, chills, sweats, other ENT: negative: Ear Pain, Ear Discharge, Nose Pain, Nose Discharge, Nose Congestion, Mouth Pain, Mouth Swelling, Throat Pain, Throat Swelling, Other Respiratory: Cough, Shortness of Breath. negative: Dry, Hemoptysis, SOB with Excertion, Pleuritic Pain, Sputum, Wheezing Cardiovascular: negative: chest pain, palpitations, orthopnea, paroxysmal nocturnal dyspnea, edema, light headedness, other Gastrointestinal: negative: Nausea, Vomiting, Abdominal Pain, Diarrhea, Constipation, Melena, Hematochezia, Other Genitourinary: negative: Dysuria, Frequency, Incontinence, Hematuria, Retention , Other Musculoskeletal: negative: Neck Pain, Shoulder Pain, Arm Pain, Back Pain, Hand Pain, Leg Pain, Foot Pain, Other Skin: negative: Rash, Lesions, Enrique, Bruising, Other - Medications/Allergies Allergies/Adverse Reactions: Allergies Allergy/AdvReac Type Severity Reaction Status Date / Time No Known Allergies Allergy Verified 03/24/18 01:53 Medications: Current Medications Acetaminophen (Tylenol) 650 mg PO Q4H PRN PRN Reason: Headache/Fever or Pain Al Hydroxide/Mg Hydroxide (Maalox) 15 ml PO Q4H PRN PRN Reason: Heartburn or Indigestion Albuterol/Ipratropium (Duoneb) 3 ml NEB [id number] SCH Last Admin: 04/10/18 09:54 Dose: 3 ml Amoxicillin/Clavulanate Potassium (Augmentin) 875 mg PO Q12HR [facility] Last Admin: 04/10/18 08:22 Dose: 875 mg Artificial Tears (Tears Naturale) 0 drop EA EYE PRN PRN PRN Reason: Dry Eyes Bisacodyl (Dulcolax) 10 mg [place] DAILYPRN PRN PRN Reason: Constipation Last Admin: 03/30/18 16:42 Dose: 10 mg Carvedilol (Coreg) 6.25 mg PO BID-[facility] Last Admin: 04/10/18 08:24 Dose: 6.25 mg Dextrose/Water (Dextrose 50%) 25 gm SLOW IVP PRN PRN PRN Reason: Hypoglycemia Last Admin: 04/05/18 16:46 Dose: 12.5 gm Diltiazem HCl (Cardizem) 90 mg PO ACHS [facility] Famotidine (Pepcid) 20 mg PO DAILY [facility] Last Admin: 04/10/18 08:23 Dose: 20 mg Fluconazole (Diflucan) 200 mg PO DAILY [facility] Last Admin: 04/10/18 08:22 Dose: 200 mg Furosemide (Lasix) 80 mg SLOW IVP 0600,1400 [facility] Glucagon (Glucagon) 1 mg IM PRN PRN PRN Reason: Hypoglycemia Guaifenesin (Robitussin Sf) 200 mg PO Q4H PRN PRN Reason: Cough Heparin Sodium (Porcine) (Heparin) 5,000 units SC BID [facility] Last Admin: 04/10/18 08:23 Dose: 5,000 units Hydralazine HCl (Apresoline) 10 mg SLOW IVP Q4H PRN PRN Reason: Systolic BP > 180 Dextrose/Water (D5w) 1,000 mls @ 0 mls/hr IV .Q0M PRN; As Directed PRN Reason: Hypoglycemia Diltiazem HCl 125 mg/Miscellaneous Medication 1 each/ Sodium Chloride 125 mls @ 10 mls/hr IVPB INF [facility] PRN Reason: Protocol Last Admin: 04/08/18 01:26 Dose: 125 mls Insulin Human Lispro (Humalog) 0 units SC .AGGRESSIVE SLIDING PRN PRN Reason: Aggressive Correctional Scale Last Admin: 04/09/18 12:02 Dose: 3 unit Insulin Human NPH (Humulin N) 20 unit SC Q12HR [facility] Last Admin: 04/10/18 08:24 Dose: 20 unit Lactulose (Lactulose) 20 gm PO DAILY [facility] Last Admin: 04/10/18 08:22 Dose: 20 gm Loperamide HCl (Imodium) 2 mg PO PRN PRN PRN Reason: Diarrhea/Loose Stools Loratadine (Claritin) 10 mg PO DAILYPRN PRN PRN Reason: Sinus Symptoms Mineral Oil/White Petrolatum (Eucerin Cream) 0 gm TOP BIDPRN PRN PRN Reason: Dry Skin Ondansetron HCl (Zofran Odt) 4 mg PO Q6H PRN PRN Reason: Nausea/Vomiting Ondansetron HCl (Zofran) 4 mg IVP Q6H PRN PRN Reason: Nausea/Vomiting Phenol (Chloraseptic [place] 180 Ml Bot) 0 ml PO PRN PRN PRN Reason: Sore Throat Rosuvastatin Calcium (Crestor) 20 mg PO HS [facility] Last Admin: 04/09/18 22:48 Dose: 20 mg Scopolamine (Transderm Scop) 1.5 mg TD Q3D [facility] Last Admin: 04/09/18 12:00 Dose: 1.5 mg Senna (Senokot) 2 tab PO HSPRN PRN PRN Reason: Constipation Sodium Chloride (Flush - Normal Saline) 10 ml IVF Q12HR [facility] Last Admin: 04/10/18 08:24 Dose: 10 ml Sodium Chloride (Flush - Normal Saline) 10 ml IVF PRN PRN PRN Reason: Saline Flush Last Admin: 04/03/18 03:03 Dose: 10 ml Sodium Chloride ([place] Nasal [place] 0.65%) 0 ml EA NARE QIDPRN PRN PRN Reason: Nasal Congestion
[2018-04-10] MEDS: Furosemide 100 MG/10 ML VIAL SLOW IVP SCH (12:57)
[2018-04-10] MEDS: Rosuvastatin 20 MG TAB PO SCH (22:20)
[2018-04-11] MEDS: Furosemide 100 MG/10 ML VIAL SLOW IVP SCH (05:49)
[2018-04-11 06:39] LABS: Hemoglobin 10.2 g/dL (14.0-18.0); Mean Corpuscular HGB CONC 32.1 g/dL (32.0-36.0); Mean Corpuscular Hemoglobin 27.9 pg (27.0-31.0); Mean Corpuscular Volume 87.2 fL (78.0-98.0); Platelet Count 137 thou/uL (130-400); RBC Distribution Width 17.1 % (11.5-14.5); Red Blood Cell (RBC) Count 3.66 mill/uL (4.70-6.10)
[2018-04-11 06:40] LABS: Anion Gap 10 mmol/L (10-20); BUN (Urea Nitrogen) 47 mg/dL (8.4-25.7); Calc. Creatinine Clearance 50 mL/min (70-130); Carbon Dioxide 28 mmol/L (23-31); Chloride 107 mmol/L (98-107); Estimated GFR-MDRD 46; Glucose 92 mg/dL (83-110); Potassium 3.5 mmol/L (3.5-5.1); Sodium 141 mmol/L (136-145)
[2018-04-11 07:36] LABS: Eosinophils 1 % (0-10); Lymphocytes 9 % (21-51); MDiff Complete? YES; Monocytes 8 % (0-10); Neutrophil 81 % (42-75); RBC Morphology Normal
[2018-04-11] MEDS: Carvedilol 6.25 MG TAB PO SCH (08:12)
[2018-04-11] MEDS: Amoxicillin/Potassium Clav 875 MG TAB PO SCH (08:12)
[2018-04-11] MEDS: Heparin 5,000 UNITS/ML VIAL SC SCH (08:13)
[2018-04-11] MEDS: Famotidine 20 MG TAB PO SCH (08:13)
[2018-04-11] MEDS: Fluconazole 100 MG TAB PO SCH (08:13)
[2018-04-11] MEDS: NPH, Human Insulin Isophane 300 UNIT/3 ML VIAL SC SCH (08:14)
--- NOTE | 2018-04-11 09:34 | PDOC.CTH ---
Cardiology Progress Note - Subjective The pt seen and examined. No overnight events. No cardiac complaints. - Objective Vital Signs Temp Pulse Resp BP BP Pulse Ox 04/11/18 08:12 128/75 04/11/18 07:23 97.6 F 91 16 128/75 100 04/11/18 06:47 88 18 100 Admit Weight 187 lb 6.287 oz Weight 203 lb 11.314 oz 04/10/18 04/11/18 04/12/18 06:59 06:59 06:59 Output Total 1400 Balance -1400 - Physical Examination Lungs: CTA Heart: other: (irregular) Abdomen: soft Extremities: other: (ABD, scrotum, and BLE) - Labs Result Diagrams: 04/11/18 06:23 04/11/18 06:23 Troponin/CKMB CK-MB (CK-2) 6.2 ng/mL (0-6.6) 03/23/18 22:03 Troponin I 0.337 ng/mL (< 0.028) H* 03/24/18 03:40 - Assessment/Plan 1. Afib/AFlutter with RVR - HR has been < 100 with Diltiazem PO 90 QID and Coreg 6.25mg BID. On ASA 81mg qd due to high risk of fall 2/2 confusion (The pt still requires a sitter at bedside). 2. S/p sepsis and respiratory distress/failure - stable with 2L NC. managed by pulmonoligst 3. NAOMI on CKD requiring dialysis - worsening 4. CAD with Hx of CABG x4 in 1999 - Stress test in 07/2017 showed Abnormal wall motion and myocardial thickening. 5. HTN - stable with current medication 6. DM type 2 - managed by PCP 7. Hyperlipidemia - on Crestor 20mg qHS (Lipitor and zocor have drug interaction with diflucan) 8. Possible aspiration - He cont. refusing PEG tube. 9. Edema 2/2 intravascular vol. depletion with third spacing - cont. to monitor 10. Hx. of depression - MAR reviewed Review of Systems - Review of Systems Constitutional: reports: weakness EENTM: reports: no symptoms reported Respiratory: reports: no symptoms reported ABD/GI: reports: no symptoms reported
--- NOTE | 2018-04-11 09:38 | PDOC.PN ---
- Subjective Encounter Start Date: 04/11/18 Encounter Start Time: 08:00 Patient seen and examined. No new complaints. No overnight events - Objective Resuscitation Status: Resuscitation Status DNR:Do Not Resuscitate MAR Reviewed: Yes Vital Signs & Weight: Vital Signs (12 hours) Temp Pulse Resp BP BP Pulse Ox 04/11/18 08:12 128/75 04/11/18 07:23 97.6 F 91 16 128/75 100 04/11/18 06:47 88 18 100 Weight Admit Weight 187 lb 6.287 oz Weight 203 lb 11.314 oz Most Recent Monitor Data Heart Rate from ECG 93 NIBP 136/72 NIBP BP-Mean 105 Respiration from ECG 13 SpO2 100 I&O: 04/10/18 04/11/18 04/12/18 06:59 06:59 06:59 Output Total 1400 Balance -1400 Result Diagrams: 04/11/18 06:23 04/11/18 06:23 Additional Labs: Accuchecks 04/11/18 04/10/18 04/10/18 04:39 20:45 16:56 POC Glucose 118 H 104 106 04/10/18 10:59 POC Glucose 127 H Phys Exam - Physical Examination Constitutional: NAD HEENT: PERRLA, moist MMs, sclera anicteric Neck: no JVD, supple Respiratory: no wheezing, no rhonchi Cardiovascular: no significant murmur, irregular Gastrointestinal: soft, non-tender, no distention, positive bowel sounds scrotal edema Musculoskeletal: no edema, pulses present Neurological: non-focal, normal sensation, moves all 4 limbs Lymphatic: no nodes Psychiatric: normal affect, A&O x 3 Skin: no rash, normal turgor Dx/Plan (1) Acute respiratory failure with hypoxia Code(s): J96.01 - ACUTE RESPIRATORY FAILURE WITH HYPOXIA Status: Resolved (2) Pneumonia Code(s): J18.9 - PNEUMONIA, UNSPECIFIED ORGANISM Status: Acute Qualifiers: Pneumonia type: aspiration pneumonia (3) Acute worsening of stage 3 chronic kidney disease Code(s): N18.3 - CHRONIC KIDNEY DISEASE, STAGE 3 (MODERATE) Status: Acute (4) Atrial fibrillation with RVR Code(s): I48.91 - UNSPECIFIED ATRIAL FIBRILLATION Status: Acute Comment: (5) COPD exacerbation Code(s): J44.1 - CHRONIC OBSTRUCTIVE PULMONARY DISEASE W (ACUTE) EXACERBATION Status: Acute (6) Demand ischemia of myocardium Code(s): I24.8 - OTHER FORMS OF ACUTE ISCHEMIC HEART DISEASE Status: Acute (7) Sepsis with acute organ dysfunction Code(s): A41.9 - SEPSIS, UNSPECIFIED ORGANISM; R65.20 - SEVERE SEPSIS WITHOUT SEPTIC SHOCK Status: Acute (8) Thrombocytopenia Code(s): D69.6 - THROMBOCYTOPENIA, UNSPECIFIED Status: Acute (9) Anxiety and depression Code(s): F41.9 - ANXIETY DISORDER, UNSPECIFIED; F32.9 - MAJOR DEPRESSIVE DISORDER, SINGLE EPISODE, UNSPECIFIED Status: Chronic (10) CAD (coronary artery disease) Code(s): I25.10 - ATHSCL HEART DISEASE OF [place] CORONARY ARTERY W/O ANG PCTRS Status: Chronic (11) DJD (degenerative joint disease) Code(s): M19.90 - UNSPECIFIED OSTEOARTHRITIS, UNSPECIFIED SITE Status: Chronic Comment: stable (12) DM2 (diabetes mellitus, type 2) Status: Chronic Comment: (13) Dyslipidemia Code(s): E78.5 - HYPERLIPIDEMIA, UNSPECIFIED Status: Chronic Comment: (14) GERD (gastroesophageal reflux disease) Code(s): K21.9 - GASTRO-ESOPHAGEAL REFLUX DISEASE WITHOUT ESOPHAGITIS Status: Chronic Comment: stable (15) HTN (hypertension) Code(s): I10 - ESSENTIAL (PRIMARY) HYPERTENSION Status: Chronic Comment: (16) PVD (peripheral vascular disease) Code(s): I73.9 - PERIPHERAL VASCULAR DISEASE, UNSPECIFIED Status: Chronic Comment: (17) Difficulty clearing secretions Code(s): [id number] - Status: Acute - Plan cont current plan of care, continue antibiotics, PT/OT, vp digital marketing social media and crm * medication reviewed as below * symptomatic treatment * medically stable for discharge * discharge medication reconciliation done. * see discharge summery for details. Review of Systems - Review of Systems Eyes: negative: Pain, Vision Change, Conjunctivae Inflammation, Eyelid Inflammation, Redness, Other ENT: negative: Ear Pain, Ear Discharge, Nose Pain, Nose Discharge, Nose Congestion, Mouth Pain, Mouth Swelling, Throat Pain, Throat Swelling, Other Respiratory: negative: Cough, Dry, Shortness of Breath, Hemoptysis, SOB with Excertion, Pleuritic Pain, Sputum, Wheezing Cardiovascular: negative: chest pain, palpitations, orthopnea, paroxysmal nocturnal dyspnea, edema, light headedness, other Gastrointestinal: negative: Nausea, Vomiting, Abdominal Pain, Diarrhea, Constipation, Melena, Hematochezia, Other Genitourinary: negative: Dysuria, Frequency, Incontinence, Hematuria, Retention , Other Musculoskeletal: negative: Neck Pain, Shoulder Pain, Arm Pain, Back Pain, Hand Pain, Leg Pain, Foot Pain, Other Skin: negative: Rash, Lesions, Enrique, Bruising, Other - Medications/Allergies Allergies/Adverse Reactions: Allergies Allergy/AdvReac Type Severity Reaction Status Date / Time No Known Allergies Allergy Verified 03/24/18 01:53 Medications: Current Medications Acetaminophen (Tylenol) 650 mg PO Q4H PRN PRN Reason: Headache/Fever or Pain Last Admin: 04/10/18 13:44 Dose: 650 mg Al Hydroxide/Mg Hydroxide (Maalox) 15 ml PO Q4H PRN PRN Reason: Heartburn or Indigestion Albuterol/Ipratropium (Duoneb) 3 ml NEB [id number] SCH Last Admin: 04/11/18 06:47 Dose: 3 ml Amoxicillin/Clavulanate Potassium (Augmentin) 875 mg PO Q12HR [facility] Last Admin: 04/11/18 08:12 Dose: 875 mg Artificial Tears (Tears Naturale) 0 drop EA EYE PRN PRN PRN Reason: Dry Eyes Bisacodyl (Dulcolax) 10 mg OR DAILYPRN PRN PRN Reason: Constipation Last Admin: 03/30/18 16:42 Dose: 10 mg Carvedilol (Coreg) 6.25 mg PO BID-WM [facility] Last Admin: 04/11/18 08:12 Dose: 6.25 mg Dextrose/Water (Dextrose 50%) 25 gm SLOW IVP PRN PRN PRN Reason: Hypoglycemia Last Admin: 04/05/18 16:46 Dose: 12.5 gm Diltiazem HCl (Cardizem) 90 mg PO ACHS [facility] Last Admin: 04/11/18 08:11 Dose: 90 mg Famotidine (Pepcid) 20 mg PO DAILY [facility] Last Admin: 04/11/18 08:13 Dose: 20 mg Fluconazole (Diflucan) 200 mg PO DAILY [facility] Last Admin: 04/11/18 08:13 Dose: 200 mg Furosemide (Lasix) 80 mg SLOW IVP 0600,1400 [facility] Last Admin: 04/11/18 05:49 Dose: 80 mg Glucagon (Glucagon) 1 mg IM PRN PRN PRN Reason: Hypoglycemia Guaifenesin (Robitussin Sf) 200 mg PO Q4H PRN PRN Reason: Cough Heparin Sodium (Porcine) (Heparin) 5,000 units SC BID [facility] Last Admin: 04/11/18 08:13 Dose: 5,000 units Hydralazine HCl (Apresoline) 10 mg SLOW IVP Q4H PRN PRN Reason: Systolic BP > 180 Dextrose/Water (D5w) 1,000 mls @ 0 mls/hr IV .Q0M PRN; As Directed PRN Reason: Hypoglycemia Insulin Human Lispro (Humalog) 0 units SC .AGGRESSIVE SLIDING PRN PRN Reason: Aggressive Correctional Scale Last Admin: 04/09/18 12:02 Dose: 3 unit Insulin Human NPH (Humulin N) 20 unit SC Q12HR [facility] Last Admin: 04/11/18 08:14 Dose: 20 unit Lactulose (Lactulose) 20 gm PO DAILY [facility] Last Admin: 04/11/18 08:13 Dose: 20 gm Loperamide HCl (Imodium) 2 mg PO PRN PRN PRN Reason: Diarrhea/Loose Stools Loratadine (Claritin) 10 mg PO DAILYPRN PRN PRN Reason: Sinus Symptoms Mineral Oil/White Petrolatum (Eucerin Cream) 0 gm TOP BIDPRN PRN PRN Reason: Dry Skin Ondansetron HCl (Zofran Odt) 4 mg PO Q6H PRN PRN Reason: Nausea/Vomiting Ondansetron HCl (Zofran) 4 mg IVP Q6H PRN PRN Reason: Nausea/Vomiting Phenol (Chloraseptic [place] 180 Ml Bot) 0 ml PO PRN PRN PRN Reason: Sore Throat Rosuvastatin Calcium (Crestor) 20 mg PO HS [facility] Last Admin: 04/10/18 22:20 Dose: 20 mg Senna (Senokot) 2 tab PO HSPRN PRN PRN Reason: Constipation Sodium Chloride (Flush - Normal Saline) 10 ml IVF Q12HR [facility] Last Admin: 04/11/18 08:14 Dose: 10 ml Sodium Chloride (Flush - Normal Saline) 10 ml IVF PRN PRN PRN Reason: Saline Flush Last Admin: 04/03/18 03:03 Dose: 10 ml Sodium Chloride (Menard Nasal [place] 0.65%) 0 ml EA NARE QIDPRN PRN PRN Reason: Nasal Congestion
--- NOTE | 2018-04-11 11:02 | DIS ---
DATE OF ADMISSION: 03/23/2018 DATE OF DISCHARGE: 04/11/2018 PRIMARY CARE PHYSICIAN: Eric Lazo M.D. DISCHARGE DISPOSITION: [facility]. PRIMARY DISCHARGE DIAGNOSES: Sepsis with acute organ dysfunction, chronic obstructive pulmonary dise ase exacerbation, pneumonia aspiration/multifocal pneumonia, acute on chronic kidney failure, baselin e chronic kidney disease stage 3, atrial fibrillation with rapid ventricular response, demand ischemi a of myocardium, difficulty clearing secretions, thrombocytopenia, acute respiratory failure with hyp oxia, candiduria, suicidal ideation resolved. SECONDARY DISCHARGE DIAGNOSES: Peripheral vascular disease, hypertension, gastroesophageal reflux di sease, dyslipidemia, diabetes type 2, degenerative joint disease, coronary artery disease, anxiety an d depression, chronic obstructive pulmonary disease, paroxysmal atrial fibrillation, chronic kidney d isease stage 3. PRIMARY PROCEDURE/OPERATION: Endotracheal intubation, mechanical ventilatory support, central line p lacement, Trialysis catheter placement, Perez catheterization and central line placement. RADIOLOGICAL INVESTIGATION: Several chest x-rays when patient was intubated, marking ultrasound, abd omen x-ray. SIGNIFICANT LABORATORY DATA: WBC 9.0, hemoglobin 10.2, platelet 137. Sodium 141, potassium 3.5, BUN 47, creatinine 1.46, calcium 8.0. Urinalysis suggestive of UTI. Hepatitis index negative. Respira tory culture grew Ignacia albicans. Urine culture grew yeast. Blood culture negative. DISCHARGE MEDICATIONS: Augmentin 875 mg p.o. b.i.d. for 7 days, Diflucan 200 mg p.o. daily for 7 day s, aspirin 81 mg p.o. daily, Lipitor 40 mg p.o. at bedtime, Coreg 6.25 mg p.o. b.i.d., Plavix 75 mg p .o. daily, Cardizem 90 mg p.o. a.c. and at bedtime, Pepcid 20 mg p.o. daily, TriCor 160 mg p.o. daily , folic acid 1 mg p.o. daily, Lasix 40 mg p.o. b.i.d., gabapentin 300 mg p.o. b.i.d., Humalog insulin as per sliding scale, Lantus 5 units subcu at bedtime, DuoNeb q.6 hourly p.r.n., niacin 500 mg p.o. daily, Crestor 20 mg p.o. at bedtime, Zoloft 25 mg p.o. daily. CONTRAINDICATIONS: The patient is not a candidate for anticoagulation therapy because of fall risk a nd bleeding that is why patient is not given chronic anticoagulation therapy. He also had hematuria and it was clearing up. CODE STATUS: DNR. INPATIENT CONSULTANTS: Dr. Webb was following while in hospital. Cardiology Team was now following . Dr. Bear was consulted while in hospital. Certified Hyperbaric Technician was following while in hospital. TEST RESULTS PENDING ON DISCHARGE: None. ALLERGIES: No known drug allergy. DISCHARGE PLAN: The patient is discharged to [facility]. Over there, t michelle patient will follow up with primary care physician. After discharge, patient will follow up with Dr. Salvador, Dr. Rodsa and Dr. Bear. HOSPITAL COURSE: An 82-year-old male who was admitted on 03/23/2018. Please see Dr. Vizcarra Reggie H&P for further detail. The patient was admitted to ICU for respiratory failure with hypoxia. On admis renee, he had multifocal pneumonia. We presumed aspiration pneumonia. He was given broad spectrum an tibiotic therapy. On admission, he was having influenza B, which was treated. He also had acute respiratory failure wi hypoxia, demand ischemia of myocardium, acute on chronic kidney failure. He was meeting sepsis wi acute organ dysfunction criteria. The patient was having difficulty extubating because of retained secretion. We had discussion with t michelle family member about his goal of care and based on patient's previous living will, he did not want to be intubated and he did not want to be on PEG tube feeding. Patient was extubated successfully, but he did not have any further respiratory distress. We observe d in CCU after extubation for a day or two and subsequently we transferred him to telemetry floor. Patient was having problem with atrial fibrillation with rapid ventricular response since in ICU. He was treated with Cardizem drip and Cardizem drip continued for a long period of time. The patient had code green because of retained secretion and respiratory distress and that is why he required transfer to [facility]. Over there, we continued with Cardizem drip. We treated him with scopola mine patch. We treated him with Lasix and we continued with antibiotic therapy. Initially, patient was given broad spectrum antibiotic therapy for aspiration and multifocal pneumoni a and subsequently changed to oral antibiotic therapy by Dr. Gracia, but as patient's condition gotten worse and that is why patient was kept again on IV antibiotic therapy with Zosyn and on discharge we are changing to Augmentin. The patient also had bronchoscopy which grew Ignacia albicans and that is why Diflucan was added. The patient's urine culture also grew yeast species and that is why he was on Diflucan. Patient also had acute kidney failure, required temporary dialysis. Dr. Siegel did dialysis access. He was no longer requiring dialysis and his renal function recovered. Dialysis catheter is removed and patient is making his own urine. By the time of discharge because of fluid resuscitation while in hospital, he developed fluid overloa d status with scrotal edema and when his renal function improved, at that time, we started giving him Lasix to make him euvolemic. By the time of discharge, he only has scrotal edema, but rest is anasa rca and fluid overload is resolved. The patient is still requiring oxygen to maintain his oxygen sat uration at [facility]. They will continue to taper off oxygen as needed. He will get DuoNeb thera py as needed. Regarding atrial fibrillation, initially plan was to do ablation study, but because patient did not c linically significantly improve and that is why Dr. Rodas did not perform electrophysiologic study and patient was also not interested in going for any kind of surgical intervention and that is why we we re only controlling his rate and started Cardizem oral with 90 mg and with that his rate was under co ntrol. This patient is not a candidate for chronic anticoagulation therapy because of comorbid fall risk. Patient's family member initially decided to go to hospice, but subsequently they changed their mind and patient had improvement, and that is why they decided to go to [facility]. While in hospital, speech therapy was following for his swallowing dysfunction, but the patient did n ot wanted to go for PEG tube placement and that is why we continued with the modified, safest diet wh ile in hospital and with that he had no further problem. While in hospital, we continued to update his family member about treatment plan. The patient is seen and examined at bedside today. Plan of care discussed with the patient. Paperwo rk for discharge done. Discharge medication reconciliation done. Total time spent on discharge day more than 31 minutes.
[2018-04-11 12:00] VITALS: BP 124/80; TEMP 97.9
== END 2018-04-11 11:48 | DRG 870 ==
LOC: ERS 20:59 → ERHOLD 22:45 → CCU 03-24 01:01 → 2NO 04-02 14:01 → CCU 04-05 15:01 → IMCU/EMU 04-06 12:38 → T4-A 04-08 23:54
PROVIDERS: ADMIT Internal Medicine Infectious Disease; ATTEND Internal Medicine Infectious Disease
PROC: 0JHN3XZ Insertion of Tunneled Vascular Access Device into Right Lower Leg Subcutaneous Tissue and Fascia, Percutaneous Approach (ICD-10-PCS; 2018-03-25)
PROC: 02HV33Z Insertion of Infusion Device into Superior Vena Cava, Percutaneous Approach (ICD-10-PCS; 2018-03-25)
PROC: 0JHP3XZ Insertion of Tunneled Vascular Access Device into Left Lower Leg Subcutaneous Tissue and Fascia, Percutaneous Approach (ICD-10-PCS; principal; 2018-03-26)
PROC: 5A1955Z Respiratory Ventilation, Greater than 96 Consecutive Hours (ICD-10-PCS; 2018-03-26)
PROC: 02HV33Z Insertion of Infusion Device into Superior Vena Cava, Percutaneous Approach (ICD-10-PCS; 2018-03-26)
PROC: B518ZZA Fluoroscopy of Superior Vena Cava, Guidance (ICD-10-PCS; 2018-03-26)
PROC: 02JY3ZZ Inspection of Great Vessel, Percutaneous Approach (ICD-10-PCS; 2018-03-26)
PROC: 0BH17EZ Insertion of Endotracheal Airway into Trachea, Via Natural or Artificial Opening (ICD-10-PCS; 2018-03-26)
PROC: 0B918ZZ Drainage of Trachea, Via Natural or Artificial Opening Endoscopic (ICD-10-PCS; 2018-03-26)
PROC: 5A1D70Z Performance of Urinary Filtration, Intermittent, Less than 6 Hours Per Day (ICD-10-PCS; 2018-03-31)
DX: A41.9 Sepsis, unspecified organism (principal); J96.01 Acute respiratory failure with hypoxia; J69.0 Pneumonitis due to inhalation of food and vomit; R65.21 Severe sepsis with septic shock; I50.31 Acute diastolic (congestive) heart failure; I24.8 Other forms of acute ischemic heart disease; N17.9 Acute kidney failure, unspecified; J44.1 Chronic obstructive pulmonary disease with (acute) exacerbation; J44.0 Chronic obstructive pulmonary disease with (acute) lower respiratory infection; R45.851 Suicidal ideations; B37.89 Other sites of candidiasis; I47.1 Supraventricular tachycardia; E87.1 Hypo-osmolality and hyponatremia; E87.2 Acidosis; I48.92 Unspecified atrial flutter; I42.9 Cardiomyopathy, unspecified; I13.0 Hypertensive heart and chronic kidney disease with heart failure and stage 1 through stage 4 chronic kidney disease, or unspecified chronic kidney disease; I25.10 Atherosclerotic heart disease of native coronary artery without angina pectoris; Z95.1 Presence of aortocoronary bypass graft; E11.22 Type 2 diabetes mellitus with diabetic chronic kidney disease; Z79.4 Long term (current) use of insulin; E87.5 Hyperkalemia; N18.3 Chronic kidney disease, stage 3 (moderate); D69.6 Thrombocytopenia, unspecified; B88.8 Other specified infestations; F32.9 Major depressive disorder, single episode, unspecified; F41.9 Anxiety disorder, unspecified; I48.0 Paroxysmal atrial fibrillation; J10.1 Influenza due to other identified influenza virus with other respiratory manifestations; E11.51 Type 2 diabetes mellitus with diabetic peripheral angiopathy without gangrene; Z87.891 Personal history of nicotine dependence; E78.5 Hyperlipidemia, unspecified; K21.9 Gastro-esophageal reflux disease without esophagitis; Z98.1 Arthrodesis status; Z51.5 Encounter for palliative care; Z66 Do not resuscitate; M19.90 Unspecified osteoarthritis, unspecified site; R31.9 Hematuria, unspecified; T45.515A Adverse effect of anticoagulants, initial encounter; Z79.01 Long term (current) use of anticoagulants; D63.1 Anemia in chronic kidney disease
CPT/HCPCS: 36415; 36416; 51702; 71045; 74018; 80048; 81003; 81015; 82553; 82805; 83605; 83735; 83880; 84100; 84484; 85007; 85025; 85027; 86706; 87040; 87070; 87086; 87205; 87340; 90935; 93005; 93010; 93970; 94002; 94003; 94640; 94660; 94667; 94668; 94760; 96365; 96366; 96368; 96376; 99292; A4216; C1752; C1769; G0257; G0365; G8978-GP-CL; G8978-GP-CM; G8979-GP-CJ; G8979-GP-CK; G8996-GN-CN; G8997-GN-CK; J0131; J0456; J0670; J0692; J0696; J0744; J1450; J1630; J1642; J1644; J1650; J1815; J1940; J2185; J2250; J2543; J2704; J2920; J3010; J7050; J7070; J7506; J7620